=== PATIENT | female | born 1935 | race Caucasian/White ===

== ENCOUNTER → 2018-08-22 | Outpatient (CLI) | payer MEDICARE, OTHER ==
--- NOTE | 2018-08-22 11:23 | Diagnostic Imaging Report ---
INDICATION: Right hip pain Two views of the right hip show no fracture or dislocation. Joint spaces are well-maintained. Articular surface appears smooth. IMPRESSION: Negative right hip Dictated by: Dictated on workstation # [id number]
== END ==
LOC: RAD FS 11:07
PROVIDERS: ATTEND Emergency Medicine
DX: M16.11 Unilateral primary osteoarthritis, right hip (principal)
CPT/HCPCS: 73502

== ENCOUNTER → 2019-09-11 | Outpatient (CLI) | payer MEDICARE, OTHER ==
--- NOTE | 2019-09-11 16:59 | Diagnostic Imaging Report ---
PROCEDURE: CT right upper extremity without contrast. TECHNIQUE: Multiple contiguous axial images were obtained through the right upper extremity without the use of intravenous contrast. Sagittal and coronal reformations were then performed. Auto Exposure Controls were utilized during the CT exam to meet ALARA standards for radiation dose reduction. INDICATION: Focal lump and swelling in the right forearm. COMPARISON: None available. FINDINGS: At the site of palpable concern, there is an ovoid isodense mass located in the subcutaneous tissues measuring approximately 1.3 x 0.3 x 1.3 cm. There are some surrounding skin induration. There is no mass within the anterior or dorsal compartments of the arm by CT. No fracture or osseous erosions. Elbow and wrist are normal in appearance. IMPRESSION: 1. CT confirms the presence of a circumscribed ovoid mass/lesion contained to the subcutaneous tissue in the posterior aspect of proximal forearm. There is some surrounding skin induration. Given patient's history of fall, this most likely represents a hematoma. Therefore, continued follow-up with physical exam is suggested. If this does not resolve in the next 3-4 weeks after appropriate medical management, consider MRI of the forearm without and with IV contrast for further assessment of neoplastic potential. Dictated on workstation # [id number]
== END ==
LOC: RAD 15:55
PROVIDERS: ATTEND Emergency Medicine
DX: R22.31 Localized swelling, mass and lump, right upper limb (principal); M25.551 Pain in right hip; Z91.81 History of falling
CPT/HCPCS: 73200

== ENCOUNTER → 2019-11-03 | Outpatient (CLI) | payer MEDICARE, OTHER ==
--- NOTE | 2019-11-03 15:05 | Diagnostic Imaging Report ---
PROCEDURE: MRI lumbar spine. INDICATION: Low back pain from heavy lifting. TECHNIQUE: Multiplanar and multisequence noncontrast magnetic resonance imagine was performed of the lumbar spine. CORRELATION STUDY: None FINDINGS: 5 mm anterolisthesis of L4 on L5. Trace anterolisthesis of L5 on S1. Alignment otherwise anatomic. Lumbar vertebral body heights are maintained. Probable small hemangioma L2 level on the right. The conus appears unremarkable. L1-L2: Unremarkable. L2-L3: Unremarkable. L3-L4: Disc space height fairly well-maintained. Very minimal broad-based disc bulge slight effacement of the perineural fat. Mild ligamentum hypertrophy. However no significant high degree canal and/or foraminal narrowing. L4-L5: With the spondylolisthesis, does result in broad-based disc bulge. Ligament facet hypertrophy is present with moderate trefoil type spinal canal configuration. AP dimension of the canal is narrowed to approximately 5 mm. Prominent bilateral foraminal narrowing some flattening of the exiting nerve roots. L5-S1: Mild broad-based disc bulge. Slight asymmetric effacement left perineural fat with mild left foraminal narrowing. Right foramina is only mildly narrowed. Spinal canal is maintained. There does appear to be likely rather significant prominence of the bilateral renal pelves right significantly greater than left. Some thinning of the renal parenchyma on the right is suggested, only partially visualized. IMPRESSION: 1. At least moderate severity spinal canal and bilateral foraminal narrowing at the L4-L5 level appears to be owing to a combination of ligamentum facet hypertrophy along with degenerative disc disease broad-based disc bulge and mild spondylolisthesis of L4 on L5. 2. Bilateral foraminal narrowing left greater than right L5-S1 level. 3. There does appear to be prominent bilateral renal pelvis right significantly greater than left which may also contain some hydroureter. Correlation with this patient's renal function status is recommended. If further evaluation desired, ultrasound imaging would be initially recommended. Dictated by: Dictated on workstation # [id number]
== END ==
LOC: RAD 12:08
PROVIDERS: ATTEND Pain Medicine Interventional Pain Medicine
DX: M48.07 Spinal stenosis, lumbosacral region (principal); M51.16 Intervertebral disc disorders with radiculopathy, lumbar region; M43.16 Spondylolisthesis, lumbar region
CPT/HCPCS: 72148

== ENCOUNTER → 2020-04-14 | Outpatient (CLI) | payer MEDICARE, OTHER | LOC: LAB FS 09:56 | PROVIDERS: ATTEND Orthopaedic Surgery Orthopaedic Surgery of the Spine | DX: Z01.812 Encounter for preprocedural laboratory examination (principal); Z20.828 Contact with and (suspected) exposure to other viral communicable diseases | CPT/HCPCS: 87635 ==

== ENCOUNTER 2020-05-16 08:23 | Emergency (ER) | payer MEDICARE, OTHER ==
--- NOTE | 2020-05-16 08:44 | ED General ---
General Chief Complaint: General Problems/Pain Stated Complaint: BACK PAIN Source of Information: Patient, EMS Exam Limitations: No Limitations History of Present Illness Date Seen by Provider: May 16, 2020 Time Seen by Provider: 08:32 Initial Comments Patient is an 85-year-old female who presents to the emergency department today with a chief complaint of low back pain. Patient states that her pain started approximately 2 days ago. Patient states she had pain in the evening and when she woke up yesterday morning she could not hardly get out of bed to use the bathroom. Patient denies any falls or trauma. Patient is status post back surgery on April [address] Ac NUNEZ at [address] She is not had any complications since that time. Patient states that she has been ambulatory and moving around just fine until a couple of days ago. Patient states that she thought she might have been constipated but her last normal bowel movement was yesterday. She has been taking Dulcolax. Patient denies any urinary complaints other than the fact that she cannot get to the bathroom to urinate. No fevers, chills, cough, congestion, shortness of breath. No other complaints of illness or injury. Patient has been taking her hydrocodone 5/325 at home without any relief of symptoms. On further evaluation patient actually indicates her left hip is the source of her pain. All other review of systems reviewed and negative except as stated. Timing/Duration: 1-2 Days Severity: Severe Modifying Factors: worse with Movement Associated Systoms: Denies Symptoms Allergies and Home Medications Allergies Coded Allergies: No Known Drug Allergies (Unverified , 05/16/20) Home Medications Ondansetron 4 Mg Tab.rapdis, 4 MG PO Q8H Prescribed by: LOBO CARIAS on 05/16/20922 Oxycodone HCl/Acetaminophen 1 Each Tablet, 1 TAB PO Q6H PRN for PAIN-MODERATE Prescribed by: LOBO CARIAS on 05/16/20924 Prednisone 50 Mg Tab, 50 MG PO DAILY Prescribed by: LOBO CARIAS on 05/16/20922 Patient Home Medication List Home Medication List Reviewed: Yes Review of Systems Review of Systems Constitutional: see HPI EENTM: no symptoms reported Respiratory: no symptoms reported Cardiovascular: no symptoms reported Gastrointestinal: constipation Genitourinary: no symptoms reported Musculoskeletal: back pain, joint pain (lrft hip) Skin: no symptoms reported Psychiatric/Neurological: No Symptoms Reported All Other Systems Reviewed Negative Unless Noted: Yes Past Wxowtlj-Pvstxb-Yfvtcr Hx Patient Social History Alcohol Use: Denies Use Smoking Status: Never a Smoker 2nd Hand Smoke Exposure: No Recent Hopitalizations: No Seasonal Allergies Seasonal Allergies: No Past Medical History Surgeries: Yes (back ) Hysterectomy, Orthopedic Respiratory: No Cardiac: Yes High Cholesterol Neurological: No Genitourinary: No Gastrointestinal: Yes Gastroesophageal Reflux Musculoskeletal: Yes Osteoporosis, Arthritis Endocrine: Yes Diabetes, Non-Insulin dep HEENT: No Cancer: No Psychosocial: No Integumentary: No Blood Disorders: No Physical Exam Vital Signs Vital Signs - First Documented 05/16/20 08:36 Temp 36.9 Pulse 113 Resp 18 B/P (MAP) 188/79 (115) Pulse Ox 96 Capillary Refill : Height, Weight, BMI Height: '" Weight: lbs. oz. kg; BMI Method: General Appearance: No Apparent Distress, WD/WN Neck: Normal Inspection Respiratory: Lungs Clear, Normal Breath Sounds, No Accessory Muscle Use, No Respiratory Distress Cardiovascular: Regular Rate, Rhythm, Tachycardia Gastrointestinal: Non Tender, Soft Back: Normal Inspection, Other (Well-healed scar in the lower lumbar region. Without erythema without tenderness without swelling.; Good strength and sensation in the lower extremities however dorsiflexion is a little bit weaker 4+ out of 5 on the left foot secondary to pain. Straight leg raise is negative bilaterally -she does have pain in the left buttock with straight leg raise with both legs) Extremity: Normal Capillary Refill, Normal Inspection, No Calf Tenderness, Other (Patient has tenderness over the posterior left hip and buttock in the area of the sciatic nerve on the left, again no erythema, swelling or rashes; ) Neurologic/Psychiatric: Alert, Oriented x3, No Motor/Sensory Deficits, Normal Mood/Affect Progress/Results/Core Measures Suspected Sepsis SIRS Temperature: Pulse: Respiratory Rate: Blood Pressure / Mean: Results/Orders Lab Results Laboratory Tests Test 05/16/20 09:58 Range/Units Urine Color YELLOW Urine Clarity CLEAR Urine pH 7.0 5-9 Urine Specific [place] 1.020 1.016-1.022 Urine Protein 1+ H NEGATIVE Urine Glucose (UA) 1+ H NEGATIVE Urine Ketones 1+ H NEGATIVE Urine Nitrite NEGATIVE NEGATIVE Urine Bilirubin NEGATIVE NEGATIVE Urine Urobilinogen NORMAL < = 1.0 MG/DL Urine Leukocyte Esterase NEGATIVE NEGATIVE Urine RBC (Auto) TRACE-I NEGATIVE Urine RBC 0-2 /HPF Urine WBC NONE /HPF Urine Squamous Epithelial Cells 2-5 /HPF Urine Crystals NONE /LPF Urine Bacteria NEGATIVE /HPF Urine Casts NONE /LPF Urine Mucus NEGATIVE /LPF Urine Culture Indicated NO My Orders Orders - LOBO CARIAS MD Fentanyl Injection (Sublimaze Injection (05/16/20 08:45) Oxycodone/Apap 5/325mg Tablet (Percocet (05/16/20 08:45) Dexamethasone Injection (Decadron Injec (05/16/20 08:45) Ondansetron Oral Dissolve Tab (Zofran (05/16/20 09:16) Ua Culture If Indicated (05/16/20 09:49) Orphenadrine Inj (Ed Only) (Norflex Inje (05/16/20 10:00) Medications Given in ED Current Medications Medications Dose Ordered Sig/Nolan Route Start Time Stop Time Status Last Admin Dose Admin Dexamethasone Sodium Phosphate 4 mg ONCE ONCE IV 05/16/20 08:45 05/16/20 08:46 DC 05/16/20 08:58 4 MG Fentanyl Citrate 50 mcg ONCE ONCE IVP 05/16/20 08:45 05/16/20 08:46 DC 05/16/20 08:55 50 MCG Orphenadrine Citrate 30 mg ONCE ONCE IV 05/16/20 10:00 05/16/20 10:01 DC 05/16/20 10:12 30 MG Oxycodone/ Acetaminophen 1 tab ONCE ONCE PO 05/16/20 08:45 05/16/20 08:46 DC 05/16/20 08:56 1 TAB Vital Signs/I&O 05/16/20 08:36 Temp 36.9 Pulse 113 Resp 18 B/P (MAP) 188/79 (115) Pulse Ox 96 Capillary Refill : Progress Note : Time: 09:16 Progress Note Nurse spoke with the patient's son and he is concerned about the patient's lack of appetite postop. Patient reportedly has not been eating very much since her surgery. She also gets nauseated secondary to her pain medications which makes her not want to eat. It sounds like a vicious cycle and an adverse reaction to the hydrocodone that she has been taking at home. Since I am going to change her over to Percocet I will advised the patient to take stool softeners daily in addition to her Dulcolax. I am also going to give her a prescription for Zofran. I will have her follow-up with her primary care physician as well as Dr. NUNEZ. I am also going to put her on a short course of steroids for the sciatica in her left hip. Patient is comfortable with this plan of care. All questions are sought and answered. Patient is stable for discharge when she has achieved adequate pain relief. 1037 Reevaluated patient her heart rate is down to 97. Patient's blood pressure is 166/75. She is feeling better her tremors have resolved completely. She states she still has a little bit of discomfort in her left hip however the muscle relaxer has made her feel better. We will add this medication to her cocktail of prescriptions that I have sent to [facility] pharmacy. The patient is comfortable with the plan of discharge and ready to go home. Departure Impression Primary Impression: Sciatica of left side Disposition: 01 HOME, SELF-CARE Condition: Stable Departure-Patient Inst. Decision time for Depature: 09:18 Referrals: AC NUNEZ MD, RICKY D DO (PCP/Family) Primary Care Physician Patient Instructions: Sciatica (DC), Sciatica Exercises Add. Discharge Instructions: Take the pain medications I have prescribed you every 6-8 hours as needed for pain. This pain medication can make you sleepy as well as constipated. Please take a daily stool softener such as Colace. I have also given you a prescription for nausea medications. You can take this medication every 8 hours as needed for nausea. You will also be on steroids for the next 5 days. Take this medication once daily with food. I have also added Flexeril 5 mg tablets. You can take 1 every 8 hours as needed for muscle spasm. Please keep in mind that the combination of the pain medications and the muscle relaxer can make you sleepy. Use caution when taking these medications. Please try and keep up the good nutrition habits. Drink your "boost" daily. Please keep your follow-up appointment with Dr. NUNEZ and please call your primary care physician for further management of your hip pain. Scripts Cyclobenzaprine HCl (Cyclobenzaprine HCl) 5 Mg Tablet 5 MG PO Q8H PRN for muscle spasm, #15 TAB Prov: LOBO CARIAS MD 05/16/20 Oxycodone HCl/Acetaminophen (Percocet 5-325 mg Tablet) 1 Each Tablet 1 TAB PO Q6H PRN for PAIN-MODERATE MDD 6, #15 TAB Prov: LOBO CARIAS MD 05/16/20 Ondansetron (Ondansetron Odt) 4 Mg Tab.rapdis 4 MG PO Q8H for nausea, #20 TAB Prov: LOBO CARIAS MD 05/16/20 Prednisone (Prednisone) 50 Mg Tab 50 MG PO DAILY for 5 Days, #5 TAB Prov: LOBO CARIAS MD 05/16/20 LOBO CARIAS MD May 16, 2020 08:44
[2020-05-16] MEDS ORDERED: oxyCODONE/APAP 5/325MG (PERCOCET 5) TABLET PO ONE (08:45)
[2020-05-16] MEDS ORDERED: fentaNYL INJECTION 100 MCG/2 ML AMP IVP ONE (08:45)
[2020-05-16] MEDS ORDERED: ONDANSETRON 4 MG (ZOFRAN) ORAL DISSOLVE TAB PO STA (09:16)
[2020-05-16] MEDS ORDERED: ONDA4TAB11 PO (09:23)
[2020-05-16] MEDS ORDERED: PRD50T PO (09:23)
[2020-05-16] MEDS ORDERED: OXYC-199 PO (09:24)
[2020-05-16] MEDS ORDERED: ORPHENADRINE 60 MG/2 ML (NORFLEX) AMP (ED ONLY) IV ONE (10:00)
[2020-05-16 10:20] LABS: CLARITY,URINE CLEAR; COLOR,URINE YELLOW; GLUCOSE, URINE (UA) 1+ (NEGATIVE); PROTEIN,URINE 1+ (NEGATIVE)
[2020-05-16 10:21] LABS: BACTERIA,URINE NEGATIVE /HPF; BILIRUBIN,URINE NEGATIVE (NEGATIVE); KETONES,URINE 1+ (NEGATIVE); LEUKOCYTE ESTERASE ,URINE NEGATIVE (NEGATIVE); NITRITE,URINE NEGATIVE (NEGATIVE); RBC,URINE 0-2 /HPF
[2020-05-16] MEDS ORDERED: CYCL5TAB PO (10:39)
[2020-05-16 11:06] VITALS: BP 180/77
== END 2020-05-16 11:06 | disposition home or self-care (01) ==
LOC: EDUNIT# 08:23 → ER FS 08:24
DX: M54.42 Lumbago with sciatica, left side (principal); Z79.52 Long term (current) use of systemic steroids
CPT/HCPCS: 81000; 99283

== ENCOUNTER 2020-05-27 09:23 | Emergency (ER) | payer MEDICARE, OTHER ==
[~2020-05-27] VITALS: Ht 167.7 cm; Wt 56.2 kg
[~2020-05-27 09:23] MED LIST: CYCL5TAB PO; ONDA4TAB11 PO; OXYC-199 PO; PRD50T PO
--- NOTE | 2020-05-27 09:28 | ED Back Pain ---
General Chief Complaint: Back Problems Stated Complaint: BACK PAIN Source of Information: Patient History of Present Illness Date Seen by Provider: May 27, 2020 Time Seen by Provider: 09:28 Initial Comments 85-year-old female presents with left leg pain. Patient reports has been going on for about a week. However chart review shows that she was seen on 05/16/2020 and had been going on for a couple days at that time. Patient reports she had back surgery on 04/19/2020 and was doing well up until the pain that started on 05/14/2020 according to that note. Patient complains of some decreased appetite since the surgery along with some nausea. The nausea seems to be associated with her pain medication. She has no acute injury or changes since her previous visit. She presents today due to the pain. She denies any fevers, diarrhea, chills, cough, shortness of breath or other systemic complaints. Patient states she was seen by her primary care provider 2 days ago and given pain medication but "that it just does not help" Allergies and Home Medications Allergies Coded Allergies: No Known Drug Allergies (Unverified , 05/16/20) Home Medications Cyclobenzaprine HCl 5 Mg Tablet, 5 MG PO Q8H PRN for muscle spasm Prescribed by: LOBO CARIAS on 05/16/20 1039 Ondansetron 4 Mg Tab.rapdis, 4 MG PO Q8H Prescribed by: LOBO CARIAS on 05/16/20 09 Oxycodone HCl/Acetaminophen 1 Each Tablet, 1 TAB PO Q6H PRN for PAIN-MODERATE Prescribed by: LOBO CARIAS on 05/16/20 09 Prednisone 50 Mg Tab, 50 MG PO DAILY Prescribed by: LOBO CARIAS on 05/16/20 09 Patient Home Medication List Home Medication List Reviewed: Yes Review of Systems Constitutional: No chills, No fever Respiratory: No cough, No short of breath Cardiovascular: No chest pain, No palpitations Gastrointestinal: No abdominal pain, No diarrhea; nausea; No vomiting Musculoskeletal: see HPI Skin: no symptoms reported Psychiatric/Neurological: No Symptoms Reported Past Mclgykw-Wzgzlk-Kvmvve Hx Past Med/Social Hx: Reviewed Nursing Past Med/Soc Hx Patient Social History 2nd Hand Smoke Exposure: No Recent Hopitalizations: No Seasonal Allergies Seasonal Allergies: No Past Medical History Surgeries: Yes (back ) Hysterectomy, Orthopedic Respiratory: No Cardiac: Yes High Cholesterol Neurological: No Genitourinary: No Gastrointestinal: Yes Gastroesophageal Reflux Musculoskeletal: Yes Osteoporosis, Arthritis Endocrine: Yes Diabetes, Non-Insulin dep HEENT: No Cancer: No Psychosocial: No Integumentary: No Blood Disorders: No Physical Exam Vital Signs Vital Signs - First Documented 05/27/20 09:25 Temp 36.7 Pulse 100 Resp 18 B/P (MAP) 194/86 (122) Pulse Ox 97 O2 Delivery Room Air Capillary Refill : Height, Weight, BMI Height: '" Weight: lbs. oz. kg; BMI Method: General Appearance: No Apparent Distress Cardiovascular: Regular Rate, Rhythm, No Edema Respiratory: Lungs Clear, Normal Breath Sounds, No Accessory Muscle Use Gastrointestinal: Non Tender, Soft Back: No CVA Tenderness; No Decreased Range of Motion Extremity: Normal Capillary Refill, Other (Mild tenderness to left hip) Neurologic/Psychiatric: Alert, Oriented x3, Normal Mood/Affect, commercial artist lettering II-XII Norm as Tested Skin: Normal Color, Warm/Dry Progress/Results/Core Measures Results/Orders Lab Results Laboratory Tests Test 05/27/20 09:30 05/27/20 10:27 Range/Units White Blood Count 10.4 4.3-11.0 10^3/uL Red Blood Count 4.27 L 4.35-5.85 10^6/uL Hemoglobin 12.3 11.5-16.0 G/DL Hematocrit 38 35-52 % Mean Corpuscular Volume 89 80-99 FL Mean Corpuscular Hemoglobin 29 25-34 PG Mean Corpuscular Hemoglobin Concent 33 32-36 G/DL Red Cell Distribution Width 13.0 10.0-14.5 % Platelet Count 385 130-400 10^3/uL Mean Platelet Volume 9.2 7.4-10.4 FL Immature Granulocyte % (Auto) 1 % Neutrophils (%) (Auto) 77 H 42-75 % Lymphocytes (%) (Auto) 14 12-44 % Monocytes (%) (Auto) 8 0-12 % Eosinophils (%) (Auto) 1 0-10 % Basophils (%) (Auto) 0 0-10 % Neutrophils # (Auto) 8.0 H 1.8-7.8 X 10^3 Lymphocytes # (Auto) 1.4 1.0-4.0 X 10^3 Monocytes # (Auto) 0.8 0.0-1.0 X 10^3 Eosinophils # (Auto) 0.1 0.0-0.3 10^3/uL Basophils # (Auto) 0.0 0.0-0.1 10^3/uL Immature Granulocyte # (Auto) 0.1 0.0-0.1 10^3/uL Sodium Level 136 135-145 MMOL/L Potassium Level 4.4 3.6-5.0 MMOL/L Chloride Level 99 98-107 MMOL/L Carbon Dioxide Level 25 21-32 MMOL/L Anion Gap 12 5-14 MMOL/L Blood Urea Nitrogen 16 7-18 MG/DL Creatinine 0.74 0.60-1.30 MG/DL Estimat Glomerular Filtration Rate > 60 BUN/Creatinine Ratio 22 Glucose Level 140 H 70-105 MG/DL Calcium Level 9.2 8.5-10.1 MG/DL Corrected Calcium 9.3 8.5-10.1 MG/DL Total Bilirubin 0.4 0.1-1.0 MG/DL Aspartate Amino Transf (AST/SGOT) 16 5-34 U/L Alanine Aminotransferase (ALT/SGPT) 20 0-55 U/L Alkaline Phosphatase 92 40-136 U/L C-Reactive Protein 0.11 <0.50 MG/DL Total Protein 7.0 6.4-8.2 GM/DL Albumin 3.9 3.2-4.5 GM/DL Urine Color YELLOW Urine Clarity CLEAR Urine pH 6.5 5-9 Urine Specific [place] 1.020 1.016-1.022 Urine Protein NEGATIVE NEGATIVE Urine Glucose (UA) NEGATIVE NEGATIVE Urine Ketones NEGATIVE NEGATIVE Urine Nitrite NEGATIVE NEGATIVE Urine Bilirubin NEGATIVE NEGATIVE Urine Urobilinogen 0.2 < = 1.0 MG/DL Urine Leukocyte Esterase 1+ H NEGATIVE Urine RBC (Auto) NEGATIVE NEGATIVE Urine RBC 0-2 /HPF Urine WBC 10-25 H /HPF Urine Squamous Epithelial Cells 25-50 H /HPF Urine Crystals NONE /LPF Urine Bacteria TRACE /HPF Urine Casts NONE /LPF Urine Mucus NEGATIVE /LPF Urine Culture Indicated YES My Orders Orders - WINSTON,MANPREET L DO Cbc With Automated Diff (05/27/20 09:30) Comprehensive Metabolic Panel (05/27/20 09:30) Ua Culture If Indicated (05/27/20 09:30) Crp Fs (05/27/20 09:30) Hip 2-3 View Left (05/27/20 09:30) Ondansetron Injection (Zofran Injectio (05/27/20 09:30) Lactated Ringers (Lr 1000 Ml Iv Solution (05/27/20 09:30) Ketorolac Injection (Toradol Injection) (05/27/20 09:30) Orphenadrine Inj (Ed Only) (Norflex Inje (05/27/20 09:30) Orphenadrine Inj (Ed Only) (Norflex Inje (05/27/20 09:45) Urine Culture (05/27/20 10:27) Ketamine Syringe (Ed Only) (Ketamine Syr (05/27/20 11:00) Ns (Ivpb) (Sodium Chloride 0.9% Ivpb Bag (05/27/20 10:54) Medications Given in ED Current Medications Medications Dose Ordered Sig/Nolan Route Start Time Stop Time Status Last Admin Dose Admin Ondansetron HCl 4 mg ONCE ONCE IVP 05/27/20 09:30 05/27/20 09:33 DC 05/27/20 09:38 4 MG Orphenadrine Citrate 60 mg ONCE ONCE IV 05/27/20 09:45 05/27/20 09:46 DC 05/27/20 09:46 60 MG Vital Signs/I&O 05/27/20 09:25 Temp 36.7 Pulse 100 Resp 18 B/P (MAP) 194/86 (122) Pulse Ox 97 O2 Delivery Room Air Progress Progress Note : Time: 11:03 Progress Note Patient with no acute findings on CBC, CMP or x-ray. Patient's left hip pain has been going on for at least 2 to 3 weeks. Patient was seen by her primary care provider 2 days ago and given pain medication. Her and her son report that however it was only for 5 days. I discussed with him that the emergency room does not manage chronic pain or provide anything stronger than what was given to her by her primary care provider. She does have an appointment 3 days from now with orthopedic surgeons in [place]. I will give her ketamine infusion to help with the pain and she should continue her current pain medication as prescribed by her primary care provider. Patient stable and discharged home Diagnostic Imaging Diagonstic Imaging: Xray Plain Films/CT/US/NM/MRI: hip Comments [facility] [place], [place] NAME: SELVIN VILLAR [facility] REC#: [id number] PT STATUS: REG ER : 1935 PHYSICIAN: MANPREET WINSTON DO ADMIT DATE: 05/27/20/ER FS Draft Date of Exam:05/27/20 HIP 2-3 VIEW LEFT INDICATION: Left hip pain. History of recent back surgery. TECHNIQUE: 2 views of the left hip. CORRELATION STUDY: None FINDINGS: Mild joint space narrowing is present. The femoral head acetabular shape is otherwise maintained and unremarkable. Bony trabecular pattern is intact. IMPRESSION: 1. Negative for acute bony abnormality of the left hip. Mild degenerative change. Dictated on workstation # [id number] Dict: 05/27/20 1000 Trans: 05/27/20 1002 CV [id number] Interpreted by: DARNELL RIOS DO Electronically signed by: Reviewed: Reviewed by Me, Reviewed/Discussed Departure Impression Primary Impression: Left hip pain Disposition: 01 HOME, SELF-CARE Condition: Stable Departure-Patient Inst. Referrals: ELIU JUSTIN DO (PCP/Family) Primary Care Physician Patient Instructions: Hip Pain in Older People, MANAGING YOUR CHRONIC PAIN Add. Discharge Instructions: Keep your appointments with your primary care provider and orthopedic surgeon Emergency department focuses on treating and ruling out life-threatening diseases. Whenever possible, a diagnosis is given. However, most patients are given an impression based on their history, physical exam, and workup during your brief time in the ER. Information about probable diagnosis and other educational material has been provided. Please take the time to read and understand this information. It is very important that you follow up with a physician as discussed during the visit today. Failure to adhere to your follow-up instructions may lead to severe disability, injury, or so please make sure to keep your appointments or obtain one as requested. Please keep in mind the emergency department is not designed to your primary care or "family doctor" and nonurgent issues are best evaluated by an outpatient physician All discharge instructions reviewed with patient and/or family. Voiced understanding. MANPREET WINSTON DO May 27, 2020 09:28
[2020-05-27] MEDS ORDERED: LACTATED RINGERS 1,000 ML IV STA (09:30)
[2020-05-27] MEDS ORDERED: ONDANSETRON 4 MG/2 ML (SDV) Z0FRAN IVP ONE (09:30)
[2020-05-27] MEDS ORDERED: KETOROLAC 30 MG/ML VIAL IVP STA (09:30)
[2020-05-27] MEDS ORDERED: ORPHENADRINE 60 MG/2 ML (NORFLEX) AMP (ED ONLY) IM STA (09:30)
[2020-05-27] MEDS ORDERED: ORPHENADRINE 60 MG/2 ML (NORFLEX) AMP (ED ONLY) IV ONE (09:45)
--- NOTE | 2020-05-27 10:02 | Diagnostic Imaging Report ---
INDICATION: Left hip pain. History of recent back surgery. TECHNIQUE: 2 views of the left hip. CORRELATION STUDY: None FINDINGS: Mild joint space narrowing is present. The femoral head acetabular shape is otherwise maintained and unremarkable. Bony trabecular pattern is intact. IMPRESSION: 1. Negative for acute bony abnormality of the left hip. Mild degenerative change. Dictated by: Dictated on workstation # [id number]
[2020-05-27 10:23] LABS: WHITE BLOOD COUNT 10.4 10^3/uL (4.3-11.0)
[2020-05-27 10:24] LABS: BASOPHILS % (AUTO) 0 % (0-10); EOSINOPHILS # (AUTO) 0.1 10^3/uL (0.0-0.3); EOSINOPHILS % (AUTO) 1 % (0-10); HEMATOCRIT 38 % (35-52); HEMOGLOBIN 12.3 G/DL (11.5-16.0); LYMPHOCYTES # (AUTO) 1.4 X 10^3 (1.0-4.0); LYMPHOCYTES % (AUTO) 14 % (12-44); MEAN CORPUSCULAR HEMOGLOBIN 29 PG (25-34); MEAN CORPUSCULAR HGB CONC 33 G/DL (32-36); MEAN CORPUSCULAR VOLUME 89 FL (80-99); MEAN PLATELET VOLUME 9.2 FL (7.4-10.4); MONOCYTES # (AUTO) 0.8 X 10^3 (0.0-1.0); MONOCYTES % (AUTO) 8 % (0-12); NEUTROPHILS % (AUTO) 77 % (42-75); PLATELET COUNT 385 10^3/uL (130-400)
[2020-05-27 10:40] LABS: ALANINE AMINOTRANSFERASE 20 U/L (0-55); ALKALINE PHOSPHATASE 92 U/L (40-136); BILIRUBIN,TOTAL 0.4 MG/DL (0.1-1.0); BUN/CREATININE RATIO 22; CALCIUM 9.2 MG/DL (8.5-10.1); CARBON DIOXIDE 25 MMOL/L (21-32); CHLORIDE 99 MMOL/L (98-107); CREATININE SERUM 0.74 MG/DL (0.60-1.30); GFR ESTIMATED > 60; GLUCOSE 140 MG/DL (70-105); POTASSIUM 4.4 MMOL/L (3.6-5.0); SODIUM 136 MMOL/L (135-145)
[2020-05-27 10:41] LABS: BILIRUBIN,URINE NEGATIVE (NEGATIVE); CLARITY,URINE CLEAR; COLOR,URINE YELLOW; GLUCOSE, URINE (UA) NEGATIVE (NEGATIVE); KETONES,URINE NEGATIVE (NEGATIVE); LEUKOCYTE ESTERASE ,URINE 1+ (NEGATIVE); NITRITE,URINE NEGATIVE (NEGATIVE); PH,URINE 6.5 (5-9); PROTEIN,URINE NEGATIVE (NEGATIVE)
[2020-05-27 10:41] LABS: ALBUMIN 3.9 GM/DL (3.2-4.5)
[2020-05-27 10:42] LABS: BACTERIA,URINE TRACE /HPF; RBC,URINE 0-2 /HPF; SQUAMOUS EPITHELIAL CELL,UR 25-50 /HPF
[2020-05-27] MEDS ORDERED: NS (IVPB) 100 ML ONE (10:54)
[2020-05-27] MEDS ORDERED: KETAMINE/NaCl 50 MG/5 ML SYRINGE (ED ONLY) IV ONE (11:00)
[2020-05-27 12:00] VITALS: BP 203/83
== END 2020-05-27 12:00 | disposition home or self-care (01) ==
LOC: EDUNIT# 09:23 → ER FS 09:25
DX: M25.552 Pain in left hip (principal); Z79.52 Long term (current) use of systemic steroids
CPT/HCPCS: 36415; 73502; 80053; 81000; 85025; 86141; 87077; 87088

== ENCOUNTER → 2020-06-07 | Outpatient (CLI) | payer MEDICARE, OTHER ==
[~2020-06-07] MED LIST changes: +ACHD5005 PO; +APIX5TAB PO; +CALC1CAP20 PO; +CHOL200074 PO; +DULO30CA49 PO; +GABA-486 PO; +IBAN150T21 PO; +METF-397 PO; +NF-ESOM40C PO; +OXYC1TAB11 PO; +OXYC5TAB PO; +SIMV10TA26 PO
[2020-06-07 17:10] LABS: WHITE BLOOD COUNT 9.6 10^3/uL (4.3-11.0)
[2020-06-07 17:11] LABS: BASOPHILS % (AUTO) 0 % (0-10); EOSINOPHILS # (AUTO) 0.1 10^3/uL (0.0-0.3); EOSINOPHILS % (AUTO) 1 % (0-10); HEMATOCRIT 39 % (35-52); HEMOGLOBIN 12.3 G/DL (11.5-16.0); LYMPHOCYTES # (AUTO) 1.8 X 10^3 (1.0-4.0); LYMPHOCYTES % (AUTO) 19 % (12-44); MEAN CORPUSCULAR HEMOGLOBIN 29 PG (25-34); MEAN CORPUSCULAR HGB CONC 32 G/DL (32-36); MEAN CORPUSCULAR VOLUME 91 FL (80-99); MEAN PLATELET VOLUME 9.2 FL (7.4-10.4); MONOCYTES # (AUTO) 0.8 X 10^3 (0.0-1.0); MONOCYTES % (AUTO) 9 % (0-12); NEUTROPHILS # (AUTO) 6.7 X 10^3 (1.8-7.8); NEUTROPHILS % (AUTO) 71 % (42-75); PLATELET COUNT 295 10^3/uL (130-400)
[2020-06-07 17:28] LABS: ERYTHROCYTE SEDIMENTATION RATE 13 MM/HR (0-30)
[2020-06-07 17:29] LABS: ALANINE AMINOTRANSFERASE 28 U/L (0-55); ALBUMIN 4.2 GM/DL (3.2-4.5); ALKALINE PHOSPHATASE 80 U/L (40-136); BILIRUBIN,TOTAL 0.4 MG/DL (0.1-1.0); BUN/CREATININE RATIO 31; CALCIUM 9.6 MG/DL (8.5-10.1); CARBON DIOXIDE 26 MMOL/L (21-32); CHLORIDE 103 MMOL/L (98-107); GFR ESTIMATED > 60; GLUCOSE 138 MG/DL (70-105); POTASSIUM 4.6 MMOL/L (3.6-5.0); SODIUM 140 MMOL/L (135-145); TOTAL PROTEIN 7.3 GM/DL (6.4-8.2)
== END ==
LOC: LAB FS 16:30
PROVIDERS: ATTEND Orthopaedic Surgery Orthopaedic Surgery of the Spine
DX: Z01.812 Encounter for preprocedural laboratory examination (principal); Z20.822 Contact with and (suspected) exposure to COVID-19; Z86.718 Personal history of other venous thrombosis and embolism
CPT/HCPCS: 36415; 80053; 85025; 85610; 85652; 86141; U0002; 87635

== ENCOUNTER 2020-06-17 14:40 | Inpatient (IN) | payer MEDICARE, OTHER ==
[~2020-06-17] VITALS: Ht 165.1 cm; Wt 55.0 kg
[~2020-06-17 14:40] MED LIST changes: -OXYC1TAB11 PO
[2020-06-17] MEDS ORDERED: FLEET ENEMA ADULT 1 EA BTL PR PRN (15:15)
[2020-06-17] MEDS ORDERED: ENOXAPARIN 40 MG/0.4 ML (LOVENOX) SYR SC SCH (15:15)
[2020-06-17] MEDS ORDERED: DOCUSATE SODIUM 100 MG (COLACE) CAP PO PRN (15:15)
[2020-06-17] MEDS ORDERED: ACETAMINOPHEN 500 MG TAB (TYLENOL) PO PRN (15:15)
[2020-06-17] MEDS ORDERED: BISACODYL 10 MG SUPP (DULCOLAX) PR PRN (15:15)
[2020-06-17] MEDS ORDERED: guaiFENesin/CODEINE (ROBITUSSIN AC) 10ML UDC PO PRN (15:15)
[2020-06-17] MEDS ORDERED: IBANDRONATE SODIUM 150 MG PO SCH (15:15)
[2020-06-17] MEDS ORDERED: CALCIUM CARBONATE 500 MG (TUMS) TAB.CHEW PO PRN (15:15)
[2020-06-17] MEDS ORDERED: MELATONIN 3 MG TABLET PO PRN (15:15)
[2020-06-17] MEDS ORDERED: LACTULOSE SYRUP 10GM/15ML (ENULOSE) 30ML UDC PO PRN (15:15)
[2020-06-17] MEDS ORDERED: diphenhydrAMINE 25 MG TAB (BENADRYL) PO PRN (15:15)
[2020-06-17] MEDS ORDERED: ALPRAZolam 0.25 MG (XANAX) TAB PO PRN (15:15)
[2020-06-17] MEDS ORDERED: LOPERAMIDE 2 MG (IMODIUM) TABLET PO PRN (15:15)
[2020-06-17] MEDS ORDERED: ACETAMINOPHEN 325 MG TABLET PO PRN (15:45)
[2020-06-17] MEDS: ONDANSETRON 4 MG (ZOFRAN) ORAL DISSOLVE TAB PO PRN (15:48)
[2020-06-17] MEDS: HYDROcodone/APAP 5 MG/325 MG (LORTAB) TAB PO PRN (15:49)
--- NOTE | 2020-06-17 16:21 | Physical Therapy Evaluation ---
PT Evaluation-General Medical Diagnosis Admission Date Jun 17, 2020 at 14:40 Medical Diagnosis: L5-S1 TLIF Onset Date: Jun 13, 2020 Therapy Diagnosis Therapy Diagnosis: impaired mobility, strength, endurance Precautions Precautions/Isolations: Fall Prevention, Standard Precautions Referral Physician: Monique Lua DO Reason for Referral: Evaluation/Treatment Medical History Reviewed History: Yes Social History Home: Single Level Current Living Status: Entry Into Home: Stairs With Railing PT Steps Into Home: 5 Patient lives with her son. Prior Prior Level of Function SCALE: Activities may be completed with or without assistive devices. 4-Usqpppikkv-aqxfazz completes the activity by him/herself with no assistance from a helper. 5-Set-up or Clean-up Assistance-helper sets up or cleans up; patient completes activity. [place] assists only prior to or following the activity. 4-Supervision or Touching Assistance-helper provides verbal cues and/or touching/steadying and/or contact guard assistance as patient completes activ ity. Assistance may be provided throughout the activity or intermittently. 3-Partial/Moderate Assistance-helper does LESS THAN HALF the effort. [place] lifts, holds or supports trunk or limbs, but provides less than half the effort. 2-Substantial/Maximal Assistance-helper does MORE THAN HALF the effort. [place] lifts or holds trunk or limbs and provides more than half the effort. 2-Xjsbydana-esongi does ALL the effort. Patient does none of the effort to complete the activity. Or, the assistance of 2 or more helpers is required for the patient to complete the activity. If activity was not attempted, code reason: 7-Patient Refused. 9-Not Applicable-not attempted and the patient did not perform the activity before the current illness, exacerbation or injury. 10-Not Attempted due to Environmental Limitations-(lack of equipment, weather restraints, etc.). 88-Not Attempted due to Medical Conditions or Safety Concerns. Bed Mobility: 6 Transfers (B,C,W/C): 6 Gait: 6 Stairs: 6 Indoor Mobility (Ambulation): Independent Stairs: Independent PT Evaluation-Current Subjective Patient in family transport, agrees to PT, has 7/10 back pain. Will be co- treating with OT due to poor patient mobility, strength, endurance, severe pain with activity, coordinate UE and LE during activity, safety and reduce risk of falls Pt/Family Goals to be independent at home Objective Patient Orientation: Person, Place, Situation back brace ROM/Strength ROM Lower Extremities WNL Strength Lower Extremities LLE (hip flexion 3/5, knee flexion 4/5, knee extension 4/5, dorsiflexion 3/5), RLE (hip flexion 3/5, knee flexion 4+/5, knee extension 4+/5, dorsiflexion 4+/5) Sensory Hearing: Functional Sensation Right Lower Extremit: Intact Sensation Left Lower Extremity: Intact Transfers Roll Left & Right (QC): 4 Sit to Lying (QC): 3 Lying to Sitting/Side of Bed(Q: 3 Sit to Stand (QC): 4 Chair/Gid-rz-Gwhkx Xfer(QC): 4 Toilet Transfer (QC): 4 Car Transfer (QC): 4 Patient performs bed mobility with SBA, supine <-> sit min assist, sit <-> stand and transfers with CGA, car transfer CGA. Patient needs cues for hand placement and positioning and back precautions. Gait Mode of Locomotion: Walk Anticipated Mode of Locomotion: Walk Walk 10 feet (QC): 4 Walk 50 ft with 2 Turns(QC): 4 Walk 150 ft (QC): 4 Walking 10ft/uneven surface-QC: 4 Distance: 120'x2, 150'x2 Gait Assistive Device: FWW Comments/Gait Description Patient can ambulate 150' with a rolling walker with CGA (including 50' with at least 2 turns of 90 degrees and 10' over an uneven surface). Patient ambulates slow but steady, has a kyphotic posture. Patient has a trendelenburg gait and lacks full knee extension. Wheelchair Training Does the Pt Use a Wheelchair?: No Wheel 50 ft with 2 turns (QC): 9 Wheel 150 ft (QC): 9 Stairs #of Steps: 1 1 Step (curb) (QC): 4 4 Steps (QC): 88 12 Steps (QC): 88 Walking Assistive Device: Walker Patient can go up and down 1 step using a rolling walker with CGA, cues for foot placement Balance Sitting Static: Normal Sitting Dynamic: Normal Standing Static: Good Standing Dynamic: Good Picking up an Object (QC): 88 Treatment bathing and dressing. PT performed bed mobility and transfer training, gait training, stairs, assisted with balance and standing and transfers during bat reggie and dressing, OT performed bathing and dressing and UE positioning and safety during activity. Assessment/Needs Patient has impaired mobility, strength, endurance. She has to wear a back brace when out of bed. Patient ambulates with CGA. Patient in recliner post tx with nurse call, phone, tray, all needs met. Rehab Potential: Fair PT Short Term Goals Short Term Goals Time Frame: Jun 24, 2020 Roll Left & Right: 6 Sit to lyin Lying to sitting on side of be: 4 Sit to stand: 5 Chair/wlm-bs-efatg transfer: 5 Walk 10 feet: 5 Walk 50 feet with two turns: 5 Walk 150 feet: 5 PT Fdc Goals Fdc Goals PT Fdc Goals Time Frame: Jul 08, 2020 Roll Left & Right (QC): 6 Sit to Lying (QC): 6 Lying-Sitting on Side/Bed(QC): 6 Sit to Stand (QC): 6 Chair/Rkz-dc-Eniju Xfer(QC): 6 Toilet Transfer (QC): 6 Car Transfer (QC): 6 Does the Patient Walk: Yes Walk 10 feet (QC): 6 Walk 50ft with 2 Turns (QC): 6 Walk 150 ft (QC): 6 Walking 10ft on Uneven Surface: 6 1 Step (curb) (QC): 4 4 Steps (QC): 4 12 Steps (QC): 88 Picking up an Object (QC): 88 Wheel 50 feet with 2 turns (QC: 9 Wheel 150 feet: 9 PT Plan Problem List Problem List: Activity Tolerance, Functional Strength, Safety, Balance, Gait, Transfer, Bed Mobility, ROM Treatment/Plan Treatment Plan: Continue Plan of Care Treatment Plan: Bed Mobility, Education, Functional Activity [place], Functional Strength, Group Therapy, Gait, Safety, Therapeutic Exercise, Transfers Treatment Duration: Jul 08, 2020 Frequency: At least 5 of 7 days/Wk (IRF) Estimated Hrs Per Day: 1.5 hours per day Patient and/or Family Agrees t: Yes Safety Risks/Education Patient Education: Gait Training, Transfer Techniques, Steps, Correct Positioning, Safety Issues Teaching Recipient: Patient Teaching Methods: Demonstration, Discussion Response to Teaching: Reinforcement Needed Discharge Recommendations Plan Patient will perform bed mobility and transfer training, balance and endurance training, functional strengthening, stair training, gait training, and education, to improve functional mobility and independence at home. Therapy Discharge Recommendati: Scheduled Assistance, Home & Family Time/GCodes Time In: 1450 Time Out: 1620 Total Billed Treatment Time: 90 Total Billed Treatment 1 visit EVM 10' FA 80' PT eval from 0103-1812, co-treat from [id number]. STEVIE ESCOBAR PT Jun 17, 2020 16:21
--- NOTE | 2020-06-17 16:25 | Occupational Therapy Eval ---
OT Evaluation-General/PLF Medical Diagnosis Admission Date Jun 17, 2020 at 14:40 Medical Diagnosis: L5-S1 TLIF Onset Date: Jun 13, 2020 Therapy Diagnosis Therapy Diagnosis: Decreased ADL status; back precautions Precautions Precautions/Isolations: Fall Prevention, Standard Precautions Weight Bear Status Weight Bearing Restriction: Weight Bearing/Tolerated Referral Physician: Chanell Referral Reason: Activity Tolerance, Self Care, Evaluation/Treatment, Strengthening/ROM Medical History Pertinent Medical History: DM, OA Additional Medical History DM, DVT, HLD, osteoporosis Current History Pt underwent L4-5 lumbar fusion Apr 19, 06/13 completed L5-Si TLIF/ PSF with hardware revision to pelvis. Small acute PE both lobes with DVT in one leg. Reviewed History: Yes Social History Home: Single Level Current Living Status: Children (son, Adrien) Entry Into Home: Stairs With Railing Steps Into Home: 5 Steps Inside Home: 0 ADL-Prior Level of Function SCALE: Activities may be completed with or without assistive devices. 6-Jmbsyacpgc-kbkxfvv completes the activity by him/herself with no assistance from a helper. 5-Set-up or Clean-up Assistance-helper sets up or cleans up; patient completes activity. [place] assists only prior to or following the activity. 4-Supervision or Touching Assistance-helper provides verbal cues and/or touching/steadying and/or contact guard assistance as patient completes activity. Assistance may be provided throughout the activity or intermittently. 3-Partial/Moderate Assistance-helper does LESS THAN HALF the effort. [place] lifts, holds or supports trunk or limbs, but provides less than half the effort. 2-Substantial/Maximal Assistance-helper does MORE THAN HALF the effort. [place] lifts or holds trunk or limbs and provides more than half the effort. 6-Igpihsgdq-aioxgy does ALL the effort. Patient does none of the effort to complete the activity. Or, the assistance of 2 or more helpers is required for the patient to complete the activity. If activity was not attempted, code reason: 7-Patient Refused. 9-Not Applicable-not attempted and the patient did not perform the activity before the current illness, exacerbation or injury. 10-Not Attempted due to Environmental Limitations-(lack of equipment, weather restraints, etc.). 88-Not Attempted due to Medical Conditions or Safety Concerns. ADL PLOF Comments Pt states IND with ADLs PLOF without AD. Post L4-5 lumbar fusion, pt ambulated with rollator and continued IND with ADLs. Pt's son completes housework and cooking/ driving. Self Care: Independent Functional Cognition: Independent DME/Equipment: Bath Bench, Shower DME/Equipment Comments rollator, tub bench, walk in shower. Unfamiliar with hip kit, does not own at home. Occupation: retired. Drive Self: No OT Current Status Subjective Pt brought to [facility] by private vehicle. Pt completes car transfer with CGA. AxO, states 10/29 pain. Nursing notified of this. [id number] OT evaluation [id number] PT evaluation [id number] (80) OT/ PT co-treat with OT addressing UE strength, ADL status, back precautions, AE and PT addressing LE strength, ambulation, balance, fx transfers. Mental Status/Objective Patient Orientation: Person, Place, Situation, Normal For Age Current Glasses/Contacts: Yes Hearing Aids: No Dentures/Partials: Yes Hand Dominance: Right Upper Extremity ROM WLF BUE Upper Extremity Coordination WLF BUE Upper Extremity Sensation WLF BUE Upper Extremity Strength DNT per back precautions. No lift 5-15 lbs per pt (unsure of lifting restriction #) Edema: none noted. ADL-Treatment Eating (QC): 6 Oral Hygiene (QC): 6 Shower/Bathe Self (QC): 3 (SBA all UB tasks. CGA during bottom/ norma care. Pt requires assist with BLE due to precautions. ) Upper Body Dressing (QC): 5 (s/u gown and back brace donning.) Lower Body Dressing (QC): 2 (max A at this time due to precautions, requires maximal cues for back precautions during activity, desires to bend and is corrected. ) On/Off Footwear (QC): 2 (max A- educated on sock aide and dressing stick.) Toileting Hygiene (QC): 4 (CGA in stance during shower. ) Other Treatments Pt completes car transfer CGA to w/c. Educated pt and family on rehab process and visitor's policy. Pt completes OT/ PT eval in gym, educated on ARU and meal times/ menu. Pt completes ambulation task with PT with OT to follow. CGA transfers. Pt completes showering in room as outlined, requires increased cues for no bending during tasks. Educated on AE in/out of shower, requires increased practice time- min A for dressing stick, mod A drapery head former/ pant donning, and s/u and min cues for sock donning. Pt rests, nursing educated on pt's bandage needs and pain and nursing provides assist. Pt ambulates to/ from gym with one rest break. Pt in recliner end of session with all needs met, call light in reach, education operations lead light and need of call light for activity or bathroom ability. Pt understands. Education OT Patient Education: Correct positioning, Modified ADL techniques, Purpose of tx/functional activities, Reviewed precautions, Rehab process, Safety issues, Transfer techniques, Use of adapted equipment Teaching Recipient: Patient Teaching Methods: Demonstration, Discussion Response to Teaching: Verbalize Understanding, Return Demonstration, Reinforcement Needed OT Work Station Support Specialist Goals Work Station Support Specialist Goals Time Frame: Jul 01, 2020 Eating (QC): 6 Oral Hygiene (QC): 6 Toileting Hygiene (QC): 6 Shower/Bathe Self (QC): 6 Upper Body Dressing (QC): 6 Lower Body Dressing (QC): 6 On/Off Footwear (QC): 6 Additional Goals: 1-Demonstrate ADL Tasks, 2-Verbalize Understanding, 3- ImproveStrength/[place] 1=Demonstrate adherence to instructed precautions during ADL tasks. 2=Patient will verbalize/demonstrate understanding of assistive dev ices/modifications for ADL. 3=Patient will improve strength/tolerance for activity to enable patient to perform ADL's. OT Education/Plan Problem List/Assessment Assessment: Decreased Activ Tolerance, Decreased UE Strength, Dependent Transfers, Impaired Bed Mobility, Impaired Funct Balance, Impaired I ADL's, Impaired Self-Care Skills Discharge Recommendations Plan/Recommendations: Continue POC Therapy Discharge Recommendati: Home & Family Equpiment Recommendations-D/C: Rails on Tub/Shower Treatment Plan/Plan of Care Treatment,Training & Education: Yes Patient would benefit from OT for education, treatment and training to promote independence in ADL's, mobility, safety and/or upper extremity function for ADL's. Plan of Care: ADL Retraining, Caregiver Training, Concurrent Therapy, Functional Mobility, Group Exercise/Act as Ind, Orthotic Fitting/Training, UE Funct Exercise/Act Treatment Duration: Jul 01, 2020 Frequency: At least 5 of 7 days/Wk (IRF) Estimated Hrs Per Day: 1.5 hours per day Agreement: Yes Rehab Potential: Good Time/GCodes Start Time: 14:40 Stop Time: 16:20 Total Time Billed (hr/min): 90 Billed Treatment Time 5213-7353 OT evaluation [id number] PT evaluation [id number] (80) OT/ PT co-treat with OT addressing UE strength, ADL status, back precautions, AE and PT addressing LE strength, ambulation, balance, fx transfers. 1, EVM, EX, ADL 4= 90 RUPERTO MUSTAFA OTR Jun 17, 2020 16:25
[2020-06-17 17:07] VITALS: BP 141/64
[2020-06-17] MEDS: CALCIUM CARB + VIT D 600 MG (CALCARB + D) TAB PO SCH (17:40)
[2020-06-17] MEDS: VITAMIN D3 25 MCG (1,000 UNITS) TABLET PO SCH (20:55)
[2020-06-17] MEDS: SENNA W/DOCUSATE (SENOKOT S) TABLET PO SCH (20:55)
[2020-06-17] MEDS: APIXABAN 5 MG (ELIQUIS) TABLET PO SCH (20:55)
[2020-06-17] MEDS: GABAPENTIN 100 MG (NEURONTIN) CAP PO SCH (20:56)
[2020-06-17] MEDS: DOCUSATE SODIUM 100 MG (COLACE) CAP PO SCH (20:56)
[2020-06-17] MEDS: SIMvastatin 10 MG (ZOCOR) TAB PO SCH (20:56)
[2020-06-17] MEDS ORDERED: NON-FORMULARY MEDICATION 1 EA EA (Esomeprazole Magnesium (Nexium) 40 MG) PO SCH (21:00)
[2020-06-17] MEDS ORDERED: CALCIUM CARBONATE PO SCH (21:00)
[2020-06-17] MEDS: polyethylene glycoL POWDER 17 GM (MIRALAX) PACK PO SCH (21:00)
[2020-06-17] MEDS ORDERED: NON-FORMULARY MEDICATION 1 EA EA (Cholecalciferol (Vitamin D3) (Vitamin D3) 50 MCG) PO SCH (21:00)
[2020-06-17] MEDS ORDERED: PANTOPRAZOLE 40 MG (PROTONIX) TAB PO SCH (21:00)
[2020-06-17] MEDS ORDERED: [UNRECOGNIZED DRUG - OTHER] PO SCH (21:00)
[2020-06-17] MEDS ORDERED: VITAMIN D3 PO SCH (21:00)
--- NOTE | 2020-06-17 21:20 | PM&R Post Admission Assessment ---
PM&R HP Date of Visit: Jun 17, 2020 Time of Visit: 18:00 History of Present Illness CC: Spine surgery recovery HPI: This is an 85yoWF clinic patient of Dr Packer known to me from [facility] after I consulted for medical management following her first surgery by Dr Hunter of which she went home and did well until her spine suffered another setback with compression deformity above her previous repair prompting preparation for surgery again by Dr Hunter but delayed due to left leg edema of which I ordered an USG in pre-op and revealed an extensive clot of the left leg causing cancellation of the surgery, confirming bilateral PE on CT chest and moved to [facility] on 06/09/20. Filter was placed after patient was transferred to [facility] 06/10/20 and she underwent her planned surgery and now here for rehab. She appears to be more frail than last assessed and weight loss is noted. Nausea seems to be worse since last surgery but she has struggled for months with that. BM+ at [facility] prior to transfer. Son brought her to [facility]. Pain is controlled. OAC noted for DVT/PE treatment. [facility] notes copied and pasted: Fariha Davis [id number] CSN: [id number] Date of Admission:06/09/2020 Date of Discharge:06/17/2020 Discharging Physician: Tray Mccormick DO PCP:Prasanth Packer DO LOS: 8 days Code Status at Discharge:Full Code Dispo:Rehab Labs and studies from this hospitalization needing follow up: None Follow-up:You must follow up with Prasanth Packer DOwithin one week of discharge from the hospital Follow-up orthopedic surgery Active Hospital Problems Diagnosis S/P lumbar spinal fusion S/P lumbar laminectomy Protein-calorie malnutrition, moderate Compression fracture of L5 vertebra with routine healing Age-related osteoporosis with current pathological fracture of vertebra DVT of lower limb, acute Diabetes Hypercholesteremia Resolved Hospital Problems Diagnosis Date Resolved Spinal stenosis of lumbar region with radiculopathy 06/17/2020 Chief Complaint-leg pain HPI-Fariha Davis Jose Alfredo a 85 y.o.femalewho was sent from [facility] by Dr. Hunter. She was supposed to have surgery the day of admission but the LLE swelling was noted and she was sent for evaluation. Workup found both DVT and bilateral pulmonary emboli. 06/14 Pt seen at bedside this AM. She is doing well overall with no new concerns and no adverse events overnight. Her pain medication is keep the pain controlled relatively well controlled. Orthopedic saw patient this morning and recommended hold on anticoagulation for 48-72 hours postop due to increased risk of epidural hematoma. Per orthopedic note it also looks like patient may be able to go to inpatient rehab in [place]. No fever chills nausea vomiting, no chest pain, no shortness of breath, continued back pain, leg pain improving. Allergies reviewed 06/15 Pt states overall she is doing okay. She states she does still have some lumbar pain. No adverse events overnight. No new concerns at this time. Discussed with patient that we will likely restart her anticoagulation on 06/16. Patient is been accepted to [facility]. No fever chills nausea vomiting, no chest pain, no shortness of breath, leg pain improving. Allergies reviewed 06/16 patient states overall she is feeling better today. She is not having nearly as much discomfort in her legs today. Patient restarted on heparin today. Patient had no adverse events overnight. No new concerns at this time. Wethe treatment planpossible discharge tomorrow to [facility]. No shortness of breath,no abdominal pain,leg pain improving,no fever chills nausea vomiting. Allergies reviewed Pt had orthopedic procedure on 06/13/20: Procedure(s): LUMBAR INTERBODY FUSION 1 LEVEL POSTERIOR L5-S1 INTRAOPERATIVE NEUROPHYSIOLOGIC MONITORING LUMBAR TRANSFORMAINAL INTERBODY FUSION L5-S1 HARDWARE REMOVAL L4-PELVIS LUMBAR SPINAL FUSION REVISION L4-PELVIS LUMBAR LAMINECTOMY L5-S1 BLADDER CATHETER PLACEMENT Ultrasound venous Doppler legs on 06/09 showed acute appearing DVT in left popliteal vein extending into the proximal calf veins in the upper calf. CTA chest showed mild bilateral acute pulmonary emboli, moderate size hiatal hernia, 5.6 mm average diameter solitary pulmonary nodule within the right lobe. No additional follow-up with his pulmonary nodule is needed in this patient who is a non-smoker per Fleischner Society criteria. Patient discharging to [facility] rehab for further care. Patient's vital signs stable at the time of discharge. She is having less leg pain. Patient being discharged with prescription for 1 month supply of Eliquis. She will take 5 mg 2 times per day for 7 days and then start taking 2.5 mg 2 times a day. I gave her a 1 month supply. This is likely going to be a minimum of a 3-month treatment. She will need to follow-up with patient doctor for continued treatment. I discussed with patient the likely treatment plan for the DVTs. Stated she understood. She had no further questions at the time of discharge. Past Lclvjdw-Toalcp-Cmqtpx Hx Past Med/Social Hx: Reviewed Nursing Past Med/Soc Hx, Reviewed and Corrections made Patient Social History Marrital Status: single Employed/Student: retired Alcohol Use: Denies Use Smoking Status: Never a Smoker 2nd Hand Smoke Exposure: No Recent Hopitalizations: No Immunizations Up To Date Date of Influenza Vaccine: Feb 21, 2020 Seasonal Allergies Seasonal Allergies: No Past Medical History Surgeries: Hysterectomy, Orthopedic Respiratory: Pulmonary Embolism (06/09/20) Cardiac: Deep Vein Thrombosis (when she was on hormones then again dx 06/09/20), High Cholesterol Gastrointestinal: Gastroesophageal Reflux Musculoskeletal: Osteoporosis, Arthritis Endocrine: Diabetes, Non-Insulin dep History of Blood Disorders: No Prior Level of Function Bed Mobility: 6 Transfers: 6 Gait: 6 Stairs: 6 Indoor Mobility (Ambulation): Independent Stairs: Independent Self Care: Independent Functional Cognition: Independent Occupation: retired. Drive Self: No Current Level of Fuctioning Roll Left to Right: 4 Sit to Lyin Lying to Sitting/Side of Bed: 3 Sit to Stand: 4 Chair/Gkc-ss-Gptxo Xfer: 4 Car Transfer: 4 Mode of Locomotion: Walk Anticipated Mode of Locomotion: Walk Walk 10 feet: 4 Walk 50 ft with 2 Turns: 4 Walk 150 ft: 4 Walking 10ft on uneven surface: 4 Gait Assistive Device: FWW Does the Pt Use a Wheelchair: No Wheel 50 ft with 2 turns: 9 Wheel 150 ft: 9 #of Steps: 1 1 Step (curb): 4 4 Steps: 88 Walking Assistive Device: Walker 12 Steps: 88 Picking up an Object: 88 Eatin Oral Hygiene: 6 Shower/Bathe Self: 3 (SBA all UB tasks. CGA during bottom/ norma care. Pt requires assist with BLE due to precautions. ) Upper Body Dressin (s/u gown and back brace donning.) Lower Body Dressin (max A at this time due to precautions, requires maximal cues for back precautions during activity, desires to bend and is corrected. ) On/Off Footwear: 2 (max A- educated on sock aide and dressing stick.) Toileting Hygiene: 4 (CGA in stance during shower. ) PM&R Allergy/Meds/Data Review Allergies Coded Allergies: No Known Drug Allergies (Unverified , 05/16/20) Home Medications Scheduled Apixaban (Eliquis), 5 MG PO BID, (Reported) Apixaban (Eliquis), 2.5 MG PO BID, (Reported) Calcium Carbonate/Vitamin D3 (Calcium 600 + Vit D Softgel), 1 EACH PO BID, (Reported) Cholecalciferol (Vitamin D3) (Vitamin D3), 50 MCG PO BID, (Reported) Duloxetine HCl (Duloxetine HCl), 30 MG PO DAILY, (Reported) Esomeprazole Magnesium (Nexium), 40 MG PO HS, (Reported) Gabapentin (Gabapentin), 100 MG PO TID, (Reported) Ibandronate Sodium (Ibandronate Sodium), 150 MG PO MONTHLY, (Reported) Metformin HCl (Metformin HCl), 500 MG PO DAILY W/ BREAKFAST, (Reported) Simvastatin (Simvastatin), 10 MG PO HS, (Reported) Scheduled PRN Hydrocodone/Acetaminophen (Hydrocodone-Acetamin 5-325 mg), 1 EA PO Q4H PRN for PAIN-MODERATE (5-7), (Reported) Oxycodone HCl (Oxycodone HCl), 5 MG PO Q4H PRN for PAIN-SEVERE (8-10), (Reported) Discontinued Medications Cyclobenzaprine HCl (Cyclobenzaprine HCl), 5 MG PO Q8H PRN for muscle spasm Discontinued Reason: No Longer Taking Ondansetron (Ondansetron Odt), 4 MG PO Q8H Discontinued Reason: No Longer Taking Oxycodone HCl/Acetaminophen (Percocet 5-325 mg Tablet), 1 TAB PO Q6H PRN for PAIN-MODERATE Discontinued Reason: No Longer Taking Prednisone (Prednisone), 50 MG PO DAILY Discontinued Reason: No Longer Taking Current Medications Current Medications Reviewed Laboratory Data Laboratory Tests 06/17/20 16:20: Glucometer 121H 06/17/20 20:08: Glucometer 109 Review of Systems Constitutional: see HPI, malaise, weakness EENTM: no symptoms reported Respiratory: no symptoms reported Cardiovascular: no symptoms reported Gastrointestinal: loss of appetite, nausea Genitourinary: no symptoms reported Musculoskeletal: back pain, joint pain Skin: no symptoms reported Psychiatric/Neurological: Depressed All Other Systems Reviewed Negative Unless Noted: Yes Physical Exam Physical Exam Vital Signs Vital Signs - First Documented 06/17/20 06/17/20 16:57 17:07 Temp 35.8 Pulse 91 Resp 18 B/P (MAP) 141/64 (89) Pulse Ox 97 O2 Delivery Room Air Capillary Refill : Height, Weight, BMI Height: '" Weight: lbs. oz. kg; 20.61 BMI Method: General Appearance: No Apparent Distress, WD/WN, Chronically ill, Thin Eyes: Bilateral Eye Normal Inspection, Bilateral Eye PERRL HEENT: PERRL/EOMI, Normal ENT Inspection, Pharynx Normal Neck: Full Range of Motion, Normal Inspection, Non Tender, Supple, Carotid Bruit Respiratory: Chest Non Tender, Lungs Clear, Normal Breath Sounds, No Accessory Muscle Use, No Respiratory Distress Cardiovascular: Regular Rate, Rhythm, No Edema, No Gallop, No JVD, No Murmur, Normal Peripheral Pulses Gastrointestinal: Normal Bowel Sounds, No Organomegaly, No Pulsatile Mass, Non Tender, Soft Back: CVA Tenderness (L), CVA Tenderness (R), Decreased Range of Motion, Muscle Spasm, Vertebral Tenderness, Other (brace intact) Extremity: Normal Capillary Refill, Normal Inspection, Normal Range of Motion, Non Tender, No Calf Tenderness, No Pedal Edema Neurologic/Psychiatric: Alert, Oriented x3, No Motor/Sensory Deficits, Normal Mood/Affect Skin: Normal Color, Warm/Dry Lymphatic: No Adenopathy PM&R Medical Assessment & Plan REHAB/MEDICAL ASSESSMENT AND PLAN: REHAB IMPAIRMENT GROUP: Spine surgery ETIOLOGIC DIAGNOSIS: Spine surgery The comorbidities that impact the patients function and/or functional outcome by: frail status, advanced age, severe OP, continued nausea, DVT/PE 06/09/20 requiring filter to have surgery REHAB PLAN: The patient is being admitted to our comprehensive inpatient rehabilitation facility and can tolerate the intensity of service consisting of at least: 180 minutes of therapy a day, 5 out of 7 days a week Rehab treatment will consist of: PT OT will focus on regaining strength while preventing falls and building stamina and increase the use of AD The patient/family has a good understanding of our discharge process and will benefit from an interdisciplinary inpatient rehabilitation program. The patient has potential to make improvement and is in need of at least two of the following multidisciplinary therapies including but not limited to physical, oc cupational, speech, and prosthetics and orthotics. Additionally the patient will need services from respiratory, nutritional services, wound care, psychology, etc. (Customize this to each patient). Given the patients complex condition and risk of further medical complications, rehabilitation services cannot be safely or effectively provided at a lower level of care such as a [facility] nursing facility. BARRIERS TO DISCHARGE: Advance age and poor reserve with recent weight loss and continued nausea ESTIMATED LOS: 10 days DISPOSITION: Home RELEVANT CHANGES SINCE PREADMISSION SCREENING: I have compared the patients medical and functional status at the time of the preadmission screening and there are: no changes PROGNOSIS: Guarded REHABILITATION GOALS: 1. PT OT will focus on regaining strength while preventing falls and building stamina and increase the use of AD All the above goals were reviewed with the patient and he/she is in agreement. By signing this document, I acknowledge that I have personally performed a full physical examination on this patient within 24 hours of admission to this inpatient rehabilitation facility and have determined the patient to be able to tolerate the above course of treatment at an intensive level for a reasonable period of time. I will be completing a detailed individualized Plan of Care for this patient by day #4 of the patients stay based upon the Preadmission Screen, the Post-Admission Evaluation, and the therapy evaluations. Admission Dx/Comorbidities: (1) S/P spinal surgery ICD Codes: Z98.890 - Other specified postprocedural states (2) Osteoporosis ICD Codes: M81.0 - Age-related osteoporosis without current pathological fracture (3) Compression fracture of lumbar vertebra ICD Codes: S32.000A - Wedge compression fracture of unspecified lumbar vertebra, initial encounter for closed fracture (4) DVT (deep venous thrombosis) ICD Codes: I82.409 - Acute embolism and thrombosis of unspecified deep veins of unspecified lower extremity (5) Pulmonary embolism ICD Codes: I26.99 - Other pulmonary embolism without acute cor pulmonale (6) Anticoagulant long-term use ICD Codes: Z79.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 (7) Laura filter in place ICD Codes: Z95.828 - Presence of other vascular implants and grafts (8) Nausea ICD Codes: R11.0 - Nausea (9) Weight loss ICD Codes: R63.4 - Abnormal weight loss (10) GERD (gastroesophageal reflux disease) ICD Codes: K21.9 - Gastro-esophageal reflux disease without esophagitis (11) Diabetes ICD Codes: E11.9 - Type 2 diabetes mellitus without complications (12) Postoperative anemia ICD Codes: D64.9 - Anemia, unspecified (13) Protein-calorie malnutrition, moderate ICD Codes: E44.0 - Moderate protein-calorie malnutrition Assessment/Plan Assessment and Plan Assess & Plan/Chief Complaint Assessment: s/p extensive spine surgery POD#4 Dr Hunter Subacute DVT/PE dx 06/09 delaying surgery scheduled for 06/09/20 at [facility] dx in pre-op Osteoporosis GERD Weight loss Continued nausea DM Post op anemia Back pain Fall risk Plan: IRF protocol Pain meds Nausea meds PPI BID Scop patch CHARLOTTE CAMARGO DO Jun 17, 2020 21:20
[2020-06-18 05:29] VITALS: BP 128/59
[2020-06-18 05:40] LABS: BASOPHILS % (AUTO) 0 % (0-10); EOSINOPHILS # (AUTO) 0.1 10^3/uL (0.0-0.3); EOSINOPHILS % (AUTO) 1 % (0-10); HEMATOCRIT 27 % (35-52); HEMOGLOBIN 8.5 g/dL (11.5-16.0); LYMPHOCYTES # (AUTO) 1.7 10^3/uL (1.0-4.0); LYMPHOCYTES % (AUTO) 24 % (12-44); MEAN CORPUSCULAR HEMOGLOBIN 29 pg (25-34); MEAN CORPUSCULAR HGB CONC 32 g/dL (32-36); MEAN CORPUSCULAR VOLUME 91 fL (80-99); MEAN PLATELET VOLUME 9.3 fL (9.0-12.2); MONOCYTES # (AUTO) 0.9 10^3/uL (0.0-1.0); MONOCYTES % (AUTO) 12 % (0-12); NEUTROPHILS # (AUTO) 4.4 10^3/uL (1.8-7.8); NEUTROPHILS % (AUTO) 62 % (42-75); PLATELET COUNT 280 10^3/uL (130-400); WHITE BLOOD COUNT 7.2 10^3/uL (4.3-11.0)
[2020-06-18 05:50] LABS: ALBUMIN 2.9 GM/DL (3.2-4.5)
[2020-06-18 05:51] LABS: CHLORIDE 106 MMOL/L (98-107); POTASSIUM 4.1 MMOL/L (3.6-5.0); SODIUM 138 MMOL/L (135-145)
[2020-06-18 05:52] LABS: CALCIUM 8.3 MG/DL (8.5-10.1)
[2020-06-18 05:53] LABS: GLUCOSE 133 MG/DL (70-105); TOTAL PROTEIN 5.5 GM/DL (6.4-8.2)
[2020-06-18 05:54] LABS: CARBON DIOXIDE 23 MMOL/L (21-32)
[2020-06-18 05:55] LABS: BILIRUBIN,TOTAL 0.5 MG/DL (0.1-1.0)
[2020-06-18 05:56] LABS: ALKALINE PHOSPHATASE 50 U/L (40-136)
[2020-06-18 05:57] LABS: CREATININE SERUM 0.66 MG/DL (0.60-1.30); GFR ESTIMATED > 60
[2020-06-18 05:58] LABS: BUN/CREATININE RATIO 18
[2020-06-18 06:00] LABS: ALANINE AMINOTRANSFERASE 10 U/L (0-55)
[2020-06-18] MEDS ORDERED: SCOPOLAMINE 1.5 MG (TRANSDERM-SCOP) PATCH TD ONE (06:30)
[2020-06-18] MEDS: PANTOPRAZOLE 40 MG (PROTONIX) TAB PO SCH ×3 (06:43→20:29)
[2020-06-18] MEDS: metFORMIN 500 MG (GLUCOPHAGE) TAB PO SCH (06:44)
--- NOTE | 2020-06-18 07:27 | PM&R Progress Note ---
Subjective HPI/CC On Admission Date Seen by Provider: Jun 18, 2020 Time Seen by Provider: 12:30 Subjective/Events-last exam 06/18/20: Patient in a good mood Improved status Pain of back is improved Checked meds and labs MANJU hose on Lortab improved pain Iron pending DC accuchecks Scop patch is improving the nausea Review of Systems General: Fatigue, Malaise Musculoskeletal: back pain Objective Exam Vital Signs Vital Signs Date Time Temp Pulse Resp B/P (MAP) Pulse Ox O2 Delivery O2 Flow Rate FiO2 06/18/20 16:00 37.2 81 16 139/63 (88) 96 Room Air Capillary Refill : General Appearance: No Apparent Distress, WD/WN, Chronically ill, Thin HEENT: PERRL/EOMI, Normal ENT Inspection, Pharynx Normal Neck: Full Range of Motion, Normal Inspection, Non Tender, Supple, Carotid Bruit Respiratory: Chest Non Tender, Lungs Clear, Normal Breath Sounds, No Accessory Muscle Use, No Respiratory Distress Cardiovascular: Regular Rate, Rhythm, No Edema, No Gallop, No JVD, No Murmur, Normal Peripheral Pulses Gastrointestinal: Normal Bowel Sounds, No Organomegaly, No Pulsatile Mass, Non Tender, Soft Back: CVA Tenderness (L), CVA Tenderness (R), Decreased Range of Motion, Muscle Spasm, Vertebral Tenderness, Other (brace intact) Extremity: Normal Capillary Refill, Normal Inspection, Normal Range of Motion, Non Tender, No Calf Tenderness, No Pedal Edema Neurologic/Psychiatric: Alert, Oriented x3, No Motor/Sensory Deficits, Normal Mood/Affect Skin: Normal Color, Warm/Dry Lymphatic: No Adenopathy Results/Procedures Lab Laboratory Tests 06/18/20 05:23 Patient resulted labs reviewed. FIM Transfers Therapy Code Descriptions/Definitions Functional [place] Measure: 0=Not Assessed/NA 4=Minimal Assistance 1=Total Assistance 5=Supervision or Setup 2=Maximal Assistance 6=Modified [place] 3=Moderate Assistance 7=Complete IndependenceSCALE: Activities may be completed with or without assistive devices. 6-Ylamjriach-aohpfgx completes the activity by him/herself with no assistance from a helper. 5-Set-up or Clean-up Assistance-helper sets up or cleans up; patient completes activity. [place] assists only prior to or following the activity. 4-Supervision or Touching Assistance-helper provides verbal cues and/or touching/steadying and/or contact guard assistance as patient completes activity. Assistance may be provided throughout the activity or intermittently. 3-Partial/Moderate Assistance-helper does LESS THAN HALF the effort. [place] lifts, holds or supports trunk or limbs, but provides less than half the effort. 2-Substantial/Maximal Assistance-helper does MORE THAN HALF the effort. [place] lifts or holds trunk or limbs and provides more than half the effort. 9-Orukskjrw-kvforo does ALL the effort. Patient does none of the effort to complete the activity. Or, the assistance of 2 or more helpers is required for the patient to complete the activity. If activity was not attempted, code reason: 7-Patient Refused. 9-Not Applicable-not attempted and the patient did not perform the activity before the current illness, exacerbation or injury. 10-Not Attempted due to Environmental Limitations-(lack of equipment, weather restraints, etc.). 88-Not Attempted due to Medical Conditions or Safety Concerns. Roll Left to Right (QC): 4 Sit to Lying (QC): 3 Sit to Stand (QC): 4 Chair/Kdc-jz-Lwkle Xfer(QC): 4 Car Transfer (QC): 4 Gait Training Walk 10 feet (QC): 4 Walk 50 ft with 2 Turns(QC): 4 Walk 150 ft (QC): 4 Walking 10ft/uneven surface-QC: 4 Gait Assistive Device: FWW Wheelchair Training Does the Pt Use a Wheelchair?: No Wheel 50 ft with 2 turns (QC): 9 Wheel 150 ft (QC): 9 Stair Training #of Steps: 1 1 Step (curb) (QC): 4 4 Steps (QC): 88 12 Steps (QC): 88 Balance Picking up an Object (QC): 88 ADL-Treatment Eating (QC): 6 Oral Hygiene (QC): 6 Shower/Bathe Self (QC): 3 (SBA all UB tasks. CGA during bottom/ norma care. Pt requires assist with BLE due to precautions. ) Upper Body Dressing (QC): 5 (s/u gown and back brace donning.) Lower Body Dressing (QC): 2 (max A at this time due to precautions, requires maximal cues for back precautions during activity, desires to bend and is cor rected. ) On/Off Footwear (QC): 2 (max A- educated on sock aide and dressing stick.) Toileting Hygiene (QC): 4 (CGA in stance during shower. ) Assessment/Plan Assessment and Plan Assess & Plan/Chief Complaint Assessment: s/p extensive spine surgery POD#5 Dr Hunter Subacute DVT/PE dx 06/09 delaying surgery scheduled for 06/09/20 at [facility] dx in pre-op Osteoporosis GERD Weight loss Continued nausea DM Post op anemia Back pain Fall risk Plan: IRF protocol Pain meds Nausea meds PPI BID Scop patch 06/18/20: Iron infusions Pain control Scop patch Regular diet DC accuchecks (1) S/P spinal surgery (2) Osteoporosis (3) Compression fracture of lumbar vertebra (4) DVT (deep venous thrombosis) (5) Pulmonary embolism (6) Anticoagulant long-term use (7) [place] filter in place (8) Nausea (9) Weight loss (10) GERD (gastroesophageal reflux disease) (11) Diabetes (12) Postoperative anemia (13) Protein-calorie malnutrition, moderate CHARLOTTE CAMARGO DO Jun 18, 2020 07:27
--- NOTE | 2020-06-18 07:27 | Individualized Plan of Care ---
Individualized Plan of Care Rehab Nursing IPOC Order Admission Date Jun 17, 2020 at 14:40 Current Orders Orders Admission Arrival Bed Request (06/17/20 14:52) Admission Order(Inpt,Obs,Sdc) (06/17/20 15:13) Vital Signs: Per Unit Policy ( 08,16,00 (06/17/20 15:13) Micah Love (06/17/20 15:13) Sequential Compression Device .admit (06/17/20 15:13) Supervisor Shed Workers-Inpt Rehab Con (06/17/20 15:13) Rehab Nursing Orders-Ipoc (06/17/20 15:13) Physical Therapy Rehab Orders (06/17/20 15:13) Occupational Therapy Rehab Ord (06/17/20 15:13) Speech Therapy Rehab Orders (06/17/20 15:13) Cbc With Automated Diff (06/18/20 06:00) Comprehensive Metabolic Panel (06/18/20 06:00) Weekly Weight WEEK (06/17/20 15:13) Rehab-Intensity Of Therapy (06/17/20 15:13) Initiate Admission Nursing Pro .admission (06/17/20 15:13) Acetaminophen Tablet (Tylenol Tablet) (06/17/20 15:15) Alprazolam Tablet (Xanax Tablet) (06/17/20 15:15) Calcium Carbonate Chew Tablet (Antacid C (06/17/20 15:15) Diphenhydramine Tablet (Benadryl Tablet) (06/17/20 15:15) Docusate Sodium Capsule (Colace Capsule) (06/17/20 21:00) Docusate Sodium Capsule (Colace Capsule) (06/17/20 15:15) Bisacodyl Suppository (Dulcolax Supposit (06/17/20 15:15) Lactulose Oral Solution (Enulose Oral So (06/17/20 15:15) Na Phos/Na Biphos Enema (Fleet Enema Ion (06/17/20 15:15) Guaifenesin/Codeine Syrup (Robitussin Ac (06/17/20 15:15) Loperamide Tablet (Imodium Tablet) (06/17/20 15:15) Enoxaparin Injection (Lovenox Injection) (06/17/20 15:15) Melatonin Tablet (Melatonin Tablet) (06/17/20 15:15) Polyethylene Glycol Powder Pkt (Miralax (06/17/20 21:00) Ondansetron Oral Dissolve Tab (Zofran (06/17/20 15:15) Senna S Tablet (Senokot S Tablet) (06/17/20 21:00) Initiate Admission Nursing Pro .admission (06/17/20 15:13) Apixaban Tablet (Eliquis Tablet) (06/17/20 21:00) Duloxetine Capsule (Cymbalta Capsule) (06/18/20 09:00) Gabapentin Capsule/Tablet (Neurontin Cap (06/17/20 21:00) Hydrocodone/Apap 5/325 Tablet (Lortab 5 (06/17/20 15:15) Metformin Tablet (Glucophage Tablet) (06/18/20 07:00) Oxycodone Immediate Rel Tablet (Oxyir Ta (06/17/20 15:15) Simvastatin Tablet (Zocor Tablet) (06/17/20 21:00) (Nf) Calcium Carbonate/Vitamin D3 (Calci (06/17/20 21:00) (Nf) Cholecalciferol (Vitamin D3) (Vitam (06/17/20 21:00) (Nf) Esomeprazole Magnesium (Nexium) (06/17/20 21:00) (Nf) Ibandronate Sodium (06/17/20 15:15) Nursing Communication (Order) (06/17/20 15:17) Acetaminophen Tablet/Caplet (Tylenol T (06/17/20 15:45) Pantoprazole Tablet (Protonix Tablet) (06/17/20 21:00) Apixaban Tablet (Eliquis Tablet) (06/24/20 09:00) Calcium Carbonate W/Vitamin D3 (Calcarb (06/17/20 18:00) Cholecalciferol Capsule/Tablet (Vitamin (06/17/20 21:00) Patient Visit (06/17/20 ) Pt Eval Moderate Complexity (06/17/20 ) Functional Activities, Ea 15 (06/17/20 ) Prealbumin (06/18/20 06:00) Thyroid Stimulating Hormone (06/18/20 06:00) Iron Tibc %Sat & Ferritin (06/18/20 06:00) Scopolamine Patch (Transderm-Scop Patch) (06/18/20 06:30) Pantoprazole Tablet (Protonix Tablet) (06/18/20 06:30) Patch Removal (Patch Removal) (06/21/20 06:30) Patient Visit (06/18/20 ) Exercise Therap, Ea 15 Min (06/18/20 ) Gait Training, Ea 15 Min (06/18/20 ) Nursing Communication (Order) (06/18/20 12:14) General/Regular (06/18/20 Lunch) Iron Sucrose Injection (Venofer Injectio (06/19/20 09:00) Rehab Nursing Orders: Ongoing Assess. of Cognitive Status, Ongoing Assess. of Function Status, Bladder Management, Bladder Scan, Bladder Training, Bowel Management, Bowel Training, Disease Management & Educaiton, DVT Prophylaxis, Fall Prevention, Fluid/Electrolyte/Nutrition Mgmt, Infection Prevention, Medication Management & Education, Management of Risks & Complications, Management of Skin Intergrity, Nutrition Management, Pain Management, Patient/Family Support, Safety Management, Swallow Precautions, Wound Management Intensity of Therapy to be met Patient to be seen: Min.3h per day/5 of 7d PT IPOC Problem List: Activity Tolerance, Functional Strength, Safety, Balance, Gait, Transfer, Bed Mobility, ROM Treatment Plan: Continue Plan of Care Bed Mobility, Education, Functional Activity Libby, Functional Strength, Group Therapy, Gait, Safety, Therapeutic Exercise, Transfers Treatment Duration: Jul 08, 2020 Frequency: At least 5 of 7 days/Wk (IRF) Estimated Hrs Per Day: 1.5 hours per day OT IPOC Problems: Decreased Activ Tolerance, Decreased UE Strength, Dependent Transfers, Impaired Bed Mobility, Impaired Funct Balance, Impaired I ADL's, Impaired Self-Care Skills OT Treatment, Training and Edu: Yes Plan of Care: ADL Retraining, Caregiver Training, Concurrent Therapy, Functional Mobility, Group Exercise/Act as Ind, Orthotic Fitting/Training, UE Funct Exercise/Act Treatment Duration: Jul 01, 2020 Frequency: At least 5 of 7 days/Wk (IRF) Estimated Hrs Per Day: 1.[address] IPOC Speech Therapy Treatment Plan: Discontinue ST Treatment Duration: Jun 17, 2020 Frequency: Modified Program (IRF) Estimated Hrs Per Day: Other Supervisor Shed Workers/Case Mgmt Supervisor Shed Workers/Case Managemen: Discharge Planning Dietitian/Sap Solutions Architect Dietitian/Sap Solutions Architect to monitor nutritional status and make changes and/or recommendations as needed and work with speech pathology on dietary upgrades as the occur. Physician IPOC Medical Issues being managed closely and that require the 24 hour availability of a physician: Patient with extensive spine surgery and had poor reserve prior to surgery then with left leg DVT and PE s/p filter now on OAC and anemia will need close monitoring for decompensation Medical Issues: Bowel/Bladder Function, DVT Prophylaxis, Falls Precautions, Fluid/Electrolyte/Nutrition Balance, Infection Protection, Pain Management Brief Synthesis of Preadmission Screen, Post-Admission Evaluation, and Therapy Evaluations: PT OT will focus on regaining function and with use of ADL's will help ambulation and increase confidence and stamina Medical Prognosis: Good Anticipated Length of Stay: 10 days CHARLOTTE CAMARGO DO Jun 18, 2020 07:27
[2020-06-18] MEDS: VITAMIN D3 25 MCG (1,000 UNITS) TABLET PO SCH ×2 (08:48→20:28)
[2020-06-18] MEDS: CALCIUM CARB + VIT D 600 MG (CALCARB + D) TAB PO SCH ×2 (08:49→17:29)
[2020-06-18] MEDS: APIXABAN 5 MG (ELIQUIS) TABLET PO SCH ×2 (08:49→20:28)
[2020-06-18] MEDS: DULoxetine 30 MG (CYMBALTA) CAP PO SCH (08:49)
[2020-06-18] MEDS: GABAPENTIN 100 MG (NEURONTIN) CAP PO SCH ×3 (08:49→20:28)
[2020-06-18] MEDS: HYDROcodone/APAP 5 MG/325 MG (LORTAB) TAB PO PRN ×2 (08:50→17:29)
[2020-06-18] MEDS: polyethylene glycoL POWDER 17 GM (MIRALAX) PACK PO SCH ×2 (09:19→20:30)
[2020-06-18] MEDS: DOCUSATE SODIUM 100 MG (COLACE) CAP PO SCH ×2 (09:19→20:30)
[2020-06-18] MEDS: SENNA W/DOCUSATE (SENOKOT S) TABLET PO SCH ×2 (09:20→20:30)
--- NOTE | 2020-06-18 09:57 | Physical Therapy Daily Note ---
PT Daily Note-Current Subjective Patient has increase c/o left LE pain, however, improved with pain medication and exercise. Pain Numeric Pain Scale: 7 Location: Left Location Body Site: Thigh Pain Description: Ache Mental Status Patient Orientation: Normal For Age Transfers SCALE: Activities may be completed with or without assistive devices. 2-Ohtfkbsbin-idnbfee completes the activity by him/herself with no assistance from a helper. 5-Set-up or Clean-up Assistance-helper sets up or cleans up; patient completes activity. [place] assists only prior to or following the activity. 4-Supervision or Touching Assistance-helper provides verbal cues and/or touching/steadying and/or contact guard assistance as patient completes activity. Assistance may be provided throughout the activity or intermittently. 3-Partial/Moderate Assistance-helper does LESS THAN HALF the effort. [place] lifts, holds or supports trunk or limbs, but provides less than half the effort. 2-Substantial/Maximal Assistance-helper does MORE THAN HALF the effort. [place] lifts or holds trunk or limbs and provides more than half the effort. 7-Dxpuovivd-qusieb does ALL the effort. Patient does none of the effort to complete the activity. Or, the assistance of 2 or more helpers is required for the patient to complete the activity. If activity was not attempted, code reason: 7-Patient Refused. 9-Not Applicable-not attempted and the patient did not perform the activity before the current illness, exacerbation or injury. 10-Not Attempted due to Environmental Limitations-(lack of equipment, weather restraints, etc.). 88-Not Attempted due to Medical Conditions or Safety Concerns. Sit to Stand (QC): 3 (slight retropulsion with sit to stand) Gait Training Does the Patient Walk?: Yes Distance: 150' x 2 Walk 10 feet (QC): 4 Walk 50 ft with 2 Turns(QC): 4 Walk 150 ft (QC): 4 Gait Assistive Device: FWW VC's for body placement in FWW and posture/difficulty with clearing feet with gait sequence Exercises NuStep Minutes: 8 NuStep Workload: 3 Assessment Patient tolerated treatment well and remains up in recliner. PT to increase activity as tolerated by patient. PT Short Term Goals Short Term Goals Time Frame: Jun 24, 2020 Roll Left & Right: 6 Sit to lyin Lying to sitting on side of be: 4 Sit to stand: 5 Chair/qwt-kt-qohli transfer: 5 Walk 10 feet: 5 Walk 50 feet with two turns: 5 Walk 150 feet: 5 PT Store Stock Help Goals Skilled Nursing Goals PT Skilled Nursing Goals Time Frame: Jul 08, 2020 Roll Left & Right (QC): 6 Sit to Lying (QC): 6 Lying-Sitting on Side/Bed(QC): 6 Sit to Stand (QC): 6 Chair/Vyk-rp-Brxmf Xfer(QC): 6 Toilet Transfer (QC): 6 Car Transfer (QC): 6 Does the Patient Walk: Yes Walk 10 feet (QC): 6 Walk 50ft with 2 Turns (QC): 6 Walk 150 ft (QC): 6 Walking 10ft on Uneven Surface: 6 1 Step (curb) (QC): 4 4 Steps (QC): 4 12 Steps (QC): 88 Picking up an Object (QC): 88 Wheel 50 feet with 2 turns (QC: 9 Wheel 150 feet: 9 PT Plan Treatment/Plan Treatment Plan: Continue Plan of Care Treatment Plan: Bed Mobility, Education, Functional Activity Libby, Functional Strength, Group Therapy, Gait, Safety, Therapeutic Exercise, Transfers Treatment Duration: Jul 08, 2020 Frequency: At least 5 of 7 days/Wk (IRF) Estimated Hrs Per Day: 1.5 hours per day Patient and/or Family Agrees t: Yes Time/GCodes Time In: 900 Time Out: 923 Total Billed Treatment Time: 23 Total Billed Treatment 1 visit EX 8 min GT 15 min JAIME CASTRO PT Jun 18, 2020 09:57
[2020-06-18] MEDS: ONDANSETRON 4 MG (ZOFRAN) ORAL DISSOLVE TAB PO PRN (13:01)
[2020-06-18 16:00] VITALS: BP 139/63
[2020-06-18] MEDS: SIMvastatin 10 MG (ZOCOR) TAB PO SCH (20:28)
[2020-06-19] MEDS: HYDROcodone/APAP 5 MG/325 MG (LORTAB) TAB PO PRN ×4 (01:04→18:24)
[2020-06-19 06:15] VITALS: BP 149/68
[2020-06-19] MEDS: metFORMIN 500 MG (GLUCOPHAGE) TAB PO SCH (07:13)
[2020-06-19] MEDS: CALCIUM CARB + VIT D 600 MG (CALCARB + D) TAB PO SCH ×2 (08:34→17:25)
[2020-06-19] MEDS: GABAPENTIN 100 MG (NEURONTIN) CAP PO SCH ×3 (08:34→20:34)
[2020-06-19] MEDS: PANTOPRAZOLE 40 MG (PROTONIX) TAB PO SCH ×2 (08:34→20:35)
[2020-06-19] MEDS: VITAMIN D3 25 MCG (1,000 UNITS) TABLET PO SCH ×2 (08:34→20:35)
[2020-06-19] MEDS: APIXABAN 5 MG (ELIQUIS) TABLET PO SCH ×2 (08:34→20:35)
[2020-06-19] MEDS: DULoxetine 30 MG (CYMBALTA) CAP PO SCH (08:34)
[2020-06-19] MEDS: DOCUSATE SODIUM 100 MG (COLACE) CAP PO SCH ×2 (11:07→20:35)
[2020-06-19] MEDS: IRON SUCROSE 200 MG/10 ML (VENOFER) VIAL IV SCH (11:07)
[2020-06-19] MEDS: polyethylene glycoL POWDER 17 GM (MIRALAX) PACK PO SCH ×2 (11:07→20:35)
[2020-06-19] MEDS: SENNA W/DOCUSATE (SENOKOT S) TABLET PO SCH ×2 (11:08→20:35)
[2020-06-19] MEDS ORDERED: CYANOCOBALAMIN INJ 1000 MCG/ML IM ONE (12:30)
--- NOTE | 2020-06-19 12:46 | PM&R Progress Note ---
Subjective HPI/CC On Admission Date Seen by Provider: Jun 19, 2020 Time Seen by Provider: 12:45 Subjective/Events-last exam 06/19/20: Patient doing better Appetite improved Midline will be placed BM++ Walked to the gym and back to room Voltaren gel ordered Venofer ordered Scop patch will be continued Ensure BID Vit B12 injection 06/18/20: Patient in a good mood Improved status Pain of back is improved Checked meds and labs MANJU hose on Lortab improved pain Iron pending DC accuchecks Scop patch is improving the nausea Review of Systems General: Fatigue, Malaise Musculoskeletal: back pain Neurological: Weakness Objective Exam Vital Signs Vital Signs Date Time Temp Pulse Resp B/P (MAP) Pulse Ox O2 Delivery O2 Flow Rate FiO2 06/19/20 06:15 36.8 92 20 149/68 (95) 96 Room Air Capillary Refill : General Appearance: No Apparent Distress, WD/WN, Chronically ill, Thin HEENT: PERRL/EOMI, Normal ENT Inspection, Pharynx Normal Neck: Full Range of Motion, Normal Inspection, Non Tender, Supple, Carotid Bruit Respiratory: Chest Non Tender, Lungs Clear, Normal Breath Sounds, No Accessory Muscle Use, No Respiratory Distress Cardiovascular: Regular Rate, Rhythm, No Edema, No Gallop, No JVD, No Murmur, Normal Peripheral Pulses Gastrointestinal: Normal Bowel Sounds, No Organomegaly, No Pulsatile Mass, Non Tender, Soft Back: CVA Tenderness (L), CVA Tenderness (R), Decreased Range of Motion, Muscle Spasm, Vertebral Tenderness, Other Extremity: Normal Capillary Refill, Normal Inspection, Normal Range of Motion, Non Tender, No Calf Tenderness, No Pedal Edema Neurologic/Psychiatric: Alert, Oriented x3, No Motor/Sensory Deficits, Normal Mood/Affect Skin: Normal Color, Warm/Dry Lymphatic: No Adenopathy Results/Procedures Lab Patient resulted labs reviewed. FIM Transfers Therapy Code Descriptions/Definitions Functional [place] Measure: 0=Not Assessed/NA 4=Minimal Assistance 1=Total Assistance 5=Supervision or Setup 2=Maximal Assistance 6=Modified [place] 3=Moderate Assistance 7=Complete IndependenceSCALE: Activities may be completed with or without assistive devices. 6-Ppmmcdjtkw-oxgafum completes the activity by him/herself with no assistance from a helper. 5-Set-up or Clean-up Assistance-helper sets up or cleans up; patient completes activity. [place] assists only prior to or following the activity. 4-Supervision or Touching Assistance-helper provides verbal cues and/or touching/steadying and/or contact guard assistance as patient completes activity. Assistance may be provided throughout the activity or intermittently. 3-Partial/Moderate Assistance-helper does LESS THAN HALF the effort. [place] lifts, holds or supports trunk or limbs, but provides less than half the effort. 2-Substantial/Maximal Assistance-helper does MORE THAN HALF the effort. [place] lifts or holds trunk or limbs and provides more than half the effort. 0-[place]-yfsbfe does ALL the effort. Patient does none of the effort to complete the activity. Or, the assistance of 2 or more helpers is required for the patient to complete the activity. If activity was not attempted, code reason: 7-Patient Refused. 9-Not Applicable-not attempted and the patient did not perform the activity befo re the current illness, exacerbation or injury. 10-Not Attempted due to Environmental Limitations-(lack of equipment, weather re straints, etc.). 88-Not Attempted due to Medical Conditions or Safety Concerns. Roll Left to Right (QC): 4 Sit to Lying (QC): 3 Sit to Stand (QC): 3 (slight retropulsion with sit to stand) Chair/Dvg-tj-Ptfgy Xfer(QC): 4 Car Transfer (QC): 4 Gait Training Does the Patient Walk?: Yes Distance: 150' x 2 Walk 10 feet (QC): 4 Walk 50 ft with 2 Turns(QC): 4 Walk 150 ft (QC): 4 Walking 10ft/uneven surface-QC: 4 Gait Assistive Device: FWW Wheelchair Training Does the Pt Use a Wheelchair?: No Wheel 50 ft with 2 turns (QC): 9 Wheel 150 ft (QC): 9 Stair Training #of Steps: 1 1 Step (curb) (QC): 4 4 Steps (QC): 88 12 Steps (QC): 88 Balance Picking up an Object (QC): 88 ADL-Treatment Eating (QC): 6 Oral Hygiene (QC): 6 Shower/Bathe Self (QC): 3 (SBA all UB tasks. CGA during bottom/ norma care. Pt requires assist with BLE due to precautions. ) Upper Body Dressing (QC): 5 (s/u gown and back brace donning.) Lower Body Dressing (QC): 2 (max A at this time due to precautions, requires maximal cues for back precautions during activity, desires to bend and is corrected. ) On/Off Footwear (QC): 2 (max A- educated on sock aide and dressing stick.) Toileting Hygiene (QC): 4 (CGA in stance during shower. ) Assessment/Plan Assessment and Plan Assess & Plan/Chief Complaint Assessment: s/p extensive spine surgery POD#5 Dr Hunter Subacute DVT/PE dx 06/09 delaying surgery scheduled for 06/09/20 at [facility] dx in pre-op Osteoporosis GERD Weight loss Continued nausea DM Post op anemia Back pain Fall risk Plan: IRF protocol Pain meds Nausea meds PPI BID Scop patch 06/18/20: Iron infusions Pain control Scop patch Regular diet DC accuchecks 06/19/20: Iron infusion with midline Vit B12 injection Ensure BID Scop patch to continue (1) S/P spinal surgery (2) Osteoporosis (3) Compression fracture of lumbar vertebra (4) DVT (deep venous thrombosis) (5) Pulmonary embolism (6) Anticoagulant long-term use (7) [place] filter in place (8) Nausea (9) Weight loss (10) GERD (gastroesophageal reflux disease) (11) Diabetes (12) Postoperative anemia (13) Protein-calorie malnutrition, moderate CHARLOTTE CAMARGO DO Jun 19, 2020 12:46
[2020-06-19] MEDS: DICLOFENAC 1% GEL 100 GM (VOLTAREN) TUBE TOP SCH ×3 (15:45→20:39)
[2020-06-19 17:07] VITALS: BP 122/58
[2020-06-19] MEDS: SIMvastatin 10 MG (ZOCOR) TAB PO SCH (20:35)
[2020-06-20] MEDS: HYDROcodone/APAP 5 MG/325 MG (LORTAB) TAB PO PRN ×3 (01:02→14:26)
[2020-06-20 05:13] LABS: BASOPHILS % (AUTO) 0 % (0-10); EOSINOPHILS # (AUTO) 0.1 10^3/uL (0.0-0.3); EOSINOPHILS % (AUTO) 1 % (0-10); HEMATOCRIT 27 % (35-52); HEMOGLOBIN 8.5 g/dL (11.5-16.0); LYMPHOCYTES # (AUTO) 1.6 10^3/uL (1.0-4.0); LYMPHOCYTES % (AUTO) 24 % (12-44); MEAN CORPUSCULAR HEMOGLOBIN 29 pg (25-34); MEAN CORPUSCULAR HGB CONC 31 g/dL (32-36); MEAN CORPUSCULAR VOLUME 92 fL (80-99); MEAN PLATELET VOLUME 9.2 fL (9.0-12.2); MONOCYTES # (AUTO) 0.8 10^3/uL (0.0-1.0); MONOCYTES % (AUTO) 12 % (0-12); NEUTROPHILS % (AUTO) 60 % (42-75); PLATELET COUNT 313 10^3/uL (130-400); WHITE BLOOD COUNT 6.6 10^3/uL (4.3-11.0)
[2020-06-20 05:23] LABS: CHLORIDE 104 MMOL/L (98-107); POTASSIUM 4.3 MMOL/L (3.6-5.0); SODIUM 139 MMOL/L (135-145)
[2020-06-20 05:25] LABS: CALCIUM 8.6 MG/DL (8.5-10.1)
[2020-06-20 05:26] LABS: GLUCOSE 123 MG/DL (70-105); TOTAL PROTEIN 5.5 GM/DL (6.4-8.2)
[2020-06-20 05:27] LABS: CARBON DIOXIDE 28 MMOL/L (21-32)
[2020-06-20 05:28] LABS: BILIRUBIN,TOTAL 0.4 MG/DL (0.1-1.0)
[2020-06-20 05:29] LABS: ALKALINE PHOSPHATASE 52 U/L (40-136); CREATININE SERUM 0.67 MG/DL (0.60-1.30); GFR ESTIMATED > 60
[2020-06-20 05:30] LABS: BUN/CREATININE RATIO 22
[2020-06-20 05:32] LABS: ALANINE AMINOTRANSFERASE 11 U/L (0-55)
[2020-06-20 05:49] VITALS: BP 119/59
[2020-06-20] MEDS: metFORMIN 500 MG (GLUCOPHAGE) TAB PO SCH (07:22)
--- NOTE | 2020-06-20 08:23 | Occupational Ther Daily Note ---
OT Current Status-Daily Note Subjective Pt agreeable to OT tx, rates pain in back 01/29, nurse notified of pt's request for pain medicine. Mental Status/Objective Patient Orientation: Person, Place, Time, Situation ADL-Treatment Therapy Code Descriptions/Definitions Functional [place] Measure: 0=Not Assessed/NA 4=Minimal Assistance 1=Total Assistance 5=Supervision or Setup 2=Maximal Assistance 6=Modified [place] 3=Moderate Assistance 7=Complete IndependenceSCALE: Activities may be completed with or without assistive devices. 0-Xxdhlmiddr-vsnomlm completes the activity by him/herself with no assistance from a helper. 5-Set-up or Clean-up Assistance-helper sets up or cleans up; patient completes activity. [place] assists only prior to or following the activity. 4-Supervision or Touching Assistance-helper provides verbal cues and/or touching/steadying and/or contact guard assistance as patient completes activity. Assistance may be provided throughout the activity or intermittently. 3-Partial/Moderate Assistance-helper does LESS THAN HALF the effort. [place] lifts, holds or supports trunk or limbs, but provides less than half the effort. 2-Substantial/Maximal Assistance-helper does MORE THAN HALF the effort. [place] lifts or holds trunk or limbs and provides more than half the effort. 0-Xixeglxbp-bkdhhn does ALL the effort. Patient does none of the effort to complete the activity. Or, the assistance of 2 or more helpers is required for the patient to complete the activity. If activity was not attempted, code reason: 7-Patient Refused. 9-Not Applicable-not attempted and the patient did not perform the activity before the current illness, exacerbation or injury. 10-Not Attempted due to Environmental Limitations-(lack of equipment, weather restraints, etc.). 88-Not Attempted due to Medical Conditions or Safety Concerns. Eating (QC): 6 (Pt reports independent with eating breakfast.) Oral Hygiene (QC): 7 Shower/Bathe Self (QC): 7 Upper Body Dressing (QC): 7 Lower Body Dressing (QC): 7 On/Off Footwear: 7 Toileting Hygiene (QC): 7 Other Treatment Pt seated in recliner, agreeable to OT Tx. Pt declines showering and changing clothes, but agreeable to going to therapy gym. OT noted pt's back brace up too high, pt able to adjust back brace with SBA. Pt used FWW to ambulate to therapy gym, CGA. OT tx focused on increasing BUE strength, fine motor strength/coordination, and activity tolerance. Pt placed/removed 1" pegs from foam pegboard, alternating hands, with 1lb wrist weights BUEs. Pt required minimal cues to alternate hands as instructed. Pt able to place/remove x100 pegs. Pt then removed beads from light resistance theraputty. Pt took a rest break as needed with tasks. Pt used FWW to return to room, CGA. Post tx, pt seated in recliner, call light in reach and all needs met. Education OT Patient Education: Correct positioning, Modified ADL techniques, Progress toward Goal/Update tx plan, Purpose of tx/functional activities Teaching Recipient: Patient Teaching Methods: Discussion Response to Teaching: Verbalize Understanding OT Skilled Nursing Goals Marketing Developer Goals Time Frame: Jul 01, 2020 Eating (QC): 6 Oral Hygiene (QC): 6 Toileting Hygiene (QC): 6 Shower/Bathe Self (QC): 6 Upper Body Dressing (QC): 6 Lower Body Dressing (QC): 6 On/Off Footwear (QC): 6 Additional Goals: 1-Demonstrate ADL Tasks, 2-Verbalize Understanding, 3- ImproveStrength/Libby 1=Demonstrate adherence to instructed precautions during ADL tasks. 2=Patient will verbalize/demonstrate understanding of assistive devices/modifications for ADL. 3=Patient will improve strength/tolerance for activity to enable patient to perform ADL's. OT Education/Plan Problem List/Assessment Assessment: Decreased Activ Tolerance, Decreased UE Strength Discharge Recommendations Plan/Recommendations: Continue POC Treatment Plan/Plan of Care Patient would benefit from OT for education, treatment and training to promote independence in ADL's, mobility, safety and/or upper extremity function for ADL's. Plan of Care: ADL Retraining, Caregiver Training, Concurrent Therapy, Functional Mobility, Group Exercise/Act as Ind, Orthotic Fitting/Training, UE Funct Exercise/Act Treatment Duration: Jul 01, 2020 Frequency: At least 5 of 7 days/Wk (IRF) Estimated Hrs Per Day: 1.5 hours per day Agreement: Yes Rehab Potential: Good Time/GCodes Start Time: 08:00 Stop Time: 09:00 Total Time Billed (hr/min): 60 Billed Treatment Time 1, FA 4 BRENDON NIELSON OT Jun 20, 2020 08:23
[2020-06-20] MEDS: GABAPENTIN 100 MG (NEURONTIN) CAP PO SCH ×3 (08:44→20:30)
[2020-06-20] MEDS: VITAMIN D3 25 MCG (1,000 UNITS) TABLET PO SCH ×2 (08:44→20:35)
[2020-06-20] MEDS: APIXABAN 5 MG (ELIQUIS) TABLET PO SCH ×2 (08:48→20:30)
[2020-06-20] MEDS: CALCIUM CARB + VIT D 600 MG (CALCARB + D) TAB PO SCH ×2 (08:49→17:40)
[2020-06-20] MEDS: DULoxetine 30 MG (CYMBALTA) CAP PO SCH (08:50)
[2020-06-20] MEDS: DICLOFENAC 1% GEL 100 GM (VOLTAREN) TUBE TOP SCH ×4 (08:51→20:36)
[2020-06-20] MEDS: PANTOPRAZOLE 40 MG (PROTONIX) TAB PO SCH ×2 (08:51→20:31)
[2020-06-20] MEDS: SENNA W/DOCUSATE (SENOKOT S) TABLET PO SCH ×2 (08:52→20:31)
[2020-06-20] MEDS: polyethylene glycoL POWDER 17 GM (MIRALAX) PACK PO SCH ×2 (08:52→21:00)
[2020-06-20] MEDS: DOCUSATE SODIUM 100 MG (COLACE) CAP PO SCH ×2 (08:52→20:31)
--- NOTE | 2020-06-20 10:18 | Physical Therapy Daily Note ---
PT Daily Note-Current Subjective Pt. agrees to Rx, states her pain at beginning of Rx is 10/10 left ip and down leg. After Rx pt. states it is down to 7/10 Pain Numeric Pain Scale: 7 Location: Left Location Body Site: Hip Pain Description: Ache Mental Status Patient Orientation: Normal For Age Attachments: Other-See Comments (back brace) Transfers SCALE: Activities may be completed with or without assistive devices. 9-Zpavoexyml-scbazre completes the activity by him/herself with no assistance from a helper. 5-Set-up or Clean-up Assistance-helper sets up or cleans up; patient completes activity. [place] assists only prior to or following the activity. 4-Supervision or Touching Assistance-helper provides verbal cues and/or touching/steadying and/or contact guard assistance as patient completes activity. Assistance may be provided throughout the activity or intermittently. 3-Partial/Moderate Assistance-helper does LESS THAN HALF the effort. [place] lifts, holds or supports trunk or limbs, but provides less than half the effort. 2-Substantial/Maximal Assistance-helper does MORE THAN HALF the effort. [place] lifts or holds trunk or limbs and provides more than half the effort. 3-Cwpjvsfiz-ibxyqk does ALL the effort. Patient does none of the effort to complete the activity. Or, the assistance of 2 or more helpers is required for the patient to complete the activity. If activity was not attempted, code reason: 7-Patient Refused. 9-Not Applicable-not attempted and the patient did not perform the activity before the current illness, exacerbation or injury. 10-Not Attempted due to Environmental Limitations-(lack of equipment, weather restraints, etc.). 88-Not Attempted due to Medical Conditions or Safety Concerns. Sit to Stand (QC): 5 Gait Training Does the Patient Walk?: Yes Walk 10 feet (QC): 4 Walk 50 ft with 2 Turns(QC): 4 Walk 150 ft (QC): 4 Gait Persons Needed: 1 Gait Assistive Device: FWW decreased step length, pt. initially sliding with forefoot "toe stick" gait R>L but was able to correct this with some cuing but reverts back. Pt. with very kyphotic posture , frail leans heavily on FWW Exercises Seated Therapy Exercises: Ankle pumps, Sit to stand, Long arc quads, Hip flexion, Hip abd/add Seated Reps: 12 NuStep Minutes: 10 NuStep Workload: 3 Treatments pt. requests Nustep stating it loosens her up and helps with pain. opt. initially taking very shallow depth in pedaling then expanding a a little deeper successfully without increased pain Assessment Current Status: Good Progress PT Short Term Goals Short Term Goals Time Frame: Jun 24, 2020 Roll Left & Right: 6 Sit to lyin Lying to sitting on side of be: 4 Sit to stand: 5 Chair/sfx-oj-oeurv transfer: 5 Walk 10 feet: 5 Walk 50 feet with two turns: 5 Walk 150 feet: 5 PT Mold Hoister Goals Mold Hoister Goals PT Mold Hoister Goals Time Frame: Jul 08, 2020 Roll Left & Right (QC): 6 Sit to Lying (QC): 6 Lying-Sitting on Side/Bed(QC): 6 Sit to Stand (QC): 6 Chair/Vxl-cu-Wgebn Xfer(QC): 6 Toilet Transfer (QC): 6 Car Transfer (QC): 6 Does the Patient Walk: Yes Walk 10 feet (QC): 6 Walk 50ft with 2 Turns (QC): 6 Walk 150 ft (QC): 6 Walking 10ft on Uneven Surface: 6 1 Step (curb) (QC): 4 4 Steps (QC): 4 12 Steps (QC): 88 Picking up an Object (QC): 88 Wheel 50 feet with 2 turns (QC: 9 Wheel 150 feet: 9 PT Plan Treatment/Plan Treatment Plan: Continue Plan of Care Treatment Plan: Bed Mobility, Education, Functional Activity Libby, Functional Strength, Group Therapy, Gait, Safety, Therapeutic Exercise, Transfers Treatment Duration: Jul 08, 2020 Frequency: At least 5 of 7 days/Wk (IRF) Estimated Hrs Per Day: 1.5 hours per day Patient and/or Family Agrees t: Yes Safety Risks/Education Patient Education: Gait Training, Transfer Techniques, Correct Positioning, Disease Process, Safety Issues Teaching Recipient: Patient Teaching Methods: Demonstration, Discussion Response to Teaching: Verbalize Understanding, Return Demonstration, Reinforcement Needed Time/GCodes Time In: 930 Time Out: 1015 Total Billed Treatment Time: 45 Total Billed Treatment 1,EX25m,GT20m NIDIA FAITH PTA Jun 20, 2020 10:18
--- NOTE | 2020-06-20 10:38 | PM&R Progress Note ---
Subjective HPI/CC On Admission Date Seen by Provider: Jun 20, 2020 Time Seen by Provider: 10:30 Subjective/Events-last exam 06/20/20: Pt isnt sleeping well due to the pain Will give Lortab two at a time every four hours as needed that she takes at home Oxycodone doesnt seem to work as well Scopolamine patch is treating the nausea Midline will be placed to completed the Venofer 06/19/20: Patient doing better Appetite improved Midline will be placed BM++ Walked to the gym and back to room Voltaren gel ordered Venofer ordered Scop patch will be continued Ensure BID Vit B12 injection 06/18/20: Patient in a good mood Improved status Pain of back is improved Checked meds and labs MANJU hose on Lortab improved pain Iron pending DC accuchecks Scop patch is improving the nausea Review of Systems General: Fatigue Objective Exam Vital Signs Vital Signs Date Time Temp Pulse Resp B/P (MAP) Pulse Ox O2 Delivery O2 Flow Rate FiO2 06/21/20 05:14 37.2 85 18 139/63 (88) 95 Room Air Capillary Refill : General Appearance: No Apparent Distress, WD/WN, Chronically ill, Thin HEENT: PERRL/EOMI, Normal ENT Inspection, Pharynx Normal Neck: Full Range of Motion, Normal Inspection, Non Tender, Supple, Carotid Bruit Respiratory: Chest Non Tender, Lungs Clear, Normal Breath Sounds, No Accessory Muscle Use, No Respiratory Distress Cardiovascular: Regular Rate, Rhythm, No Edema, No Gallop, No JVD, No Murmur, Normal Peripheral Pulses Gastrointestinal: Normal Bowel Sounds, No Organomegaly, No Pulsatile Mass, Non Tender, Soft Back: CVA Tenderness (L), CVA Tenderness (R), Decreased Range of Motion, Muscle Spasm, Vertebral Tenderness, Other Extremity: Normal Capillary Refill, Normal Inspection, Normal Range of Motion, Non Tender, No Calf Tenderness, No Pedal Edema Neurologic/Psychiatric: Alert, Oriented x3, No Motor/Sensory Deficits, Normal Mood/Affect Skin: Normal Color, Warm/Dry Lymphatic: No Adenopathy Results/Procedures Lab Patient resulted labs reviewed. FIM Transfers Therapy Code Descriptions/Definitions Functional [place] Measure: 0=Not Assessed/NA 4=Minimal Assistance 1=Total Assistance 5=Supervision or Setup 2=Maximal Assistance 6=Modified [place] 3=Moderate Assistance 7=Complete IndependenceSCALE: Activities may be completed with or without assistive devices. 4-Bnlygktvmu-bbmtaep completes the activity by him/herself with no assistance from a helper. 5-Set-up or Clean-up Assistance-helper sets up or cleans up; patient completes activity. [place] assists only prior to or following the activity. 4-Supervision or Touching Assistance-helper provides verbal cues and/or touching/steadying and/or contact guard assistance as patient completes activity. Assistance may be provided throughout the activity or intermittently. 3-Partial/Moderate Assistance-helper does LESS THAN HALF the effort. [place] lifts, holds or supports trunk or limbs, but provides less than half the effort. 2-Substantial/Maximal Assistance-helper does MORE THAN HALF the effort. [place] lifts or holds trunk or limbs and provides more than half the effort. 0-Lfnrgekxy-idtign does ALL the effort. Patient does none of the effort to complete the activity. Or, the assistance of 2 or more helpers is required for the patient to complete the activity. If activity was not attempted, code reason: 7-Patient Refused. 9-Not Applicable-not attempted and the patient did not perform the activity before the current illness, exacerbation or injury. 10-Not Attempted due to Environmental Limitations-(lack of equipment, weather restraints, etc.). 88-Not Attempted due to Medical Conditions or Safety Concerns. Roll Left to Right (QC): 4 Sit to Lying (QC): 3 Sit to Stand (QC): 5 Chair/Kmy-ww-Wkooz Xfer(QC): 4 Car Transfer (QC): 4 Gait Training Does the Patient Walk?: Yes Distance: 150' x 2 Walk 10 feet (QC): 4 Walk 50 ft with 2 Turns(QC): 4 Walk 150 ft (QC): 4 Walking 10ft/uneven surface-QC: 4 Gait Persons Needed: 1 Gait Assistive Device: FWW Wheelchair Training Does the Pt Use a Wheelchair?: No Wheel 50 ft with 2 turns (QC): 9 Wheel 150 ft (QC): 9 Stair Training #of Steps: 1 1 Step (curb) (QC): 4 4 Steps (QC): 88 12 Steps (QC): 88 Balance Picking up an Object (QC): 88 ADL-Treatment Eating (QC): 6 (Pt reports independent with eating breakfast.) Oral Hygiene (QC): 7 Shower/Bathe Self (QC): 7 Upper Body Dressing (QC): 7 Lower Body Dressing (QC): 7 On/Off Footwear (QC): 7 Toileting Hygiene (QC): 7 Assessment/Plan Assessment and Plan Assess & Plan/Chief Complaint Assessment: s/p extensive spine surgery per Dr Hunter Subacute DVT/PE dx 06/09 delaying surgery scheduled for 06/09/20 at [facility] in pre-op Osteoporosis GERD Weight loss Continued nausea DM Post op anemia Back pain Fall risk Plan: IRF protocol Pain meds Nausea meds PPI BID Scop patch 06/18/20: Iron infusions Pain control Scop patch Regular diet DC accuchecks 06/19/20: Iron infusion with midline Vit B12 injection Ensure BID Scop patch to continue 06/20/20: Iron infusions via midline Scop patch PT OT (1) S/P spinal surgery (2) Osteoporosis (3) Compression fracture of lumbar vertebra (4) DVT (deep venous thrombosis) (5) Pulmonary embolism (6) Anticoagulant long-term use (7) [place] filter in place (8) Nausea (9) Weight loss (10) GERD (gastroesophageal reflux disease) (11) Diabetes (12) Postoperative anemia (13) Protein-calorie malnutrition, moderate CHARLOTTE CAMARGO DO Jun 20, 2020 10:38
--- NOTE | 2020-06-20 13:13 | ST Cognitive Linguistic Eval ---
Speech Evaluation-General Medical Diagnosis L5-S1 TLIF Onset Date: Jun 13, 2020 Therapy Diagnosis Therapy Diagnosis: Cognitive-communication Referral Referring Physician: Dr. Lua Medical History Pertinent Medical History: DM, OA Reviewed History: Yes Social History Current Living Status: Children (son, Adrien) Speech PLF-Current Status Prior Level of Function Patient was active, independent prior to back surgery. She currently lives with her son. Subjective Patient was pleasant and cooperative with the cognitive assessment. Language Eval: Auditory Comprehends Simple Yes/No Ques: Functional Indent/Objects Multiple [place]: Functional Ident/Pics in Multiple [place]: Functional Follows 1-Step Commands: Functional Follows Complex Directions: Functional Follows General Conversations: Functional Language Eval: Verbal Language Completes Spontaneous Greeting: Functional Produces Auto, Serial Info: Functional Imitates Simple Words/Phrases: Functional Word Finding: Functional Requests Basic Needs: Functional States Basic Personal Info: Functional Expresses Complex Ideas: Functional Objective Cognitive Domain Attention: WNL Memory: WNL Problem Solving: Functional Executive Functions: WNL Visuospatial Skills: WNL Composite Severity Rating: WNL Clock Drawing Severity Rating: WNL Objective Formal/Standardized Tests [facility] Mental Status ([facility]) Results 28/30, within normal range of function Oral Motor/Speech Production Within Normal Limits Impression Patient is a pleasant 85 y/o who was admitted to the ARU s/p spinal surgery. The patient was given the SLUMS at bedside with a score of 28/30 obtained. This score is within normal range of function and does not indicate further need for ST services. Speech Patient Assess Expression of Ideas/Wants: Expression (4) Understanding Verbal Content: Understands (4) Brief Interview-Mental Status: Yes Repetition of Three Words: Three (3) Temporal Orientation: Year: Correct (3) Temporal Orientation: Month: Accurate within 5 days(2) Temporal Orientation: Day: Correct (1) Recall : Wear to say "Sock": Yes, no cue required (2) Recall : Color: Yes, after cueing (1) Recall : Bed: Yes, no cue required (2) Memory/Recall Ability: Current season, Location of own room, That he or she is in a hsp/hsp unit Speech-Plan Patient/Family Goals Patient/Family Goals: Patient plans on returning to her home where she lives with her son. Treatment Plan Speech Therapy Treatment Plan: Discontinue ST Treatment Duration: Jun 20, 2020 Frequency: 1 time per week Estimated Hrs Per Day: .5 hour per day Rehab Potential: Good Barriers to Learning: None identified Pt/Family Agrees to Plan: Yes Safety Risks/Education Teaching Recipient: Patient Teaching Methods: Discussion Response to Teaching: Verbalize Understanding Education Topics Provided: Safety within her room and communication of wants/needs Time Speech Therapy Time In: 11:00 Speech Therapy Time Out: 11:30 Total Billed Time: 30 Billed Treatment Time 1, SPSNDCOMP KRISHNA Driscoll Jun 20, 2020 13:13
--- NOTE | 2020-06-20 14:11 | Occupational Ther Daily Note ---
OT Current Status-Daily Note Subjective Pt seated in recliner, agreeable to OT tx. ADL-Treatment Therapy Code Descriptions/Definitions Functional [place] Measure: 0=Not Assessed/NA 4=Minimal Assistance 1=Total Assistance 5=Supervision or Setup 2=Maximal Assistance 6=Modified [place] 3=Moderate Assistance 7=Complete IndependenceSCALE: Activities may be completed with or without assistive devices. 8-Rbsheasror-vdjuudy completes the activity by him/herself with no assistance from a helper. 5-Set-up or Clean-up Assistance-helper sets up or cleans up; patient completes activity. [place] assists only prior to or following the activity. 4-Supervision or Touching Assistance-helper provides verbal cues and/or touching/steadying and/or contact guard assistance as patient completes activity. Assistance may be provided throughout the activity or intermittently. 3-Partial/Moderate Assistance-helper does LESS THAN HALF the effort. [place] lifts, holds or supports trunk or limbs, but provides less than half the effort. 2-Substantial/Maximal Assistance-helper does MORE THAN HALF the effort. [place] lifts or holds trunk or limbs and provides more than half the effort. 5-Mubeiucvh-pmeqjz does ALL the effort. Patient does none of the effort to complete the activity. Or, the assistance of 2 or more helpers is required for the patient to complete the activity. If activity was not attempted, code reason: 7-Patient Refused. 9-Not Applicable-not attempted and the patient did not perform the activity before the current illness, exacerbation or injury. 10-Not Attempted due to Environmental Limitations-(lack of equipment, weather restraints, etc.). 88-Not Attempted due to Medical Conditions or Safety Concerns. Oral Hygiene (QC): 4 (CGA standing at sink) Toileting Hygiene (QC): 4 (CGA, pt able to manage clothing and perform hygiene) Toilet Transfer (QC): 4 (CGA on/of BS over toilet.) Other Treatment Pt seated in recliner, used FWW to ambulate to bathroom to stand at sink for oral care. Pt then transferred onto [facility] over toilet to complete toileting, then stood at sink to wash hands, CGA. Pt returned to recliner. In order to increase BUE strength and activity tolerance, pt completed 2x10 reps AROM of the following: shoulder flexion, elbow flexion/extension, wrist flexion/extension and finger flexion/extension. Post tx, pt seated in recliner, call light in reach and all needs met. Education OT Patient Education: Correct positioning, Exercise program, Modified ADL techniques, Progress toward Goal/Update tx plan, Purpose of tx/functional activities Teaching Recipient: Patient Teaching Methods: Discussion Response to Teaching: Verbalize Understanding OT Residential Goals [employer] Goals Time Frame: Jul 01, 2020 Eating (QC): 6 Oral Hygiene (QC): 6 Toileting Hygiene (QC): 6 Shower/Bathe Self (QC): 6 Upper Body Dressing (QC): 6 Lower Body Dressing (QC): 6 On/Off Footwear (QC): 6 Additional Goals: 1-Demonstrate ADL Tasks, 2-Verbalize Understanding, 3- ImproveStrength/Libby 1=Demonstrate adherence to instructed precautions during ADL tasks. 2=Patient will verbalize/demonstrate understanding of assistive devices/mod ifications for ADL. 3=Patient will improve strength/tolerance for activity to enable patient to perform ADL's. OT Education/Plan Problem List/Assessment Assessment: Decreased Activ Tolerance, Decreased UE Strength, Impaired I ADL's, Impaired Self-Care Skills Discharge Recommendations Plan/Recommendations: Continue POC Treatment Plan/Plan of Care Patient would benefit from OT for education, treatment and training to promote independence in ADL's, mobility, safety and/or upper extremity function for ADL's. Plan of Care: ADL Retraining, Caregiver Training, Concurrent Therapy, Functional Mobility, Group Exercise/Act as Ind, Orthotic Fitting/Training, UE Funct Exercise/Act Treatment Duration: Jul 01, 2020 Frequency: At least 5 of 7 days/Wk (IRF) Estimated Hrs Per Day: 1.5 hours per day Agreement: Yes Rehab Potential: Good Time/GCodes Start Time: 13:30 Stop Time: 14:00 Total Time Billed (hr/min): 30 Billed Treatment Time 1, ADL (15'), EX (15') BRENDON NIELSON OT Jun 20, 2020 14:11
--- NOTE | 2020-06-20 14:33 | Physical Therapy Daily Note ---
PT Daily Note-Current Subjective Patient agrees to PT. She report fatigue and nausea. RN notified. Pain Numeric Pain Scale: 5-Moderate Pain Location: Lower Location Body Site: Back Pain Description: Acute Mental Status Patient Orientation: Normal For Age Transfers SCALE: Activities may be completed with or without assistive devices. 2-Aunmomkufb-ikqolbi completes the activity by him/herself with no assistance fr om a helper. 5-Set-up or Clean-up Assistance-helper sets up or cleans up; patient completes activity. [place] assists only prior to or following the activity. 4-Supervision or Touching Assistance-helper provides verbal cues and/or touching/steadying and/or contact guard assistance as patient completes activity. Assistance may be provided throughout the activity or intermittently. 3-Partial/Moderate Assistance-helper does LESS THAN HALF the effort. [place] lifts, holds or supports trunk or limbs, but provides less than half the effort. 2-Substantial/Maximal Assistance-helper does MORE THAN HALF the effort. [place] lifts or holds trunk or limbs and provides more than half the effort. 0-Ezsaprctv-rsuhzy does ALL the effort. Patient does none of the effort to complete the activity. Or, the assistance of 2 or more helpers is required for the patient to complete the activity. If activity was not attempted, code reason: 7-Patient Refused. 9-Not Applicable-not attempted and the patient did not perform the activity before the current illness, exacerbation or injury. 10-Not Attempted due to Environmental Limitations-(lack of equipment, weather restraints, etc.). 88-Not Attempted due to Medical Conditions or Safety Concerns. Sit to Stand (QC): 4 Gait Training Does the Patient Walk?: Yes Distance: 200' x 2 Walk 10 feet (QC): 4 Walk 50 ft with 2 Turns(QC): 4 Walk 150 ft (QC): 4 Gait Assistive Device: FWW VC's for body placement in FWW and to clear feet due to shuffle gait sequence with flexed knee posture Exercises Seated Therapy Exercises: Ankle pumps, Long arc quads, Hip flexion Seated Reps: 15 (2 sets) Assessment Patient fatigues with activity and requires seated recovery periods. Patient remains up in recliner. RN present to issue pain medication. PT Short Term Goals Short Term Goals Time Frame: Jun 24, 2020 Roll Left & Right: 6 Sit to lyin Lying to sitting on side of be: 4 Sit to stand: 5 Chair/qqh-eh-rjadu transfer: 5 Walk 10 feet: 5 Walk 50 feet with two turns: 5 Walk 150 feet: 5 PT Prison Goals Urgent Care Technician Goals PT Urgent Care Technician Goals Time Frame: Jul 08, 2020 Roll Left & Right (QC): 6 Sit to Lying (QC): 6 Lying-Sitting on Side/Bed(QC): 6 Sit to Stand (QC): 6 Chair/Xoq-fu-Eixvh Xfer(QC): 6 Toilet Transfer (QC): 6 Car Transfer (QC): 6 Does the Patient Walk: Yes Walk 10 feet (QC): 6 Walk 50ft with 2 Turns (QC): 6 Walk 150 ft (QC): 6 Walking 10ft on Uneven Surface: 6 1 Step (curb) (QC): 4 4 Steps (QC): 4 12 Steps (QC): 88 Picking up an Object (QC): 88 Wheel 50 feet with 2 turns (QC: 9 Wheel 150 feet: 9 PT Plan Treatment/Plan Treatment Plan: Continue Plan of Care Treatment Plan: Bed Mobility, Education, Functional Activity [place], Functional Strength, Group Therapy, Gait, Safety, Therapeutic Exercise, Transfers Treatment Duration: Jul 08, 2020 Frequency: At least 5 of 7 days/Wk (IRF) Estimated Hrs Per Day: 1.5 hours per day Patient and/or Family Agrees t: Yes Time/GCodes Time In: 1401 Time Out: 1431 Total Billed Treatment Time: 30 Total Billed Treatment 1 visit EX 10 min GT 20 min JAIME CASTRO PT Jun 20, 2020 14:33
[2020-06-20 17:45] VITALS: BP 112/67
[2020-06-20] MEDS: SIMvastatin 10 MG (ZOCOR) TAB PO SCH (20:30)
[2020-06-21 05:14] VITALS: BP 139/63
[2020-06-21] MEDS: metFORMIN 500 MG (GLUCOPHAGE) TAB PO SCH (06:00)
[2020-06-21] MEDS ORDERED: SCOPOLAMINE PATCH REMOVAL TP SCH (06:30)
[2020-06-21] MEDS: IRON SUCROSE 200 MG/10 ML (VENOFER) VIAL IV SCH (07:50)
[2020-06-21] MEDS: APIXABAN 5 MG (ELIQUIS) TABLET PO SCH ×2 (07:53→20:08)
[2020-06-21] MEDS: VITAMIN D3 25 MCG (1,000 UNITS) TABLET PO SCH ×2 (07:53→20:24)
[2020-06-21] MEDS: polyethylene glycoL POWDER 17 GM (MIRALAX) PACK PO SCH ×2 (07:53→20:16)
[2020-06-21] MEDS: DOCUSATE SODIUM 100 MG (COLACE) CAP PO SCH ×2 (07:53→20:16)
[2020-06-21] MEDS: DULoxetine 30 MG (CYMBALTA) CAP PO SCH (07:53)
[2020-06-21] MEDS: GABAPENTIN 100 MG (NEURONTIN) CAP PO SCH ×3 (07:53→20:08)
[2020-06-21] MEDS: SENNA W/DOCUSATE (SENOKOT S) TABLET PO SCH ×2 (07:53→20:16)
[2020-06-21] MEDS: PANTOPRAZOLE 40 MG (PROTONIX) TAB PO SCH ×2 (07:53→20:08)
[2020-06-21] MEDS: CALCIUM CARB + VIT D 600 MG (CALCARB + D) TAB PO SCH ×2 (07:53→17:18)
[2020-06-21] MEDS: DICLOFENAC 1% GEL 100 GM (VOLTAREN) TUBE TOP SCH ×4 (07:54→20:14)
--- NOTE | 2020-06-21 09:02 | Occupational Ther Daily Note ---
OT Current Status-Daily Note Subjective [id number]: Pt AxO, agreeable to OT tx. States 2/3 back precautions. Pt states 8/10 pain in L hip that is sharp/ shooting, states has had this on/ off and that she never knows where pain will occur in L leg. States none in back. Medications passed prior to OT entry. [id number] (30): Pt asleep in chair upon OT entry. Pt states pain has gotten better, agrees to tx, states need for bathroom. Mental Status/Objective Patient Orientation: Person, Place, Situation, Normal For Age ADL-Treatment Therapy Code Descriptions/Definitions Functional [place] Measure: 0=Not Assessed/NA 4=Minimal Assistance 1=Total Assistance 5=Supervision or Setup 2=Maximal Assistance 6=Modified [place] 3=Moderate Assistance 7=Complete IndependenceSCALE: Activities may be completed with or without assistive devices. 1-Yhpzevdlvy-ydvflvi completes the activity by him/herself with no assistance from a helper. 5-Set-up or Clean-up Assistance-helper sets up or cleans up; patient completes activity. [place] assists only prior to or following the activity. 4-Supervision or Touching Assistance-helper provides verbal cues and/or touching/steadying and/or contact guard assistance as patient completes activity. Assistance may be provided throughout the activity or intermittently. 3-Partial/Moderate Assistance-helper does LESS THAN HALF the effort. [place] lifts, holds or supports trunk or limbs, but provides less than half the effort. 2-Substantial/Maximal Assistance-helper does MORE THAN HALF the effort. [place] lifts or holds trunk or limbs and provides more than half the effort. 2-Rmhqctiap-xlbeqc does ALL the effort. Patient does none of the effort to complete the activity. Or, the assistance of 2 or more helpers is required for the patient to complete the activity. If activity was not attempted, code reason: 7-Patient Refused. 9-Not Applicable-not attempted and the patient did not perform the activity before the current illness, exacerbation or injury. 10-Not Attempted due to Environmental Limitations-(lack of equipment, weather restraints, etc.). 88-Not Attempted due to Medical Conditions or Safety Concerns. Eating (QC): 6 Oral Hygiene (QC): 4 (CGA at sink. ) Shower/Bathe Self (QC): 4 (s/u, CGA during shower transfer, and education on use of LHS, SBA for compliance with back precautions.) Upper Body Dressing (QC): 5 (s/u shirt and back brace) Lower Body Dressing (QC): 3 (mod A for use of AD, threading of one LE and min A in stance during pant hike (LOB in shower, requires CGA and min A throughout)) On/Off Footwear: 6 (IND sock (use of sock aide). Max A MANJU hose (will not complete at hoem)) Toileting Hygiene (QC): 4 (SUP) Toilet Transfer (QC): 4 (SBA, use of walker and gbs.) Other Treatment [id number] Pt completes all sit to stands SBA, ambulation CGA. Shower transfer CGA. Completes shower/ dressing in shower as outlined. SBA-CGA at sink during oral care, kyphotic posture throughout. Pt in recliner end of session with all needs met, call light in reach. [id number] (30): Pt completes sit to stands with SBA, ambulates with CGA to toilet. Pt completes urination with SUP/ hygiene SUP. Pt requires increased time with doffing/ donning LB dressing. Pt ambulates through commons area, requiring one rest break. Pt states slight nausea, requiring nursing assist for medication management. Pt returns to room, sits in recliner to complete UE theraband ex with red theraband. Completes 10 reps of the following bilaterally: shoulder flexion, shoulder scaption, shoulder ext rotation. Denies needs, call light in reach, pt in recliner with nursing present. Education OT Patient Education: Correct positioning, Exercise program, Home exercise program, Modified ADL techniques, Progress toward Goal/Update tx plan, Purpose of tx/functional activities, Reviewed precautions, Safety issues, Transfer techniques Teaching Recipient: Patient Teaching Methods: Demonstration, Discussion Response to Teaching: Verbalize Understanding, Return Demonstration, Reinforcement Needed OT Assisted Goals Assisted Goals Time Frame: Jul 01, 2020 Eating (QC): 6 Oral Hygiene (QC): 6 Toileting Hygiene (QC): 6 Shower/Bathe Self (QC): 6 Upper Body Dressing (QC): 6 Lower Body Dressing (QC): 6 On/Off Footwear (QC): 6 Additional Goals: 1-Demonstrate ADL Tasks, 2-Verbalize Understanding, 3- ImproveStrength/Libby 1=Demonstrate adherence to instructed precautions during ADL tasks. 2=Patient will verbalize/demonstrate understanding of assistive devices/modifications for ADL. 3=Patient will improve strength/tolerance for activity to enable patient to perform ADL's. OT Education/Plan Problem List/Assessment Assessment: Decreased Activ Tolerance, Decreased UE Strength, Dependent Transfers, Edema (L dorsal foot), Impaired Funct Balance, Impaired I ADL's, Impaired Self-Care Skills Discharge Recommendations Plan/Recommendations: Continue POC Therapy Discharge Recommendati: Home & Family, Post Acute OT Equpiment Recommendations-D/C: Hip Kit (plus hard sock aide (pre-formed)) Treatment Plan/Plan of Care Treatment,Training & Education: Yes Patient would benefit from OT for education, treatment and training to promote independence in ADL's, mobility, safety and/or upper extremity function for ADL's. Plan of Care: ADL Retraining, Caregiver Training, Concurrent Therapy, Functional Mobility, Group Exercise/Act as Ind, Orthotic Fitting/Training, UE Funct Exercise/Act Treatment Duration: Jul 01, 2020 Frequency: At least 5 of 7 days/Wk (IRF) Estimated Hrs Per Day: 1.5 hours per day Agreement: Yes Rehab Potential: Good Time/GCodes Start Time: 08:00 (1125) Stop Time: 09:00 (1155) Total Time Billed (hr/min): 90 Billed Treatment Time [id number]: 1, ADL 4 (60) [id number]: 1, ADL, EX (30) RUPERTO MUSTAFA OTR Jun 21, 2020 09:02
--- NOTE | 2020-06-21 10:46 | PM&R Progress Note ---
Subjective HPI/CC On Admission Date Seen by Provider: Jun 21, 2020 Time Seen by Provider: 10:45 Subjective/Events-last exam 06/21/20: Midline was placed, will receive Venofer iron infusions Last bowels moved a couple of days ago so will initiate laxatives Scopolamine Patch working pretty well for her Eating and drinking better 06/20/20: Pt isnt sleeping well due to the pain Will give Lortab two at a time every four hours as needed that she takes at home Oxycodone doesnt seem to work as well Scopolamine patch is treating the nausea Midline will be placed to completed the Venofer 06/19/20: Patient doing better Appetite improved Midline will be placed BM++ Walked to the gym and back to room Voltaren gel ordered Venofer ordered Scop patch will be continued Ensure BID Vit B12 injection 06/18/20: Patient in a good mood Improved status Pain of back is improved Checked meds and labs MANJU hose on Lortab improved pain Iron pending DC accuchecks Scop patch is improving the nausea Review of Systems General: Fatigue Musculoskeletal: back pain Objective Exam Vital Signs Vital Signs Date Time Temp Pulse Resp B/P (MAP) Pulse Ox O2 Delivery O2 Flow Rate FiO2 06/21/20 20:15 Room Air 06/21/20 16:00 36.8 84 16 147/65 (92) 95 Capillary Refill : General Appearance: No Apparent Distress, WD/WN, Chronically ill, Thin HEENT: PERRL/EOMI, Normal ENT Inspection, Pharynx Normal Neck: Full Range of Motion, Normal Inspection, Non Tender, Supple, Carotid Bruit Respiratory: Chest Non Tender, Lungs Clear, Normal Breath Sounds, No Accessory Muscle Use, No Respiratory Distress Cardiovascular: Regular Rate, Rhythm, No Edema, No Gallop, No JVD, No Murmur, Normal Peripheral Pulses Gastrointestinal: Normal Bowel Sounds, No Organomegaly, No Pulsatile Mass, Non Tender, Soft Back: CVA Tenderness (L), CVA Tenderness (R), Decreased Range of Motion, Muscle Spasm, Vertebral Tenderness, Other Extremity: Normal Capillary Refill, Normal Inspection, Normal Range of Motion, Non Tender, No Calf Tenderness, No Pedal Edema Neurologic/Psychiatric: Alert, Oriented x3, No Motor/Sensory Deficits, Normal Mood/Affect Skin: Normal Color, Warm/Dry Lymphatic: No Adenopathy Results/Procedures Lab Patient resulted labs reviewed. FIM Transfers Therapy Code Descriptions/Definitions Functional [place] Measure: 0=Not Assessed/NA 4=Minimal Assistance 1=Total Assistance 5=Supervision or Setup 2=Maximal Assistance 6=Modified [place] 3=Moderate Assistance 7=Complete IndependenceSCALE: Activities may be completed with or without assistive devices. 4-Rgsmdnrkru-byicjoz completes the activity by him/herself with no assistance from a helper. 5-Set-up or Clean-up Assistance-helper sets up or cleans up; patient completes activity. [place] assists only prior to or following the activity. 4-Supervision or Touching Assistance-helper provides verbal cues and/or touching/steadying and/or contact guard assistance as patient completes activity. Assistance may be provided throughout the activity or intermittently. 3-Partial/Moderate Assistance-helper does LESS THAN HALF the effort. [place] lifts, holds or supports trunk or limbs, but provides less than half the effort. 2-Substantial/Maximal Assistance-helper does MORE THAN HALF the effort. [place] lifts or holds trunk or limbs and provides more than half the effort. 9-Rksuyumpi-qxorrz does ALL the effort. Patient does none of the effort to complete the activity. Or, the assistance of 2 or more helpers is required for the patient to complete the activity. If activity was not attempted, code reason: 7-Patient Refused. 9-Not Applicable-not attempted and the patient did not perform the activity before the current illness, exacerbation or injury. 10-Not Attempted due to Environmental Limitations-(lack of equipment, weather restraints, etc.). 88-Not Attempted due to Medical Conditions or Safety Concerns. Roll Left to Right (QC): 4 Sit to Lying (QC): 3 Sit to Stand (QC): 4 Chair/Zhh-ir-Bcykm Xfer(QC): 4 Car Transfer (QC): 4 Gait Training Does the Patient Walk?: Yes Distance: 200' x 2 Walk 10 feet (QC): 4 Walk 50 ft with 2 Turns(QC): 4 Walk 150 ft (QC): 4 Walking 10ft/uneven surface-QC: 4 Gait Persons Needed: 1 Gait Assistive Device: FWW Wheelchair Training Does the Pt Use a Wheelchair?: No Wheel 50 ft with 2 turns (QC): 9 Wheel 150 ft (QC): 9 Stair Training #of Steps: 1 1 Step (curb) (QC): 4 4 Steps (QC): 88 12 Steps (QC): 88 Balance Picking up an Object (QC): 88 ADL-Treatment Eating (QC): 6 Oral Hygiene (QC): 4 (CGA at sink. ) Shower/Bathe Self (QC): 4 (s/u, CGA during shower transfer, and education on use of LHS, SBA for compliance with back precautions.) Upper Body Dressing (QC): 5 (s/u shirt and back brace) Lower Body Dressing (QC): 3 (mod A for use of AD, threading of one LE and min A in stance during pant hike (LOB in shower, requires CGA and min A throughout)) On/Off Footwear (QC): 6 (IND sock (use of sock aide). Max A MANJU hose (will not complete at [facility])) Toileting Hygiene (QC): 4 (CGA, pt able to manage clothing and perform hygiene) Toilet Transfer (QC): 4 (CGA on/of BSC over toilet.) Assessment/Plan Assessment and Plan Assess & Plan/Chief Complaint Assessment: s/p extensive spine surgery per Dr Hunter Subacute DVT/PE dx 06/09 delaying surgery scheduled for 06/09/20 at [facility] in pre-op Osteoporosis GERD Weight loss Continued nausea DM Post op anemia Back pain Fall risk Plan: IRF protocol Pain meds Nausea meds PPI BID Scop patch 06/18/20: Iron infusions Pain control Scop patch Regular diet DC accuchecks 06/19/20: Iron infusion with midline Vit B12 injection Ensure BID Scop patch to continue 06/20/20: Iron infusions via midline Scop patch PT OT 06/21/20: Improve dietary consumption Monitor nausea Midline for iron infusions (1) S/P spinal surgery (2) Osteoporosis (3) Compression fracture of lumbar vertebra (4) DVT (deep venous thrombosis) (5) Pulmonary embolism (6) Anticoagulant long-term use (7) [place] filter in place (8) Nausea (9) Weight loss (10) GERD (gastroesophageal reflux disease) (11) Diabetes (12) Postoperative anemia (13) Protein-calorie malnutrition, moderate CHARLOTTE CAMARGO DO Jun 21, 2020 10:46
[2020-06-21] MEDS: ONDANSETRON 4 MG (ZOFRAN) ORAL DISSOLVE TAB PO PRN (11:52)
--- NOTE | 2020-06-21 14:38 | Physical Therapy Daily Note ---
PT Daily Note-Current Subjective Pt rated pain 10/10 (L) hip upon arrival. Pt up in recliner with back brace in place and agreeable to PT. Pt says her leg had radiating pain down to the foot prior to her surgery so this pain is a little better than before. Pain rated 8/10 (L) hip post therapy session. Mental Status Patient Orientation: Person, Place, Situation Transfers SCALE: Activities may be completed with or without assistive devices. 6-Ysoqkpsnul-ovushrb completes the activity by him/herself with no assistance from a helper. 5-Set-up or Clean-up Assistance-helper sets up or cleans up; patient completes activity. [place] assists only prior to or following the activity. 4-Supervision or Touching Assistance-helper provides verbal cues and/or touching/steadying and/or contact guard assistance as patient completes activity. Assistance may be provided throughout the activity or intermittently. 3-Partial/Moderate Assistance-helper does LESS THAN HALF the effort. [place] lifts, holds or supports trunk or limbs, but provides less than half the effort. 2-Substantial/Maximal Assistance-helper does MORE THAN HALF the effort. [place] lifts or holds trunk or limbs and provides more than half the effort. 1-Adtcmevnc-ujqxyi does ALL the effort. Patient does none of the effort to compl ete the activity. Or, the assistance of 2 or more helpers is required for the patient to complete the activity. If activity was not attempted, code reason: 7-Patient Refused. 9-Not Applicable-not attempted and the patient did not perform the activity before the current illness, exacerbation or injury. 10-Not Attempted due to Environmental Limitations-(lack of equipment, weather restraints, etc.). 88-Not Attempted due to Medical Conditions or Safety Concerns. Gait Training Gait Assistive Device: FWW Pt amb with FWW and CGA 2 x 150ft. Pt fatigues at approximately 100ft requiring standing rest breaks. Pt requires vc's to maintain close proximity to walker. Pt tends to rely heavily on UE's and slide (R) foot to advance. Exercises NuStep Minutes: 10 NuStep Workload: 3 Treatments Seated neural glides, hip abd with RTB, hip add pillow squeeze, AP, Scapular retractions, lat press down on walker all 3 x 10 reps. Standing hip abd and hip flexion 2 x 10 with manual blocking (L) knee. Heel raise 2 x 10 in standing. Assessment Current Status: Good Progress, Fair Progress Pt fatigues easily. Pt maintains safe awareness but knees tend to soften as pt fatigues requiring CGA at all times for safe mobility. Pt is deconditioned and struggles to clear feet to advance. Pt would benefit from continued strengthening, endurance training and gait training. PT Short Term Goals Short Term Goals Time Frame: Jun 24, 2020 Roll Left & Right: 6 Sit to lyin Lying to sitting on side of be: 4 Sit to stand: 5 Chair/wxu-kv-ivprx transfer: 5 Walk 10 feet: 5 Walk 50 feet with two turns: 5 Walk 150 feet: 5 PT Usp Goals Leather Cutter Goals PT Usp Goals Time Frame: Jul 08, 2020 Roll Left & Right (QC): 6 Sit to Lying (QC): 6 Lying-Sitting on Side/Bed(QC): 6 Sit to Stand (QC): 6 Chair/Trw-zl-Jrgcx Xfer(QC): 6 Toilet Transfer (QC): 6 Car Transfer (QC): 6 Does the Patient Walk: Yes Walk 10 feet (QC): 6 Walk 50ft with 2 Turns (QC): 6 Walk 150 ft (QC): 6 Walking 10ft on Uneven Surface: 6 1 Step (curb) (QC): 4 4 Steps (QC): 4 12 Steps (QC): 88 Picking up an Object (QC): 88 Wheel 50 feet with 2 turns (QC: 9 Wheel 150 feet: 9 PT Plan Treatment/Plan Treatment Plan: Continue Plan of Care Treatment Plan: Bed Mobility, Education, Functional Activity [place], Functional Strength, Group Therapy, Gait, Safety, Therapeutic Exercise, Transfers Treatment Duration: Jul 08, 2020 Frequency: At least 5 of 7 days/Wk (IRF) Estimated Hrs Per Day: 1.5 hours per day Patient and/or Family Agrees t: Yes Time/GCodes Time In: 1000 Time Out: 1100 Total Billed Treatment Time: 60 Total Billed Treatment 1, ther ex 30', Gait 30' NIDIA MAE CPTA Jun 21, 2020 14:38
--- NOTE | 2020-06-21 15:15 | Physical Therapy Daily Note ---
PT Daily Note-Current Subjective Pt sitting in recliner upon arrival. Pt agrees to PT. Pain Location: No Pain Reported Mental Status Patient Orientation: Person, Place, Time, Situation Attachments: Other-See Comments (Lumbar Brace) Pt is very Soft Spoken. Transfers SCALE: Activities may be completed with or without assistive devices. 9-Urqotkatgd-scrfekm completes the activity by him/herself with no assistance from a helper. 5-Set-up or Clean-up Assistance-helper sets up or cleans up; patient completes activity. [place] assists only prior to or following the activity. 4-Supervision or Touching Assistance-helper provides verbal cues and/or touching/steadying and/or contact guard assistance as patient completes a ctivity. Assistance may be provided throughout the activity or intermittently. 3-Partial/Moderate Assistance-helper does LESS THAN HALF the effort. [place] lifts, holds or supports trunk or limbs, but provides less than half the effort. 2-Substantial/Maximal Assistance-helper does MORE THAN HALF the effort. [place] lifts or holds trunk or limbs and provides more than half the effort. 3-Zdqksigyc-zpyooa does ALL the effort. Patient does none of the effort to complete the activity. Or, the assistance of 2 or more helpers is required for the patient to complete the activity. If activity was not attempted, code reason: 7-Patient Refused. 9-Not Applicable-not attempted and the patient did not perform the activity before the current illness, exacerbation or injury. 10-Not Attempted due to Environmental Limitations-(lack of equipment, weather restraints, etc.). 88-Not Attempted due to Medical Conditions or Safety Concerns. Sit to Stand (QC): 4 Toilet Transfer (QC): 4 Weight Bearing Full Weight Bearing Full Weight Bearing Gait Training Does the Patient Walk?: Yes Distance: 150' x2 Walk 10 feet (QC): 4 Walk 50 ft with 2 Turns(QC): 4 Walk 150 ft (QC): 4 Gait Persons Needed: 1 Gait Assistive Device: FWW Pt walks with kyphotic posture with toe sticking on R foot. Pt is encouraged to pick B LE up when amb. Wheelchair Training Does the Pt Use a Wheelchair?: No Treatments Pt transfers to standing and amb. in hallway with RB as needed. Pt returns to room to use BR then returns to recliner to rest. All needs met, call light in hand. Assessment Current Status: Fair Progress Pt fatigues easily and needs vC for improved ambulation. PT Short Term Goals Short Term Goals Time Frame: Jun 24, 2020 Roll Left & Right: 6 Sit to lyin Lying to sitting on side of be: 4 Sit to stand: 5 Chair/blx-xd-kxfwf transfer: 5 Walk 10 feet: 5 Walk 50 feet with two turns: 5 Walk 150 feet: 5 PT Longterm Goals Dog Control Officer Goals PT Dog Control Officer Goals Time Frame: Jul 08, 2020 Roll Left & Right (QC): 6 Sit to Lying (QC): 6 Lying-Sitting on Side/Bed(QC): 6 Sit to Stand (QC): 6 Chair/Glm-se-Bphqr Xfer(QC): 6 Toilet Transfer (QC): 6 Car Transfer (QC): 6 Does the Patient Walk: Yes Walk 10 feet (QC): 6 Walk 50ft with 2 Turns (QC): 6 Walk 150 ft (QC): 6 Walking 10ft on Uneven Surface: 6 1 Step (curb) (QC): 4 4 Steps (QC): 4 12 Steps (QC): 88 Picking up an Object (QC): 88 Wheel 50 feet with 2 turns (QC: 9 Wheel 150 feet: 9 PT Plan Problem List Problem List: Activity Tolerance, Functional Strength, Gait Treatment/Plan Treatment Plan: Continue Plan of Care Treatment Plan: Bed Mobility, Education, Functional Activity [place], Functional Strength, Group Therapy, Gait, Safety, Therapeutic Exercise, Transfers Treatment Duration: Jul 08, 2020 Frequency: At least 5 of 7 days/Wk (IRF) Estimated Hrs Per Day: 1.5 hours per day Patient and/or Family Agrees t: Yes Safety Risks/Education Patient Education: Gait Training, Correct Positioning, Safety Issues Teaching Recipient: Patient Teaching Methods: Discussion Response to Teaching: Verbalize Understanding Time/GCodes Time In: 1430 Time Out: 1500 Total Billed Treatment Time: 30 Total Billed Treatment 1, GT (15m) & FA (15m) MENDOZA MAR PTA Jun 21, 2020 15:15
[2020-06-21 16:00] VITALS: BP 147/65
[2020-06-21] MEDS: SIMvastatin 10 MG (ZOCOR) TAB PO SCH (20:08)
[2020-06-21] MEDS: HYDROcodone/APAP 5 MG/325 MG (LORTAB) TAB PO PRN (23:58)
[2020-06-22 05:55] VITALS: BP 142/65
[2020-06-22] MEDS: metFORMIN 500 MG (GLUCOPHAGE) TAB PO SCH (06:48)
[2020-06-22] MEDS: DULoxetine 30 MG (CYMBALTA) CAP PO SCH (08:40)
[2020-06-22] MEDS: CALCIUM CARB + VIT D 600 MG (CALCARB + D) TAB PO SCH ×2 (08:40→17:43)
[2020-06-22] MEDS: APIXABAN 5 MG (ELIQUIS) TABLET PO SCH ×2 (08:40→19:57)
[2020-06-22] MEDS: GABAPENTIN 100 MG (NEURONTIN) CAP PO SCH ×3 (08:40→19:55)
[2020-06-22] MEDS: DOCUSATE SODIUM 100 MG (COLACE) CAP PO SCH ×2 (08:40→19:55)
[2020-06-22] MEDS: PANTOPRAZOLE 40 MG (PROTONIX) TAB PO SCH ×2 (08:40→19:55)
[2020-06-22] MEDS: polyethylene glycoL POWDER 17 GM (MIRALAX) PACK PO SCH ×2 (08:41→20:00)
[2020-06-22] MEDS: HYDROcodone/APAP 5 MG/325 MG (LORTAB) TAB PO PRN (08:41)
[2020-06-22] MEDS: SENNA W/DOCUSATE (SENOKOT S) TABLET PO SCH ×2 (08:41→19:55)
[2020-06-22] MEDS: VITAMIN D3 25 MCG (1,000 UNITS) TABLET PO SCH ×2 (08:42→19:56)
[2020-06-22] MEDS: DICLOFENAC 1% GEL 100 GM (VOLTAREN) TUBE TOP SCH ×4 (08:42→20:00)
[2020-06-22] MEDS: SCOPOLAMINE 1.5 MG (TRANSDERM-SCOP) PATCH TD SCH (08:43)
--- NOTE | 2020-06-22 09:15 | PM&R Progress Note ---
Subjective HPI/CC On Admission Date Seen by Provider: Jun 22, 2020 Time Seen by Provider: 09:15 Subjective/Events-last exam 06/22/20: Pt doing pretty well Nausea is controlled with Scopolamine patch Eliquis BID is tolerated Bowels are moving Oxycodone at 10 Mg at night will help her sleep tonight We will keep Lortab two every four hours as needed 06/21/20: Midline was placed, will receive Venofer iron infusions Last bowels moved a couple of days ago so will initiate laxatives Scopolamine Patch working pretty well for her Eating and drinking better 06/20/20: Pt isnt sleeping well due to the pain Will give Lortab two at a time every four hours as needed that she takes at home Oxycodone doesnt seem to work as well Scopolamine patch is treating the nausea Midline will be placed to completed the Venofer 06/19/20: Patient doing better Appetite improved Midline will be placed BM++ Walked to the gym and back to room Voltaren gel ordered Venofer ordered Scop patch will be continued Ensure BID Vit B12 injection 06/18/20: Patient in a good mood Improved status Pain of back is improved Checked meds and labs MANJU hose on Lortab improved pain Iron pending DC accuchecks Scop patch is improving the nausea Review of Systems General: Fatigue, Malaise Musculoskeletal: back pain Neurological: Weakness, Incoordination Objective Exam Vital Signs Vital Signs Date Time Temp Pulse Resp B/P (MAP) Pulse Ox O2 Delivery O2 Flow Rate FiO2 06/22/20 20:05 Room Air 06/22/20 18:00 36.8 74 18 117/57 (77) 96 Capillary Refill : General Appearance: No Apparent Distress, WD/WN, Chronically ill, Thin HEENT: PERRL/EOMI, Normal ENT Inspection, Pharynx Normal Neck: Full Range of Motion, Normal Inspection, Non Tender, Supple, Carotid Bruit Respiratory: Chest Non Tender, Lungs Clear, Normal Breath Sounds, No Accessory Muscle Use, No Respiratory Distress Cardiovascular: Regular Rate, Rhythm, No Edema, No Gallop, No JVD, No Murmur, Normal Peripheral Pulses Gastrointestinal: Normal Bowel Sounds, No Organomegaly, No Pulsatile Mass, Non Tender, Soft Back: CVA Tenderness (L), CVA Tenderness (R), Decreased Range of Motion, Muscle Spasm, Vertebral Tenderness, Other Extremity: Normal Capillary Refill, Normal Inspection, Normal Range of Motion, Non Tender, No Calf Tenderness, No Pedal Edema Neurologic/Psychiatric: Alert, Oriented x3, No Motor/Sensory Deficits, Normal Mood/Affect Skin: Normal Color, Warm/Dry Lymphatic: No Adenopathy Results/Procedures Lab Patient resulted labs reviewed. FIM Transfers Therapy Code Descriptions/Definitions Functional [place] Measure: 0=Not Assessed/NA 4=Minimal Assistance 1=Total Assistance 5=Supervision or Setup 2=Maximal Assistance 6=Modified [place] 3=Moderate Assistance 7=Complete IndependenceSCALE: Activities may be completed with or without assistive devices. 9-Lcsnzigwtv-hbqdyky completes the activity by him/herself with no assistance from a helper. 5-Set-up or Clean-up Assistance-helper sets up or cleans up; patient completes activity. [place] assists only prior to or following the activity. 4-Supervision or Touching Assistance-helper provides verbal cues and/or touching/steadying and/or contact guard assistance as patient completes acti vity. Assistance may be provided throughout the activity or intermittently. 3-Partial/Moderate Assistance-helper does LESS THAN HALF the effort. [place] lifts, holds or supports trunk or limbs, but provides less than half the effort. 2-Substantial/Maximal Assistance-helper does MORE THAN HALF the effort. [place] lifts or holds trunk or limbs and provides more than half the effort. 6-Vjofqcgzh-xoaeyq does ALL the effort. Patient does none of the effort to complete the activity. Or, the assistance of 2 or more helpers is required for the patient to complete the activity. If activity was not attempted, code reason: 7-Patient Refused. 9-Not Applicable-not attempted and the patient did not perform the activity before the current illness, exacerbation or injury. 10-Not Attempted due to Environmental Limitations-(lack of equipment, weather restraints, etc.). 88-Not Attempted due to Medical Conditions or Safety Concerns. Roll Left to Right (QC): 4 Sit to Lying (QC): 3 Sit to Stand (QC): 4 Chair/Kmn-fq-Slutg Xfer(QC): 4 Car Transfer (QC): 4 Gait Training Does the Patient Walk?: Yes Distance: 150' x2 Walk 10 feet (QC): 4 Walk 50 ft with 2 Turns(QC): 4 Walk 150 ft (QC): 4 Walking 10ft/uneven surface-QC: 4 Gait Persons Needed: 1 Gait Assistive Device: FWW Wheelchair Training Does the Pt Use a Wheelchair?: No Wheel 50 ft with 2 turns (QC): 9 Wheel 150 ft (QC): 9 Stair Training #of Steps: 1 1 Step (curb) (QC): 4 4 Steps (QC): 88 12 Steps (QC): 88 Balance Picking up an Object (QC): 88 ADL-Treatment Eating (QC): 6 Oral Hygiene (QC): 4 (CGA at sink. ) Shower/Bathe Self (QC): 4 (s/u, CGA during shower transfer, and education on use of LHS, SBA for compliance with back precautions.) Upper Body Dressing (QC): 5 (s/u shirt and back brace) Lower Body Dressing (QC): 3 (mod A for use of AD, threading of one LE and min A in stance during pant hike (LOB in shower, requires CGA and min A throughout)) On/Off Footwear (QC): 6 (IND sock (use of sock aide). Max A MANJU hose (will not complete at [facility])) Toileting Hygiene (QC): 4 (SUP) Toilet Transfer (QC): 4 (SBA, use of walker and gbs.) Assessment/Plan Assessment and Plan Assess & Plan/Chief Complaint Assessment: s/p extensive spine surgery per Dr Hunter Subacute DVT/PE dx 06/09 delaying surgery scheduled for 06/09/20 at [facility] dx in pre-op Osteoporosis GERD Weight loss Continued nausea DM Post op anemia Back pain Fall risk Plan: IRF protocol Pain meds Nausea meds PPI BID Scop patch 06/18/20: Iron infusions Pain control Scop patch Regular diet DC accuchecks 06/19/20: Iron infusion with midline Vit B12 injection Ensure BID Scop patch to continue 06/20/20: Iron infusions via midline Scop patch PT OT 06/21/20: Improve dietary consumption Monitor nausea Midline for iron infusions 06/22/20: Oxycodone 10 mg HS Lortab 2 every 4hours Severe pain and is acute on chronic (1) S/P spinal surgery (2) Osteoporosis (3) Compression fracture of lumbar vertebra (4) DVT (deep venous thrombosis) (5) Pulmonary embolism (6) Anticoagulant long-term use (7) [place] filter in place (8) Nausea (9) Weight loss (10) GERD (gastroesophageal reflux disease) (11) Diabetes (12) Postoperative anemia (13) Protein-calorie malnutrition, moderate CHARLOTTE CAMARGO 3, 2021 09:15
--- NOTE | 2020-06-22 10:21 | Occupational Ther Daily Note ---
OT Current Status-Daily Note Subjective Pt AxO. Upright in chair. States had bad night, waking up with sharp/ shooting pain in L leg (random, sharp, not consistent with positioning). Expresses 8/10 pain currently in L arch of foot. Mental Status/Objective Patient Orientation: Normal For Age ADL-Treatment Therapy Code Descriptions/Definitions Functional [place] Measure: 0=Not Assessed/NA 4=Minimal Assistance 1=Total Assistance 5=Supervision or Setup 2=Maximal Assistance 6=Modified [place] 3=Moderate Assistance 7=Complete IndependenceSCALE: Activities may be completed with or without assistive devices. 4-Hbsxcxlese-grgnpxf completes the activity by him/herself with no assistance from a helper. 5-Set-up or Clean-up Assistance-helper sets up or cleans up; patient completes activity. [place] assists only prior to or following the activity. 4-Supervision or Touching Assistance-helper provides verbal cues and/or touching/steadying and/or contact guard assistance as patient completes activity. Assistance may be provided throughout the activity or intermittently. 3-Partial/Moderate Assistance-helper does LESS THAN HALF the effort. [place] lifts, holds or supports trunk or limbs, but provides less than half the effort. 2-Substantial/Maximal Assistance-helper does MORE THAN HALF the effort. [place] lifts or holds trunk or limbs and provides more than half the effort. 3-Mhymmunbw-aptxlq does ALL the effort. Patient does none of the effort to complete the activity. Or, the assistance of 2 or more helpers is required for the patient to complete the activity. If activity was not attempted, code reason: 7-Patient Refused. 9-Not Applicable-not attempted and the patient did not perform the activity before the current illness, exacerbation or injury. 10-Not Attempted due to Environmental Limitations-(lack of equipment, weather restraints, etc.). 88-Not Attempted due to Medical Conditions or Safety Concerns. Eating (QC): 6 Upper Body Dressing (QC): 6 Lower Body Dressing (QC): 4 (SBA, use of pool manager and cues for compliance with precautions during fx activity) Toileting Hygiene (QC): 7 Toilet Transfer (QC): 7 Other Treatment Denies need for toileting. Agrees to complete laundry. Dresses EOB as outlined. Pt is educated on pain pathways in brain and "randomness" of pain that does not correlate with positioning. Educated on mirror therapy for rerouting pain pathways and decreasing chronic pain through simulated pain-free movement. Pt expresses 8/10 pain prior to mirror therapy, completes 16 minutes of activity with R in mirror to represent L and completes heel/ toe/ knee raises and knee flexion (2 minutes of each) in mirror 2x. Pt states no pain post activity in hip, does not c/o pain throughout treatment. Pt ambulates to laundry room with SBA, completes IADL with SBA, ambulates to therapy gym without break in between. Pt expresses she "feels good" today. Pt completes UE endurance training with 2# weights bilaterally, completing the following for 2-3 minutes to increase fx endurance of mm: bicep curls, pro/ supination, shoulder flexion, ext/ int shoulder rotation. Pt stands to complete dynamic standing balance task with reaching (maintaining spinal precautions), and throwing. Picks items from floor up with CGA and use of pool manager (education throughout). Pt ambulates back to room, completes 10 min mirror therapy to end session. Denies need for bathroom. Expresses 0/10 pain, left in recliner with all needs met, call light in reach. Education OT Patient Education: Correct positioning, Exercise program, Home exercise program, Progress toward Goal/Update tx plan, Purpose of tx/functional activities, Reviewed precautions, Safety issues, Transfer techniques, Use of adapted equipment Teaching Recipient: Patient Teaching Methods: Demonstration, Discussion Response to Teaching: Verbalize Understanding, Return Demonstration OT Sales Support Specialist Goals Sales Support Specialist Goals Time Frame: Jul 01, 2020 Eating (QC): 6 Oral Hygiene (QC): 6 Toileting Hygiene (QC): 6 Shower/Bathe Self (QC): 6 Upper Body Dressing (QC): 6 Lower Body Dressing (QC): 6 On/Off Footwear (QC): 6 Additional Goals: 1-Demonstrate ADL Tasks, 2-Verbalize Understanding, 3- ImproveStrength/Libby 1=Demonstrate adherence to instructed precautions during ADL tasks. 2=Patient will verbalize/demonstrate understanding of assistive devices/modifications for ADL. 3=Patient will improve strength/tolerance for activity to enable patient to perform ADL's. OT Education/Plan Problem List/Assessment Assessment: Decreased Activ Tolerance, Decreased UE Strength, Impaired Funct Balance, Impaired I ADL's, Impaired Self-Care Skills Discharge Recommendations Plan/Recommendations: Continue POC Therapy Discharge Recommendati: Home & Family, Post Acute OT Equpiment Recommendations-D/C: Hip Kit Treatment Plan/Plan of Care Treatment,Training & Education: Yes Patient would benefit from OT for education, treatment and training to promote independence in ADL's, mobility, safety and/or upper extremity function for ADL's. Plan of Care: ADL Retraining, Caregiver Training, Concurrent Therapy, Functional Mobility, Group Exercise/Act as Ind, Orthotic Fitting/Training, UE Funct Exercise/Act Treatment Duration: Jul 01, 2020 Frequency: At least 5 of 7 days/Wk (IRF) Estimated Hrs Per Day: 1.5 hours per day Agreement: Yes Rehab Potential: Good Time/GCodes Start Time: 08:45 Stop Time: 10:15 Total Time Billed (hr/min): 90 Billed Treatment Time 1, ADL, NM 2, EX 3 = 90 RUPERTO MUSTAFA OTR Jun 22, 2020 10:21
--- NOTE | 2020-06-22 11:58 | Physical Therapy Daily Note ---
PT Daily Note-Current Subjective Pt. agrees to Rx and is happy to report that she has made great progress with regards to less pain and improved functional mobility. Pt. states she still has night pain and has discussed this with and will likely get pain meds gladis Pain Location: No Pain Reported Mental Status Patient Orientation: Normal For Age Attachments: Other-See Comments ([place] brace) Transfers SCALE: Activities may be completed with or without assistive devices. 7-Akijcykwas-ykkjcse completes the activity by him/herself with no assistance from a helper. 5-Set-up or Clean-up Assistance-helper sets up or cleans up; patient completes activity. [place] assists only prior to or following the activity. 4-Supervision or Touching Assistance-helper provides verbal cues and/or touching/steadying and/or contact guard assistance as patient completes activity. Assistance may be provided throughout the activity or intermittently. 3-Partial/Moderate Assistance-helper does LESS THAN HALF the effort. [place] lifts, holds or supports trunk or limbs, but provides less than half the effort. 2-Substantial/Maximal Assistance-helper does MORE THAN HALF the effort. [place] lifts or holds trunk or limbs and provides more than half the effort. 8-Iibkrbrrl-nvawks does ALL the effort. Patient does none of the effort to complete the activity. Or, the assistance of 2 or more helpers is required for the patient to complete the activity. If activity was not attempted, code reason: 7-Patient Refused. 9-Not Applicable-not attempted and the patient did not perform the activity before the current illness, exacerbation or injury. 10-Not Attempted due to Environmental Limitations-(lack of equipment, weather restraints, etc.). 88-Not Attempted due to Medical Conditions or Safety Concerns. Roll Left & Right (QC): 5 Sit to Lying (QC): 6 Lying to Sitting/Side of Bed(Q: 6 Sit to Stand (QC): 6 Chair/Cxn-pj-Qvkjd Xfer(QC): 6 Weight Bearing Full Weight Bearing Full Weight Bearing Gait Training Does the Patient Walk?: Yes Walk 10 feet (QC): 5 Walk 50 ft with 2 Turns(QC): 5 Walk 150 ft (QC): 5 Gait Persons Needed: 1 Gait Assistive Device: FWW pt. is slow, some trendelenburg with right foot sliding with poor heel strike b ut does improve with cuing . no tiki LOB Stair Training Stair Training: Handrails/: 2 handrails #of Steps: 4 4 Steps (QC): 4 Stairs: Pattern: Reciprocal has 5 steps at home with rail Exercises Seated Therapy Exercises: Ankle pumps, Sit to stand, Long arc quads, Hip flexion, Hip abd/add Seated Reps: 12 NuStep Minutes: 10 NuStep Workload: 3 Assessment Current Status: Good Progress PT Short Term Goals Short Term Goals Time Frame: Jun 24, 2020 Roll Left & Right: 6 Sit to lyin Lying to sitting on side of be: 4 Sit to stand: 5 Chair/cma-rf-puebe transfer: 5 Walk 10 feet: 5 Walk 50 feet with two turns: 5 Walk 150 feet: 5 PT Long-Term Goals Long-Term Goals PT Long-Term Goals Time Frame: Jul 08, 2020 Roll Left & Right (QC): 6 Sit to Lying (QC): 6 Lying-Sitting on Side/Bed(QC): 6 Sit to Stand (QC): 6 Chair/Aql-ec-Sdubp Xfer(QC): 6 Toilet Transfer (QC): 6 Car Transfer (QC): 6 Does the Patient Walk: Yes Walk 10 feet (QC): 6 Walk 50ft with 2 Turns (QC): 6 Walk 150 ft (QC): 6 Walking 10ft on Uneven Surface: 6 1 Step (curb) (QC): 4 4 Steps (QC): 4 12 Steps (QC): 88 Picking up an Object (QC): 88 Wheel 50 feet with 2 turns (QC: 9 Wheel 150 feet: 9 PT Plan Treatment/Plan Treatment Plan: Continue Plan of Care Treatment Plan: Bed Mobility, Education, Functional Activity [place], Functional Strength, Group Therapy, Gait, Safety, Therapeutic Exercise, Transfers Treatment Duration: Jul 08, 2020 Frequency: At least 5 of 7 days/Wk (IRF) Estimated Hrs Per Day: 1.5 hours per day Patient and/or Family Agrees t: Yes Safety Risks/Education Patient Education: Gait Training, Transfer Techniques, Steps, Correct Positioning, Disease Process, Safety Issues Teaching Recipient: Patient Teaching Methods: Demonstration, Discussion Response to Teaching: Verbalize Understanding, Return Demonstration, Reinforcement Needed Time/GCodes Time In: 1100 Time Out: 1200 Total Billed Treatment Time: 60 Total Billed Treatment 1,EX30m,GT15m,FA15m NIDIA FAITH PTA Jun 22, 2020 11:58
--- NOTE | 2020-06-22 13:30 | Physical Therapy Daily Note ---
PT Daily Note-Current Subjective Pt. agrees to Rx. Wants to attempt car TRF , has a SUV size car. No c/o pain Pain Location: No Pain Reported Mental Status Patient Orientation: Normal For Age Attachments: Other-See Comments (aspen brace, mask) Transfers SCALE: Activities may be completed with or without assistive devices. 8-Zgipmkrcpn-nssyplw completes the activity by him/herself with no assistance from a helper. 5-Set-up or Clean-up Assistance-helper sets up or cleans up; patient completes activity. [place] assists only prior to or following the activity. 4-Supervision or Touching Assistance-helper provides verbal cues and/or touching/steadying and/or contact guard assistance as patient completes activity. Assistance may be provided throughout the activity or intermittently. 3-Partial/Moderate Assistance-helper does LESS THAN HALF the effort. [place] lifts, holds or supports trunk or limbs, but provides less than half the effort. 2-Substantial/Maximal Assistance-helper does MORE THAN HALF the effort. [place] lifts or holds trunk or limbs and provides more than half the effort. 5-Fudtyuyxr-hualwz does ALL the effort. Patient does none of the effort to complete the activity. Or, the assistance of 2 or more helpers is required for the patient to complete the activity. If activity was not attempted, code reason: 7-Patient Refused. 9-Not Applicable-not attempted and the patient did not perform the activity before the current illness, exacerbation or injury. 10-Not Attempted due to Environmental Limitations-(lack of equipment, weather restraints, etc.). 88-Not Attempted due to Medical Conditions or Safety Concerns. Car Transfer (QC): 5 sit to stand all SBA Weight Bearing Full Weight Bearing Full Weight Bearing Gait Training Does the Patient Walk?: Yes Gait Assistive Device: FWW [id number], 150, improved heel strike and DF right, slow, but safe habits, walked on carpet in small space Exercises Seated Therapy Exercises: Ankle pumps, Sit to stand, Long arc quads, Hip flexion, Hip abd/add Seated Reps: 20 Assessment Current Status: Good Progress PT Short Term Goals Short Term Goals Time Frame: Jun 24, 2020 Roll Left & Right: 6 Sit to lyin Lying to sitting on side of be: 4 Sit to stand: 5 Chair/kkj-ho-pmbkc transfer: 5 Walk 10 feet: 5 Walk 50 feet with two turns: 5 Walk 150 feet: 5 PT Assisted Goals Electronic Instrument Trades Worker Goals PT Assisted Goals Time Frame: Jul 08, 2020 Roll Left & Right (QC): 6 Sit to Lying (QC): 6 Lying-Sitting on Side/Bed(QC): 6 Sit to Stand (QC): 6 Chair/Gfc-gc-Vclpv Xfer(QC): 6 Toilet Transfer (QC): 6 Car Transfer (QC): 6 Does the Patient Walk: Yes Walk 10 feet (QC): 6 Walk 50ft with 2 Turns (QC): 6 Walk 150 ft (QC): 6 Walking 10ft on Uneven Surface: 6 1 Step (curb) (QC): 4 4 Steps (QC): 4 12 Steps (QC): 88 Picking up an Object (QC): 88 Wheel 50 feet with 2 turns (QC: 9 Wheel 150 feet: 9 PT Plan Treatment/Plan Treatment Plan: Continue Plan of Care Treatment Plan: Bed Mobility, Education, Functional Activity [place], Functional Strength, Group Therapy, Gait, Safety, Therapeutic Exercise, Transfers Treatment Duration: Jul 08, 2020 Frequency: At least 5 of 7 days/Wk (IRF) Estimated Hrs Per Day: 1.5 hours per day Patient and/or Family Agrees t: Yes Safety Risks/Education Patient Education: Gait Training, Transfer Techniques, Correct Positioning, Safety Issues Teaching Methods: Discussion Response to Teaching: Return Demonstration Time/GCodes Time In: 1300 Time Out: 1330 Total Billed Treatment Time: 30 Total Billed Treatment 1,GT20m,EX10m NIDIA FAITH PTA Jun 22, 2020 13:30
[2020-06-22 18:00] VITALS: BP 117/57
[2020-06-22] MEDS: SIMvastatin 10 MG (ZOCOR) TAB PO SCH (19:58)
[2020-06-23] MEDS: HYDROcodone/APAP 5 MG/325 MG (LORTAB) TAB PO PRN (03:09)
[2020-06-23 05:35] VITALS: BP 121/56
[2020-06-23] MEDS: metFORMIN 500 MG (GLUCOPHAGE) TAB PO SCH (06:29)
[2020-06-23] MEDS: CALCIUM CARB + VIT D 600 MG (CALCARB + D) TAB PO SCH ×2 (08:44→17:00)
[2020-06-23] MEDS: GABAPENTIN 100 MG (NEURONTIN) CAP PO SCH ×3 (08:45→20:32)
[2020-06-23] MEDS: IRON SUCROSE 200 MG/10 ML (VENOFER) VIAL IV SCH (08:45)
[2020-06-23] MEDS: APIXABAN 5 MG (ELIQUIS) TABLET PO SCH ×2 (08:45→20:32)
[2020-06-23] MEDS: PANTOPRAZOLE 40 MG (PROTONIX) TAB PO SCH ×2 (08:45→20:32)
[2020-06-23] MEDS: polyethylene glycoL POWDER 17 GM (MIRALAX) PACK PO SCH ×2 (08:46→19:30)
[2020-06-23] MEDS: DOCUSATE SODIUM 100 MG (COLACE) CAP PO SCH ×2 (08:46→20:32)
[2020-06-23] MEDS: DICLOFENAC 1% GEL 100 GM (VOLTAREN) TUBE TOP SCH ×4 (08:46→20:33)
[2020-06-23] MEDS: SENNA W/DOCUSATE (SENOKOT S) TABLET PO SCH ×2 (08:46→20:32)
[2020-06-23] MEDS: VITAMIN D3 25 MCG (1,000 UNITS) TABLET PO SCH ×2 (08:58→20:33)
[2020-06-23] MEDS: DULoxetine 30 MG (CYMBALTA) CAP PO SCH (08:58)
--- NOTE | 2020-06-23 09:02 | Occupational Ther Daily Note ---
OT Current Status-Daily Note Subjective Pt AxO, agrees to tx. States 7/10 pain in hip. Pt desires shower. Pt expresses she continued to have minimal pain yesterday, however during the night required pain medication but slept well thereafter. Pt AxO upright in chair, agrees to tx. States 6/10 pain in L hip (achy). Denies RR needs. Mental Status/Objective Patient Orientation: Person, Place, Situation, Normal For Age ADL-Treatment Therapy Code Descriptions/Definitions Functional [place] Measure: 0=Not Assessed/NA 4=Minimal Assistance 1=Total Assistance 5=Supervision or Setup 2=Maximal Assistance 6=Modified [place] 3=Moderate Assistance 7=Complete IndependenceSCALE: Activities may be completed with or without assistive devices. 4-Nqefxlyikh-zfwnwfk completes the activity by him/herself with no assistance from a helper. 5-Set-up or Clean-up Assistance-helper sets up or cleans up; patient completes activity. [place] assists only prior to or following the activity. 4-Supervision or Touching Assistance-helper provides verbal cues and/or touching/steadying and/or contact guard assistance as patient completes activity. Assistance may be provided throughout the activity or intermittently. 3-Partial/Moderate Assistance-helper does LESS THAN HALF the effort. [place] lifts, holds or supports trunk or limbs, but provides less than half the effort. 2-Substantial/Maximal Assistance-helper does MORE THAN HALF the effort. [place] lifts or holds trunk or limbs and provides more than half the effort. 6-Zetvbrtzx-wjxtap does ALL the effort. Patient does none of the effort to complete the activity. Or, the assistance of 2 or more helpers is required for the patient to complete the activity. If activity was not attempted, code reason: 7-Patient Refused. 9-Not Applicable-not attempted and the patient did not perform the activity before the current illness, exacerbation or injury. 10-Not Attempted due to Environmental Limitations-(lack of equipment, weather restraints, etc.). 88-Not Attempted due to Medical Conditions or Safety Concerns. Eating (QC): 6 Oral Hygiene (QC): 6 Bathing Location: L Arm, R Arm, L Upper Leg, R Upper Leg, L Lower Leg (incl uding foot), R Lower Leg (including foot), Chest, Abdomen, Buttocks, Perineal Area Shower/Bathe Self (QC): 4 (SBA during stance.Completes most showering in stance, sits to complete LB / feet with LHS) Upper Body Dressing (QC): 5 (s/u shirt and back brace.) Lower Body Dressing (QC): 3 (min A situating breifs/ pants during threading. Pt completes with wellness program manager, requires min cues for complying with precautions.) On/Off Footwear: 6 (IND socks (use of ds and sock aide)) Toileting Hygiene (QC): 6 (IND) Toilet Transfer (QC): 4 (SBA) Other Treatment Pt on phone upon entry, desires shower. Completes all sit to stands with SBA. Ambulates with SBA. Toilet/ shower transfer SBA, use of walker. Pt desires gbs in shower, however, does not know if possible due to tile. Pt completes shower in stance other than sit for LB washing. Returns to room post shower and MANJU hose donned max A/ socks donned by pt with sock aide. Pt's L foot pitting ~15 sec rebound. Pt completes 1 rep of ~15-20 theraband ex in the following: shoulder ext rotation, back flies. Pt educated on triceps and shoulder flexion to complete later when less fatigued. All needs met, call lihgt in reach, pt in chair end of session. Pt completes 15 minutes neuromuscular reeducation with use of mirror therapy and skilled instruction for application/ brain plasticity. Post tx, pt states 4/10 pain in L hip rather than 6/10. Pt ambulates through [place] with CGA to gym, 2 min rest, returns to gym. Cues for upright posture. Returns to chair, all needs met, call light in reach Education OT Patient Education: Correct positioning, Exercise program, Home exercise program, Modified ADL techniques, Progress toward Goal/Update tx plan, Purpose of tx/functional activities, Safety issues, Transfer techniques, Use of adapted equipment Teaching Recipient: Patient Teaching Methods: Demonstration, Discussion Response to Teaching: Verbalize Understanding, Return Demonstration OT Skilled Nursing Goals Supervisor [employer] Goals Time Frame: Jul 01, 2020 Eating (QC): 6 Oral Hygiene (QC): 6 Toileting Hygiene (QC): 6 Shower/Bathe Self (QC): 6 Upper Body Dressing (QC): 6 Lower Body Dressing (QC): 6 On/Off Footwear (QC): 6 Additional Goals: 1-Demonstrate ADL Tasks, 2-Verbalize Understanding, 3- ImproveStrength/Libby 1=Demonstrate adherence to instructed precautions during ADL tasks. 2=Patient will verbalize/demonstrate understanding of assistive devices/modifications for ADL. 3=Patient will improve strength/tolerance for activity to enable patient to perform ADL's. OT Education/Plan Problem List/Assessment Assessment: Decreased Activ Tolerance, Decreased UE Strength, Dependent Transfers, Edema, Impaired Funct Balance, Impaired I ADL's, Impaired Self-Care Skills Discharge Recommendations Plan/Recommendations: Continue POC Therapy Discharge Recommendati: Home & Family, Post Acute OT Equpiment Recommendations-D/C: Hip Kit Treatment Plan/Plan of Care Treatment,Training & Education: Yes Patient would benefit from OT for education, treatment and training to promote independence in ADL's, mobility, safety and/or upper extremity function for ADL's. Plan of Care: ADL Retraining, Caregiver Training, Concurrent Therapy, Functional Mobility, Group Exercise/Act as Ind, Orthotic Fitting/Training, UE Funct Exercise/Act Treatment Duration: Jul 01, 2020 Frequency: At least 5 of 7 days/Wk (IRF) Estimated Hrs Per Day: 1.5 hours per day Agreement: Yes Rehab Potential: Good Time/GCodes Start Time: 08:00 (1300) Stop Time: 09:00 (1330) Total Time Billed (hr/min): 90 Billed Treatment Time 1, ADL 3, EX (60) 1, EX, NM (30) RUPERTO MUSTAFA OTR Jun 23, 2020 09:02
--- NOTE | 2020-06-23 12:04 | Physical Therapy Daily Note ---
PT Daily Note-Current Subjective Pt sitting in recliner upon arrival. Pt agrees to PT. Pain Location: No Pain Reported Mental Status Patient Orientation: Person, Place, Time, Situation Attachments: Other-See Comments ([place] Brace) Transfers SCALE: Activities may be completed with or without assistive devices. 8-Ukhwbmewgh-usztcfu completes the activity by him/herself with no assistance from a helper. 5-Set-up or Clean-up Assistance-helper sets up or cleans up; patient completes activity. [place] assists only prior to or following the activity. 4-Supervision or Touching Assistance-helper provides verbal cues and/or touching/steadying and/or contact guard assistance as patient completes activity. Assistance may be provided throughout the activity or intermittently. 3-Partial/Moderate Assistance-helper does LESS THAN HALF the effort. [place] lifts, holds or supports trunk or limbs, but provides less than half the effort. 2-Substantial/Maximal Assistance-helper does MORE THAN HALF the effort. [place] lifts or holds trunk or limbs and provides more than half the effort. 4-Dktjlgaot-xadhxo does ALL the effort. Patient does none of the effort to complete the activity. Or, the assistance of 2 or more helpers is required for the patient to complete the activity. If activity was not attempted, code reason: 7-Patient Refused. 9-Not Applicable-not attempted and the patient did not perform the activity before the current illness, exacerbation or injury. 10-Not Attempted due to Environmental Limitations-(lack of equipment, weather restraints, etc.). 88-Not Attempted due to Medical Conditions or Safety Concerns. Sit to Stand (QC): 5 Toilet Transfer (QC): 5 Weight Bearing Full Weight Bearing Full Weight Bearing Gait Training Does the Patient Walk?: Yes Distance: 150', 175' Walk 10 feet (QC): 5 Walk 50 ft with 2 Turns(QC): 5 Walk 150 ft (QC): 5 Gait Persons Needed: 1 Gait Assistive Device: FWW Pt encouraged to pick foot and shown proper heel strike & toe off position. Pt needs VC especially as she fatigues. Wheelchair Training Does the Pt Use a Wheelchair?: No Exercises Standing: Heel/toe raises, 3 way Ex=Flex, Abd, Ext, Marching, Mini squats Standing Reps: 15 Treatments Pt transfers to standing and uses BR. Pt amb. in hallway before using NuStep. Pt completes Standing EX at //bars with one RB as needed. Pt amb. in hallway before returning to room to rest in recliner. All needs met, call light in hand. Assessment Current Status: Good Progress Pt has gained strength and activity tolerance but still needs occasional RB due to fatigue. PT Short Term Goals Short Term Goals Time Frame: Jun 24, 2020 Roll Left & Right: 6 Sit to lyin Lying to sitting on side of be: 4 Sit to stand: 5 Chair/squ-dv-anueg transfer: 5 Walk 10 feet: 5 Walk 50 feet with two turns: 5 Walk 150 feet: 5 PT Geothermal Powerplant Mechanic Goals Geothermal Powerplant Mechanic Goals PT Geothermal Powerplant Mechanic Goals Time Frame: Jul 08, 2020 Roll Left & Right (QC): 6 Sit to Lying (QC): 6 Lying-Sitting on Side/Bed(QC): 6 Sit to Stand (QC): 6 Chair/Brj-mw-Uqenm Xfer(QC): 6 Toilet Transfer (QC): 6 Car Transfer (QC): 6 Does the Patient Walk: Yes Walk 10 feet (QC): 6 Walk 50ft with 2 Turns (QC): 6 Walk 150 ft (QC): 6 Walking 10ft on Uneven Surface: 6 1 Step (curb) (QC): 4 4 Steps (QC): 4 12 Steps (QC): 88 Picking up an Object (QC): 88 Wheel 50 feet with 2 turns (QC: 9 Wheel 150 feet: 9 PT Plan Treatment/Plan Treatment Plan: Continue Plan of Care Treatment Plan: Bed Mobility, Education, Functional Activity [place], Functional Strength, Group Therapy, Gait, Safety, Therapeutic Exercise, Transfers Treatment Duration: Jul 08, 2020 Frequency: At least 5 of 7 days/Wk (IRF) Estimated Hrs Per Day: 1.5 hours per day Patient and/or Family Agrees t: Yes Safety Risks/Education Patient Education: Gait Training, Correct Positioning, Safety Issues Teaching Recipient: Patient Teaching Methods: Discussion Response to Teaching: Verbalize Understanding Time/GCodes Time In: 1100 Time Out: 1200 Total Billed Treatment Time: 60 Total Billed Treatment 1, GT (20m), FA (10m) & EX x2 (30m) MENDOZA MAR PAIN COORDINATOR Jun 23, 2020 12:04
--- NOTE | 2020-06-23 12:07 | PM&R Progress Note ---
Subjective HPI/CC On Admission Date Seen by Provider: Jun 23, 2020 Time Seen by Provider: 11:45 Subjective/Events-last exam 06/23/20: Pt having some urinary issues so will check UA and a straight in and out cath Bowels are moving well Pain is controlled Oxycodone of 10 at night really helped her UTI dx so placed on abx empirically 06/22/20: Pt doing pretty well Nausea is controlled with Scopolamine patch Eliquis BID is tolerated Bowels are moving Oxycodone at 10 Mg at night will help her sleep tonight We will keep Lortab two every four hours as needed 06/21/20: Midline was placed, will receive Venofer iron infusions Last bowels moved a couple of days ago so will initiate laxatives Scopolamine Patch working pretty well for her Eating and drinking better 06/20/20: Pt isnt sleeping well due to the pain Will give Lortab two at a time every four hours as needed that she takes at home Oxycodone doesnt seem to work as well Scopolamine patch is treating the nausea Midline will be placed to completed the Venofer 06/19/20: Patient doing better Appetite improved Midline will be placed BM++ Walked to the gym and back to room Voltaren gel ordered Venofer ordered Scop patch will be continued Ensure BID Vit B12 injection 06/18/20: Patient in a good mood Improved status Pain of back is improved Checked meds and labs MANJU hose on Lortab improved pain Iron pending DC accuchecks Scop patch is improving the nausea Review of Systems General: Fatigue Genitourinary: Dysuria, Frequency Musculoskeletal: back pain Objective Exam Vital Signs Vital Signs Date Time Temp Pulse Resp B/P (MAP) Pulse Ox O2 Delivery O2 Flow Rate FiO2 06/23/20 20:38 Room Air 06/23/20 16:00 37.0 81 16 116/56 (76) 96 Capillary Refill : General Appearance: No Apparent Distress, WD/WN, Chronically ill, Thin HEENT: PERRL/EOMI, Normal ENT Inspection, Pharynx Normal Neck: Full Range of Motion, Normal Inspection, Non Tender, Supple, Carotid Bruit Respiratory: Chest Non Tender, Lungs Clear, Normal Breath Sounds, No Accessory Muscle Use, No Respiratory Distress Cardiovascular: Regular Rate, Rhythm, No Edema, No Gallop, No JVD, No Murmur, Normal Peripheral Pulses Gastrointestinal: Normal Bowel Sounds, No Organomegaly, No Pulsatile Mass, Non Tender, Soft Back: CVA Tenderness (L), CVA Tenderness (R), Decreased Range of Motion, Muscle Spasm, Vertebral Tenderness, Other Extremity: Normal Capillary Refill, Normal Inspection, Normal Range of Motion, Non Tender, No Calf Tenderness, No Pedal Edema Neurologic/Psychiatric: Alert, Oriented x3, No Motor/Sensory Deficits, Normal Mood/Affect Skin: Normal Color, Warm/Dry Lymphatic: No Adenopathy Results/Procedures Lab Patient resulted labs reviewed. FIM Transfers Therapy Code Descriptions/Definitions Functional [place] Measure: 0=Not Assessed/NA 4=Minimal Assistance 1=Total Assistance 5=Supervision or Setup 2=Maximal Assistance 6=Modified [place] 3=Moderate Assistance 7=Complete IndependenceSCALE: Activities may be completed with or without assistive devices. 8-Unxplbmokp-ozjkvyp completes the activity by him/herself with no assistance from a helper. 5-Set-up or Clean-up Assistance-helper sets up or cleans up; patient completes activity. [place] assists only prior to or following the activity. 4-Supervision or Touching Assistance-helper provides verbal cues and/or touching/steadying and/or contact guard assistance as patient completes activity. Assistance may be provided throughout the activity or intermittently. 3-Partial/Moderate Assistance-helper does LESS THAN HALF the effort. [place] lifts, holds or supports trunk or limbs, but provides less than half the effort. 2-Substantial/Maximal Assistance-helper does MORE THAN HALF the effort. [place] lifts or holds trunk or limbs and provides more than half the effort. 0-Kubcmqggd-xpaflb does ALL the effort. Patient does none of the effort to complete the activity. Or, the assistance of 2 or more helpers is required for the patient to complete the activity. If activity was not attempted, code reason: 7-Patient Refused. 9-Not Applicable-not attempted and the patient did not perform the activity before the current illness, exacerbation or injury. 10-Not Attempted due to Environmental Limitations-(lack of equipment, weather restraints, etc.). 88-Not Attempted due to Medical Conditions or Safety Concerns. Roll Left to Right (QC): 5 Sit to Lying (QC): 6 Sit to Stand (QC): 6 Chair/Zgv-aj-Ceead Xfer(QC): 6 Car Transfer (QC): 5 Gait Training Does the Patient Walk?: Yes Distance: 150' x2 Walk 10 feet (QC): 5 Walk 50 ft with 2 Turns(QC): 5 Walk 150 ft (QC): 5 Walking 10ft/uneven surface-QC: 4 Gait Persons Needed: 1 Gait Assistive Device: FWW Wheelchair Training Does the Pt Use a Wheelchair?: No Wheel 50 ft with 2 turns (QC): 9 Wheel 150 ft (QC): 9 Stair Training Stair Training: Handrails/: 2 handrails #of Steps: 4 1 Step (curb) (QC): 4 4 Steps (QC): 4 12 Steps (QC): 88 Stairs: Pattern: Reciprocal Balance Picking up an Object (QC): 88 ADL-Treatment Eating (QC): 6 Oral Hygiene (QC): 6 Bathing Location: L Arm, R Arm, L Upper Leg, R Upper Leg, L Lower Leg (including foot), R Lower Leg (including foot), Chest, Abdomen, Buttocks, Perineal Area Shower/Bathe Self (QC): 4 (SBA during stance.Completes most showering in stance, sits to complete LB / feet with LHS) Upper Body Dressing (QC): 5 (s/u shirt and back brace.) Lower Body Dressing (QC): 3 (min A situating breifs/ pants during threading. Pt completes with doughmaker, requires min cues for complying with precautions.) On/Off Footwear (QC): 6 (IND socks (use of ds and sock aide)) Toileting Hygiene (QC): 6 (IND) Toilet Transfer (QC): 4 (SBA) Assessment/Plan Assessment and Plan Assess & Plan/Chief Complaint Assessment: s/p extensive spine surgery per Dr Hunter Subacute DVT/PE dx 06/09 delaying surgery scheduled for 06/09/20 at [facility] dx in pre-op Osteoporosis GERD Weight loss Continued nausea DM Post op anemia Back pain Fall risk UTI dx 06/23/20 Plan: IRF protocol Pain meds Nausea meds PPI BID Scop patch 06/18/20: Iron infusions Pain control Scop patch Regular diet DC accuchecks 06/19/20: Iron infusion with midline Vit B12 injection Ensure BID Scop patch to continue 06/20/20: Iron infusions via midline Scop patch PT OT 06/21/20: Improve dietary consumption Monitor nausea Midline for iron infusions 06/22/20: Oxycodone 10 mg HS Lortab 2 every 4hours Severe pain and is acute on chronic 06/23/20: Abx for UTI started Pain control (1) S/P spinal surgery (2) Osteoporosis (3) Compression fracture of lumbar vertebra (4) DVT (deep venous thrombosis) (5) Pulmonary embolism (6) Anticoagulant long-term use (7) Laura filter in place (8) Nausea (9) Weight loss (10) GERD (gastroesophageal reflux disease) (11) Diabetes (12) Postoperative anemia (13) Protein-calorie malnutrition, moderate CHARLOTTE CAMARGO DO Jun 23, 2020 12:07
--- NOTE | 2020-06-23 14:03 | Physical Therapy Daily Note ---
PT Daily Note-Current Subjective Pt sitting in recliner upon arrival. Pt agrees to PT. Pain Location: No Pain Reported Mental Status Patient Orientation: Person, Place, Time, Situation Attachments: Other-See Comments (Lumbar Brace) Transfers SCALE: Activities may be completed with or without assistive devices. 0-Msiqscjcdk-cyzrlcm completes the activity by him/herself with no assistance from a helper. 5-Set-up or Clean-up Assistance-helper sets up or cleans up; patient completes activity. [place] assists only prior to or following the activity. 4-Supervision or Touching Assistance-helper provides verbal cues and/or touching/steadying and/or contact guard assistance as patient completes activity. Assistance may be provided throughout the activity or intermittently. 3-Partial/Moderate Assistance-helper does LESS THAN HALF the effort. [place] lifts, holds or supports trunk or limbs, but provides less than half the effort. 2-Substantial/Maximal Assistance-helper does MORE THAN HALF the effort. [place] lifts or holds trunk or limbs and provides more than half the effort. 4-Mtcqugiwm-jvfylo does ALL the effort. Patient does none of the effort to complete the activity. Or, the assistance of 2 or more helpers is required for the patient to complete the activity. If activity was not attempted, code reason: 7-Patient Refused. 9-Not Applicable-not attempted and the patient did not perform the activity before the current illness, exacerbation or injury. 10-Not Attempted due to Environmental Limitations-(lack of equipment, weather restraints, etc.). 88-Not Attempted due to Medical Conditions or Safety Concerns. Sit to Stand (QC): 5 Weight Bearing Full Weight Bearing Full Weight Bearing Gait Training Does the Patient Walk?: Yes Distance: 150', 250' Walk 10 feet (QC): 5 Walk 50 ft with 2 Turns(QC): 5 Walk 150 ft (QC): 5 Gait Persons Needed: 1 Gait Assistive Device: FWW Wheelchair Training Does the Pt Use a Wheelchair?: No Stair Training Stair Training: Handrails/: 2 handrails #of Steps: 4 1 Step (curb) (QC): 5 4 Steps (QC): 5 Stairs: Pattern: Reciprocal Treatments Transfers to standing and amb. in hallway. Pt completes 1 set of 4 steps then amb. in hallway before returning to room. Pt lays in bed per Nursing. All needs met, call light in hand. Assessment Current Status: Good Progress Pt fatigues, needing quick RB to recover. PT Short Term Goals Short Term Goals Time Frame: Jun 24, 2020 Roll Left & Right: 6 Sit to lyin Lying to sitting on side of be: 4 Sit to stand: 5 Chair/lxt-bq-vznao transfer: 5 Walk 10 feet: 5 Walk 50 feet with two turns: 5 Walk 150 feet: 5 PT Retirement Goals Senior Visual Designer Goals PT Senior Visual Designer Goals Time Frame: Jul 08, 2020 Roll Left & Right (QC): 6 Sit to Lying (QC): 6 Lying-Sitting on Side/Bed(QC): 6 Sit to Stand (QC): 6 Chair/Wvd-km-Ylgny Xfer(QC): 6 Toilet Transfer (QC): 6 Car Transfer (QC): 6 Does the Patient Walk: Yes Walk 10 feet (QC): 6 Walk 50ft with 2 Turns (QC): 6 Walk 150 ft (QC): 6 Walking 10ft on Uneven Surface: 6 1 Step (curb) (QC): 4 4 Steps (QC): 4 12 Steps (QC): 88 Picking up an Object (QC): 88 Wheel 50 feet with 2 turns (QC: 9 Wheel 150 feet: 9 PT Plan Problem List Problem List: Activity Tolerance Treatment/Plan Treatment Plan: Continue Plan of Care Treatment Plan: Bed Mobility, Education, Functional Activity [place], Functional Strength, Group Therapy, Gait, Safety, Therapeutic Exercise, Transfers Treatment Duration: Jul 08, 2020 Frequency: At least 5 of 7 days/Wk (IRF) Estimated Hrs Per Day: 1.5 hours per day Patient and/or Family Agrees t: Yes Safety Risks/Education Patient Education: Gait Training, Correct Positioning, Safety Issues Teaching Recipient: Patient Teaching Methods: Discussion Response to Teaching: Verbalize Understanding Time/GCodes Time In: 1330 Time Out: 1400 Total Billed Treatment Time: 30 Total Billed Treatment 1, GT (15m) & FA (15m) MENDOZA MAR PTA Jun 23, 2020 14:03
[2020-06-23 14:23] LABS: BILIRUBIN,URINE NEGATIVE (NEGATIVE); CLARITY,URINE CLOUDY; COLOR,URINE AMBER; GLUCOSE, URINE (UA) NEGATIVE (NEGATIVE); KETONES,URINE TRACE (NEGATIVE); LEUKOCYTE ESTERASE ,URINE 2+ (NEGATIVE); NITRITE,URINE NEGATIVE (NEGATIVE); PROTEIN,URINE TRACE (NEGATIVE)
[2020-06-23 14:43] LABS: BACTERIA,URINE LARGE /HPF; RBC,URINE 0-2 /HPF; SQUAMOUS EPITHELIAL CELL,UR 0-2 /HPF; WBC,URINE TNTC /HPF
[2020-06-23] MEDS ORDERED: OXYC1TAB11 PO (15:41)
[2020-06-23 16:00] VITALS: BP 116/56
[2020-06-23] MEDS: CEFDINIR 300 MG (OMNICEF) CAP PO SCH (18:50)
[2020-06-23] MEDS: SIMvastatin 10 MG (ZOCOR) TAB PO SCH (20:32)
[2020-06-24] MEDS: HYDROcodone/APAP 5 MG/325 MG (LORTAB) TAB PO PRN ×2 (00:55→05:33)
[2020-06-24] MEDS: CEFDINIR 300 MG (OMNICEF) CAP PO SCH ×2 (05:34→18:50)
[2020-06-24 05:50] VITALS: BP 149/67
[2020-06-24] MEDS: metFORMIN 500 MG (GLUCOPHAGE) TAB PO SCH (06:38)
--- NOTE | 2020-06-24 08:32 | Occupational Ther Daily Note ---
OT Current Status-Daily Note Subjective [id number] Pt AxO, states minimal (4/10) pain in L leg. pt agrees to tx. 4170-7694: Pt upright in chair, agrees to tx, states min pain. 5101-0523: Pt upright in chair, post eating. Min pain L leg, agrees to tx. Mental Status/Objective Patient Orientation: Normal For Age ADL-Treatment Therapy Code Descriptions/Definitions Functional [place] Measure: 0=Not Assessed/NA 4=Minimal Assistance 1=Total Assistance 5=Supervision or Setup 2=Maximal Assistance 6=Modified [place] 3=Moderate Assistance 7=Complete IndependenceSCALE: Activities may be completed with or without assistive devices. 2-Oylajcxjkw-bxxhmuo completes the activity by him/herself with no assistance f rom a helper. 5-Set-up or Clean-up Assistance-helper sets up or cleans up; patient completes activity. [place] assists only prior to or following the activity. 4-Supervision or Touching Assistance-helper provides verbal cues and/or touching/steadying and/or contact guard assistance as patient completes activity. Assistance may be provided throughout the activity or intermittently. 3-Partial/Moderate Assistance-helper does LESS THAN HALF the effort. [place] lifts, holds or supports trunk or limbs, but provides less than half the effort. 2-Substantial/Maximal Assistance-helper does MORE THAN HALF the effort. [place] lifts or holds trunk or limbs and provides more than half the effort. 1-Ozxricopa-ztagsa does ALL the effort. Patient does none of the effort to complete the activity. Or, the assistance of 2 or more helpers is required for the patient to complete the activity. If activity was not attempted, code reason: 7-Patient Refused. 9-Not Applicable-not attempted and the patient did not perform the activity before the current illness, exacerbation or injury. 10-Not Attempted due to Environmental Limitations-(lack of equipment, weather restraints, etc.). 88-Not Attempted due to Medical Conditions or Safety Concerns. Eating (QC): 6 Upper Body Dressing (QC): 6 Lower Body Dressing (QC): 4 (SBA and min cues for back precautions) On/Off Footwear: 6 (IND with use of sock aide.) Toileting Hygiene (QC): 6 (IND with urination/ norma care.) Toilet Transfer (QC): 4 (SUP (use of gbs to standard toilet)) Other Treatment [id number]: Pt dresses in chair, cues for maintenance of back precautions. Pt educated on d/c and recheck, pt and OT discuss benefits and continuation of POC here at [facility]. Pt completes ambulation with SBA and toileting on standard toilet this date rather than BSC. Pt states "easy" getting up with use of gbs. Will require gbs near toilet and in shower upon d/c home. Pt returns to chair, all needs met, call light in reach. 3527-5578: Pt ambulates to laundry room, completes with SBA and cues for hand placement. Pt states has front loading washer at home. Simulation of reaching while maintaining precautions/ cues for hand placement completed in gym with weighted de [place] paz bags. Pt completes with min cues, good balance/ SBA. Pt completes this task 2x with rest break between. Ambulates to room while cues/ game initiated for scanning environment to encourage upright posture. Education to complete at home as well to encourage upright positioning. Pt and OT go through each precaution with OT simulating good/ bad tasks. Pt able to state 4/6 with correct answer with whether precautions were maintained or not. Pt educated on reasoning behind each movement/ posture. Pt left in recliner with all needs met, call light in reach. 5629-0562: Pt sit to stands with SBA, ambulate to laundry room with SBA. Transitions washer to dryer and reaches in dryer for dry items/ folds with SBA and cues for placement. Pt educated to utilize tank truck operator during this task when unable to reach back. Pt agrees, ambulates to room, changes UB dressing as she c/o cold. Completes 10-15 reps bilaterally of the following ex: shoulder flexion, shoulder ext rotation, triceps, and abduction. Pt completes oral care with SUP at sink, returns to chair with all needs met, call light in reach. Education OT Patient Education: Correct positioning, Exercise program, Home exercise program, Progress toward Goal/Update tx plan, Purpose of tx/functional activities, Reviewed precautions, Safety issues, Transfer techniques, Use of adapted equipment Teaching Recipient: Patient Teaching Methods: Demonstration, Discussion Response to Teaching: Verbalize Understanding, Return Demonstration OT Long-Term Goals Household Manager Goals Time Frame: Jul 01, 2020 Eating (QC): 6 Oral Hygiene (QC): 6 Toileting Hygiene (QC): 6 Shower/Bathe Self (QC): 6 Upper Body Dressing (QC): 6 Lower Body Dressing (QC): 6 On/Off Footwear (QC): 6 Additional Goals: 1-Demonstrate ADL Tasks, 2-Verbalize Understanding, 3-Im proveStrength/[place] 1=Demonstrate adherence to instructed precautions during ADL tasks. 2=Patient will verbalize/demonstrate understanding of assistive devices/modifications for ADL. 3=Patient will improve strength/tolerance for activity to enable patient to perform ADL's. OT Education/Plan Problem List/Assessment Assessment: Decreased Activ Tolerance, Decreased UE Strength, Dependent Transfers, Edema (5 sec pitting), Impaired Funct Balance, Impaired I ADL's, Im paired Self-Care Skills Discharge Recommendations Plan/Recommendations: Continue POC Therapy Discharge Recommendati: Home & Family, Post Acute OT Equpiment Recommendations-D/C: Rails on Tub/Shower, Hip Kit, Other, See Comments Comment gbs near toilet. Treatment Plan/Plan of Care Treatment,Training & Education: Yes Patient would benefit from OT for education, treatment and training to promote independence in ADL's, mobility, safety and/or upper extremity function for ADL's. Plan of Care: ADL Retraining, Caregiver Training, Concurrent Therapy, Functional Mobility, Group Exercise/Act as Ind, Orthotic Fitting/Training, UE Funct Exercise/Act Treatment Duration: Jul 01, 2020 Frequency: At least 5 of 7 days/Wk (IRF) Estimated Hrs Per Day: 1.5 hours per day Agreement: Yes Rehab Potential: Good Time/GCodes Start Time: 08:00 Stop Time: 08:30 Total Time Billed (hr/min): 90 Billed Treatment Time [id number]: 1, ADL 2 (30) 2336-0539: 1, ADL, EX (30) 5423-2796: 1, ADL, FA (30) Total: 90 RUPERTO MUSTAFA OTR Jun 24, 2020 08:32
[2020-06-24] MEDS: CALCIUM CARB + VIT D 600 MG (CALCARB + D) TAB PO SCH ×2 (08:49→18:50)
[2020-06-24] MEDS: DOCUSATE SODIUM 100 MG (COLACE) CAP PO SCH ×2 (08:50→20:56)
[2020-06-24] MEDS: PANTOPRAZOLE 40 MG (PROTONIX) TAB PO SCH ×2 (08:50→20:59)
[2020-06-24] MEDS: VITAMIN D3 25 MCG (1,000 UNITS) TABLET PO SCH ×2 (08:50→21:19)
[2020-06-24] MEDS: polyethylene glycoL POWDER 17 GM (MIRALAX) PACK PO SCH ×2 (08:50→20:56)
[2020-06-24] MEDS: SENNA W/DOCUSATE (SENOKOT S) TABLET PO SCH ×2 (08:50→20:56)
[2020-06-24] MEDS: GABAPENTIN 100 MG (NEURONTIN) CAP PO SCH ×3 (08:50→20:59)
[2020-06-24] MEDS: APIXABAN 5 MG (ELIQUIS) TABLET PO SCH (08:50)
[2020-06-24] MEDS: DULoxetine 30 MG (CYMBALTA) CAP PO SCH (08:50)
[2020-06-24] MEDS: DICLOFENAC 1% GEL 100 GM (VOLTAREN) TUBE TOP SCH ×4 (08:51→20:57)
--- NOTE | 2020-06-24 11:36 | PM&R Progress Note ---
Subjective HPI/CC On Admission Date Seen by Provider: Jun 24, 2020 Time Seen by Provider: 11:45 Subjective/Events-last exam 06/24/20: Doing well Scop patch q 72 hours BM++ Amazing recovery 06/23/20: Pt having some urinary issues so will check UA and a straight in and out cath Bowels are moving well Pain is controlled Oxycodone of 10 at night really helped her UTI dx so placed on abx empirically 06/22/20: Pt doing pretty well Nausea is controlled with Scopolamine patch Eliquis BID is tolerated Bowels are moving Oxycodone at 10 Mg at night will help her sleep tonight We will keep Lortab two every four hours as needed 06/21/20: Midline was placed, will receive Venofer iron infusions Last bowels moved a couple of days ago so will initiate laxatives Scopolamine Patch working pretty well for her Eating and drinking better 06/20/20: Pt isnt sleeping well due to the pain Will give Lortab two at a time every four hours as needed that she takes at home Oxycodone doesnt seem to work as well Scopolamine patch is treating the nausea Midline will be placed to completed the Venofer 06/19/20: Patient doing better Appetite improved Midline will be placed BM++ Walked to the gym and back to room Voltaren gel ordered Venofer ordered Scop patch will be continued Ensure BID Vit B12 injection 06/18/20: Patient in a good mood Improved status Pain of back is improved Checked meds and labs MANJU hose on Lortab improved pain Iron pending DC accuchecks Scop patch is improving the nausea Review of Systems General: Fatigue, Malaise Neurological: Weakness, Incoordination Objective Exam Vital Signs Vital Signs Date Time Temp Pulse Resp B/P (MAP) Pulse Ox O2 Delivery O2 Flow Rate FiO2 06/25/20 05:56 37.0 87 16 125/60 (81) 94 Room Air Capillary Refill : General Appearance: No Apparent Distress, WD/WN, Chronically ill, Thin HEENT: PERRL/EOMI, Normal ENT Inspection, Pharynx Normal Neck: Full Range of Motion, Normal Inspection, Non Tender, Supple, Carotid Bruit Respiratory: Chest Non Tender, Lungs Clear, Normal Breath Sounds, No Accessory Muscle Use, No Respiratory Distress Cardiovascular: Regular Rate, Rhythm, No Edema, No Gallop, No JVD, No Murmur, Normal Peripheral Pulses Gastrointestinal: Normal Bowel Sounds, No Organomegaly, No Pulsatile Mass, Non Tender, Soft Back: CVA Tenderness (L), CVA Tenderness (R), Decreased Range of Motion, Muscle Spasm, Vertebral Tenderness, Other Extremity: Normal Capillary Refill, Normal Inspection, Normal Range of Motion, Non Tender, No Calf Tenderness, No Pedal Edema Neurologic/Psychiatric: Alert, Oriented x3, No Motor/Sensory Deficits, Normal Mood/Affect Skin: Normal Color, Warm/Dry Lymphatic: No Adenopathy Results/Procedures Lab Patient resulted labs reviewed. FIM Transfers Therapy Code Descriptions/Definitions Functional [place] Measure: 0=Not Assessed/NA 4=Minimal Assistance 1=Total Assistance 5=Supervision or Setup 2=Maximal Assistance 6=Modified [place] 3=Moderate Assistance 7=Complete IndependenceSCALE: Activities may be completed with or without assistive devices. 5-Majkaemvxr-qgracna completes the activity by him/herself with no assistance from a helper. 5-Set-up or Clean-up Assistance-helper sets up or cleans up; patient completes activity. [place] assists only prior to or following the activity. 4-Supervision or Touching Assistance-helper provides verbal cues and/or t ouching/steadying and/or contact guard assistance as patient completes activity. Assistance may be provided throughout the activity or intermittently. 3-Partial/Moderate Assistance-helper does LESS THAN HALF the effort. [place] lifts, holds or supports trunk or limbs, but provides less than half the effort. 2-Substantial/Maximal Assistance-helper does MORE THAN HALF the effort. [place] lifts or holds trunk or limbs and provides more than half the effort. 1-Szplyvpmt-lvsvko does ALL the effort. Patient does none of the effort to complete the activity. Or, the assistance of 2 or more helpers is required for the patient to complete the activity. If activity was not attempted, code reason: 7-Patient Refused. 9-Not Applicable-not attempted and the patient did not perform the activity before the current illness, exacerbation or injury. 10-Not Attempted due to Environmental Limitations-(lack of equipment, weather restraints, etc.). 88-Not Attempted due to Medical Conditions or Safety Concerns. Roll Left to Right (QC): 5 Sit to Lying (QC): 6 Sit to Stand (QC): 5 Chair/Xef-zk-Wogxh Xfer(QC): 6 Car Transfer (QC): 5 Gait Training Does the Patient Walk?: Yes Distance: 150', 250' Walk 10 feet (QC): 5 Walk 50 ft with 2 Turns(QC): 5 Walk 150 ft (QC): 5 Walking 10ft/uneven surface-QC: 4 Gait Persons Needed: 1 Gait Assistive Device: FWW Wheelchair Training Does the Pt Use a Wheelchair?: No Wheel 50 ft with 2 turns (QC): 9 Wheel 150 ft (QC): 9 Stair Training Stair Training: Handrails/: 2 handrails #of Steps: 4 1 Step (curb) (QC): 5 4 Steps (QC): 5 12 Steps (QC): 88 Stairs: Pattern: Reciprocal Balance Picking up an Object (QC): 88 ADL-Treatment Eating (QC): 6 Oral Hygiene (QC): 6 Bathing Location: L Arm, R Arm, L Upper Leg, R Upper Leg, L Lower Leg (including foot), R Lower Leg (including foot), Chest, Abdomen, Buttocks, Perineal Area Shower/Bathe Self (QC): 4 (SBA during stance.Completes most showering in stance, sits to complete LB / feet with LHS) Upper Body Dressing (QC): 6 Lower Body Dressing (QC): 4 (SBA and min cues for back precautions) On/Off Footwear (QC): 6 (IND with use of sock aide.) Toileting Hygiene (QC): 6 (IND with urination/ norma care.) Toilet Transfer (QC): 4 (SUP (use of gbs to standard toilet)) Assessment/Plan Assessment and Plan Assess & Plan/Chief Complaint Assessment: s/p extensive spine surgery per Dr Hunter Subacute DVT/PE dx 06/09 [facility] [facility] Osteoporosis GERD Weight loss Continued nausea DM Post op anemia Back pain Fall risk UTI dx 06/23/20 Plan: IRF protocol Pain meds Nausea meds PPI BID Scop patch 06/18/20: Iron infusions Pain control Scop patch Regular diet DC accuchecks 06/19/20: Iron infusion with midline Vit B12 injection Ensure BID Scop patch to continue 06/20/20: Iron infusions via midline Scop patch PT OT 06/21/20: Improve dietary consumption Monitor nausea Midline for iron infusions 06/22/20: Oxycodone 10 mg HS Lortab 2 every 4hours Severe pain and is acute on chronic 06/23/20: Abx for UTI started Pain control 06/24/20: UTI treatment Scop patch (1) S/P spinal surgery (2) Osteoporosis (3) Compression fracture of lumbar vertebra (4) DVT (deep venous thrombosis) (5) Pulmonary embolism (6) Anticoagulant long-term use (7) Laura filter in place (8) Nausea (9) Weight loss (10) GERD (gastroesophageal reflux disease) (11) Diabetes (12) Postoperative anemia (13) Protein-calorie malnutrition, moderate CHARLOTTE CAMARGO DO Jun 24, 2020 11:36
--- NOTE | 2020-06-24 12:05 | Physical Therapy Daily Note ---
PT Daily Note-Current Subjective Pt. agrees to Rx and states she feels she has made significant progress Pain Location: No Pain Reported Mental Status Patient Orientation: Normal For Age Attachments: Other-See Comments (aspen brace) Transfers SCALE: Activities may be completed with or without assistive devices. 8-Blhyfqycju-qesdktw completes the activity by him/herself with no assistance from a helper. 5-Set-up or Clean-up Assistance-helper sets up or cleans up; patient completes activity. [place] assists only prior to or following the activity. 4-Supervision or Touching Assistance-helper provides verbal cues and/or touching/steadying and/or contact guard assistance as patient completes activity. Assistance may be provided throughout the activity or intermittently. 3-Partial/Moderate Assistance-helper does LESS THAN HALF the effort. [place] lifts, holds or supports trunk or limbs, but provides less than half the effort. 2-Substantial/Maximal Assistance-helper does MORE THAN HALF the effort. [place] lifts or holds trunk or limbs and provides more than half the effort. 0-Rhcxsliyd-ittfyu does ALL the effort. Patient does none of the effort to complete the activity. Or, the assistance of 2 or more helpers is required for the patient to complete the activity. If activity was not attempted, code reason: 7-Patient Refused. 9-Not Applicable-not attempted and the patient did not perform the activity before the current illness, exacerbation or injury. 10-Not Attempted due to Environmental Limitations-(lack of equipment, weather restraints, etc.). 88-Not Attempted due to Medical Conditions or Safety Concerns. Roll Left & Right (QC): 6 Sit to Lying (QC): 6 Lying to Sitting/Side of Bed(Q: 6 Sit to Stand (QC): 6 Chair/Klc-tx-Uyhbv Xfer(QC): 6 pt. able to lay supine today for therex, rolling left and right and TRFing Weight Bearing Full Weight Bearing Full Weight Bearing Gait Training Does the Patient Walk?: Yes Walk 10 feet (QC): 5 Walk 50 ft with 2 Turns(QC): 5 Walk 150 ft (QC): 5 Gait Persons Needed: 1 Gait Assistive Device: FWW 360 degree turns left and right, side stepping left and right [address] as well as retro gait 15 ft all safely with instruction Exercises Supine Ex: Ankle pumps, Quad Set, Rolling, Glut sets, Heel Slides, Short Arc Quads, Hip abd/add Supine Reps: 15 Seated Therapy Exercises: Ankle pumps, Sit to stand, Long arc quads, Hip flexion, Hip abd/add Seated Reps: 15 NuStep Minutes: 10 NuStep Workload: 3 Assessment Current Status: Good Progress PT Short Term Goals Short Term Goals Time Frame: Jun 24, 2020 Roll Left & Right: 6 Sit to lyin Lying to sitting on side of be: 4 Sit to stand: 5 Chair/hoy-wc-emqac transfer: 5 Walk 10 feet: 5 Walk 50 feet with two turns: 5 Walk 150 feet: 5 PT [facility] Goals Lien Searcher Goals PT Lien Searcher Goals Time Frame: Jul 08, 2020 Roll Left & Right (QC): 6 Sit to Lying (QC): 6 Lying-Sitting on Side/Bed(QC): 6 Sit to Stand (QC): 6 Chair/Fre-ei-Yymht Xfer(QC): 6 Toilet Transfer (QC): 6 Car Transfer (QC): 6 Does the Patient Walk: Yes Walk 10 feet (QC): 6 Walk 50ft with 2 Turns (QC): 6 Walk 150 ft (QC): 6 Walking 10ft on Uneven Surface: 6 1 Step (curb) (QC): 4 4 Steps (QC): 4 12 Steps (QC): 88 Picking up an Object (QC): 88 Wheel 50 feet with 2 turns (QC: 9 Wheel 150 feet: 9 PT Plan Treatment/Plan Treatment Plan: Continue Plan of Care Treatment Plan: Bed Mobility, Education, Functional Activity [place], Functional Strength, Group Therapy, Gait, Safety, Therapeutic Exercise, Transfers Treatment Duration: Jul 08, 2020 Frequency: At least 5 of 7 days/Wk (IRF) Estimated Hrs Per Day: 1.5 hours per day Patient and/or Family Agrees t: Yes Safety Risks/Education Patient Education: Gait Training, Transfer Techniques, Correct Positioning, Disease Process, Safety Issues Teaching Recipient: Patient Teaching Methods: Demonstration, Discussion Response to Teaching: Verbalize Understanding, Return Demonstration, Reinforcement Needed Time/GCodes Time In: 1100 Time Out: 1200 Total Billed Treatment Time: 60 Total Billed Treatment 1,GT25m,[id number] NIDIA FAITH PTA Jun 24, 2020 12:05
--- NOTE | 2020-06-24 14:59 | Physical Therapy Daily Note ---
PT Daily Note-Current Subjective Pt. agrees to Rx. Pain Location: No Pain Reported Mental Status Patient Orientation: Normal For Age Attachments: Other-See Comments (brace) Transfers SCALE: Activities may be completed with or without assistive devices. 3-Gpsqgdhljd-hcniaxa completes the activity by him/herself with no assistance from a helper. 5-Set-up or Clean-up Assistance-helper sets up or cleans up; patient completes activity. [place] assists only prior to or following the activity. 4-Supervision or Touching Assistance-helper provides verbal cues and/or touching/steadying and/or contact guard assistance as patient completes activity. Assistance may be provided throughout the activity or intermittently. 3-Partial/Moderate Assistance-helper does LESS THAN HALF the effort. [place] lifts, holds or supports trunk or limbs, but provides less than half the effort. 2-Substantial/Maximal Assistance-helper does MORE THAN HALF the effort. [place] lifts or holds trunk or limbs and provides more than half the effort. 4-Fuqhmwuab-jxfvkn does ALL the effort. Patient does none of the effort to complete the activity. Or, the assistance of 2 or more helpers is required for the patient to complete the activity. If activity was not attempted, code reason: 7-Patient Refused. 9-Not Applicable-not attempted and the patient did not perform the activity before the current illness, exacerbation or injury. 10-Not Attempted due to Environmental Limitations-(lack of equipment, weather restraints, etc.). 88-Not Attempted due to Medical Conditions or Safety Concerns. Car Transfer (QC): 5 all TRFs sit to stand SBA Weight Bearing Full Weight Bearing Full Weight Bearing Gait Training Does the Patient Walk?: Yes Gait Assistive Device: FWW 165ft x 2 FWW SBA to CGA Exercises Seated Therapy Exercises: Ankle pumps, Long arc quads, Hip flexion, Hip abd/add Seated Reps: 15 Treatments heel taps in sitting for and back x12, toileted SBA Assessment Current Status: Good Progress PT Short Term Goals Short Term Goals Time Frame: Jun 24, 2020 Roll Left & Right: 6 Sit to lyin Lying to sitting on side of be: 4 Sit to stand: 5 Chair/hub-bd-nujvm transfer: 5 Walk 10 feet: 5 Walk 50 feet with two turns: 5 Walk 150 feet: 5 PT Jail Goals Jail Goals PT Project Systems Engineer Goals Time Frame: Jul 08, 2020 Roll Left & Right (QC): 6 Sit to Lying (QC): 6 Lying-Sitting on Side/Bed(QC): 6 Sit to Stand (QC): 6 Chair/Srd-wm-Jjvrj Xfer(QC): 6 Toilet Transfer (QC): 6 Car Transfer (QC): 6 Does the Patient Walk: Yes Walk 10 feet (QC): 6 Walk 50ft with 2 Turns (QC): 6 Walk 150 ft (QC): 6 Walking 10ft on Uneven Surface: 6 1 Step (curb) (QC): 4 4 Steps (QC): 4 12 Steps (QC): 88 Picking up an Object (QC): 88 Wheel 50 feet with 2 turns (QC: 9 Wheel 150 feet: 9 PT Plan Treatment/Plan Treatment Plan: Continue Plan of Care Treatment Plan: Bed Mobility, Education, Functional Activity [place], Functional Strength, Group Therapy, Gait, Safety, Therapeutic Exercise, Transfers Treatment Duration: Jul 08, 2020 Frequency: At least 5 of 7 days/Wk (IRF) Estimated Hrs Per Day: 1.5 hours per day Patient and/or Family Agrees t: Yes Safety Risks/Education Patient Education: Gait Training, Transfer Techniques, Correct Positioning, Disease Process, Safety Issues Teaching Recipient: Patient Teaching Methods: Demonstration, Discussion Response to Teaching: Verbalize Understanding, Return Demonstration, Reinforcement Needed Time/GCodes Time In: 1430 Time Out: 1500 Total Billed Treatment Time: 30 Total Billed Treatment 1,GT20m,FA10m NIDIA FAITH PTA Jun 24, 2020 14:59
[2020-06-24 16:13] VITALS: BP 138/60
[2020-06-24] MEDS: SIMvastatin 10 MG (ZOCOR) TAB PO SCH (20:57)
[2020-06-24] MEDS: APIXABAN 2.5 MG (ELIQUIS) TABLET PO SCH (20:58)
[2020-06-24] MEDS: CATHETER FLUSH 10 ML SYR IV SCH (21:02)
[2020-06-25] MEDS: HYDROcodone/APAP 5 MG/325 MG (LORTAB) TAB PO PRN (03:02)
[2020-06-25 05:56] VITALS: BP 125/60
[2020-06-25] MEDS: CEFDINIR 300 MG (OMNICEF) CAP PO SCH ×2 (06:48→17:38)
[2020-06-25] MEDS: CATHETER FLUSH 10 ML SYR IV SCH ×3 (06:48→20:12)
[2020-06-25] MEDS: metFORMIN 500 MG (GLUCOPHAGE) TAB PO SCH (06:48)
--- NOTE | 2020-06-25 07:34 | PM&R Progress Note ---
Subjective HPI/CC On Admission Date Seen by Provider: Jun 25, 2020 Time Seen by Provider: 09:40 Subjective/Events-last exam 06/25/20: Patient doing well Tired today Incision looks good IV iron tolerated via midline No nausea Scop patch 06/24/20: Doing well Scop patch q 72 hours BM++ Amazing recovery 06/23/20: Pt having some urinary issues so will check UA and a straight in and out cath Bowels are moving well Pain is controlled Oxycodone of 10 at night really helped her UTI dx so placed on abx empirically 06/22/20: Pt doing pretty well Nausea is controlled with Scopolamine patch Eliquis BID is tolerated Bowels are moving Oxycodone at 10 Mg at night will help her sleep tonight We will keep Lortab two every four hours as needed 06/21/20: Midline was placed, will receive Venofer iron infusions Last bowels moved a couple of days ago so will initiate laxatives Scopolamine Patch working pretty well for her Eating and drinking better 06/20/20: Pt isnt sleeping well due to the pain Will give Lortab two at a time every four hours as needed that she takes at home Oxycodone doesnt seem to work as well Scopolamine patch is treating the nausea Midline will be placed to completed the Venofer 06/19/20: Patient doing better Appetite improved Midline will be placed BM++ Walked to the gym and back to room Voltaren gel ordered Venofer ordered Scop patch will be continued Ensure BID Vit B12 injection 06/18/20: Patient in a good mood Improved status Pain of back is improved Checked meds and labs MANJU cancino on Lortab improved pain Iron pending DC accuchecks Scop patch is improving the nausea Review of Systems General: Fatigue, Malaise Musculoskeletal: back pain Neurological: Weakness Objective Exam Vital Signs Vital Signs Date Time Temp Pulse Resp B/P (MAP) Pulse Ox O2 Delivery O2 Flow Rate FiO2 06/25/20 17:08 36.8 71 18 125/61 (82) 95 Room Air Capillary Refill : General Appearance: No Apparent Distress, WD/WN, Chronically ill, Thin HEENT: PERRL/EOMI, Normal ENT Inspection, Pharynx Normal Neck: Full Range of Motion, Normal Inspection, Non Tender, Supple, Carotid Bruit Respiratory: Chest Non Tender, Lungs Clear, Normal Breath Sounds, No Accessory Muscle Use, No Respiratory Distress Cardiovascular: Regular Rate, Rhythm, No Edema, No Gallop, No JVD, No Murmur, Normal Peripheral Pulses Gastrointestinal: Normal Bowel Sounds, No Organomegaly, No Pulsatile Mass, Non Tender, Soft Back: CVA Tenderness (L), CVA Tenderness (R), Decreased Range of Motion, Muscle Spasm, Vertebral Tenderness, Other Extremity: Normal Capillary Refill, Normal Inspection, Normal Range of Motion, Non Tender, No Calf Tenderness, No Pedal Edema Neurologic/Psychiatric: Alert, Oriented x3, No Motor/Sensory Deficits, Normal Mood/Affect Skin: Normal Color, Warm/Dry Lymphatic: No Adenopathy Results/Procedures Lab Patient resulted labs reviewed. FIM Transfers Therapy Code Descriptions/Definitions Functional [place] Measure: 0=Not Assessed/NA 4=Minimal Assistance 1=Total Assistance 5=Supervision or Setup 2=Maximal Assistance 6=Modified [place] 3=Moderate Assistance 7=Complete IndependenceSCALE: Activities may be completed with or without assistive devices. 7-Mqcokrbxah-tzvumgc completes the activity by him/herself with no assistance from a helper. 5-Set-up or Clean-up Assistance-helper sets up or cleans up; patient completes activity. [place] assists only prior to or following the activity. 4-Supervision or Touching Assistance-helper provides verbal cues and/or touching/steadying and/or contact guard assistance as patient completes activity. Assistance may be provided throughout the activity or intermittently. 3-Partial/Moderate Assistance-helper does LESS THAN HALF the effort. [place] lifts, holds or supports trunk or limbs, but provides less than half the effort. 2-Substantial/Maximal Assistance-helper does MORE THAN HALF the effort. [place] lifts or holds trunk or limbs and provides more than half the effort. 5-Egbnxdhun-dwzskp does ALL the effort. Patient does none of the effort to complete the activity. Or, the assistance of 2 or more helpers is required for the patient to complete the activity. If activity was not attempted, code reason: 7-Patient Refused. 9-Not Applicable-not attempted and the patient did not perform the activity before the current illness, exacerbation or injury. 10-Not Attempted due to Environmental Limitations-(lack of equipment, weather restraints, etc.). 88-Not Attempted due to Medical Conditions or Safety Concerns. Roll Left to Right (QC): 6 Sit to Lying (QC): 6 Sit to Stand (QC): 6 Chair/Jja-jw-Ixjfv Xfer(QC): 6 Car Transfer (QC): 5 Gait Training Does the Patient Walk?: Yes Distance: 150', 250' Walk 10 feet (QC): 5 Walk 50 ft with 2 Turns(QC): 5 Walk 150 ft (QC): 5 Walking 10ft/uneven surface-QC: 4 Gait Persons Needed: 1 Gait Assistive Device: FWW Wheelchair Training Does the Pt Use a Wheelchair?: No Wheel 50 ft with 2 turns (QC): 9 Wheel 150 ft (QC): 9 Stair Training Stair Training: Handrails/: 2 handrails #of Steps: 4 1 Step (curb) (QC): 5 4 Steps (QC): 5 12 Steps (QC): 88 Stairs: Pattern: Reciprocal Balance Picking up an Object (QC): 88 ADL-Treatment Eating (QC): 6 Oral Hygiene (QC): 6 Bathing Location: L Arm, R Arm, L Upper Leg, R Upper Leg, L Lower Leg (including foot), R Lower Leg (including foot), Chest, Abdomen, Buttocks, Perineal Area Shower/Bathe Self (QC): 4 (SBA during stance.Completes most showering in stance, sits to complete LB / feet with LHS) Upper Body Dressing (QC): 6 Lower Body Dressing (QC): 4 (SBA and min cues for back precautions) On/Off Footwear (QC): 6 (IND with use of sock aide.) Toileting Hygiene (QC): 6 (IND with urination/ norma care.) Toilet Transfer (QC): 4 (SUP (use of gbs to standard toilet)) Assessment/Plan Assessment and Plan Assess & Plan/Chief Complaint Assessment: s/p extensive spine surgery per Dr Hunter Subacute DVT/PE dx 06/09 delaying surgery scheduled for 06/09/20 at [facility] dx in pre-op Osteoporosis GERD Weight loss Continued nausea DM Post op anemia Back pain Fall risk UTI dx 06/23/20 Plan: IRF protocol Pain meds Nausea meds PPI BID Scop patch 06/18/20: Iron infusions Pain control Scop patch Regular diet DC accuchecks 06/19/20: Iron infusion with midline Vit B12 injection Ensure BID Scop patch to continue 3/1/21: Iron infusions via midline Scop patch PT OT 06/21/20: Improve dietary consumption Monitor nausea Midline for iron infusions 06/22/20: Oxycodone 10 mg HS Lortab 2 every 4hours Severe pain and is acute on chronic 06/23/20: Abx for UTI started Pain control 06/24/20: UTI treatment Scop patch 06/25/20: Pain controlled BM regimen Therapy Iron infusions (1) S/P spinal surgery (2) Osteoporosis (3) Compression fracture of lumbar vertebra (4) DVT (deep venous thrombosis) (5) Pulmonary embolism (6) Anticoagulant long-term use (7) [place] filter in place (8) Nausea (9) Weight loss (10) GERD (gastroesophageal reflux disease) (11) Diabetes (12) Postoperative anemia (13) Protein-calorie malnutrition, moderate CHARLOTTE CAMARGO DO Jun 25, 2020 07:34
[2020-06-25] MEDS: DULoxetine 30 MG (CYMBALTA) CAP PO SCH (08:09)
[2020-06-25] MEDS: CALCIUM CARB + VIT D 600 MG (CALCARB + D) TAB PO SCH ×2 (08:09→17:38)
[2020-06-25] MEDS: PANTOPRAZOLE 40 MG (PROTONIX) TAB PO SCH ×2 (08:09→20:10)
[2020-06-25] MEDS: DOCUSATE SODIUM 100 MG (COLACE) CAP PO SCH ×2 (08:09→20:09)
[2020-06-25] MEDS: GABAPENTIN 100 MG (NEURONTIN) CAP PO SCH ×3 (08:09→20:10)
[2020-06-25] MEDS: APIXABAN 2.5 MG (ELIQUIS) TABLET PO SCH ×2 (08:09→20:10)
[2020-06-25] MEDS: SENNA W/DOCUSATE (SENOKOT S) TABLET PO SCH ×2 (08:10→20:09)
[2020-06-25] MEDS: IRON SUCROSE 200 MG/10 ML (VENOFER) VIAL IV SCH (08:10)
[2020-06-25] MEDS: VITAMIN D3 25 MCG (1,000 UNITS) TABLET PO SCH ×2 (08:12→20:10)
[2020-06-25] MEDS: DICLOFENAC 1% GEL 100 GM (VOLTAREN) TUBE TOP SCH ×4 (08:13→20:11)
[2020-06-25] MEDS: polyethylene glycoL POWDER 17 GM (MIRALAX) PACK PO SCH ×2 (08:15→20:09)
--- NOTE | 2020-06-25 11:36 | Physical Therapy Daily Note ---
PT Daily Note-Current Subjective Pt waiting for pain medication. Pain rated 10/10 in (L) LB and leg to the knee per pt. Pt agreeable to ambulation. Nurse present for pain medication. Mental Status Patient Orientation: Person, Place, Situation Transfers SCALE: Activities may be completed with or without assistive devices. 1-Ruavwqxktu-slzkfik completes the activity by him/herself with no assistance from a helper. 5-Set-up or Clean-up Assistance-helper sets up or cleans up; patient completes activity. [place] assists only prior to or following the activity. 4-Supervision or Touching Assistance-helper provides verbal cues and/or touching/steadying and/or contact guard assistance as patient completes activity. Assistance may be provided throughout the activity or intermittently. 3-Partial/Moderate Assistance-helper does LESS THAN HALF the effort. [place] lifts, holds or supports trunk or limbs, but provides less than half the effort. 2-Substantial/Maximal Assistance-helper does MORE THAN HALF the effort. [place] lifts or holds trunk or limbs and provides more than half the effort. 4-Jkyvpgmfj-gsvhwe does ALL the effort. Patient does none of the effort to complete the activity. Or, the assistance of 2 or more helpers is required for the patient to complete the activity. If activity was not attempted, code reason: 7-Patient Refused. 9-Not Applicable-not attempted and the patient did not perform the activity before the current illness, exacerbation or injury. 10-Not Attempted due to Environmental Limitations-(lack of equipment, weather restraints, etc.). 88-Not Attempted due to Medical Conditions or Safety Concerns. Weight Bearing Full Weight Bearing Full Weight Bearing Treatments Pt performed seated nerve glides x 20 (B) LE, heel raise x 20 prior to ambulation. Pt amb with FWW and CGA x 300ft at slow steady speed. Pt clearing (R) LE nicely first half of the treatment but sliding to advance as she fatigued. Assessment Current Status: Good Progress Pt back to chair with call light and all needs met. Pt denied fatigue with ambulation, overall endurance and functional mobility improving nicely. PT Short Term Goals Short Term Goals Time Frame: Jun 24, 2020 Roll Left & Right: 6 Sit to lyin Lying to sitting on side of be: 4 Sit to stand: 5 Chair/rlk-ux-mnumn transfer: 5 Walk 10 feet: 5 Walk 50 feet with two turns: 5 Walk 150 feet: 5 PT Custodial Goals Custodial Goals PT Custodial Goals Time Frame: Jul 08, 2020 Roll Left & Right (QC): 6 Sit to Lying (QC): 6 Lying-Sitting on Side/Bed(QC): 6 Sit to Stand (QC): 6 Chair/Wxo-qj-Odlzf Xfer(QC): 6 Toilet Transfer (QC): 6 Car Transfer (QC): 6 Does the Patient Walk: Yes Walk 10 feet (QC): 6 Walk 50ft with 2 Turns (QC): 6 Walk 150 ft (QC): 6 Walking 10ft on Uneven Surface: 6 1 Step (curb) (QC): 4 4 Steps (QC): 4 12 Steps (QC): 88 Picking up an Object (QC): 88 Wheel 50 feet with 2 turns (QC: 9 Wheel 150 feet: 9 PT Plan Treatment/Plan Treatment Plan: Continue Plan of Care Treatment Plan: Bed Mobility, Education, Functional Activity [place], Functional Strength, Group Therapy, Gait, Safety, Therapeutic Exercise, Transfers Treatment Duration: Jul 08, 2020 Frequency: At least 5 of 7 days/Wk (IRF) Estimated Hrs Per Day: 1.5 hours per day Patient and/or Family Agrees t: Yes Time/GCodes Time In: 805 Time Out: 820 Total Billed Treatment Time: 15 Total Billed Treatment 1, 15' NIDIA Quezada CPTSusan Jun 25, 2020 11:36
[2020-06-25 17:08] VITALS: BP 125/61
[2020-06-25] MEDS: SCOPOLAMINE 1.5 MG (TRANSDERM-SCOP) PATCH TD SCH (17:39)
[2020-06-25] MEDS: SIMvastatin 10 MG (ZOCOR) TAB PO SCH (20:09)
[2020-06-26] MEDS: HYDROcodone/APAP 5 MG/325 MG (LORTAB) TAB PO PRN (02:12)
[2020-06-26 06:05] VITALS: BP 136/61
[2020-06-26] MEDS: CEFDINIR 300 MG (OMNICEF) CAP PO SCH (06:12)
[2020-06-26] MEDS: CATHETER FLUSH 10 ML SYR IV SCH ×3 (06:12→20:54)
[2020-06-26] MEDS: metFORMIN 500 MG (GLUCOPHAGE) TAB PO SCH (06:12)
[2020-06-26] MEDS: CALCIUM CARB + VIT D 600 MG (CALCARB + D) TAB PO SCH ×2 (07:58→17:43)
[2020-06-26] MEDS: APIXABAN 2.5 MG (ELIQUIS) TABLET PO SCH ×2 (07:58→20:48)
[2020-06-26] MEDS: GABAPENTIN 100 MG (NEURONTIN) CAP PO SCH ×3 (07:58→20:48)
[2020-06-26] MEDS: DULoxetine 30 MG (CYMBALTA) CAP PO SCH (07:58)
[2020-06-26] MEDS: DOCUSATE SODIUM 100 MG (COLACE) CAP PO SCH ×2 (07:59→20:47)
[2020-06-26] MEDS: VITAMIN D3 25 MCG (1,000 UNITS) TABLET PO SCH ×2 (07:59→20:48)
[2020-06-26] MEDS: polyethylene glycoL POWDER 17 GM (MIRALAX) PACK PO SCH ×2 (07:59→20:47)
[2020-06-26] MEDS: PANTOPRAZOLE 40 MG (PROTONIX) TAB PO SCH ×2 (07:59→20:48)
[2020-06-26] MEDS: SENNA W/DOCUSATE (SENOKOT S) TABLET PO SCH ×2 (07:59→20:47)
[2020-06-26] MEDS: DICLOFENAC 1% GEL 100 GM (VOLTAREN) TUBE TOP SCH ×4 (08:00→20:49)
--- NOTE | 2020-06-26 09:34 | PM&R Progress Note ---
Subjective HPI/CC On Admission Date Seen by Provider: Jun 26, 2020 Time Seen by Provider: 11:00 Subjective/Events-last exam 06/26/20: Patient improved Son at bedside today No pain reported Oxycodone 10mg PO HS working well BM+ 06/25/20: Patient doing well Tired today Incision looks good IV iron tolerated via midline No nausea Scop patch 06/24/20: Doing well Scop patch q 72 hours BM++ Amazing recovery 06/23/20: Pt having some urinary issues so will check UA and a straight in and out cath Bowels are moving well Pain is controlled Oxycodone of 10 at night really helped her UTI dx so placed on abx empirically 06/22/20: Pt doing pretty well Nausea is controlled with Scopolamine patch Eliquis BID is tolerated Bowels are moving Oxycodone at 10 Mg at night will help her sleep tonight We will keep Lortab two every four hours as needed 06/21/20: Midline was placed, will receive Venofer iron infusions Last bowels moved a couple of days ago so will initiate laxatives Scopolamine Patch working pretty well for her Eating and drinking better 06/20/20: Pt isnt sleeping well due to the pain Will give Lortab two at a time every four hours as needed that she takes at home Oxycodone doesnt seem to work as well Scopolamine patch is treating the nausea Midline will be placed to completed the Venofer 06/19/20: Patient doing better Appetite improved Midline will be placed BM++ Walked to the gym and back to room Voltaren gel ordered Venofer ordered Scop patch will be continued Ensure BID Vit B12 injection 06/18/20: Patient in a good mood Improved status Pain of back is improved Checked meds and labs MANJU hose on Lortab improved pain Iron pending DC accuchecks Scop patch is improving the nausea Review of Systems General: Fatigue Musculoskeletal: back pain Objective Exam Vital Signs Vital Signs Date Time Temp Pulse Resp B/P (MAP) Pulse Ox O2 Delivery O2 Flow Rate FiO2 06/26/20 18:04 36.6 72 20 126/74 (91) 96 Room Air Capillary Refill : General Appearance: No Apparent Distress, WD/WN, Chronically ill, Thin HEENT: PERRL/EOMI, Normal ENT Inspection, Pharynx Normal Neck: Full Range of Motion, Normal Inspection, Non Tender, Supple, Carotid Brui t Respiratory: Chest Non Tender, Lungs Clear, Normal Breath Sounds, No Accessory Muscle Use, No Respiratory Distress Cardiovascular: Regular Rate, Rhythm, No Edema, No Gallop, No JVD, No Murmur, Normal Peripheral Pulses Gastrointestinal: Normal Bowel Sounds, No Organomegaly, No Pulsatile Mass, Non Tender, Soft Back: CVA Tenderness (L), CVA Tenderness (R), Decreased Range of Motion, Muscle Spasm, Vertebral Tenderness, Other Extremity: Normal Capillary Refill, Normal Inspection, Normal Range of Motion, Non Tender, No Calf Tenderness, No Pedal Edema Neurologic/Psychiatric: Alert, Oriented x3, No Motor/Sensory Deficits, Normal Mood/Affect Skin: Normal Color, Warm/Dry Lymphatic: No Adenopathy Results/Procedures Lab Patient resulted labs reviewed. FIM Transfers Therapy Code Descriptions/Definitions Functional [place] Measure: 0=Not Assessed/NA 4=Minimal Assistance 1=Total Assistance 5=Supervision or Setup 2=Maximal Assistance 6=Modified [place] 3=Moderate Assistance 7=Complete IndependenceSCALE: Activities may be completed with or without assistive devices. 7-Bwnoswdvpq-abkcasp completes the activity by him/herself with no assistance from a helper. 5-Set-up or Clean-up Assistance-helper sets up or cleans up; patient completes activity. [place] assists only prior to or following the activity. 4-Supervision or Touching Assistance-helper provides verbal cues and/or touching/steadying and/or contact guard assistance as patient completes activity. Assistance may be provided throughout the activity or intermittently. 3-Partial/Moderate Assistance-helper does LESS THAN HALF the effort. [place] lifts, holds or supports trunk or limbs, but provides less than half the effort. 2-Substantial/Maximal Assistance-helper does MORE THAN HALF the effort. [place] lifts or holds trunk or limbs and provides more than half the effort. 3-Spoydtqmn-xgioby does ALL the effort. Patient does none of the effort to complete the activity. Or, the assistance of 2 or more helpers is required for the patient to complete the activity. If activity was not attempted, code reason: 7-Patient Refused. 9-Not Applicable-not attempted and the patient did not perform the activity before the current illness, exacerbation or injury. 10-Not Attempted due to Environmental Limitations-(lack of equipment, weather restraints, etc.). 88-Not Attempted due to Medical Conditions or Safety Concerns. Roll Left to Right (QC): 6 Sit to Lying (QC): 6 Sit to Stand (QC): 6 Chair/Eiz-nc-Vhbuo Xfer(QC): 6 Car Transfer (QC): 5 Gait Training Does the Patient Walk?: Yes Distance: 150', 250' Walk 10 feet (QC): 5 Walk 50 ft with 2 Turns(QC): 5 Walk 150 ft (QC): 5 Walking 10ft/uneven surface-QC: 4 Gait Persons Needed: 1 Gait Assistive Device: FWW Wheelchair Training Does the Pt Use a Wheelchair?: No Wheel 50 ft with 2 turns (QC): 9 Wheel 150 ft (QC): 9 Stair Training Stair Training: Handrails/: 2 handrails #of Steps: 4 1 Step (curb) (QC): 5 4 Steps (QC): 5 12 Steps (QC): 88 Stairs: Pattern: Reciprocal Balance Picking up an Object (QC): 88 ADL-Treatment Eating (QC): 6 Oral Hygiene (QC): 6 Bathing Location: L Arm, R Arm, L Upper Leg, R Upper Leg, L Lower Leg (including foot), R Lower Leg (including foot), Chest, Abdomen, Buttocks, Perineal Area Shower/Bathe Self (QC): 4 (SBA during stance.Completes most showering in stance, sits to complete LB / feet with LHS) Upper Body Dressing (QC): 6 Lower Body Dressing (QC): 4 (SBA and min cues for back precautions) On/Off Footwear (QC): 6 (IND with use of sock aide.) Toileting Hygiene (QC): 6 (IND with urination/ norma care.) Toilet Transfer (QC): 4 (SUP (use of gbs to standard toilet)) Assessment/Plan Assessment and Plan Assess & Plan/Chief Complaint Assessment: s/p extensive spine surgery per Dr Hunter Subacute DVT/PE dx 06/09 delaying surgery scheduled for 06/09/20 at [facility] in pre-op Osteoporosis GERD Weight loss Continued nausea DM Post op anemia Back pain Fall risk UTI dx 06/23/20 Plan: IRF protocol Pain meds Nausea meds PPI BID Scop patch 06/18/20: Iron infusions Pain control Scop patch Regular diet DC accuchecks 06/19/20: Iron infusion with midline Vit B12 injection Ensure BID Scop patch to continue 06/20/20: Iron infusions via midline Scop patch PT OT 06/21/20: Improve dietary consumption Monitor nausea Midline for iron infusions 06/22/20: Oxycodone 10 mg HS Lortab 2 every 4hours Severe pain and is acute on chronic 06/23/20: Abx for UTI started Pain control 06/24/20: UTI treatment Scop patch 06/25/20: Pain controlled BM regimen Therapy Iron infusions 06/26/20: Pain management Scop patch (1) S/P spinal surgery (2) Osteoporosis (3) Compression fracture of lumbar vertebra (4) DVT (deep venous thrombosis) (5) Pulmonary embolism (6) Anticoagulant long-term use (7) Laura filter in place (8) Nausea (9) Weight loss (10) GERD (gastroesophageal reflux disease) (11) Diabetes (12) Postoperative anemia (13) Protein-calorie malnutrition, moderate CHARLOTTE CAMARGO DO Jun 26, 2020 09:33
[2020-06-26] MEDS ORDERED: NITROFURANTOIN 100 MG (MACROBID) CAPSULE PO ONE (11:45)
[2020-06-26 18:04] VITALS: BP 126/74
[2020-06-26] MEDS: NITROFURANTOIN 100 MG (MACROBID) CAPSULE PO SCH (20:48)
[2020-06-26] MEDS: SIMvastatin 10 MG (ZOCOR) TAB PO SCH (20:48)
[2020-06-27] MEDS: HYDROcodone/APAP 5 MG/325 MG (LORTAB) TAB PO PRN (03:42)
[2020-06-27 05:46] VITALS: BP 164/68
--- NOTE | 2020-06-27 05:49 | PM&R Progress Note ---
Subjective HPI/CC On Admission Date Seen by Provider: Jun 27, 2020 Time Seen by Provider: 08:30 Subjective/Events-last exam 06/27/20: Will Dc Venofer at her request due to loose stools from iron infusion Pt doing pretty well with pain Overall feels pretty good 06/26/20: Patient improved Son at bedside today No pain reported Oxycodone 10mg PO HS working well BM+ 06/25/20: Patient doing well Tired today Incision looks good IV iron tolerated via midline No nausea Scop patch 06/24/20: Doing well Scop patch q 72 hours BM++ Amazing recovery 06/23/20: Pt having some urinary issues so will check UA and a straight in and out cath Bowels are moving well Pain is controlled Oxycodone of 10 at night really helped her UTI dx so placed on abx empirically 06/22/20: Pt doing pretty well Nausea is controlled with Scopolamine patch Eliquis BID is tolerated Bowels are moving Oxycodone at 10 Mg at night will help her sleep tonight We will keep Lortab two every four hours as needed 06/21/20: Midline was placed, will receive Venofer iron infusions Last bowels moved a couple of days ago so will initiate laxatives Scopolamine Patch working pretty well for her Eating and drinking better 06/20/20: Pt isnt sleeping well due to the pain Will give Lortab two at a time every four hours as needed that she takes at home Oxycodone doesnt seem to work as well Scopolamine patch is treating the nausea Midline will be placed to completed the Venofer 06/19/20: Patient doing better Appetite improved Midline will be placed BM++ Walked to the gym and back to room Voltaren gel ordered Venofer ordered Scop patch will be continued Ensure BID Vit B12 injection 06/18/20: Patient in a good mood Improved status Pain of back is improved Checked meds and labs MANJU cancino on Lortab improved pain Iron pending DC accuchecks Scop patch is improving the nausea Review of Systems General: Fatigue Musculoskeletal: back pain Objective Exam Vital Signs Vital Signs Date Time Temp Pulse Resp B/P (MAP) Pulse Ox O2 Delivery O2 Flow Rate FiO2 06/27/20 21:10 Room Air 06/27/20 17:07 36.0 88 18 123/59 (80) 95 Capillary Refill : General Appearance: No Apparent Distress, WD/WN, Chronically ill, Thin HEENT: PERRL/EOMI, Normal ENT Inspection, Pharynx Normal Neck: Full Range of Motion, Normal Inspection, Non Tender, Supple, Carotid Bruit Respiratory: Chest Non Tender, Lungs Clear, Normal Breath Sounds, No Accessory Muscle Use, No Respiratory Distress Cardiovascular: Regular Rate, Rhythm, No Edema, No Gallop, No JVD, No Murmur, Normal Peripheral Pulses Gastrointestinal: Normal Bowel Sounds, No Organomegaly, No Pulsatile Mass, Non Tender, Soft Back: CVA Tenderness (L), CVA Tenderness (R), Decreased Range of Motion, Muscle Spasm, Vertebral Tenderness, Other Extremity: Normal Capillary Refill, Normal Inspection, Normal Range of Motion, Non Tender, No Calf Tenderness, No Pedal Edema Neurologic/Psychiatric: Alert, Oriented x3, No Motor/Sensory Deficits, Normal Mood/Affect Skin: Normal Color, Warm/Dry Lymphatic: No Adenopathy Results/Procedures Lab Laboratory Tests 06/27/20 05:09 Patient resulted labs reviewed. FIM Transfers Therapy Code Descriptions/Definitions Functional [place] Measure: 0=Not Assessed/NA 4=Minimal Assistance 1=Total Assistance 5=Supervision or Setup 2=Maximal Assistance 6=Modified [place] 3=Moderate Assistance 7=Complete IndependenceSCALE: Activities may be completed with or without assistive devices. 1-Vezsrhlkxq-elxhgkg completes the activity by him/herself with no assistance from a helper. 5-Set-up or Clean-up Assistance-helper sets up or cleans up; patient completes activity. [place] assists only prior to or following the activity. 4-Supervision or Touching Assistance-helper provides verbal cues and/or touching/steadying and/or contact guard assistance as patient completes activity. Assistance may be provided throughout the activity or intermittently. 3-Partial/Moderate Assistance-helper does LESS THAN HALF the effort. [place] lifts, holds or supports trunk or limbs, but provides less than half the effort. 2-Substantial/Maximal Assistance-helper does MORE THAN HALF the effort. [place] lifts or holds trunk or limbs and provides more than half the effort. 5-Msaqzwpsg-hboajf does ALL the effort. Patient does none of the effort to complete the activity. Or, the assistance of 2 or more helpers is required for the patient to complete the activity. If activity was not attempted, code reason: 7-Patient Refused. 9-Not Applicable-not attempted and the patient did not perform the activity before the current illness, exacerbation or injury. 10-Not Attempted due to Environmental Limitations-(lack of equipment, weather restraints, etc.). 88-Not Attempted due to Medical Conditions or Safety Concerns. Roll Left to Right (QC): 6 Sit to Lying (QC): 6 Sit to Stand (QC): 6 Chair/Xmw-qq-Umewn Xfer(QC): 6 Car Transfer (QC): 5 Gait Training Does the Patient Walk?: Yes Distance: 150', 250' Walk 10 feet (QC): 5 Walk 50 ft with 2 Turns(QC): 5 Walk 150 ft (QC): 5 Walking 10ft/uneven surface-QC: 4 Gait Persons Needed: 1 Gait Assistive Device: FWW Wheelchair Training Does the Pt Use a Wheelchair?: No Wheel 50 ft with 2 turns (QC): 9 Wheel 150 ft (QC): 9 Stair Training Stair Training: Handrails/: 2 handrails #of Steps: 4 1 Step (curb) (QC): 5 4 Steps (QC): 5 12 Steps (QC): 88 Stairs: Pattern: Reciprocal Balance Picking up an Object (QC): 88 ADL-Treatment Eating (QC): 6 Oral Hygiene (QC): 6 Bathing Location: L Arm, R Arm, L Upper Leg, R Upper Leg, L Lower Leg (including foot), R Lower Leg (including foot), Chest, Abdomen, Buttocks, Perineal Area Shower/Bathe Self (QC): 4 (SBA during stance.Completes most showering in stance, sits to complete LB / feet with LHS) Upper Body Dressing (QC): 6 Lower Body Dressing (QC): 4 (SBA and min cues for back precautions) On/Off Footwear (QC): 6 (IND with use of sock aide.) Toileting Hygiene (QC): 6 (IND with urination/ norma care.) Toilet Transfer (QC): 4 (SUP (use of gbs to standard toilet)) Assessment/Plan Assessment and Plan Assess & Plan/Chief Complaint Assessment: s/p extensive spine surgery per Dr Hunter Subacute DVT/PE dx 06/09 delaying surgery scheduled for 06/09/20 at [facility] dx in pre-op Osteoporosis GERD Weight loss Continued nausea DM Post op anemia Back pain Fall risk UTI dx 06/23/20 Plan: IRF protocol Pain meds Nausea meds PPI BID Scop patch 06/18/20: Iron infusions Pain control Scop patch Regular diet DC accuchecks 06/19/20: Iron infusion with midline Vit B12 injection Ensure BID Scop patch to continue 06/20/20: Iron infusions via midline Scop patch PT OT 06/21/20: Improve dietary consumption Monitor nausea Midline for iron infusions 06/22/20: Oxycodone 10 mg HS Lortab 2 every 4hours Severe pain and is acute on chronic 06/23/20: Abx for UTI started Pain control 06/24/20: UTI treatment Scop patch 06/25/20: Pain controlled BM regimen Therapy Iron infusions 06/26/20: Pain management Scop patch 06/27/20: Much improved Pain control DC Saturday (1) S/P spinal surgery (2) Osteoporosis (3) Compression fracture of lumbar vertebra (4) DVT (deep venous thrombosis) (5) Pulmonary embolism (6) Anticoagulant long-term use (7) [place] filter in place (8) Nausea (9) Weight loss (10) GERD (gastroesophageal reflux disease) (11) Diabetes (12) Postoperative anemia (13) Protein-calorie malnutrition, moderate CHARLOTTE CAMARGO DO Jun 27, 2020 05:49
[2020-06-27 05:51] LABS: BASOPHILS % (AUTO) 0 % (0-10); EOSINOPHILS # (AUTO) 0.1 10^3/uL (0.0-0.3); EOSINOPHILS % (AUTO) 1 % (0-10); HEMATOCRIT 31 % (35-52); HEMOGLOBIN 9.6 g/dL (11.5-16.0); LYMPHOCYTES # (AUTO) 2.6 10^3/uL (1.0-4.0); LYMPHOCYTES % (AUTO) 31 % (12-44); MEAN CORPUSCULAR HEMOGLOBIN 29 pg (25-34); MEAN CORPUSCULAR HGB CONC 32 g/dL (32-36); MEAN CORPUSCULAR VOLUME 92 fL (80-99); MEAN PLATELET VOLUME 9.2 fL (9.0-12.2); MONOCYTES # (AUTO) 0.9 10^3/uL (0.0-1.0); MONOCYTES % (AUTO) 10 % (0-12); NEUTROPHILS # (AUTO) 4.6 10^3/uL (1.8-7.8); NEUTROPHILS % (AUTO) 55 % (42-75); PLATELET COUNT 417 10^3/uL (130-400); WHITE BLOOD COUNT 8.3 10^3/uL (4.3-11.0)
[2020-06-27] MEDS: metFORMIN 500 MG (GLUCOPHAGE) TAB PO SCH (06:03)
[2020-06-27] MEDS: CATHETER FLUSH 10 ML SYR IV SCH ×3 (06:03→21:13)
[2020-06-27 06:04] LABS: ALBUMIN 3.3 GM/DL (3.2-4.5)
[2020-06-27 06:05] LABS: CHLORIDE 106 MMOL/L (98-107); POTASSIUM 4.1 MMOL/L (3.6-5.0); SODIUM 139 MMOL/L (135-145)
[2020-06-27 06:06] LABS: CALCIUM 9.2 MG/DL (8.5-10.1)
[2020-06-27 06:07] LABS: GLUCOSE 123 MG/DL (70-105); TOTAL PROTEIN 6.1 GM/DL (6.4-8.2)
[2020-06-27 06:08] LABS: CARBON DIOXIDE 25 MMOL/L (21-32)
[2020-06-27 06:09] LABS: BILIRUBIN,TOTAL 0.3 MG/DL (0.1-1.0)
[2020-06-27 06:11] LABS: ALKALINE PHOSPHATASE 88 U/L (40-136); CREATININE SERUM 0.67 MG/DL (0.60-1.30); GFR ESTIMATED > 60
[2020-06-27 06:12] LABS: BUN/CREATININE RATIO 13
[2020-06-27 06:14] LABS: ALANINE AMINOTRANSFERASE 12 U/L (0-55)
[2020-06-27] MEDS: APIXABAN 2.5 MG (ELIQUIS) TABLET PO SCH ×2 (08:11→21:06)
[2020-06-27] MEDS: PANTOPRAZOLE 40 MG (PROTONIX) TAB PO SCH ×2 (08:11→21:05)
[2020-06-27] MEDS: DULoxetine 30 MG (CYMBALTA) CAP PO SCH (08:11)
[2020-06-27] MEDS: CALCIUM CARB + VIT D 600 MG (CALCARB + D) TAB PO SCH ×2 (08:11→17:03)
[2020-06-27] MEDS: GABAPENTIN 100 MG (NEURONTIN) CAP PO SCH ×3 (08:11→21:06)
[2020-06-27] MEDS: NITROFURANTOIN 100 MG (MACROBID) CAPSULE PO SCH ×2 (08:12→21:05)
[2020-06-27] MEDS: DOCUSATE SODIUM 100 MG (COLACE) CAP PO SCH ×2 (09:44→21:15)
[2020-06-27] MEDS: DICLOFENAC 1% GEL 100 GM (VOLTAREN) TUBE TOP SCH ×4 (09:44→21:12)
[2020-06-27] MEDS: polyethylene glycoL POWDER 17 GM (MIRALAX) PACK PO SCH ×2 (09:44→21:10)
[2020-06-27] MEDS: SENNA W/DOCUSATE (SENOKOT S) TABLET PO SCH ×2 (09:54→21:09)
--- NOTE | 2020-06-27 11:58 | Physical Therapy Daily Note ---
PT Daily Note-Current Subjective Pt. agrees to Rx and proudly states she is feeling better and getting around better every day. Pain Location: No Pain Reported Mental Status Patient Orientation: Normal For Age Attachments: Other-See Comments (back brace) Transfers SCALE: Activities may be completed with or without assistive devices. 1-Sddgjlzsgr-cglruis completes the activity by him/herself with no assistance from a helper. 5-Set-up or Clean-up Assistance-helper sets up or cleans up; patient completes activity. [place] assists only prior to or following the activity. 4-Supervision or Touching Assistance-helper provides verbal cues and/or touching/steadying and/or contact guard assistance as patient completes ac tivity. Assistance may be provided throughout the activity or intermittently. 3-Partial/Moderate Assistance-helper does LESS THAN HALF the effort. [place] lifts, holds or supports trunk or limbs, but provides less than half the effort. 2-Substantial/Maximal Assistance-helper does MORE THAN HALF the effort. [place] lifts or holds trunk or limbs and provides more than half the effort. 3-Frexgkzgz-hkgsqo does ALL the effort. Patient does none of the effort to complete the activity. Or, the assistance of 2 or more helpers is required for the patient to complete the activity. If activity was not attempted, code reason: 7-Patient Refused. 9-Not Applicable-not attempted and the patient did not perform the activity before the current illness, exacerbation or injury. 10-Not Attempted due to Environmental Limitations-(lack of equipment, weather restraints, etc.). 88-Not Attempted due to Medical Conditions or Safety Concerns. Sit to Stand (QC): 6 Chair/Nms-sa-Nhvgb Xfer(QC): 6 Toilet Transfer (QC): 6 Weight Bearing Full Weight Bearing Full Weight Bearing Gait Training Does the Patient Walk?: Yes Walk 10 feet (QC): 5 Walk 50 ft with 2 Turns(QC): 5 Walk 150 ft (QC): 5 Gait Persons Needed: 1 Gait Assistive Device: FWW 300ft, 200ft, 100ft SBA with instruction for right foot clearance and right foot DF. side stepping left and right 10ft , 360 degree turns and retro gait 6-8 ft all with good safe technique, no LOB, pt. flexed at trunk over walker Stair Training Stair Training: Handrails/: 2 handrails #of Steps: 4 4 Steps (QC): 4 Stairs: Pattern: Step to Exercises Seated Therapy Exercises: Ankle pumps, Sit to stand, Long arc quads, Hip flexion, Hip abd/add Seated Reps: 15 Standing: Heel/toe raises, 3 way Ex=Flex, Abd, Ext Standing Reps: 15 NuStep Minutes: 10 NuStep Workload: 3 Treatments nustep requested by pt. and seems to help her feel her hips are more flexible Assessment Current Status: Good Progress PT Short Term Goals Short Term Goals Time Frame: Jun 24, 2020 Roll Left & Right: 6 Sit to lyin Lying to sitting on side of be: 4 Sit to stand: 5 Chair/hbd-cm-xvtxp transfer: 5 Walk 10 feet: 5 Walk 50 feet with two turns: 5 Walk 150 feet: 5 PT [place] Goals [place] Goals PT [place] Goals Time Frame: Jul 08, 2020 Roll Left & Right (QC): 6 Sit to Lying (QC): 6 Lying-Sitting on Side/Bed(QC): 6 Sit to Stand (QC): 6 Chair/Iar-ci-Nowru Xfer(QC): 6 Toilet Transfer (QC): 6 Car Transfer (QC): 6 Does the Patient Walk: Yes Walk 10 feet (QC): 6 Walk 50ft with 2 Turns (QC): 6 Walk 150 ft (QC): 6 Walking 10ft on Uneven Surface: 6 1 Step (curb) (QC): 4 4 Steps (QC): 4 12 Steps (QC): 88 Picking up an Object (QC): 88 Wheel 50 feet with 2 turns (QC: 9 Wheel 150 feet: 9 PT Plan Treatment/Plan Treatment Plan: Continue Plan of Care Treatment Plan: Bed Mobility, Education, Functional Activity [place], Functional Strength, Group Therapy, Gait, Safety, Therapeutic Exercise, Transfers Treatment Duration: Jul 08, 2020 Frequency: At least 5 of 7 days/Wk (IRF) Estimated Hrs Per Day: 1.5 hours per day Patient and/or Family Agrees t: Yes Safety Risks/Education Patient Education: Gait Training, Transfer Techniques, Steps, Correct Positioning, Disease Process, Safety Issues Teaching Recipient: Patient Teaching Methods: Demonstration, Discussion Response to Teaching: Verbalize Understanding, Return Demonstration, Reinforcement Needed Time/GCodes Time In: 1100 Time Out: 1200 Total Billed Treatment Time: 60 Total Billed Treatment 1,FA15m,GT25m,EX20m NIDIA FAITH CHECK OUT CASHIER Jun 27, 2020 11:58
[2020-06-27] MEDS: VITAMIN D3 25 MCG (1,000 UNITS) TABLET PO SCH ×2 (12:03→21:05)
--- NOTE | 2020-06-27 15:11 | Occupational Ther Daily Note ---
OT Current Status-Daily Note Subjective No pain reported. Appearance Pt. up in chair. Agrees to work with OT. Mental Status/Objective Patient Orientation: Person, Place, Time, Situation ADL-Treatment Therapy Code Descriptions/Definitions Functional [place] Measure: 0=Not Assessed/NA 4=Minimal Assistance 1=Total Assistance 5=Supervision or Setup 2=Maximal Assistance 6=Modified [place] 3=Moderate Assistance 7=Complete IndependenceSCALE: Activities may be completed with or without assistive devices. 6-Pcdwuohriy-lyuvqxe completes the activity by him/herself with no assistance from a helper. 5-Set-up or Clean-up Assistance-helper sets up or cleans up; patient completes activity. [place] assists only prior to or following the activity. 4-Supervision or Touching Assistance-helper provides verbal cues and/or touching/steadying and/or contact guard assistance as patient completes activity. Assistance may be provided throughout the activity or intermittently. 3-Partial/Moderate Assistance-helper does LESS THAN HALF the effort. [place] lifts, holds or supports trunk or limbs, but provides less than half the effort. 2-Substantial/Maximal Assistance-helper does MORE THAN HALF the effort. [place] lifts or holds trunk or limbs and provides more than half the effort. 7-Fpdaqxjzh-jtzxrs does ALL the effort. Patient does none of the effort to complete the activity. Or, the assistance of 2 or more helpers is required for the patient to complete the activity. If activity was not attempted, code reason: 7-Patient Refused. 9-Not Applicable-not attempted and the patient did not perform the activity before the current illness, exacerbation or injury. 10-Not Attempted due to Environmental Limitations-(lack of equipment, weather restraints, etc.). 88-Not Attempted due to Medical Conditions or Safety Concerns. Eating (QC): 5 Oral Hygiene (QC): 4 (SBA standing at sink.) Shower/Bathe Self (QC): 4 (CGA in stance in shower. Pt. utilized LH sponge for LE.) Upper Body Dressing (QC): 5 Lower Body Dressing (QC): 4 On/Off Footwear: 3 (Min assist to don slipper socks with use of AE.) Other Treatment After ADLs, pt. ambulated with walker and CGA to therapy gym. Pt. tolerated arm deborah activity, with reciprocal movements back and forth for overall endurance and mobility. Tolerated well. Pt. ambulated with CGA and walker back to room. All needs met up in chair. Education OT Patient Education: Correct positioning, Modified ADL techniques, Progress toward Goal/Update tx plan, Purpose of tx/functional activities, Reviewed precautions, Rehab process, Transfer techniques Teaching Recipient: Patient Teaching Methods: Demonstration, Discussion Response to Teaching: Verbalize Understanding, Return Demonstration OT Half-Way Goals Half-Way Goals Time Frame: Jul 01, 2020 Eating (QC): 6 Oral Hygiene (QC): 6 Toileting Hygiene (QC): 6 Shower/Bathe Self (QC): 6 Upper Body Dressing (QC): 6 Lower Body Dressing (QC): 6 On/Off Footwear (QC): 6 Additional Goals: 1-Demonstrate ADL Tasks, 2-Verbalize Understanding, 3- ImproveStrength/Libby 1=Demonstrate adherence to instructed precautions during ADL tasks. 2=Patient will verbalize/demonstrate understanding of assistive devices/modifications for ADL. 3=Patient will improve strength/tolerance for activity to enable patient to perform ADL's. OT Education/Plan Problem List/Assessment Assessment: Decreased Activ Tolerance, Impaired I ADL's Discharge Recommendations Plan/Recommendations: Continue POC Therapy Discharge Recommendati: Home & Family, Post Acute OT Treatment Plan/Plan of Care Treatment,Training & Education: Yes Patient would benefit from OT for education, treatment and training to promote independence in ADL's, mobility, safety and/or upper extremity function for ADL's. Plan of Care: ADL Retraining, Caregiver Training, Concurrent Therapy, Functional Mobility, Group Exercise/Act as Ind, Orthotic Fitting/Training, UE Funct Exercise/Act Treatment Duration: Jul 01, 2020 Frequency: At least 5 of 7 days/Wk (IRF) Estimated Hrs Per Day: 1.5 hours per day Agreement: Yes Rehab Potential: Good Time/GCodes Start Time: 09:15 Stop Time: 10:15 Total Time Billed (hr/min): 60 Billed Treatment Time 1, ADL x 45minutes, Ex x 15minutes LIU OKEEFE OT Jun 27, 2020 15:11
--- NOTE | 2020-06-27 15:15 | Occupational Ther Daily Note ---
OT Current Status-Daily Note Subjective No pain reported. Appearance Pt. up in chair and is asleep. She awakes easily and agrees to work with OT. Mental Status/Objective Patient Orientation: Person, Place, Time, Situation ADL-Treatment Therapy Code Descriptions/Definitions Functional [place] Measure: 0=Not Assessed/NA 4=Minimal Assistance 1=Total Assistance 5=Supervision or Setup 2=Maximal Assistance 6=Modified [place] 3=Moderate Assistance 7=Complete IndependenceSCALE: Activities may be completed with or without assistive devices. 6-Rswxhyvleq-gohxpxb completes the activity by him/herself with no assistance from a helper. 5-Set-up or Clean-up Assistance-helper sets up or cleans up; patient completes activity. [place] assists only prior to or following the activity. 4-Supervision or Touching Assistance-helper provides verbal cues and/or touching/steadying and/or contact guard assistance as patient completes activity. Assistance may be provided throughout the activity or intermittently. 3-Partial/Moderate Assistance-helper does LESS THAN HALF the effort. [place] lifts, holds or supports trunk or limbs, but provides less than half the effort. 2-Substantial/Maximal Assistance-helper does MORE THAN HALF the effort. [place] lifts or holds trunk or limbs and provides more than half the effort. 7-Yrrtfkzsp-vqnvzg does ALL the effort. Patient does none of the effort to complete the activity. Or, the assistance of 2 or more helpers is required for the patient to complete the activity. If activity was not attempted, code reason: 7-Patient Refused. 9-Not Applicable-not attempted and the patient did not perform the activity before the current illness, exacerbation or injury. 10-Not Attempted due to Environmental Limitations-(lack of equipment, weather restraints, etc.). 88-Not Attempted due to Medical Conditions or Safety Concerns. Pt. is able to stand from chair with walker and ambulate to therapy gym. Noted that pt. tired and had increased difficulty with smooth gait. Pt. participated in UE activity with balloon bat and overhead reach. Tolerated with for approximately 15 minutes with several brief rest breaks. Pt. ambulated back to room with walker. All needs met. Education OT Patient Education: Correct positioning, Exercise program, Progress toward Goal/Update tx plan, Purpose of tx/functional activities, Reviewed precautions, Rehab process, Transfer techniques Teaching Recipient: Patient Teaching Methods: Demonstration, Discussion Response to Teaching: Verbalize Understanding, Return Demonstration OT Acquisition Advisor Goals Usp Goals Time Frame: Jul 01, 2020 Eating (QC): 6 Oral Hygiene (QC): 6 Toileting Hygiene (QC): 6 Shower/Bathe Self (QC): 6 Upper Body Dressing (QC): 6 Lower Body Dressing (QC): 6 On/Off Footwear (QC): 6 Additional Goals: 1-Demonstrate ADL Tasks, 2-Verbalize Understanding, 3- ImproveStrength/Libby 1=Demonstrate adherence to instructed precautions during ADL tasks. 2=Patient will verbalize/demonstrate understanding of assistive devices/modifications for ADL. 3=Patient will improve strength/tolerance for activity to enable patient to perform ADL's. OT Education/Plan Problem List/Assessment Assessment: Decreased Activ Tolerance, Impaired I ADL's, Impaired Self-Care Skills Discharge Recommendations Plan/Recommendations: Continue POC Treatment Plan/Plan of Care Treatment,Training & Education: Yes Patient would benefit from OT for education, treatment and training to promote independence in ADL's, mobility, safety and/or upper extremity function for ADL's. Plan of Care: ADL Retraining, Caregiver Training, Concurrent Therapy, Functional Mobility, Group Exercise/Act as Ind, Orthotic Fitting/Training, UE Funct Exercise/Act Treatment Duration: Jul 01, 2020 Frequency: At least 5 of 7 days/Wk (IRF) Estimated Hrs Per Day: 1.5 hours per day Agreement: Yes Rehab Potential: Good Time/GCodes Start Time: 13:50 Stop Time: 14:20 Total Time Billed (hr/min): 30 Billed Treatment Time 1, FA x 2 LIU OKEEFE OT Jun 27, 2020 15:15
--- NOTE | 2020-06-27 15:25 | Physical Therapy Daily Note ---
PT Daily Note-Current Subjective Pt. announces that she is a little concerned as she has just spoken with her son. He has broken up with his girlfriend who was suppose to care for her after DC. This HEALTH CARE SOCIAL WORKER comforted pt. that she is doing well and perhaps in home payed care is possible. Pt. does feel that she is making good progress and closer to indep every day Pain Location: No Pain Reported Mental Status Attachments: Other-See Comments (mask, back brace) Transfers SCALE: Activities may be completed with or without assistive devices. 2-Sdwazduuoz-owrhenb completes the activity by him/herself with no assistance fr om a helper. 5-Set-up or Clean-up Assistance-helper sets up or cleans up; patient completes activity. [place] assists only prior to or following the activity. 4-Supervision or Touching Assistance-helper provides verbal cues and/or touching/steadying and/or contact guard assistance as patient completes activity. Assistance may be provided throughout the activity or intermittently. 3-Partial/Moderate Assistance-helper does LESS THAN HALF the effort. [place] lifts, holds or supports trunk or limbs, but provides less than half the effort. 2-Substantial/Maximal Assistance-helper does MORE THAN HALF the effort. [place] lifts or holds trunk or limbs and provides more than half the effort. 7-Usmvdcmvz-knjkgo does ALL the effort. Patient does none of the effort to complete the activity. Or, the assistance of 2 or more helpers is required for the patient to complete the activity. If activity was not attempted, code reason: 7-Patient Refused. 9-Not Applicable-not attempted and the patient did not perform the activity before the current illness, exacerbation or injury. 10-Not Attempted due to Environmental Limitations-(lack of equipment, weather restraints, etc.). 88-Not Attempted due to Medical Conditions or Safety Concerns. all TRFs Mod I Weight Bearing Full Weight Bearing Full Weight Bearing Gait Training Does the Patient Walk?: Yes Gait Assistive Device: FWW 165 ft x 2, 50 ft all SBA and some cuing for right foot clearance Stair Training Stair Training: Handrails/: 2 handrails Exercises Standing: Hip Abduction, Heel/toe raises, Marching, Mini squats, Side steps Standing Reps: 15 Treatments will share with SW that pt is feeling vulnerable about DC and help at home Assessment Current Status: Good Progress PT Short Term Goals Short Term Goals Time Frame: Jun 24, 2020 Roll Left & Right: 6 Sit to lyin Lying to sitting on side of be: 4 Sit to stand: 5 Chair/zuh-ab-tkkck transfer: 5 Walk 10 feet: 5 Walk 50 feet with two turns: 5 Walk 150 feet: 5 PT Prison Goals Psychotherapist Goals PT Psychotherapist Goals Time Frame: Jul 08, 2020 Roll Left & Right (QC): 6 Sit to Lying (QC): 6 Lying-Sitting on Side/Bed(QC): 6 Sit to Stand (QC): 6 Chair/Hsv-jw-Kllby Xfer(QC): 6 Toilet Transfer (QC): 6 Car Transfer (QC): 6 Does the Patient Walk: Yes Walk 10 feet (QC): 6 Walk 50ft with 2 Turns (QC): 6 Walk 150 ft (QC): 6 Walking 10ft on Uneven Surface: 6 1 Step (curb) (QC): 4 4 Steps (QC): 4 12 Steps (QC): 88 Picking up an Object (QC): 88 Wheel 50 feet with 2 turns (QC: 9 Wheel 150 feet: 9 PT Plan Treatment/Plan Treatment Plan: Continue Plan of Care Treatment Plan: Bed Mobility, Education, Functional Activity [place], Functional Strength, Group Therapy, Gait, Safety, Therapeutic Exercise, Transfers Treatment Duration: Jul 08, 2020 Frequency: At least 5 of 7 days/Wk (IRF) Estimated Hrs Per Day: 1.5 hours per day Patient and/or Family Agrees t: Yes Safety Risks/Education Patient Education: Gait Training, Transfer Techniques, Correct Positioning, Disease Process, Safety Issues Teaching Recipient: Patient Teaching Methods: Demonstration, Discussion Response to Teaching: Verbalize Understanding, Return Demonstration, Reinforcement Needed Time/GCodes Time In: 1435 Time Out: 1505 Total Billed Treatment Time: 30 Total Billed Treatment 1,GT15m,EX15m NIDIA FAITH PTA Jun 27, 2020 15:25
[2020-06-27 17:07] VITALS: BP 123/59
[2020-06-27] MEDS: SIMvastatin 10 MG (ZOCOR) TAB PO SCH (21:05)
[2020-06-28] MEDS: HYDROcodone/APAP 5 MG/325 MG (LORTAB) TAB PO PRN ×2 (01:03→08:36)
[2020-06-28 05:19] VITALS: BP 140/64
--- NOTE | 2020-06-28 05:22 | PM&R Progress Note ---
Subjective HPI/CC On Admission Date Seen by Provider: Jun 28, 2020 Time Seen by Provider: 08:00 Subjective/Events-last exam 06/28/20: Pt doing pretty well No issues Discharge is planned for Saturday Pain is well controlled A little bit nauseated today, will change Scopolamine patch early 06/27/20: Will Dc Venofer at her request due to loose stools from iron infusion Pt doing pretty well with pain Overall feels pretty good 06/26/20: Patient improved Son at bedside today No pain reported Oxycodone 10mg PO HS working well BM+ 06/25/20: Patient doing well Tired today Incision looks good IV iron tolerated via midline No nausea Scop patch 06/24/20: Doing well Scop patch q 72 hours BM++ Amazing recovery 06/23/20: Pt having some urinary issues so will check UA and a straight in and out cath Bowels are moving well Pain is controlled Oxycodone of 10 at night really helped her UTI dx so placed on abx empirically 06/22/20: Pt doing pretty well Nausea is controlled with Scopolamine patch Eliquis BID is tolerated Bowels are moving Oxycodone at 10 Mg at night will help her sleep tonight We will keep Lortab two every four hours as needed 06/21/20: Midline was placed, will receive Venofer iron infusions Last bowels moved a couple of days ago so will initiate laxatives Scopolamine Patch working pretty well for her Eating and drinking better 06/20/20: Pt isnt sleeping well due to the pain Will give Lortab two at a time every four hours as needed that she takes at home Oxycodone doesnt seem to work as well Scopolamine patch is treating the nausea Midline will be placed to completed the Venofer 06/19/20: Patient doing better Appetite improved Midline will be placed BM++ Walked to the gym and back to room Voltaren gel ordered Venofer ordered Scop patch will be continued Ensure BID Vit B12 injection 06/18/20: Patient in a good mood Improved status Pain of back is improved Checked meds and labs MANJU cancino on Lortab improved pain Iron pending DC accuchecks Scop patch is improving the nausea Review of Systems Gastrointestinal: Nausea Musculoskeletal: back pain Objective Exam Vital Signs Vital Signs Date Time Temp Pulse Resp B/P (MAP) Pulse Ox O2 Delivery O2 Flow Rate FiO2 3/9/21 21:00 Room Air 06/28/20 18:21 37.2 80 18 119/56 (77) 96 Capillary Refill : General Appearance: No Apparent Distress, WD/WN, Chronically ill, Thin HEENT: PERRL/EOMI, Normal ENT Inspection, Pharynx Normal Neck: Full Range of Motion, Normal Inspection, Non Tender, Supple, Carotid Bruit Respiratory: Chest Non Tender, Lungs Clear, Normal Breath Sounds, No Accessory Muscle Use, No Respiratory Distress Cardiovascular: Regular Rate, Rhythm, No Edema, No Gallop, No JVD, No Murmur, Normal Peripheral Pulses Gastrointestinal: Normal Bowel Sounds, No Organomegaly, No Pulsatile Mass, Non Tender, Soft Back: CVA Tenderness (L), CVA Tenderness (R), Decreased Range of Motion, Muscle Spasm, Vertebral Tenderness, Other Extremity: Normal Capillary Refill, Normal Inspection, Normal Range of Motion, Non Tender, No Calf Tenderness, No Pedal Edema Neurologic/Psychiatric: Alert, Oriented x3, No Motor/Sensory Deficits, Normal Mood/Affect Skin: Normal Color, Warm/Dry Lymphatic: No Adenopathy Results/Procedures Lab Patient resulted labs reviewed. FIM Transfers Therapy Code Descriptions/Definitions Functional [place] Measure: 0=Not Assessed/NA 4=Minimal Assistance 1=Total Assistance 5=Supervision or Setup 2=Maximal Assistance 6=Modified [place] 3=Moderate Assistance 7=Complete IndependenceSCALE: Activities may be completed with or without assistive devices. 9-Odfwjqaxhs-pfwxgqo completes the activity by him/herself with no assistance from a helper. 5-Set-up or Clean-up Assistance-helper sets up or cleans up; patient completes activity. [place] assists only prior to or following the activity. 4-Supervision or Touching Assistance-helper provides verbal cues and/or touching/steadying and/or contact guard assistance as patient completes activity. Assistance may be provided throughout the activity or intermittently. 3-Partial/Moderate Assistance-helper does LESS THAN HALF the effort. [place] lifts, holds or supports trunk or limbs, but provides less than half the effort. 2-Substantial/Maximal Assistance-helper does MORE THAN HALF the effort. [place] lifts or holds trunk or limbs and provides more than half the effort. 1-Yrhsbnnjg-ccyhoi does ALL the effort. Patient does none of the effort to complete the activity. Or, the assistance of 2 or more helpers is required for the patient to complete the activity. If activity was not attempted, code reason: 7-Patient Refused. 9-Not Applicable-not attempted and the patient did not perform the activity before the current illness, exacerbation or injury. 10-Not Attempted due to Environmental Limitations-(lack of equipment, weather restraints, etc.). 88-Not Attempted due to Medical Conditions or Safety Concerns. Roll Left to Right (QC): 6 Sit to Lying (QC): 6 Sit to Stand (QC): 6 Chair/Bit-va-Qvbgz Xfer(QC): 6 Car Transfer (QC): 5 Gait Training Does the Patient Walk?: Yes Distance: 150', 250' Walk 10 feet (QC): 5 Walk 50 ft with 2 Turns(QC): 5 Walk 150 ft (QC): 5 Walking 10ft/uneven surface-QC: 4 Gait Persons Needed: 1 Gait Assistive Device: FWW Wheelchair Training Does the Pt Use a Wheelchair?: No Wheel 50 ft with 2 turns (QC): 9 Wheel 150 ft (QC): 9 Stair Training Stair Training: Handrails/: 2 handrails #of Steps: 4 1 Step (curb) (QC): 5 4 Steps (QC): 4 12 Steps (QC): 88 Stairs: Pattern: Step to Balance Picking up an Object (QC): 88 ADL-Treatment Eating (QC): 5 Oral Hygiene (QC): 4 (SBA standing at sink.) Bathing Location: L Arm, R Arm, L Upper Leg, R Upper Leg, L Lower Leg (including foot), R Lower Leg (including foot), Chest, Abdomen, Buttocks, Perineal Area Shower/Bathe Self (QC): 4 (CGA in stance in shower. Pt. utilized LH sponge for LE.) Upper Body Dressing (QC): 5 Lower Body Dressing (QC): 4 On/Off Footwear (QC): 3 (Min assist to don slipper socks with use of AE.) Toileting Hygiene (QC): 6 (IND with urination/ norma care.) Toilet Transfer (QC): 4 (SUP (use of gbs to standard toilet)) Assessment/Plan Assessment and Plan Assess & Plan/Chief Complaint Assessment: s/p extensive spine surgery per Dr Hunter Subacute DVT/PE dx 2/18 delaying surgery scheduled for 06/09/20 at [facility] [place] dx in pre-op Osteoporosis GERD Weight loss Continued nausea DM Post op anemia Back pain Fall risk UTI dx 06/23/20 Plan: IRF protocol Pain meds Nausea meds PPI BID Scop patch 06/18/20: Iron infusions Pain control Scop patch Regular diet DC accuchecks 06/19/20: Iron infusion with midline Vit B12 injection Ensure BID Scop patch to continue 06/20/20: Iron infusions via midline Scop patch PT OT 06/21/20: Improve dietary consumption Monitor nausea Midline for iron infusions 06/22/20: Oxycodone 10 mg HS Lortab 2 every 4hours Severe pain and is acute on chronic 06/23/20: Abx for UTI started Pain control 06/24/20: UTI treatment Scop patch 06/25/20: Pain controlled BM regimen Therapy Iron infusions 06/26/20: Pain management Scop patch 06/27/20: Much improved Pain control DC Saturday06/28/20: Improved status Scop patch (1) S/P spinal surgery (2) Osteoporosis (3) Compression fracture of lumbar vertebra (4) DVT (deep venous thrombosis) (5) Pulmonary embolism (6) Anticoagulant long-term use (7) [place] filter in place (8) Nausea (9) Weight loss (10) GERD (gastroesophageal reflux disease) (11) Diabetes (12) Postoperative anemia (13) Protein-calorie malnutrition, moderate CHARLOTTE CAMARGO DO Jun 28, 2020 05:22
[2020-06-28] MEDS: metFORMIN 500 MG (GLUCOPHAGE) TAB PO SCH (06:45)
[2020-06-28] MEDS: CATHETER FLUSH 10 ML SYR IV SCH ×3 (06:45→23:33)
[2020-06-28] MEDS: ONDANSETRON 4 MG (ZOFRAN) ORAL DISSOLVE TAB PO PRN (07:57)
[2020-06-28] MEDS: APIXABAN 2.5 MG (ELIQUIS) TABLET PO SCH ×2 (08:35→20:13)
[2020-06-28] MEDS: NITROFURANTOIN 100 MG (MACROBID) CAPSULE PO SCH ×2 (08:35→20:13)
[2020-06-28] MEDS: PANTOPRAZOLE 40 MG (PROTONIX) TAB PO SCH ×2 (08:35→20:12)
[2020-06-28] MEDS: GABAPENTIN 100 MG (NEURONTIN) CAP PO SCH ×3 (08:35→20:12)
[2020-06-28] MEDS: DULoxetine 30 MG (CYMBALTA) CAP PO SCH (08:35)
[2020-06-28] MEDS: VITAMIN D3 25 MCG (1,000 UNITS) TABLET PO SCH ×2 (08:35→20:13)
[2020-06-28] MEDS: CALCIUM CARB + VIT D 600 MG (CALCARB + D) TAB PO SCH ×2 (08:35→18:34)
[2020-06-28] MEDS: DICLOFENAC 1% GEL 100 GM (VOLTAREN) TUBE TOP SCH ×4 (08:41→23:33)
[2020-06-28] MEDS: SENNA W/DOCUSATE (SENOKOT S) TABLET PO SCH ×2 (08:41→23:32)
[2020-06-28] MEDS: DOCUSATE SODIUM 100 MG (COLACE) CAP PO SCH ×2 (08:41→23:30)
[2020-06-28] MEDS: SCOPOLAMINE 1.5 MG (TRANSDERM-SCOP) PATCH TD SCH (08:41)
[2020-06-28] MEDS: polyethylene glycoL POWDER 17 GM (MIRALAX) PACK PO SCH ×2 (08:41→23:31)
[2020-06-28] MEDS: SCOPOLAMINE PATCH REMOVAL TP SCH (08:42)
--- NOTE | 2020-06-28 11:54 | Physical Therapy Daily Note ---
PT Daily Note-Current Subjective Pt. agrees to Rx. States she is having a bad day, had nausea earlier and left hip/back pain as well, but it is a little better now. Pain Numeric Pain Scale: 4 Location: Left Location Body Site: Hip Pain Description: Ache Mental Status Patient Orientation: Normal For Age Attachments: Other-See Comments (aspen back brace, mask) Transfers SCALE: Activities may be completed with or without assistive devices. 4-Oyrhvpaxum-easrjhn completes the activity by him/herself with no assistance from a helper. 5-Set-up or Clean-up Assistance-helper sets up or cleans up; patient completes activity. [place] assists only prior to or following the activity. 4-Supervision or Touching Assistance-helper provides verbal cues and/or touching/steadying and/or contact guard assistance as patient completes activity. Assistance may be provided throughout the activity or intermittently. 3-Partial/Moderate Assistance-helper does LESS THAN HALF the effort. [place] lifts, holds or supports trunk or limbs, but provides less than half the effort. 2-Substantial/Maximal Assistance-helper does MORE THAN HALF the effort. [place] lifts or holds trunk or limbs and provides more than half the effort. 3-Lntbvetac-halowx does ALL the effort. Patient does none of the effort to complete the activity. Or, the assistance of 2 or more helpers is required for the patient to complete the activity. If activity was not attempted, code reason: 7-Patient Refused. 9-Not Applicable-not attempted and the patient did not perform the activity before the current illness, exacerbation or injury. 10-Not Attempted due to Environmental Limitations-(lack of equipment, weather restraints, etc.). 88-Not Attempted due to Medical Conditions or Safety Concerns. Roll Left & Right (QC): 6 Sit to Lying (QC): 6 Lying to Sitting/Side of Bed(Q: 6 Sit to Stand (QC): 6 Chair/Aus-sg-Bpjtc Xfer(QC): 6 Toilet Transfer (QC): 6 Weight Bearing Full Weight Bearing Full Weight Bearing Gait Training Does the Patient Walk?: Yes Walk 10 feet (QC): 5 Walk 50 ft with 2 Turns(QC): 5 Walk 150 ft (QC): 5 Gait Persons Needed: 1 Gait Assistive Device: FWW emphasis again in right foot clearance during swing phase, pt.c/o pain left with this effort Exercises Supine Ex: Ankle pumps, Rolling, Hip abd/add (sidelying) Supine Reps: 15 Seated Therapy Exercises: Ankle pumps, Sit to stand, Long arc quads, Hip flexion, Hip abd/add Seated Reps: 15 Treatments sidelying clam shell and hip abd with assist bilat x 12 Assessment Current Status: Good Progress PT Short Term Goals Short Term Goals Time Frame: Jun 24, 2020 Roll Left & Right: 6 Sit to lyin Lying to sitting on side of be: 4 Sit to stand: 5 Chair/uxl-vp-vsqay transfer: 5 Walk 10 feet: 5 Walk 50 feet with two turns: 5 Walk 150 feet: 5 PT Photography Teacher Goals Photography Teacher Goals PT Photography Teacher Goals Time Frame: Jul 08, 2020 Roll Left & Right (QC): 6 Sit to Lying (QC): 6 Lying-Sitting on Side/Bed(QC): 6 Sit to Stand (QC): 6 Chair/Cvp-wm-Vcxhf Xfer(QC): 6 Toilet Transfer (QC): 6 Car Transfer (QC): 6 Does the Patient Walk: Yes Walk 10 feet (QC): 6 Walk 50ft with 2 Turns (QC): 6 Walk 150 ft (QC): 6 Walking 10ft on Uneven Surface: 6 1 Step (curb) (QC): 4 4 Steps (QC): 4 12 Steps (QC): 88 Picking up an Object (QC): 88 Wheel 50 feet with 2 turns (QC: 9 Wheel 150 feet: 9 PT Plan Treatment/Plan Treatment Plan: Continue Plan of Care Treatment Plan: Bed Mobility, Education, Functional Activity [place], Functional Strength, Group Therapy, Gait, Safety, Therapeutic Exercise, Transfers Treatment Duration: Jul 08, 2020 Frequency: At least 5 of 7 days/Wk (IRF) Estimated Hrs Per Day: 1.5 hours per day Patient and/or Family Agrees t: Yes Safety Risks/Education Patient Education: Gait Training, Transfer Techniques, Correct Positioning, Disease Process, Safety Issues Teaching Recipient: Patient Teaching Methods: Demonstration, Discussion Response to Teaching: Verbalize Understanding, Return Demonstration, Reinforcement Needed Time/GCodes Time In: 1100 Time Out: 1200 Total Billed Treatment Time: 60 Total Billed Treatment 1,GT20m,FA15m,EX25m NIDIA FAITH PTA Jun 28, 2020 11:54
--- NOTE | 2020-06-28 14:17 | Physical Therapy Daily Note ---
PT Daily Note-Current Subjective No c/o. Mental Status Patient Orientation: Normal For Age Transfers SCALE: Activities may be completed with or without assistive devices. 5-Coulzciyjm-lamnbqh completes the activity by him/herself with no assistance from a helper. 5-Set-up or Clean-up Assistance-helper sets up or cleans up; patient completes activity. [place] assists only prior to or following the activity. 4-Supervision or Touching Assistance-helper provides verbal cues and/or touching/steadying and/or contact guard assistance as patient completes activity. Assistance may be provided throughout the activity or intermittently. 3-Partial/Moderate Assistance-helper does LESS THAN HALF the effort. [place] lifts, holds or supports trunk or limbs, but provides less than half the effort. 2-Substantial/Maximal Assistance-helper does MORE THAN HALF the effort. [place] lifts or holds trunk or limbs and provides more than half the effort. 4-Xykdjzgpz-ttlyfr does ALL the effort. Patient does none of the effort to complete the activity. Or, the assistance of 2 or more helpers is required for the patient to complete the activity. If activity was not attempted, code reason: 7-Patient Refused. 9-Not Applicable-not attempted and the patient did not perform the activity before the current illness, exacerbation or injury. 10-Not Attempted due to Environmental Limitations-(lack of equipment, weather restraints, etc.). 88-Not Attempted due to Medical Conditions or Safety Concerns. Sit to Stand (QC): 6 Toilet Transfer (QC): 6 Car Transfer (QC): 6 patient independently toileted self Weight Bearing Full Weight Bearing Full Weight Bearing Gait Training Does the Patient Walk?: Yes Distance: 150' x 2 Walk 10 feet (QC): 5 Walk 50 ft with 2 Turns(QC): 5 Walk 150 ft (QC): 5 Gait Assistive Device: FWW Exercises NuStep Minutes: 15 NuStep Workload: 3 (to increase strength and mobility) Assessment Current Status: Excellent Progress Patient is very motivated with progress. Plan dismissal this week to home with family per report. PT Short Term Goals Short Term Goals Time Frame: Jun 24, 2020 Roll Left & Right: 6 Sit to lyin Lying to sitting on side of be: 4 Sit to stand: 5 Chair/ufe-gn-qbdcd transfer: 5 Walk 10 feet: 5 Walk 50 feet with two turns: 5 Walk 150 feet: 5 PT Telesales Professional Goals Chcf Goals PT Chcf Goals Time Frame: Jul 08, 2020 Roll Left & Right (QC): 6 Sit to Lying (QC): 6 Lying-Sitting on Side/Bed(QC): 6 Sit to Stand (QC): 6 Chair/Wgt-je-Stqao Xfer(QC): 6 Toilet Transfer (QC): 6 Car Transfer (QC): 6 Does the Patient Walk: Yes Walk 10 feet (QC): 6 Walk 50ft with 2 Turns (QC): 6 Walk 150 ft (QC): 6 Walking 10ft on Uneven Surface: 6 1 Step (curb) (QC): 4 4 Steps (QC): 4 12 Steps (QC): 88 Picking up an Object (QC): 88 Wheel 50 feet with 2 turns (QC: 9 Wheel 150 feet: 9 PT Plan Treatment/Plan Treatment Plan: Continue Plan of Care Treatment Plan: Bed Mobility, Education, Functional Activity Libby, Functional Strength, Group Therapy, Gait, Safety, Therapeutic Exercise, Transfers Treatment Duration: Jul 08, 2020 Frequency: At least 5 of 7 days/Wk (IRF) Estimated Hrs Per Day: 1.5 hours per day Patient and/or Family Agrees t: Yes Time/GCodes Time In: 1345 Time Out: 1415 Total Billed Treatment Time: 30 Total Billed Treatment 1 visit EX 15 min FA 15 min JAMIE CASTRO PT Jun 28, 2020 14:17
--- NOTE | 2020-06-28 14:42 | Occupational Ther Daily Note ---
OT Current Status-Daily Note Subjective Pt. verbalizes that she has been nauseated. She just had a nausea patch put on the back of her ear. Appearance Pt. up in chair. Agrees to work with OT. Mental Status/Objective Patient Orientation: Person, Place, Time, Situation ADL-Treatment Therapy Code Descriptions/Definitions Functional [place] Measure: 0=Not Assessed/NA 4=Minimal Assistance 1=Total Assistance 5=Supervision or Setup 2=Maximal Assistance 6=Modified [place] 3=Moderate Assistance 7=Complete IndependenceSCALE: Activities may be completed with or without assistive devices. 4-Jendhjzmia-upzrlms completes the activity by him/herself with no assistance from a helper. 5-Set-up or Clean-up Assistance-helper sets up or cleans up; patient completes activity. [place] assists only prior to or following the activity. 4-Supervision or Touching Assistance-helper provides verbal cues and/or touching/steadying and/or contact guard assistance as patient completes activity. Assistance may be provided throughout the activity or intermittently. 3-Partial/Moderate Assistance-helper does LESS THAN HALF the effort. [place] lifts, holds or supports trunk or limbs, but provides less than half the effort. 2-Substantial/Maximal Assistance-helper does MORE THAN HALF the effort. [place] lifts or holds trunk or limbs and provides more than half the effort. 6-Mctzpowxt-npqrip does ALL the effort. Patient does none of the effort to complete the activity. Or, the assistance of 2 or more helpers is required for the patient to complete the activity. If activity was not attempted, code reason: 7-Patient Refused. 9-Not Applicable-not attempted and the patient did not perform the activity before the current illness, exacerbation or injury. 10-Not Attempted due to Environmental Limitations-(lack of equipment, weather restraints, etc.). 88-Not Attempted due to Medical Conditions or Safety Concerns. Toileting Hygiene (QC): 4 (CGA in stance) Toilet Transfer (QC): 4 Other Treatment Pt. up in chair. She is dressed. Agrees to work with OT. Pt. stands with walker and CGA. Ambulates to therapy gym with CGA. Pt. worked on standing activity at bar with SBA. Pt. stood 3 times and worked on weight shifts back and forth. Tolerated this well. Completed bilateral UE exercises with 2 lb. dumbbell x 15 reps, x 7 exercises in all planes. Tolerated this well for increased overall strength with daily tasks. Pt. ambulated back to room with CGA and walker. All needs met up in chair. Education OT Patient Education: Correct positioning, Exercise program, Modified ADL techniques, Progress toward Goal/Update tx plan, Purpose of tx/functional activities, Reviewed precautions, Rehab process, Transfer techniques Teaching Recipient: Patient Teaching Methods: Demonstration, Discussion Response to Teaching: Verbalize Understanding, Return Demonstration OT Group Home Goals Group Home Goals Time Frame: Jul 01, 2020 Eating (QC): 6 Oral Hygiene (QC): 6 Toileting Hygiene (QC): 6 Shower/Bathe Self (QC): 6 Upper Body Dressing (QC): 6 Lower Body Dressing (QC): 6 On/Off Footwear (QC): 6 Additional Goals: 1-Demonstrate ADL Tasks, 2-Verbalize Understanding, 3- ImproveStrength/[place] 1=Demonstrate adherence to instructed precautions during ADL tasks. 2=Patient will verbalize/demonstrate understanding of assistive devices/modifications for ADL. 3=Patient will improve strength/tolerance for activity to enable patient to perform ADL's. OT Education/Plan Problem List/Assessment Assessment: Decreased Activ Tolerance, Decreased UE Strength, Impaired I ADL's, Impaired Self-Care Skills Discharge Recommendations Plan/Recommendations: Continue POC Treatment Plan/Plan of Care Treatment,Training & Education: Yes Patient would benefit from OT for education, treatment and training to promote independence in ADL's, mobility, safety and/or upper extremity function for ADL's. Plan of Care: ADL Retraining, Caregiver Training, Concurrent Therapy, Functional Mobility, Group Exercise/Act as Ind, Orthotic Fitting/Training, UE Funct Exercise/Act Treatment Duration: Jul 01, 2020 Frequency: At least 5 of 7 days/Wk (IRF) Estimated Hrs Per Day: 1.5 hours per day Agreement: Yes Rehab Potential: Good Time/GCodes Start Time: 09:30 Stop Time: 10:30 Total Time Billed (hr/min): 60 Billed Treatment Time 1, ADL x 15minutes, FA x 15minutes, Ex x 30minutes LIU OKEEFE OT Jun 28, 2020 14:42
--- NOTE | 2020-06-28 14:55 | Occupational Ther Daily Note ---
OT Current Status-Daily Note Subjective No pain reported. Mental Status/Objective Patient Orientation: Person, Place, Time, Situation ADL-Treatment Therapy Code Descriptions/Definitions Functional [place] Measure: 0=Not Assessed/NA 4=Minimal Assistance 1=Total Assistance 5=Supervision or Setup 2=Maximal Assistance 6=Modified [place] 3=Moderate Assistance 7=Complete IndependenceSCALE: Activities may be completed with or without assistive devices. 6-Ykypcsjrvy-yfrklhx completes the activity by him/herself with no assistance from a helper. 5-Set-up or Clean-up Assistance-helper sets up or cleans up; patient completes activity. [place] assists only prior to or following the activity. 4-Supervision or Touching Assistance-helper provides verbal cues and/or touching/steadying and/or contact guard assistance as patient completes activity. Assistance may be provided throughout the activity or intermittently. 3-Partial/Moderate Assistance-helper does LESS THAN HALF the effort. [place] lifts, holds or supports trunk or limbs, but provides less than half the effort. 2-Substantial/Maximal Assistance-helper does MORE THAN HALF the effort. [place] lifts or holds trunk or limbs and provides more than half the effort. 8-Cahtdlqzt-ckxglq does ALL the effort. Patient does none of the effort to complete the activity. Or, the assistance of 2 or more helpers is required for the patient to complete the activity. If activity was not attempted, code reason: 7-Patient Refused. 9-Not Applicable-not attempted and the patient did not perform the activity before the current illness, exacerbation or injury. 10-Not Attempted due to Environmental Limitations-(lack of equipment, weather restraints, etc.). 88-Not Attempted due to Medical Conditions or Safety Concerns. Other Treatment Pt. stood and ambulated with walker with CGA, to therapy kitchen. Pt. educated on kitchen safety with using walker and back brace. She is educated about good body mechanics, back safety, and proper techniques when retrieving items from cabinets. Pt. practiced retrieving cones with correct technique and able to do so appropriately. Pt. and OT also talked about other ways to make tasks easier at home such as having her son make her lunch and leave in the refridgerator. Pt. and OT also talked about using a walker basket and recyclable materials distributor in the kitchen. After this, pt. ambulated to therapy gym. Completed ball kick and toss activity to increase overall endurance. Participated for approximately 10 minutes. Pt. ambulated back to room with CGA and walker. All needs met. Education OT Patient Education: Correct positioning, Exercise program, Modified ADL techniques, Progress toward Goal/Update tx plan, Purpose of tx/functional activities, Reviewed precautions, Rehab process, Transfer techniques Teaching Recipient: Patient Teaching Methods: Demonstration, Discussion Response to Teaching: Verbalize Understanding, Return Demonstration OT Applications Programmer Analyst Goals Intermediate Goals Time Frame: Jul 01, 2020 Eating (QC): 6 Oral Hygiene (QC): 6 Toileting Hygiene (QC): 6 Shower/Bathe Self (QC): 6 Upper Body Dressing (QC): 6 Lower Body Dressing (QC): 6 On/Off Footwear (QC): 6 Additional Goals: 1-Demonstrate ADL Tasks, 2-Verbalize Understanding, 3- ImproveStrength/[place] 1=Demonstrate adherence to instructed precautions during ADL tasks. 2=Patient will verbalize/demonstrate understanding of assistive devices/modifications for ADL. 3=Patient will improve strength/tolerance for activity to enable patient to perform ADL's. OT Education/Plan Problem List/Assessment Assessment: Decreased Activ Tolerance, Impaired I ADL's, Impaired Self-Care Skills Discharge Recommendations Plan/Recommendations: Continue POC Therapy Discharge Recommendati: Post Acute OT Treatment Plan/Plan of Care Treatment,Training & Education: Yes Patient would benefit from OT for education, treatment and training to promote independence in ADL's, mobility, safety and/or upper extremity function for ADL's. Plan of Care: ADL Retraining, Caregiver Training, Concurrent Therapy, Functional Mobility, Group Exercise/Act as Ind, Orthotic Fitting/Training, UE Funct Exercise/Act Treatment Duration: Jul 01, 2020 Frequency: At least 5 of 7 days/Wk (IRF) Estimated Hrs Per Day: 1.5 hours per day Agreement: Yes Rehab Potential: Good Time/GCodes Start Time: 13:00 Stop Time: 13:30 Total Time Billed (hr/min): 30 Billed Treatment Time 1, ADL x 15minutes, FA x 15minutes LIU OKEEFE OT Jun 28, 2020 14:55
[2020-06-28 18:21] VITALS: BP 119/56
[2020-06-28] MEDS: SIMvastatin 10 MG (ZOCOR) TAB PO SCH (20:12)
[2020-06-29] MEDS: HYDROcodone/APAP 5 MG/325 MG (LORTAB) TAB PO PRN ×2 (02:57→23:18)
[2020-06-29 06:14] VITALS: BP 182/77
[2020-06-29] MEDS: metFORMIN 500 MG (GLUCOPHAGE) TAB PO SCH (06:24)
[2020-06-29] MEDS: CATHETER FLUSH 10 ML SYR IV SCH ×3 (06:24→20:49)
--- NOTE | 2020-06-29 08:37 | PM&R Progress Note ---
Subjective HPI/CC On Admission Date Seen by Provider: Jun 29, 2020 Time Seen by Provider: 08:30 Subjective/Events-last exam 06/29/20: Pt doing pretty well 4-wheel walker is maintained Nausea at times Home health will be required with RN, PT and OT DC on Saturday Overall doing very well Will need close follow up with Dr. Packer for the nausea 06/28/20: Pt doing pretty well No issues Discharge is planned for Saturday Pain is well controlled A little bit nauseated today, will change Scopolamine patch early 06/27/20: Will Dc Venofer at her request due to loose stools from iron infusion Pt doing pretty well with pain Overall feels pretty good 06/26/20: Patient improved Son at bedside today No pain reported Oxycodone 10mg PO HS working well BM+ 06/25/20: Patient doing well Tired today Incision looks good IV iron tolerated via midline No nausea Scop patch 06/24/20: Doing well Scop patch q 72 hours BM++ Amazing recovery 06/23/20: Pt having some urinary issues so will check UA and a straight in and out cath Bowels are moving well Pain is controlled Oxycodone of 10 at night really helped her UTI dx so placed on abx empirically 06/22/20: Pt doing pretty well Nausea is controlled with Scopolamine patch Eliquis BID is tolerated Bowels are moving Oxycodone at 10 Mg at night will help her sleep tonight We will keep Lortab two every four hours as needed 06/21/20: Midline was placed, will receive Venofer iron infusions Last bowels moved a couple of days ago so will initiate laxatives Scopolamine Patch working pretty well for her Eating and drinking better 06/20/20: Pt isnt sleeping well due to the pain Will give Lortab two at a time every four hours as needed that she takes at home Oxycodone doesnt seem to work as well Scopolamine patch is treating the nausea Midline will be placed to completed the Venofer 06/19/20: Patient doing better Appetite improved Midline will be placed BM++ Walked to the gym and back to room Voltaren gel ordered Venofer ordered Scop patch will be continued Ensure BID Vit B12 injection 06/18/20: Patient in a good mood Improved status Pain of back is improved Checked meds and labs MANJU hose on Lortab improved pain Iron pending DC accuchecks Scop patch is improving the nausea Review of Systems General: Fatigue Musculoskeletal: back pain Objective Exam Vital Signs Vital Signs Date Time Temp Pulse Resp B/P (MAP) Pulse Ox O2 Delivery O2 Flow Rate FiO2 06/29/20 21:26 Room Air 06/29/20 17:44 37.2 74 18 120/58 (78) 96 Capillary Refill : General Appearance: No Apparent Distress, WD/WN, Chronically ill, Thin HEENT: PERRL/EOMI, Normal ENT Inspection, Pharynx Normal Neck: Full Range of Motion, Normal Inspection, Non Tender, Supple, Carotid Bruit Respiratory: Chest Non Tender, Lungs Clear, Normal Breath Sounds, No Accessory Muscle Use, No Respiratory Distress Cardiovascular: Regular Rate, Rhythm, No Edema, No Gallop, No JVD, No Murmur, Normal Peripheral Pulses Gastrointestinal: Normal Bowel Sounds, No Organomegaly, No Pulsatile Mass, Non Tender, Soft Back: CVA Tenderness (L), CVA Tenderness (R), Decreased Range of Motion, Muscle Spasm, Vertebral Tenderness, Other Extremity: Normal Capillary Refill, Normal Inspection, Normal Range of Motion, Non Tender, No Calf Tenderness, No Pedal Edema Neurologic/Psychiatric: Alert, Oriented x3, No Motor/Sensory Deficits, Normal Mood/Affect Skin: Normal Color, Warm/Dry Lymphatic: No Adenopathy Results/Procedures Lab Patient resulted labs reviewed. FIM Transfers Therapy Code Descriptions/Definitions Functional [place] Measure: 0=Not Assessed/NA 4=Minimal Assistance 1=Total Assistance 5=Supervision or Setup 2=Maximal Assistance 6=Modified [place] 3=Moderate Assistance 7=Complete IndependenceSCALE: Activities may be completed with or without assistive devices. 0-Ebjzlmfjtd-ixyvyym completes the activity by him/herself with no assistance fr om a helper. 5-Set-up or Clean-up Assistance-helper sets up or cleans up; patient completes activity. [place] assists only prior to or following the activity. 4-Supervision or Touching Assistance-helper provides verbal cues and/or touching/steadying and/or contact guard assistance as patient completes activity. Assistance may be provided throughout the activity or intermittently. 3-Partial/Moderate Assistance-helper does LESS THAN HALF the effort. [place] lifts, holds or supports trunk or limbs, but provides less than half the effort. 2-Substantial/Maximal Assistance-helper does MORE THAN HALF the effort. [place] lifts or holds trunk or limbs and provides more than half the effort. 2-Civbaxmth-bqzrbw does ALL the effort. Patient does none of the effort to complete the activity. Or, the assistance of 2 or more helpers is required for the patient to complete the activity. If activity was not attempted, code reason: 7-Patient Refused. 9-Not Applicable-not attempted and the patient did not perform the activity before the current illness, exacerbation or injury. 10-Not Attempted due to Environmental Limitations-(lack of equipment, weather restraints, etc.). 88-Not Attempted due to Medical Conditions or Safety Concerns. Roll Left to Right (QC): 6 Sit to Lying (QC): 6 Sit to Stand (QC): 6 Chair/Nus-yv-Ssprc Xfer(QC): 6 Car Transfer (QC): 6 Gait Training Does the Patient Walk?: Yes Distance: 150' x 2 Walk 10 feet (QC): 5 Walk 50 ft with 2 Turns(QC): 5 Walk 150 ft (QC): 5 Walking 10ft/uneven surface-QC: 4 Gait Persons Needed: 1 Gait Assistive Device: FWW Wheelchair Training Does the Pt Use a Wheelchair?: No Wheel 50 ft with 2 turns (QC): 9 Wheel 150 ft (QC): 9 Stair Training Stair Training: Handrails/: 2 handrails #of Steps: 4 1 Step (curb) (QC): 5 4 Steps (QC): 4 12 Steps (QC): 88 Stairs: Pattern: Step to Balance Picking up an Object (QC): 88 ADL-Treatment Eating (QC): 5 Oral Hygiene (QC): 4 (SBA standing at sink.) Bathing Location: L Arm, R Arm, L Upper Leg, R Upper Leg, L Lower Leg (including foot), R Lower Leg (including foot), Chest, Abdomen, Buttocks, Perineal Area Shower/Bathe Self (QC): 4 (CGA in stance in shower. Pt. utilized LH sponge for LE.) Upper Body Dressing (QC): 5 Lower Body Dressing (QC): 4 On/Off Footwear (QC): 3 (Min assist to don slipper socks with use of AE.) Toileting Hygiene (QC): 4 (CGA in stance) Toilet Transfer (QC): 4 Assessment/Plan Assessment and Plan Assess & Plan/Chief Complaint Assessment: s/p extensive spine surgery per Dr Hunter Subacute DVT/PE dx 06/09 delaying surgery scheduled for 06/09/20 at [facility] dx in pre-op Osteoporosis GERD Weight loss Continued nausea DM Post op anemia Back pain Fall risk UTI dx 06/23/20 Plan: IRF protocol Pain meds Nausea meds PPI BID Scop patch 06/18/20: Iron infusions Pain control Scop patch Regular diet DC accuchecks 06/19/20: Iron infusion with midline Vit B12 injection Ensure BID Scop patch to continue 06/20/20: Iron infusions via midline Scop patch PT OT 06/21/20: Improve dietary consumption Monitor nausea Midline for iron infusions 06/22/20: Oxycodone 10 mg HS Lortab 2 every 4hours Severe pain and is acute on chronic 06/23/20: Abx for UTI started Pain control 06/24/20: UTI treatment Scop patch 06/25/20: Pain controlled BM regimen Therapy Iron infusions 06/26/20: Pain management Scop patch 06/27/20: Much improved Pain control DC Saturday06/28/20: Improved status Scop patch 06/29/20: Scop patch Nausea will be monitored and PCP will see her in f/u at DC DC Saturday (1) S/P spinal surgery (2) Osteoporosis (3) Compression fracture of lumbar vertebra (4) DVT (deep venous thrombosis) (5) Pulmonary embolism (6) Anticoagulant long-term use (7) Laura filter in place (8) Nausea (9) Weight loss (10) GERD (gastroesophageal reflux disease) (11) Diabetes (12) Postoperative anemia (13) Protein-calorie malnutrition, moderate CHARLOTTE CAMARGO DO Jun 29, 2020 08:37
[2020-06-29] MEDS: SENNA W/DOCUSATE (SENOKOT S) TABLET PO SCH ×2 (08:44→20:41)
[2020-06-29] MEDS: DULoxetine 30 MG (CYMBALTA) CAP PO SCH (08:44)
[2020-06-29] MEDS: CALCIUM CARB + VIT D 600 MG (CALCARB + D) TAB PO SCH ×2 (08:44→17:38)
[2020-06-29] MEDS: PANTOPRAZOLE 40 MG (PROTONIX) TAB PO SCH ×2 (08:44→20:42)
[2020-06-29] MEDS: GABAPENTIN 100 MG (NEURONTIN) CAP PO SCH ×3 (08:45→20:42)
[2020-06-29] MEDS: DOCUSATE SODIUM 100 MG (COLACE) CAP PO SCH ×2 (08:45→20:42)
[2020-06-29] MEDS: VITAMIN D3 25 MCG (1,000 UNITS) TABLET PO SCH ×2 (08:45→20:42)
[2020-06-29] MEDS: polyethylene glycoL POWDER 17 GM (MIRALAX) PACK PO SCH ×2 (08:45→20:41)
[2020-06-29] MEDS: APIXABAN 2.5 MG (ELIQUIS) TABLET PO SCH ×2 (08:45→20:42)
[2020-06-29] MEDS: NITROFURANTOIN 100 MG (MACROBID) CAPSULE PO SCH ×2 (08:45→20:42)
[2020-06-29] MEDS: DICLOFENAC 1% GEL 100 GM (VOLTAREN) TUBE TOP SCH ×4 (08:46→20:43)
[2020-06-29] MEDS: ONDANSETRON 4 MG (ZOFRAN) ORAL DISSOLVE TAB PO PRN (11:04)
--- NOTE | 2020-06-29 11:52 | Physical Therapy Daily Note ---
PT Daily Note-Current Subjective Pt. c/o nausea that has her requesting slower Rx with rest breaks. Consult with nursing suggests it is likely her pain meds. Pt. agrees to sitting exercises, some TRF work and home safety education. Pain Location: No Pain Reported Comment: nausea c/o Mental Status Patient Orientation: Normal For Age Transfers SCALE: Activities may be completed with or without assistive devices. 0-Ttwxidtcar-zkiyrqj completes the activity by him/herself with no assistance from a helper. 5-Set-up or Clean-up Assistance-helper sets up or cleans up; patient completes activity. [place] assists only prior to or following the activity. 4-Supervision or Touching Assistance-helper provides verbal cues and/or touching/steadying and/or contact guard assistance as patient completes activity. Assistance may be provided throughout the activity or intermittently. 3-Partial/Moderate Assistance-helper does LESS THAN HALF the effort. [place] lifts, holds or supports trunk or limbs, but provides less than half the effort. 2-Substantial/Maximal Assistance-helper does MORE THAN HALF the effort. [place] lifts or holds trunk or limbs and provides more than half the effort. 3-Xomsutemd-rttoae does ALL the effort. Patient does none of the effort to complete the activity. Or, the assistance of 2 or more helpers is required for the patient to complete the activity. If activity was not attempted, code reason: 7-Patient Refused. 9-Not Applicable-not attempted and the patient did not perform the activity before the current illness, exacerbation or injury. 10-Not Attempted due to Environmental Limitations-(lack of equipment, weather restraints, etc.). 88-Not Attempted due to Medical Conditions or Safety Concerns. Sit to Stand (QC): 6 Weight Bearing Full Weight Bearing Full Weight Bearing Gait Training Does the Patient Walk?: Yes Gait Assistive Device: FWW 50ft SBA slow Exercises Seated Therapy Exercises: Ankle pumps, Sit to stand, Long arc quads, Hip flexion, Hip abd/add, Glut set Seated Reps: 20 Assessment Current Status: Good Progress nausea c/o, nurse gave Zofran, cold cloth to throat was given. PT Short Term Goals Short Term Goals Time Frame: Jun 24, 2020 Roll Left & Right: 6 Sit to lyin Lying to sitting on side of be: 4 Sit to stand: 5 Chair/wuh-hg-varea transfer: 5 Walk 10 feet: 5 Walk 50 feet with two turns: 5 Walk 150 feet: 5 PT Prison Goals Stock Order Lister Goals PT Stock Order Lister Goals Time Frame: Jul 08, 2020 Roll Left & Right (QC): 6 Sit to Lying (QC): 6 Lying-Sitting on Side/Bed(QC): 6 Sit to Stand (QC): 6 Chair/Qrk-nz-Rehxp Xfer(QC): 6 Toilet Transfer (QC): 6 Car Transfer (QC): 6 Does the Patient Walk: Yes Walk 10 feet (QC): 6 Walk 50ft with 2 Turns (QC): 6 Walk 150 ft (QC): 6 Walking 10ft on Uneven Surface: 6 1 Step (curb) (QC): 4 4 Steps (QC): 4 12 Steps (QC): 88 Picking up an Object (QC): 88 Wheel 50 feet with 2 turns (QC: 9 Wheel 150 feet: 9 PT Plan Treatment/Plan Treatment Plan: Continue Plan of Care Treatment Plan: Bed Mobility, Education, Functional Activity [place], Functional Strength, Group Therapy, Gait, Safety, Therapeutic Exercise, Transfers Treatment Duration: Jul 08, 2020 Frequency: At least 5 of 7 days/Wk (IRF) Estimated Hrs Per Day: 1.5 hours per day Patient and/or Family Agrees t: Yes Safety Risks/Education Patient Education: Gait Training, Transfer Techniques, Safety Issues (home) Teaching Recipient: Patient Time/GCodes Time In: 1100 Time Out: 1200 Total Billed Treatment Time: 60 Total Billed Treatment 1,FA40m,EX20m NIDIA FAITH PTA Jun 29, 2020 11:52
--- NOTE | 2020-06-29 13:42 | Occupational Ther Daily Note ---
OT Current Status-Daily Note Subjective No pain reported. Appearance Pt. up in chair. Agrees to work with OT. Mental Status/Objective Patient Orientation: Person, Place, Time, Situation ADL-Treatment Therapy Code Descriptions/Definitions Functional [place] Measure: 0=Not Assessed/NA 4=Minimal Assistance 1=Total Assistance 5=Supervision or Setup 2=Maximal Assistance 6=Modified [place] 3=Moderate Assistance 7=Complete IndependenceSCALE: Activities may be completed with or without assistive devices. 5-Fjeodgdsyq-vdemagb completes the activity by him/herself with no assistance from a helper. 5-Set-up or Clean-up Assistance-helper sets up or cleans up; patient completes activity. [place] assists only prior to or following the activity. 4-Supervision or Touching Assistance-helper provides verbal cues and/or touching/steadying and/or contact guard assistance as patient completes activity. Assistance may be provided throughout the activity or intermittently. 3-Partial/Moderate Assistance-helper does LESS THAN HALF the effort. [place] lifts, holds or supports trunk or limbs, but provides less than half the effort. 2-Substantial/Maximal Assistance-helper does MORE THAN HALF the effort. [place] lifts or holds trunk or limbs and provides more than half the effort. 1-Ntgvtbevr-efcrrf does ALL the effort. Patient does none of the effort to complete the activity. Or, the assistance of 2 or more helpers is required for the patient to complete the activity. If activity was not attempted, code reason: 7-Patient Refused. 9-Not Applicable-not attempted and the patient did not perform the activity before the current illness, exacerbation or injury. 10-Not Attempted due to Environmental Limitations-(lack of equipment, weather restraints, etc.). 88-Not Attempted due to Medical Conditions or Safety Concerns. Eating (QC): 6 Oral Hygiene (QC): 4 (SBA in stance to brush teeth.) Shower/Bathe Self (QC): 7 (Pt. declines bathing.) Upper Body Dressing (QC): 4 (SBA to doff/don shirt, and don back brace.) Lower Body Dressing (QC): 7 On/Off Footwear: 3 (SBA to doff slipper socks. Mod assist to don slipper socks. Pt. able to don right sock but unable to don left. Pt. is educated on AE, but she declines this, and states that her son can assist.) Toileting Hygiene (QC): 4 Toilet Transfer (QC): 4 Other Treatment Pt. seen twice this a.m. 5540-5080- Pt. up in chair. Declines bathing and changing pants, but agrees to put on fresh shirt. Pt. practices this and then stands with walker with CGA. Ambulates with CGA to therapy gym. Pt. participates in bilateral UE fine motor strengthening task with nut/bolt activity, utilizing supination/pronation motion. After this, pt. completed 5 minutes on arm bike x minimal resistance for overall increased endurance. Pt. slower with pace, but consistent and steady. No pain or strain in back reported. Ambulated back to room. All needs met up in chair. 4250-6782- Pt. up in chair. Agrees to work with OT. Pt. completed 3 bilateral UE exercises x 15 reps each, with red theraband, x 2 sets in all planes. Tolerated for increased endurance/strength. Multiple cues given for correct hand placement and motions completed. After exercises, pt. ambulates to bathroom with walker with SBA. Pt. completed toileting task with SBA. Pt. then stood at sink and brushed teeth and washed hands. Pt. ambulated back to chair in room. All needs met. Education OT Patient Education: Correct positioning, Exercise program, Modified ADL techniques, Progress toward Goal/Update tx plan, Purpose of tx/functional activities, Reviewed precautions, Rehab process, Transfer techniques Teaching Recipient: Patient Teaching Methods: Demonstration, Discussion Response to Teaching: Verbalize Understanding, Return Demonstration OT Websphere Portal Developer Goals Websphere Portal Developer Goals Time Frame: Jul 01, 2020 Eating (QC): 6 Oral Hygiene (QC): 6 Toileting Hygiene (QC): 6 Shower/Bathe Self (QC): 6 Upper Body Dressing (QC): 6 Lower Body Dressing (QC): 6 On/Off Footwear (QC): 6 Additional Goals: 1-Demonstrate ADL Tasks, 2-Verbalize Understanding, 3- ImproveStrength/[place] 1=Demonstrate adherence to instructed precautions during ADL tasks. 2=Patient will verbalize/demonstrate understanding of assistive devices/modifications for ADL. 3=Patient will improve strength/tolerance for activity to enable patient to perform ADL's. OT Education/Plan Problem List/Assessment Assessment: Decreased Activ Tolerance, Impaired I ADL's, Impaired Self-Care Skills Discharge Recommendations Plan/Recommendations: Continue POC Therapy Discharge Recommendati: Post Acute OT Equpiment Recommendations-D/C: Walker Bag or Basket Treatment Plan/Plan of Care Treatment,Training & Education: Yes Patient would benefit from OT for education, treatment and training to promote independence in ADL's, mobility, safety and/or upper extremity function for ADL's. Plan of Care: ADL Retraining, Caregiver Training, Concurrent Therapy, Functional Mobility, Group Exercise/Act as Ind, Orthotic Fitting/Training, UE Funct Exercise/Act Treatment Duration: Jul 01, 2020 Frequency: At least 5 of 7 days/Wk (IRF) Estimated Hrs Per Day: 1.5 hours per day Agreement: Yes Rehab Potential: Good Time/GCodes Start Time: 07:50 Stop Time: 10:45 Total Time Billed (hr/min): 90 Billed Treatment Time 0284-9043 1, ADL x 15minutes, Ex x 15minutes, FA x 25minutes 1018-1347 1, Ex x 15minutes, ADL x 20minutes LIU OKEEFE OT Jun 29, 2020 13:42
--- NOTE | 2020-06-29 15:30 | Physical Therapy Daily Note ---
PT Daily Note-Current Subjective Pt. feeling much better this afternoon, no pain , no nausea Pain Location: No Pain Reported Mental Status Patient Orientation: Normal For Age Attachments: Other-See Comments (aspen brace) Transfers SCALE: Activities may be completed with or without assistive devices. 4-Sfeigbgjrj-riryxls completes the activity by him/herself with no assistance from a helper. 5-Set-up or Clean-up Assistance-helper sets up or cleans up; patient completes activity. [place] assists only prior to or following the activity. 4-Supervision or Touching Assistance-helper provides verbal cues and/or touching/steadying and/or contact guard assistance as patient completes activity. Assistance may be provided throughout the activity or intermittently. 3-Partial/Moderate Assistance-helper does LESS THAN HALF the effort. [place] l ifts, holds or supports trunk or limbs, but provides less than half the effort. 2-Substantial/Maximal Assistance-helper does MORE THAN HALF the effort. [place] lifts or holds trunk or limbs and provides more than half the effort. 7-Vpovkayiu-jnstmu does ALL the effort. Patient does none of the effort to complete the activity. Or, the assistance of 2 or more helpers is required for t he patient to complete the activity. If activity was not attempted, code reason: 7-Patient Refused. 9-Not Applicable-not attempted and the patient did not perform the activity before the current illness, exacerbation or injury. 10-Not Attempted due to Environmental Limitations-(lack of equipment, weather restraints, etc.). 88-Not Attempted due to Medical Conditions or Safety Concerns. Sit to Stand (QC): 6 Chair/Fid-ie-Nhrbl Xfer(QC): 6 Toilet Transfer (QC): 6 Car Transfer (QC): 6 Weight Bearing Full Weight Bearing Full Weight Bearing Gait Training Does the Patient Walk?: Yes Walk 10 feet (QC): 5 Walk 50 ft with 2 Turns(QC): 5 Walk 150 ft (QC): 5 Walking 10ft/uneven surface-QC: 5 Gait Persons Needed: 1 Gait Assistive Device: FWW cues for foot clearance right Exercises Seated Therapy Exercises: Ankle pumps, Sit to stand, Long arc quads, Hip flexion, Hip abd/add Seated Reps: 15 NuStep Minutes: 10 NuStep Workload: 3 Assessment Current Status: Good Progress PT Short Term Goals Short Term Goals Time Frame: Jun 24, 2020 Roll Left & Right: 6 Sit to lyin Lying to sitting on side of be: 4 Sit to stand: 5 Chair/xdf-sf-voxbv transfer: 5 Walk 10 feet: 5 Walk 50 feet with two turns: 5 Walk 150 feet: 5 PT Group Home Goals Group Home Goals PT [place] Goals Time Frame: Jul 08, 2020 Roll Left & Right (QC): 6 Sit to Lying (QC): 6 Lying-Sitting on Side/Bed(QC): 6 Sit to Stand (QC): 6 Chair/Ahp-uj-Bqpin Xfer(QC): 6 Toilet Transfer (QC): 6 Car Transfer (QC): 6 Does the Patient Walk: Yes Walk 10 feet (QC): 6 Walk 50ft with 2 Turns (QC): 6 Walk 150 ft (QC): 6 Walking 10ft on Uneven Surface: 6 1 Step (curb) (QC): 4 4 Steps (QC): 4 12 Steps (QC): 88 Picking up an Object (QC): 88 Wheel 50 feet with 2 turns (QC: 9 Wheel 150 feet: 9 PT Plan Treatment/Plan Treatment Plan: Continue Plan of Care Treatment Plan: Bed Mobility, Education, Functional Activity [place], Functional Strength, Group Therapy, Gait, Safety, Therapeutic Exercise, Transfers Treatment Duration: Jul 08, 2020 Frequency: At least 5 of 7 days/Wk (IRF) Estimated Hrs Per Day: 1.5 hours per day Patient and/or Family Agrees t: Yes Safety Risks/Education Patient Education: Gait Training, Transfer Techniques, Correct Positioning, Disease Process, Safety Issues Teaching Recipient: Patient Teaching Methods: Demonstration, Discussion Response to Teaching: Verbalize Understanding, Return Demonstration, Reinf orcement Needed Time/GCodes Time In: 1445 Time Out: 1515 Total Billed Treatment Time: 30 Total Billed Treatment 1,EX15m,GT15m NIDIA FAITH PTA Jun 29, 2020 15:30
[2020-06-29 17:44] VITALS: BP 120/58
[2020-06-29] MEDS: SIMvastatin 10 MG (ZOCOR) TAB PO SCH (20:42)
[2020-06-30] MEDS: HYDROcodone/APAP 5 MG/325 MG (LORTAB) TAB PO PRN (03:03)
[2020-06-30 05:26] VITALS: BP 159/67
[2020-06-30] MEDS ORDERED: SCOP1PAT11 TD (05:56)
--- NOTE | 2020-06-30 05:56 | PM&R Progress Note ---
Subjective HPI/CC On Admission Date Seen by Provider: Jun 30, 2020 Time Seen by Provider: 10:15 Subjective/Events-last exam 06/30/20: Patient feels good Scop patch maintained No nausea DC Saturday06/29/20: Pt doing pretty well 4-wheel walker is maintained Nausea at times Home health will be required with RN, PT and OT DC on Saturday Overall doing very well Will need close follow up with Dr. Packer for the nausea 06/28/20: Pt doing pretty well No issues Discharge is planned for Saturday Pain is well controlled A little bit nauseated today, will change Scopolamine patch early 06/27/20: Will Dc Venofer at her request due to loose stools from iron infusion Pt doing pretty well with pain Overall feels pretty good 06/26/20: Patient improved Son at bedside today No pain reported Oxycodone 10mg PO HS working well BM+ 06/25/20: Patient doing well Tired today Incision looks good IV iron tolerated via midline No nausea Scop patch 06/24/20: Doing well Scop patch q 72 hours BM++ Amazing recovery 06/23/20: Pt having some urinary issues so will check UA and a straight in and out cath Bowels are moving well Pain is controlled Oxycodone of 10 at night really helped her UTI dx so placed on abx empirically 06/22/20: Pt doing pretty well Nausea is controlled with Scopolamine patch Eliquis BID is tolerated Bowels are moving Oxycodone at 10 Mg at night will help her sleep tonight We will keep Lortab two every four hours as needed 06/21/20: Midline was placed, will receive Venofer iron infusions Last bowels moved a couple of days ago so will initiate laxatives Scopolamine Patch working pretty well for her Eating and drinking better 06/20/20: Pt isnt sleeping well due to the pain Will give Lortab two at a time every four hours as needed that she takes at home Oxycodone doesnt seem to work as well Scopolamine patch is treating the nausea Midline will be placed to completed the Venofer 06/19/20: Patient doing better Appetite improved Midline will be placed BM++ Walked to the gym and back to room Voltaren gel ordered Venofer ordered Scop patch will be continued Ensure BID Vit B12 injection 06/18/20: Patient in a good mood Improved status Pain of back is improved Checked meds and labs MANJU hose on Lortab improved pain Iron pending DC accuchecks Scop patch is improving the nausea Review of Systems Musculoskeletal: back pain Objective Exam Vital Signs Vital Signs Date Time Temp Pulse Resp B/P (MAP) Pulse Ox O2 Delivery O2 Flow Rate FiO2 06/30/20 21:00 Room Air 06/30/20 16:00 37.5 70 16 128/60 (82) 95 Capillary Refill : General Appearance: No Apparent Distress, WD/WN, Chronically ill, Thin HEENT: PERRL/EOMI, Normal ENT Inspection, Pharynx Normal Neck: Full Range of Motion, Normal Inspection, Non Tender, Supple, Carotid Bruit Respiratory: Chest Non Tender, Lungs Clear, Normal Breath Sounds, No Accessory Muscle Use, No Respiratory Distress Cardiovascular: Regular Rate, Rhythm, No Edema, No Gallop, No JVD, No Murmur, Normal Peripheral Pulses Gastrointestinal: Normal Bowel Sounds, No Organomegaly, No Pulsatile Mass, Non Tender, Soft Back: CVA Tenderness (L), CVA Tenderness (R), Decreased Range of Motion, Muscle Spasm, Vertebral Tenderness, Other Extremity: Normal Capillary Refill, Normal Inspection, Normal Range of Motion, Non Tender, No Calf Tenderness, No Pedal Edema Neurologic/Psychiatric: Alert, Oriented x3, No Motor/Sensory Deficits, Normal Mood/Affect Skin: Normal Color, Warm/Dry Lymphatic: No Adenopathy Results/Procedures Lab Patient resulted labs reviewed. FIM Transfers Therapy Code Descriptions/Definitions Functional [place] Measure: 0=Not Assessed/NA 4=Minimal Assistance 1=Total Assistance 5=Supervision or Setup 2=Maximal Assistance 6=Modified [place] 3=Moderate Assistance 7=Complete IndependenceSCALE: Activities may be completed with or without assistive devices. 6-Xpyvtcwjog-onfdadh completes the activity by him/herself with no assistance from a helper. 5-Set-up or Clean-up Assistance-helper sets up or cleans up; patient completes activity. [place] assists only prior to or following the activity. 4-Supervision or Touching Assistance-helper provides verbal cues and/or touching/steadying and/or contact guard assistance as patient completes activity. Assistance may be provided throughout the activity or intermittently. 3-Partial/Moderate Assistance-helper does LESS THAN HALF the effort. [place] lifts, holds or supports trunk or limbs, but provides less than half the effort. 2-Substantial/Maximal Assistance-helper does MORE THAN HALF the effort. [place] lifts or holds trunk or limbs and provides more than half the effort. 9-Eqwpyknci-zlnqmk does ALL the effort. Patient does none of the effort to complete the activity. Or, the assistance of 2 or more helpers is required for the patient to complete the activity. If activity was not attempted, code reason: 7-Patient Refused. 9-Not Applicable-not attempted and the patient did not perform the activity before the current illness, exacerbation or injury. 10-Not Attempted due to Environmental Limitations-(lack of equipment, weather restraints, etc.). 88-Not Attempted due to Medical Conditions or Safety Concerns. Roll Left to Right (QC): 6 Sit to Lying (QC): 6 Sit to Stand (QC): 6 Chair/Npp-pz-Ypfnb Xfer(QC): 6 Car Transfer (QC): 6 Gait Training Does the Patient Walk?: Yes Distance: 150' x 2 Walk 10 feet (QC): 5 Walk 50 ft with 2 Turns(QC): 5 Walk 150 ft (QC): 5 Walking 10ft/uneven surface-QC: 5 Gait Persons Needed: 1 Gait Assistive Device: FWW Wheelchair Training Does the Pt Use a Wheelchair?: No Wheel 50 ft with 2 turns (QC): 9 Wheel 150 ft (QC): 9 Stair Training Stair Training: Handrails/: 2 handrails #of Steps: 4 1 Step (curb) (QC): 5 4 Steps (QC): 4 12 Steps (QC): 88 Stairs: Pattern: Step to Balance Picking up an Object (QC): 88 ADL-Treatment Eating (QC): 6 Oral Hygiene (QC): 4 (SBA in stance to brush teeth.) Bathing Location: L Arm, R Arm, L Upper Leg, R Upper Leg, L Lower Leg (including foot), R Lower Leg (including foot), Chest, Abdomen, Buttocks, Perineal Area Shower/Bathe Self (QC): 7 (Pt. declines bathing.) Upper Body Dressing (QC): 4 (SBA to doff/don shirt, and don back brace.) Lower Body Dressing (QC): 7 On/Off Footwear (QC): 3 (SBA to doff slipper socks. Mod assist to don slipper socks. Pt. able to don right sock but unable to don left. Pt. is educated on AE, but she declines this, and states that her son can assist.) Toileting Hygiene (QC): 4 Toilet Transfer (QC): 4 Assessment/Plan Assessment and Plan Assess & Plan/Chief Complaint Assessment: s/p extensive spine surgery per Dr Hunter Subacute DVT/PE dx 06/09 delaying surgery [facility] Osteoporosis GERD Weight loss Continued nausea DM Post op anemia Back pain Fall risk UTI dx 06/23/20 Plan: IRF protocol Pain meds Nausea meds PPI BID Scop patch 06/18/20: Iron infusions Pain control Scop patch Regular diet DC accuchecks 06/19/20: Iron infusion with midline Vit B12 injection Ensure BID Scop patch to continue 06/20/20: Iron infusions via midline Scop patch PT OT 06/21/20: Improve dietary consumption Monitor nausea Midline for iron infusions 06/22/20: Oxycodone 10 mg HS Lortab 2 every 4hours Severe pain and is acute on chronic 06/23/20: Abx for UTI started Pain control 06/24/20: UTI treatment Scop patch 06/25/20: Pain controlled BM regimen Therapy Iron infusions 06/26/20: Pain management Scop patch 06/27/20: Much improved Pain control DC Saturday06/28/20: Improved status Scop patch 06/29/20: Scop patch Nausea will be monitored and PCP will see her in f/u at DC DC Saturday06/30/20: Eliquis at DC tomorrow Scop patch Improved status Updated Dr Hunter (1) S/P spinal surgery (2) Osteoporosis (3) Compression fracture of lumbar vertebra (4) DVT (deep venous thrombosis) (5) Pulmonary embolism (6) Anticoagulant long-term use (7) [place] filter in place (8) Nausea (9) Weight loss (10) GERD (gastroesophageal reflux disease) (11) Diabetes (12) Postoperative anemia (13) Protein-calorie malnutrition, moderate CHARLOTTE CAMARGO DO Jun 30, 2020 05:56
[2020-06-30] MEDS: metFORMIN 500 MG (GLUCOPHAGE) TAB PO SCH (06:40)
[2020-06-30] MEDS: CATHETER FLUSH 10 ML SYR IV SCH ×3 (06:40→22:00)
[2020-06-30] MEDS: DULoxetine 30 MG (CYMBALTA) CAP PO SCH (08:00)
[2020-06-30] MEDS: VITAMIN D3 25 MCG (1,000 UNITS) TABLET PO SCH ×2 (08:00→20:55)
[2020-06-30] MEDS: APIXABAN 2.5 MG (ELIQUIS) TABLET PO SCH ×2 (08:01→20:54)
[2020-06-30] MEDS: NITROFURANTOIN 100 MG (MACROBID) CAPSULE PO SCH ×2 (08:01→20:54)
[2020-06-30] MEDS: PANTOPRAZOLE 40 MG (PROTONIX) TAB PO SCH ×2 (08:01→20:55)
[2020-06-30] MEDS: SENNA W/DOCUSATE (SENOKOT S) TABLET PO SCH ×2 (08:01→20:57)
[2020-06-30] MEDS: GABAPENTIN 100 MG (NEURONTIN) CAP PO SCH ×3 (08:01→20:55)
[2020-06-30] MEDS: DOCUSATE SODIUM 100 MG (COLACE) CAP PO SCH ×2 (08:01→20:55)
[2020-06-30] MEDS: CALCIUM CARB + VIT D 600 MG (CALCARB + D) TAB PO SCH ×2 (08:01→17:33)
[2020-06-30] MEDS: DICLOFENAC 1% GEL 100 GM (VOLTAREN) TUBE TOP SCH ×4 (08:01→20:58)
[2020-06-30] MEDS: polyethylene glycoL POWDER 17 GM (MIRALAX) PACK PO SCH ×2 (08:02→20:57)
--- NOTE | 2020-06-30 09:24 | Physical Therapy Daily Note ---
PT Daily Note-Current Subjective Patient in recliner pre tx, agrees to PT, has no pain at rest. Will be co- treating with OT due to poor patient mobility, strength, endurance, to work on higher level balance activity, coordinate UE and LE during activity, safety and reduce risk of falls. Appearance Patient in recliner post tx, will continue with OT for bathing and ADL's Mental Status Patient Orientation: Normal For Age back brace Transfers SCALE: Activities may be completed with or without assistive devices. 6-Krzzoyqxsx-ybpesqt completes the activity by him/herself with no assistance from a helper. 5-Set-up or Clean-up Assistance-helper sets up or cleans up; patient completes activity. [place] assists only prior to or following the activity. 4-Supervision or Touching Assistance-helper provides verbal cues and/or touching/steadying and/or contact guard assistance as patient completes activity. Assistance may be provided throughout the activity or intermittently. 3-Partial/Moderate Assistance-helper does LESS THAN HALF the effort. [place] lifts, holds or supports trunk or limbs, but provides less than half the effort. 2-Substantial/Maximal Assistance-helper does MORE THAN HALF the effort. [place] lifts or holds trunk or limbs and provides more than half the effort. 2-Ewjxwfisx-jqvyqe does ALL the effort. Patient does none of the effort to complete the activity. Or, the assistance of 2 or more helpers is required for the patient to complete the activity. If activity was not attempted, code reason: 7-Patient Refused. 9-Not Applicable-not attempted and the patient did not perform the activity before the current illness, exacerbation or injury. 10-Not Attempted due to Environmental Limitations-(lack of equipment, weather restraints, etc.). 88-Not Attempted due to Medical Conditions or Safety Concerns. Roll Left & Right (QC): 6 Sit to Lying (QC): 6 Lying to Sitting/Side of Bed(Q: 6 Sit to Stand (QC): 6 Chair/Sbu-jz-Vehbf Xfer(QC): 5 Toilet Transfer (QC): 5 Car Transfer (QC): 5 Weight Bearing Full Weight Bearing Full Weight Bearing Gait Training Distance: 300'x2 Walk 10 feet (QC): 4 Walk 50 ft with 2 Turns(QC): 4 Walk 150 ft (QC): 4 Walking 10ft/uneven surface-QC: 4 Gait Persons Needed: 1 Gait Assistive Device: FWW Patient has slow ambulation, has weakness in her left hip and has a trendelenburg gait, has occasional unsteadiness with gait due to her weakness in her left hip, with fatigue her right leg had difficulty advancing during stepping. Wheelchair Training Does the Pt Use a Wheelchair?: No Stair Training Stair Training: Handrails/: 2 handrails #of Steps: 12 1 Step (curb) (QC): 4 4 Steps (QC): 4 12 Steps (QC): 4 Stairs: Pattern: Step to CGA, cues for step placement Balance Picking up an Object (QC): 88 Exercises Patient performed LE strengthening exercises while also performing UE strengthening exercises, worked on coordination and endurance. Patient also performed standing activities to work on endurance and strength, reaching for cones, throwing back back and forth, kicking ball (with left leg only due to left hip weakness). Treatments PT worked on bed mobility and transfers, ambulation, stairs, LE strengthening and endurance training, OT worked on UE strengthening and endurance, UE positioning and safety during activity. Assessment Current Status: Fair Progress Patient is not independent with ambulation due to her left hip weakness, she could potentially have a fall due to her hip instability. Her hip weakness and instability is probably a long standing issue, has been present at least since her evaluation. She has not had a tiki LOB with this therapist but the potential is there. Patient lives with her son who should be able to assist with with mobility so this may be less of an issue. Patient needs to use a rolling walker at all times when up and needs to take extra precautions when ambulating and should only ambulate short distances at this time. Continued physical therapy could help strengthen her hip and decrease her risk of falls. PT Short Term Goals Short Term Goals Time Frame: Jun 24, 2020 Roll Left & Right: 6 Sit to lyin Lying to sitting on side of be: 4 Sit to stand: 5 Chair/aed-qg-ljell transfer: 5 Walk 10 feet: 5 Walk 50 feet with two turns: 5 Walk 150 feet: 5 PT Group Home Goals Group Home Goals PT [place] Goals Time Frame: Jul 08, 2020 Roll Left & Right (QC): 6 Sit to Lying (QC): 6 Lying-Sitting on Side/Bed(QC): 6 Sit to Stand (QC): 6 Chair/Mwe-vg-Neqwp Xfer(QC): 6 Toilet Transfer (QC): 6 Car Transfer (QC): 6 Does the Patient Walk: Yes Walk 10 feet (QC): 6 Walk 50ft with 2 Turns (QC): 6 Walk 150 ft (QC): 6 Walking 10ft on Uneven Surface: 6 1 Step (curb) (QC): 4 4 Steps (QC): 4 12 Steps (QC): 88 Picking up an Object (QC): 88 Wheel 50 feet with 2 turns (QC: 9 Wheel 150 feet: 9 PT Plan Problem List Problem List: Activity Tolerance, Functional Strength, Safety, Balance, Gait, Transfer, Bed Mobility, ROM Treatment/Plan Treatment Plan: Continue Plan of Care Treatment Plan: Bed Mobility, Education, Functional Activity [place], Functional Strength, Group Therapy, Gait, Safety, Therapeutic Exercise, Transfers Treatment Duration: Jul 08, 2020 Frequency: At least 5 of 7 days/Wk (IRF) Estimated Hrs Per Day: 1.5 hours per day Patient and/or Family Agrees t: Yes Safety Risks/Education Patient Education: Gait Training, Transfer Techniques, Steps, Correct Positioning, Safety Issues Teaching Recipient: Patient Teaching Methods: Demonstration, Discussion Response to Teaching: Reinforcement Needed Time/GCodes Time In: 0800 Time Out: 929 Total Billed Treatment Time: 90 Total Billed Treatment 1 visit GT 30' EX 30' FA 30' co-treat with OT from 9790-0584 70' STEVIE ESCOBAR PT Jun 30, 2020 09:24
--- NOTE | 2020-06-30 11:12 | Occupational Ther Daily Note ---
OT Current Status-Daily Note Subjective No pain reported. Appearance Pt. up in chair with PT. Agrees to work with OT as well. Mental Status/Objective Patient Orientation: Person, Place, Time, Situation ADL-Treatment Therapy Code Descriptions/Definitions Functional [place] Measure: 0=Not Assessed/NA 4=Minimal Assistance 1=Total Assistance 5=Supervision or Setup 2=Maximal Assistance 6=Modified [place] 3=Moderate Assistance 7=Complete IndependenceSCALE: Activities may be completed with or without assistive devices. 0-Rojujdodju-jfzameh completes the activity by him/herself with no assistance from a helper. 5-Set-up or Clean-up Assistance-helper sets up or cleans up; patient completes activity. [place] assists only prior to or following the activity. 4-Supervision or Touching Assistance-helper provides verbal cues and/or touching/steadying and/or contact guard assistance as patient completes activity. Assistance may be provided throughout the activity or intermittently. 3-Partial/Moderate Assistance-helper does LESS THAN HALF the effort. [place] lifts, holds or supports trunk or limbs, but provides less than half the effort. 2-Substantial/Maximal Assistance-helper does MORE THAN HALF the effort. [place] lifts or holds trunk or limbs and provides more than half the effort. 5-Nlctoyomd-uxngex does ALL the effort. Patient does none of the effort to complete the activity. Or, the assistance of 2 or more helpers is required for the patient to complete the activity. If activity was not attempted, code reason: 7-Patient Refused. 9-Not Applicable-not attempted and the patient did not perform the activity before the current illness, exacerbation or injury. 10-Not Attempted due to Environmental Limitations-(lack of equipment, weather restraints, etc.). 88-Not Attempted due to Medical Conditions or Safety Concerns. Eating (QC): 6 Oral Hygiene (QC): 4 (SBA standing at sink.) Shower/Bathe Self (QC): 4 (SBA to shower.) Upper Body Dressing (QC): 5 Lower Body Dressing (QC): 4 On/Off Footwear: 3 (Pt unable to bring one foot up to her. States that she will wear slip on shoes at home.) Toileting Hygiene (QC): 4 Toilet Transfer (QC): 6 Other Treatment Pt. participates in partial co-treatment with PT/OT due to skilled need of assistance x 2 for low endurance and strength. PT focused on balance and mobility while OT addressed ADL skills and UE strength. Both PT/OT addressed dynamic standing balance. Pt. completed series of UE ROM activities to participate in endurance overall, while alternating with LE exercises as well. Pt. completed shower and dressing task, with SBA for standing activities. Practiced balancing without holding onto walker, and completing ball toss back and forth. Required CGA for weight shifts/min assist at times. Simulated shifting hands on walker one at a time to reach to her side, as though she was pulling up her pants, as she would during toileting task. Pt. did well with this. Pt. does require cues at times to complete full donning of her back brace. She is able to put it on, and fasten in the front, but often forgets to pull the side straps to fasten it efficiently. Pt. up in chair, with all needs met when therapy session over. Education OT Patient Education: Correct positioning, Exercise program, Modified ADL techniques, Progress toward Goal/Update tx plan, Purpose of tx/functional activities, Reviewed precautions, Rehab process, Transfer techniques Teaching Recipient: Patient Teaching Methods: Demonstration, Discussion Response to Teaching: Verbalize Understanding, Return Demonstration OT Penitentiary Goals Penitentiary Goals Time Frame: Jul 01, 2020 Eating (QC): 6 Oral Hygiene (QC): 6 Toileting Hygiene (QC): 6 Shower/Bathe Self (QC): 6 Upper Body Dressing (QC): 6 Lower Body Dressing (QC): 6 On/Off Footwear (QC): 6 Additional Goals: 1-Demonstrate ADL Tasks, 2-Verbalize Understanding, 3- ImproveStrength/[place] 1=Demonstrate adherence to instructed precautions during ADL tasks. 2=Patient will verbalize/demonstrate understanding of assistive devices/modifications for ADL. 3=Patient will improve strength/tolerance for activity to enable patient to perform ADL's. OT Education/Plan Problem List/Assessment Assessment: Decreased Activ Tolerance, Impaired I ADL's, Impaired Self-Care Skills Discharge Recommendations Plan/Recommendations: Continue POC Equpiment Recommendations-D/C: Walker Bag or Basket Treatment Plan/Plan of Care Treatment,Training & Education: Yes Patient would benefit from OT for education, treatment and training to promote independence in ADL's, mobility, safety and/or upper extremity function for ADL's. Plan of Care: ADL Retraining, Caregiver Training, Concurrent Therapy, Functional Mobility, Group Exercise/Act as Ind, Orthotic Fitting/Training, UE Funct Exercise/Act Treatment Duration: Jul 01, 2020 Frequency: At least 5 of 7 days/Wk (IRF) Estimated Hrs Per Day: 1.5 hours per day Agreement: Yes Rehab Potential: Good Time/GCodes Start Time: 08:20 Stop Time: 09:50 Total Time Billed (hr/min): 90 Billed Treatment Time 2586-4446 1, FA x 55minutes, ADL x 20sawhjfc-cd-gijelaslr with PT. Please see above note for designated roles. [id number] ADL x 20 minutes. OT only. LIU OKEEFE OT Jun 30, 2020 11:12
[2020-06-30 16:00] VITALS: BP 128/60
[2020-06-30] MEDS: SIMvastatin 10 MG (ZOCOR) TAB PO SCH (20:54)
[2020-06-30] MEDS ORDERED: OXC5T PO (20:55)
[2020-06-30] MEDS ORDERED: PANT40TA52 PO (20:55)
[2020-06-30] MEDS ORDERED: ONDA4TAB11 PO (20:55)
[2020-06-30] MEDS ORDERED: SENN1TAB76 PO (20:55)
[2020-06-30] MEDS ORDERED: APIX2.5T PO (20:55)
[2020-06-30] MEDS ORDERED: ACHD5005 PO (20:55)
--- NOTE | 2020-06-30 20:57 | D/C HH Face to Face Order ---
D/C Face to Face Orders Reconcile Patient Problems Problems Reviewed?: Yes Instructions for Patient Integrity Home Health Patient Instructions/FollowUp: Dr Packer [address] Hunter as scheduled Physician to follow Patient: Birdie Discharge Diet for Home: No Restrictions Patient Problems: spine surgery Patient Data-Allergies,Ht & Wt Patient Allergies: Coded Allergies: No Known Drug Allergies (Unverified , 05/16/20) Home Health Need/Face to Face Date of Face to Face: Jun 30, 2020 Clinical Findings: Generalized weakness and fatigue, Instability, Muscle weakness, Pain with ambulation, Unsteady gait I have seen Pt ljtr-eh-gbnj: Yes Discharged To: Home Diagnosis/Conditions: s/p spine surgery Patient is Homebound due to: Stefanie fall risk due to instabilty, Pain w/ambulation Homebound Status Due to the above stated illness, injury or surgical procedure (medical condition or diagnosis) and associated clinical findings, the patient is homebound because of his/her inability to leave home except with aid of a supportive device and/or person AND leaving the home requires a considerable and taxing effort or is medically contraindicated. Pt req the following assistanc: Walker Home Health Nursing Orders Home Health Services Order: Nursing Services, Spanish Interpreter/Translator-Evaluate & Treat, Physical Therapy-Evaluate & Treat Home Health Infusion Therapy Line Start Date: Jun 20, 2020 Certify Stmt I certify that this patient is under my care and that I, a nurse practitioner or a physician; a retail assistant working with me, had a face to face encounter that - meets the physician face to face encounter requirements with this patient as dated. CHARLOTTE CAMARGO DO Jun 30, 2020 20:57
[2020-07-01] MEDS: HYDROcodone/APAP 5 MG/325 MG (LORTAB) TAB PO PRN (03:59)
[2020-07-01] MEDS: CATHETER FLUSH 10 ML SYR IV SCH (05:38)
[2020-07-01 06:01] VITALS: BP 156/74
[2020-07-01] MEDS: metFORMIN 500 MG (GLUCOPHAGE) TAB PO SCH (06:04)
--- NOTE | 2020-07-01 06:15 | Discharge Summary ---
Diagnosis/Chief Complaint Date of Admission Jun 17, 2020 at 14:40 Date of Discharge Discharge Date: Jul 01, 2020 Discharge Diagnosis Assessment: s/p extensive spine surgery per Dr Hunter Subacute DVT/PE dx 06/09 delaying surgery [facility] Osteoporosis GERD Weight loss Continued nausea DM Post op anemia Back pain Fall risk UTI dx 06/23/20 Plan: IRF protocol Pain meds Nausea meds PPI BID Scop patch 06/18/20: Iron infusions Pain control Scop patch Regular diet DC accuchecks 06/19/20: Iron infusion with midline Vit B12 injection Ensure BID Scop patch to continue 06/20/20: Iron infusions via midline Scop patch PT OT 06/21/20: Improve dietary consumption Monitor nausea Midline for iron infusions 06/22/20: Oxycodone 10 mg HS Lortab 2 every 4hours Severe pain and is acute on chronic 06/23/20: Abx for UTI started Pain control 06/24/20: UTI treatment Scop patch 06/25/20: Pain controlled BM regimen Therapy Iron infusions 06/26/20: Pain management Scop patch 06/27/20: Much improved Pain control DC Saturday06/28/20: Improved status Scop patch 06/29/20: Scop patch Nausea will be monitored and PCP will see her in f/u at DC DC Saturday06/30/20: Eliquis at DC tomorrow Scop patch Improved status Updated Dr Hunter (1) S/P spinal surgery (2) Osteoporosis (3) Compression fracture of lumbar vertebra (4) DVT (deep venous thrombosis) (5) Pulmonary embolism (6) Anticoagulant long-term use (7) [place] filter in place (8) Nausea (9) Weight loss (10) GERD (gastroesophageal reflux disease) (11) Diabetes (12) Postoperative anemia (13) Protein-calorie malnutrition, moderate Discharge Summary Discharge Physical Examination Allergies: Coded Allergies: No Known Drug Allergies (Unverified , 05/16/20) Vitals & I&Os Vital Signs Date Time Temp Pulse Resp B/P (MAP) Pulse Ox O2 Delivery O2 Flow Rate FiO2 07/01/20 12:17 35.4 98 18 156/74 95 Room Air General Appearance: Alert, Oriented X3, Cooperative Respiratory: Clear to Auscultation Psych/Mental Status: Mental Status NL Hospital Course Was the Problem List Reviewed?: Yes Patient had a lengthy 14 days course in IRF after transferred from [facility] after extensive spine surgery following filter placement due to acute DVT left leg. Patient had no issues during stay and improved immensely with PT OT and received iron infusions and scop patch to control the nausea from the pain meds. Bowel function returned to normal. UTI dx and treated. Overall she made a dramatic recovery and returned home. Labs (last 24 hrs) Laboratory Tests 06/17/20 14:40: Lab Scanned Report Referred Lab Report 06/17/20 16:20: Glucometer 121H 06/17/20 20:08: Glucometer 109 06/18/20 05:23: White Blood Count 7.2, Red Blood Count 2.95L, Hemoglobin 8.5L, Hematocrit 27L, Mean Corpuscular Volume 91, Mean Corpuscular Hemoglobin 29, Mean Corpuscular Hemoglobin Concent 32, Red Cell Distribution Width 14.3, Platelet Count 280, Mean Platelet Volume 9.3, Immature Granulocyte % (Auto) 1, Neutrophils (%) (Auto) 62, Lymphocytes (%) (Auto) 24, Monocytes (%) (Auto) 12, Eosinophils (%) (Auto) 1, Basophils (%) (Auto) 0, Neutrophils # (Auto) 4.4, Lymphocytes # (Auto) 1.7, Monocytes # (Auto) 0.9, Eosinophils # (Auto) 0.1, Basophils # (Auto) 0.0, Immature Granulocyte # (Auto) 0.1, Sodium Level 138, Potassium Level 4.1, Chloride Level 106, Carbon Dioxide Level 23, Anion Gap 9, Blood Urea Nitrogen 12, Creatinine 0.66, Estimat Glomerular Filtration Rate > 60, BUN/Creatinine Ratio 18, Glucose Level 133H, Calcium Level 8.3L, Corrected Calcium 9.2, Iron Level 28L, Total Iron Binding Capacity 195L, Unsaturated Iron Binding Capacity 167, Transferrin % Saturation 14L, Ferritin 576.8H, Total Bilirubin 0.5, Aspartate Amino Transf (AST/SGOT) 15, Alanine Aminotransferase (ALT/SGPT) 10, Alkaline Phosphatase 50, Total Protein 5.5L, Albumin 2.9L, Prealbumin 11.8L, Thyroid Stimulating Hormone (TSH) 1.49 06/18/20 05:25: Glucometer 134H 06/18/20 10:32: Glucometer 116H 3/1/21 05:05: White Blood Count 6.6, Red Blood Count 2.96L, Hemoglobin 8.5L, Hematocrit 27L, Mean Corpuscular Volume 92, Mean Corpuscular Hemoglobin 29, Mean Corpuscular Hemoglobin Concent 31L, Red Cell Distribution Width 14.3, Platelet Count 313, Mean Platelet Volume 9.2, Immature Granulocyte % (Auto) 2, Neutrophils (%) (Auto) 60, Lymphocytes (%) (Auto) 24, Monocytes (%) (Auto) 12, Eosinophils (%) (Auto) 1, Basophils (%) (Auto) 0, Neutrophils # (Auto) 4.0, Lymphocytes # (Auto) 1.6, Monocytes # (Auto) 0.8, Eosinophils # (Auto) 0.1, Basophils # (Auto) 0.0, Immature Granulocyte # (Auto) 0.2H, Sodium Level 139, Potassium Level 4.3, Chloride Level 104, Carbon Dioxide Level 28, Anion Gap 7, Blood Urea Nitrogen 15, Creatinine 0.67, Estimat Glomerular Filtration Rate > 60, BUN/Creatinine Ratio 22, Glucose Level 123H, Calcium Level 8.6, Corrected Calcium 9.4, Total Bilirubin 0.4, Aspartate Amino Transf (AST/SGOT) 15, Alanine Aminotransferase ( ALT/SGPT) 11, Alkaline Phosphatase 52, Total Protein 5.5L, Albumin 3.0L 06/23/20 14:00: Urine Color AMBERH, Urine Clarity CLOUDY, Urine pH 6.0, Urine Specific Zeph[place] 1.020, Urine Protein TRACEH, Urine Glucose (UA) NEGATIVE, Urine Ketones TRACEH, Urine Nitrite NEGATIVE, Urine Bilirubin NEGATIVE, Urine Urobilinogen 1.0, Urine Leukocyte Esterase 2+H, Urine RBC (Auto) 2+H, Urine RBC 0-2, Urine WBC TNTCH, Urine Squamous Epithelial Cells 0-2, Urine Crystals NONE, Urine Bacteria LARGEH, Urine Casts NONE, Urine Mucus NEGATIVE, Urine Culture Indicated YES 06/27/20 05:09: White Blood Count 8.3, Red Blood Count 3.32L, Hemoglobin 9.6L, Hematocrit 31L, Mean Corpuscular Volume 92, Mean Corpuscular Hemoglobin 29, Mean Corpuscular Hemoglobin Concent 32, Red Cell Distribution Width 15.0H, Platelet Count 417H, Mean Platelet Volume 9.2, Immature Granulocyte % (Auto) 2, Neutrophils (%) (Auto) 55, Lymphocytes (%) (Auto) 31, Monocytes (%) (Auto) 10, Eosinophils (%) (Auto) 1, Basophils (%) (Auto) 0, Neutrophils # (Auto) 4.6, Lymphocytes # (Auto) 2.6, Monocytes # (Auto) 0.9, Eosinophils # (Auto) 0.1, Basophils # (Auto) 0.0, Immature Granulocyte # (Auto) 0.2H, Sodium Level 139, Potassium Level 4.1, Chloride Level 106, Carbon Dioxide Level 25, Anion Gap 8, Blood Urea Nitrogen 9, Creatinine 0.67, Estimat Glomerular Filtration Rate > 60, BUN/Creatinine Ratio 13, Glucose Level 123H, Calcium Level 9.2, Corrected Calcium 9.8, Total Bilirubin 0.3, Aspartate Amino Transf (AST/SGOT) 17, Alanine Aminotransferase (ALT/SGPT) 12, Alkaline Phosphatase 88, Total Protein 6.1L, Albumin 3.3 Microbiology 06/23/20 Urine Culture - Final, Complete Escherichia coli Enterobacter cloacae complex Pending Labs Microbiology Date/Time Source Procedure Growth Status 06/23/20 14:00 Urine Straight Cath, In/Out Urine Culture - Final Escherichia coli Enterobacter cloacae complex Complete Laboratory Tests 06/17/20 14:40: Lab Scanned Report Referred Lab Report 06/17/20 16:20: Glucometer 121 06/17/20 20:08: Glucometer 109 06/18/20 05:23: White Blood Count 7.2, Red Blood Count 2.95, Hemoglobin 8.5, Hematocrit 27, Mean Corpuscular Volume 91, Mean Corpuscular Hemoglobin 29, Mean Corpuscular Hemoglobin Concent 32, Red Cell Distribution Width 14.3, Platelet Count 280, Mean Platelet Volume 9.3, Immature Granulocyte % (Auto) 1, Neutrophils (%) (Auto) 62, Lymphocytes (%) (Auto) 24, Monocytes (%) (Auto) 12, Eosinophils (%) (Auto) 1, Basophils (%) (Auto) 0, Neutrophils # (Auto) 4.4, Lymphocytes # (Auto) 1.7, Monocytes # (Auto) 0.9, Eosinophils # (Auto) 0.1, Basophils # (Auto) 0.0, Immature Granulocyte # (Auto) 0.1, Sodium Level 138, Potassium Level 4.1, Chloride Level 106, Carbon Dioxide Level 23, Anion Gap 9, Blood Urea Nitrogen 12, Creatinine 0.66, Estimat Glomerular Filtration Rate > 60, BUN/Creatinine Ratio 18, Glucose Level 133, Calcium Level 8.3, Corrected Calcium 9.2, Iron Level 28, Total Iron Binding Capacity 195, Unsaturated Iron Binding Capacity 167, Transferrin % Saturation 14, Ferritin 576.8, Total Bilirubin 0.5, Aspartate Amino Transf (AST/SGOT) 15, Alanine Aminotransferase (ALT/SGPT) 10, Alkaline Phosphatase 50, Total Protein 5.5, Albumin 2.9, Prealbumin 11.8, Thyroid Stimulating Hormone (TSH) 1.49 06/18/20 05:25: Glucometer 134 06/18/20 10:32: Glucometer 116 06/20/20 05:05: White Blood Count 6.6, Red Blood Count 2.96, Hemoglobin 8.5, Hematocrit 27, Mean Corpuscular Volume 92, Mean Corpuscular Hemoglobin 29, Mean Corpuscular Hemoglobin Concent 31, Red Cell Distribution Width 14.3, Platelet Count 313, Muriel n Platelet Volume 9.2, Immature Granulocyte % (Auto) 2, Neutrophils (%) (Auto) 60, Lymphocytes (%) (Auto) 24, Monocytes (%) (Auto) 12, Eosinophils (%) (Auto) 1, Basophils (%) (Auto) 0, Neutrophils # (Auto) 4.0, Lymphocytes # (Auto) 1.6, Monocytes # (Auto) 0.8, Eosinophils # (Auto) 0.1, Basophils # (Auto) 0.0, Immature Granulocyte # (Auto) 0.2, Sodium Level 139, Potassium Level 4.3, Chloride Level 104, Carbon Dioxide Level 28, Anion Gap 7, Blood Urea Nitrogen 15, Creatinine 0.67, Estimat Glomerular Filtration Rate > 60, BUN/Creatinine Ratio 22, Glucose Level 123, Calcium Level 8.6, Corrected Calcium 9.4, Total Bilirubin 0.4, Aspartate Amino Transf (AST/SGOT) 15, Alanine Aminotransferase (ALT/SGPT) 11, Alkaline Phosphatase 52, Total Protein 5.5, Albumin 3.0 06/23/20 14:00: Urine Color TAWNYA, Urine Clarity CLOUDY, Urine pH 6.0, Urine Specific Zephyr 1.020, Urine Protein TRACE, Urine Glucose (UA) NEGATIVE, Urine Ketones TRACE, Urine Nitrite NEGATIVE, Urine Bilirubin NEGATIVE, Urine Urobilinogen 1.0, Urine Leukocyte Esterase 2+, Urine RBC (Auto) 2+, Urine RBC 0-2, Urine WBC TNTC, Urine Squamous Epithelial Cells 0-2, Urine Crystals NONE, Urine Bacteria LARGE, Urine Casts NONE, Urine Mucus NEGATIVE, Urine Culture Indicated YES 06/27/20 05:09: White Blood Count 8.3, Red Blood Count 3.32, Hemoglobin 9.6, Hematocrit 31, Mean Corpuscular Volume 92, Mean Corpuscular Hemoglobin 29, Mean Corpuscular Hemoglobin Concent 32, Red Cell Distribution Width 15.0, Platelet Count 417, Mean Platelet Volume 9.2, Immature Granulocyte % (Auto) 2, Neutrophils (%) (Auto) 55, Lymphocytes (%) (Auto) 31, Monocytes (%) (Auto) 10, Eosinophils (%) (Auto) 1, Basophils (%) (Auto) 0, Neutrophils # (Auto) 4.6, Lymphocytes # (Auto) 2.6, Monocytes # (Auto) 0.9, Eosinophils # (Auto) 0.1, Basophils # (Auto) 0.0, Immature Granulocyte # (Auto) 0.2, Sodium Level 139, Potassium Level 4.1, Chlor camilo Level 106, Carbon Dioxide Level 25, Anion Gap 8, Blood Urea Nitrogen 9, Creatinine 0.67, Estimat Glomerular Filtration Rate > 60, BUN/Creatinine Ratio 13, Glucose Level 123, Calcium Level 9.2, Corrected Calcium 9.8, Total Bilirubin 0.3, Aspartate Amino Transf (AST/SGOT) 17, Alanine Aminotransferase (ALT/SGPT) 12, Alkaline Phosphatase 88, Total Protein 6.1, Albumin 3.3 Discharge Home Medications: Active Scripts Active Pantoprazole Sodium 40 Mg Tablet.dr 40 Mg PO BID Ondansetron Odt (Ondansetron) 4 Mg Tab.rapdis 4 Mg PO Q6H PRN Stool Softener-Laxative Tablet (Sennosides/Docusate Sodium) 1 Each Tablet 1 Ea PO BID Oxyir Tablet (Oxycodone HCl) 5 Mg Tab 10 Mg PO HS HYDROcodone/APAP 5 MG/325 MG TAB (Acetaminophen/Hydrocodone Bitart) 1 Tab Tab 2 Ea PO Q4H PRN Eliquis (Apixaban) 2.5 Mg Tablet 2.5 Mg PO BID Transderm-Scop (Scopolamine) 1 Each Patch.td72 1 Each TD Q72H Reported Simvastatin 10 Mg Tablet 10 Mg PO HS Metformin HCl 500 Mg Tablet 500 Mg PO DAILY W/ BREAKFAST Gabapentin 100 Mg Capsule 100 Mg PO TID Duloxetine HCl 30 Mg Capsule.dr 30 Mg PO DAILY Vitamin D3 (Cholecalciferol (Vitamin D3)) 50 Mcg Capsule 50 Mcg PO BID Calcium 600 + Vit D Softgel (Calcium Carbonate/Vitamin D3) 1 Each Capsule 1 Each PO BID Ibandronate Sodium 150 Mg Tablet 150 Mg PO MONTHLY Instructions to patient/family Please see electronic discharge instructions given to patient. Diagnosis/Problems Diagnosis/Problems (1) S/P spinal surgery (2) Osteoporosis (3) Compression fracture of lumbar vertebra (4) DVT (deep venous thrombosis) (5) Pulmonary embolism (6) Anticoagulant long-term use (7) [place] filter in place (8) Nausea (9) Weight loss (10) GERD (gastroesophageal reflux disease) (11) Diabetes (12) Postoperative anemia (13) Protein-calorie malnutrition, moderate Clinical Quality Measures DVT/VTE Risk/Contraindication: Contraindications-Pharm: Other *list below* Other: spine surgery CHARLOTTE CAMARGO DO Jul 01, 2020 06:15
[2020-07-01] MEDS: NITROFURANTOIN 100 MG (MACROBID) CAPSULE PO SCH (08:35)
[2020-07-01] MEDS: DOCUSATE SODIUM 100 MG (COLACE) CAP PO SCH (08:36)
[2020-07-01] MEDS: GABAPENTIN 100 MG (NEURONTIN) CAP PO SCH (08:36)
[2020-07-01] MEDS: DULoxetine 30 MG (CYMBALTA) CAP PO SCH (08:36)
[2020-07-01] MEDS: VITAMIN D3 25 MCG (1,000 UNITS) TABLET PO SCH (08:39)
[2020-07-01] MEDS: CALCIUM CARB + VIT D 600 MG (CALCARB + D) TAB PO SCH (08:40)
[2020-07-01] MEDS: PANTOPRAZOLE 40 MG (PROTONIX) TAB PO SCH (08:45)
[2020-07-01] MEDS: APIXABAN 2.5 MG (ELIQUIS) TABLET PO SCH (08:45)
[2020-07-01] MEDS: DICLOFENAC 1% GEL 100 GM (VOLTAREN) TUBE TOP SCH (08:49)
[2020-07-01] MEDS: SCOPOLAMINE PATCH REMOVAL TP SCH (08:51)
[2020-07-01] MEDS: SCOPOLAMINE 1.5 MG (TRANSDERM-SCOP) PATCH TD SCH (08:51)
[2020-07-01] MEDS: SENNA W/DOCUSATE (SENOKOT S) TABLET PO SCH (08:55)
[2020-07-01] MEDS: polyethylene glycoL POWDER 17 GM (MIRALAX) PACK PO SCH (08:55)
[2020-07-01 12:17] VITALS: BP 156/74
--- NOTE | 2020-07-01 12:57 | Therapy Team Discharge Summary ---
Therapy Discharge Summary Discharge Recommendations Date of Discharge Jul 01, 2020 at 10:45 Physical Therapy Patient came to rehab with L5-S1 TLIF. Upon evaluation patient performed bed mobility with SBA, supine <-> sit min assist, sit <-> stand and transfers with CGA, car transfer CGA, ambulated 150' with a rolling walker with CGA (including 50' with at least 2 turns of 90 degrees and 10' over an uneven surface), and went up and down 1 step using a rolling walker with CGA. Patient has been performing bed mobility and transfer training, balance and endurance training, functional strengthening, stair training, gait training, and education. Patient has made fair progress but has not met her nursing home goals for transfers and ambulation. Now, patient performs bed mobility and supine <-> sit and sit <-> stand with independence, transfers and car transfer with setup, ambulates 300' with a rolling walker with SBA (including 50' with at least 2 turns of 90 degrees and 10' over an uneven surface), and can go up and down 12 steps using 2 handrails with CGA. Patient is being discharged from this facility today and will be discharged from PT at this time. Occupational Therapy Decreased Activ Tolerance, Impaired I ADL's, Impaired Self-Care Skills PT Half-Way Goals Half-Way Goals PT Director Of Pediatric Rehabilitation Goals Time Frame: Jul 08, 2020 Roll Left to Right (QC): 6 Sit to Lying (QC): 6 Lying-Sitting on Side/Bed(QC): 6 Sit to Stand (QC): 6 Chair/Aec-wk-Ljhzv Xfer(QC): 6 Car Transfer (QC): 6 Does the Patient Walk: Yes Walk 10 feet (QC): 6 Walk 10ft-Uneven Surface(QC): 6 Walk 50ft with 2 Turns (QC): 6 Walk 150 ft (QC): 6 Wheel 50 feet with 2 turns (QC: 9 1 Step (curb) (QC): 4 4 Steps (QC): 4 12 Steps (QC): 88 Picking up an Object (QC): 88 OT Director Of Pediatric Rehabilitation Goals Half-Way Goals Time Frame: Jul 01, 2020 Eating (QC): 6 Oral Hygiene (QC): 6 Shower/Bathe Self (QC): 6 Upper Body Dressing (QC): 6 Lower Body Dressing (QC): 6 On/Off Footwear (QC): 6 Toileting Hygiene (QC): 6 Toilet/Commode Transfer (QC): 6 Additional Goals: 1-Demonstrate ADL Tasks, 2-Verbalize Understanding, 3-ImproveStrength/Libby 1=Demonstrate adherence to instructed precautions during ADL tasks. 2=Patient will verbalize/demonstrate understanding of assistive devices/modifications for ADL. 3=Patient will improve strength/tolerance for activity to enable patient to perform ADL's. STEVIE ESCOBAR PT Jul 01, 2020 12:57
--- NOTE | 2020-07-04 10:41 | Therapy Team Discharge Summary ---
Therapy Discharge Summary Discharge Recommendations Date of Discharge Jul 01, 2020 at 10:45 Therapy D/C Recommendations: Home w/ Family Support, Occupational Therapy Home Care Occupational Therapy Pt. has been seen by Occupational therapy to increase overall strength and independence with daily tasks. Pt. was able to achieve SBA with most ADLs, with exception of donning slipper socks. Pt. will wear slip on shoes at home. She is able to eat independently, and ambulates with a walker. Pt. will discharge home with son, and would benefit from home health OT. Pt. has all needed equipment. Decreased Activ Tolerance, Impaired I ADL's, Impaired Self-Care Skills PT Substation Superintendent Goals Substation Superintendent Goals PT Assisted Goals Time Frame: Jul 08, 2020 Roll Left to Right (QC): 6 Sit to Lying (QC): 6 Lying-Sitting on Side/Bed(QC): 6 Sit to Stand (QC): 6 Chair/Vxe-pg-Aucoc Xfer(QC): 6 Car Transfer (QC): 6 Does the Patient Walk: Yes Walk 10 feet (QC): 6 Walk 10ft-Uneven Surface(QC): 6 Walk 50ft with 2 Turns (QC): 6 Walk 150 ft (QC): 6 Wheel 50 feet with 2 turns (QC: 9 1 Step (curb) (QC): 4 4 Steps (QC): 4 12 Steps (QC): 88 Picking up an Object (QC): 88 OT Substation Superintendent Goals Assisted Goals Time Frame: Jul 01, 2020 Eating (QC): 6 (met) Oral Hygiene (QC): 6 (not met) Shower/Bathe Self (QC): 6 (not met) Upper Body Dressing (QC): 6 (not met) Lower Body Dressing (QC): 6 (not met) On/Off Footwear (QC): 6 (not met) Toileting Hygiene (QC): 6 (not met) Toilet/Commode Transfer (QC): 6 (not met) Additional Goals: 1-Demonstrate ADL Tasks, 2-Verbalize Understanding, 3-ImproveStrength/Libby 1=Demonstrate adherence to instructed precautions during ADL tasks. 2=Patient will verbalize/demonstrate understanding of assistive devices/modifications for ADL. 3=Patient will improve strength/tolerance for activity to enable patient to perform ADL's. LIU OKEEFE OT Jul 04, 2020 10:40
== END 2020-07-01 10:45 | disposition home health service (06) | DRG 947 ==
PROVIDERS: ADMIT Internal Medicine; ATTEND Internal Medicine
DX: R53.81 Other malaise (principal); I26.99 Other pulmonary embolism without acute cor pulmonale; I82.432 Acute embolism and thrombosis of left popliteal vein; E44.0 Moderate protein-calorie malnutrition; N39.0 Urinary tract infection, site not specified; Z47.89 Encounter for other orthopedic aftercare; Z98.1 Arthrodesis status; Z68.20 Body mass index [BMI] 20.0-20.9, adult; M80.88XD Other osteoporosis with current pathological fracture, vertebra(e), subsequent encounter for fracture with routine healing; E11.9 Type 2 diabetes mellitus without complications; Z79.84 Long term (current) use of oral hypoglycemic drugs; E78.00 Pure hypercholesterolemia, unspecified; K21.9 Gastro-esophageal reflux disease without esophagitis; M19.91 Primary osteoarthritis, unspecified site; Z79.01 Long term (current) use of anticoagulants; F32.9 Major depressive disorder, single episode, unspecified
CPT/HCPCS: 36410; 36415; 76937; 80053; 81000; 82728; 82962; 83540; 84134; 84443; 85025; 87077; 87088; 87186

== ENCOUNTER → 2021-01-02 | Outpatient (CLI) | payer MEDICARE, OTHER ==
[~2021-01-02] MED LIST changes: +APIX2.5T PO; +OXC5T PO; +OXYC1TAB11 PO; +PANT40TA52 PO; +SCOP1PAT11 TD; +SENN1TAB76 PO
--- NOTE | 2021-01-02 15:25 | Diagnostic Imaging Report ---
PROCEDURE: CT lumbar spine without contrast. TECHNIQUE: Multiple contiguous axial images were obtained through the lumbar spine without the use of intravenous contrast. Sagittal and coronal reformations were then performed. Auto Exposure Controls were utilized during the CT exam to meet ALARA standards for radiation dose reduction. INDICATION: Surveillance imaging status post lumbar fusion. COMPARISON: Lumbar spine MRI of 11/03/2019. FINDINGS: Surgical changes from discectomies of L4-L5 and L5-S1 with interbody cage placement. At L4-L5, there appears to be partial interosseous bridging across the bone graft material. At L5-S1, interosseous bridging is not appreciated. Laminectomies of L4 and L5 are present. Instrumented posterior fusion of L4-L5 utilizing transpedicular screws and paired rods. Additionally, there is fixation within the sacrum with 2 fully threaded fixation screws transversing the SI joints and into the bilateral posterior ilei. No lucencies around any of the fixation screws to suggest loosening. No acute osseous fracture within the lumbar spine. By non-myelogram CT, there do not appear to be any sites of high-grade spinal stenosis. Streak artifact associated with the instrumented fusion in the lower lumbar spine does limit assessment of the distal spinal canal. Colonic diverticulosis and right-sided exophytic perirenal cysts are all unchanged in appearance since prior MRI. No features of acute abnormality in the retroperitoneum. IMPRESSION: 1. The L4-L5 discectomy has solid interbody fusion across the bone graft material associated with the cage. 2. Discectomy site of L5-S1 does not have appreciable interbody fusion. 3. No hardware complication associated with the instrumented posterior fusion of L4-S1. Bilateral SI fusion screws also have no features of complication. 4. No appreciable residual high-grade spinal stenosis. Dictated by: Dictated on workstation # [id number]
== END ==
LOC: RAD 11:13
PROVIDERS: ATTEND Physician Assistant
DX: Z09 Encounter for follow-up examination after completed treatment for conditions other than malignant neoplasm (principal); Z98.1 Arthrodesis status
CPT/HCPCS: 72131

== ENCOUNTER 2021-01-29 15:23 | Emergency (ER) | payer MEDICARE, OTHER ==
[~2021-01-29] VITALS: Ht 167 cm; Wt 65.0 kg
[~2021-01-29 15:23] MED LIST changes: +SCOP1PAT10 TD; -SCOP1PAT11 TD
--- NOTE | 2021-01-29 15:29 | ED Lower Extremity ---
General Stated Complaint: LT FOOT INJ History of Present Illness Date Seen by Provider: Jan 29, 2021 Time Seen by Provider: 15:24 Initial Comments 85-year-old female presents with left-sided heel pain and low bottom of her foot pain. Patient reports she was walking to latter-day when it happened. Patient denies any injury. The pain gets worse if you press on her heel. Pain does not radiate, there is no ankle or calf pain Allergies and Home Medications Allergies Coded Allergies: No Known Drug Allergies (Unverified , 05/16/20) Patient Home Medication List Home Medication List Reviewed: Yes Apixaban (Eliquis) 2.5 Mg Tablet, 2.5 MG PO BID Prescribed by: CHARLOTTE CAMARGO on 06/30/202054 Calcium Carbonate/Vitamin D3 (Calcium 600 + Vit D Softgel) 1 Each Capsule, 1 EACH PO BID, (Reported) Entered as Reported by: RODNEY ARTEAGA on 06/17/201310 Cholecalciferol (Vitamin D3) (Vitamin D3) 50 Mcg Capsule, 50 MCG PO BID, (Reported) Entered as Reported by: RODNEY ARTEAGA on 06/17/201310 Duloxetine HCl (Duloxetine HCl) 30 Mg Capsule.dr, 30 MG PO DAILY, (Reported) Entered as Reported by: RODNEY ARTEAGA on 06/17/201310 Gabapentin (Gabapentin) 100 Mg Capsule, 100 MG PO TID, (Reported) Entered as Reported by: RODNEY ARTEAGA on 06/17/201310 Hydrocodone Bit/Acetaminophen (HYDROcodone/APAP 5 MG/325 MG TAB) 1 Tab Tab, 2 EA PO Q4H PRN for PAIN-MODERATE (5-7) Prescribed by: CHARLOTTE CAMARGO on 06/30/202054 Ibandronate Sodium (Ibandronate Sodium) 150 Mg Tablet, 150 MG PO MONTHLY, (Reported) Entered as Reported by: RODNEY ARTEAGA on 06/17/201310 Metformin HCl (Metformin HCl) 500 Mg Tablet, 500 MG PO DAILY W/ BREAKFAST, (Reported) Entered as Reported by: RODNEY ARTEAGA on 06/17/201310 Ondansetron (Ondansetron Odt) 4 Mg Tab.rapdis, 4 MG PO Q6H PRN for NAUSEA/VOMITING-1ST LINE Prescribed by: CHARLOTTE CAMARGO on 06/30/202054 Oxycodone Hcl (Oxyir Tablet) 5 Mg Tab, 10 MG PO HS Prescribed by: CHARLOTTE CAMARGO on 06/30/202054 Pantoprazole Sodium (Pantoprazole Sodium) 40 Mg Tablet.dr, 40 MG PO BID Prescribed by: CHARLOTTE CAMARGO on 06/30/202054 Scopolamine (Transderm-Scop) 1 Each Patch.td72, 1 EACH TD Q72H Prescribed by: CHARLOTTE CAMARGO on 06/30/20 0556 Sennosides/Docusate Sodium (Stool Softener-Laxative Tablet) 1 Each Tablet, 1 EA PO BID Prescribed by: CHARLOTTE CAMARGO on 06/30/202054 Simvastatin (Simvastatin) 10 Mg Tablet, 10 MG PO HS, (Reported) Entered as Reported by: RODNEY ARTEAGA on 06/17/20 1311 Review of Systems Constitutional: No chills, No fever Respiratory: no symptoms reported Cardiovascular: no symptoms reported Gastrointestinal: no symptoms reported Musculoskeletal: see HPI Skin: no symptoms reported Psychiatric/Neurological: No Symptoms Reported Physical Exam Vital Signs Vital Signs - First Documented 01/29/21 15:30 Temp 36.5 Pulse 89 Resp 20 B/P (MAP) 164/71 (102) Pulse Ox 98 O2 Delivery Room Air Capillary Refill : Height, Weight, BMI Height: '" Weight: lbs. oz. kg; BMI Method: General Appearance: WD/WN, no apparent distress Neck: supple Cardiovascular: normal peripheral pulses, regular rate, rhythm Respiratory: chest non-tender, lungs clear Legs: bilateral leg non-tender Knees: bilateral knee non-tender Ankles: bilateral ankle non-tender Feet: left foot soft tissue tenderness, left foot other (Tenderness consistent with plantar fasciitis) Neurologic/Psychiatric: alert, normal mood/affect, oriented x 3 Skin: normal color, warm/dry Progress/Results/Core Measures Results/Orders My Orders Orders - MANPREET WINSTON DO Foot 3 View Left (01/29/21 15:33) Vital Signs/I&O 01/29/21 15:30 Temp 36.5 Pulse 89 Resp 20 B/P (MAP) 164/71 (102) Pulse Ox 98 O2 Delivery Room Air Departure Impression Primary Impression: Plantar fasciitis Disposition: 01 HOME, SELF-CARE Condition: Stable Departure-Patient Inst. Patient Instructions: Plantar Fasciitis Exercises, Heel Pain Caused by Plantar Fasciitis Add. Discharge Instructions: 4% topical lidocaine with menthol as directed on package Voltaren cream as directed on package Tylenol or ibuprofen as needed for pain MANPERET WINSTON DO Jan 29, 2021 15:29
--- OUTSIDE RECORDS SUMMARY | 2021-01-29 15:29 | XMS REPORT | Clinical Summary ---
Author Author [facility] Organization [facility] Address Unknown Phone Unavailable Care Team Providers Care Taxi Driver Supervisor Name Role Phone Juan David Regan MD PCP Source Comments [facility] (Labor and Delivery) documents do not appear in the [facility] Allergies Not on File Medications Please verify current medications with patient. Not on file Active Problems Not on file Social History Date Tobacco Use Types Packs/Day Years Used Never Assessed Sex Assigned at Date Recorded Not on file Last Filed Vital Signs Not on file Plan of Treatment Health Maintenance Due Date Last Done Comments COVID-19 Vaccine (1) 1947 Pneumococcal Vaccine: 65+ 02/26/2001 Years (1 of 1 - PPSV23) Influenza Vaccine (#1) 2020 DXA Scan Completed 11/29/2009 HPV Vaccine Aged Out No longer eligible based on patient's age to complete this topic Results Not on filefrom Last 3 Months Insurance Type Payer Benefit Subscriber ID Effective Phone Address Plan / Dates Group Medicare MEDICARE MEDICARE [id number] 2001- [phone] [address] PART Present [address] [facility] [place] [id number] [facility] [id number] 2017- [phone] [address] Present [address] [place] [address] Advance Directives Patient Logistics Officer Explanation Type Date Recorded Advanced Directives Living Will 06/13/2011 2:01 PM CPR Directives 06/13/2011 2:01 PM Durable Medical POA 06/13/2011 2:01 PM Care Teams Start Date End Date Taxi Driver Supervisor Relationship Specialty 03/15/09 Juan David Regan MD PCP - General [address] [place] [address]
--- NOTE | 2021-01-29 15:51 | Diagnostic Imaging Report ---
INDICATION: Lateral foot pain. History of fracture two years ago. No known injury. TECHNIQUE: 3 views of the left foot. CORRELATION STUDY: None. FINDINGS: Generalized bony demineralization. Alignment anatomic. There is no acute fracture. Joint spaces overall fairly well maintained. Mild degenerative changes. Prominent plantar calcaneal spur formation. Mild edema is noted over the lower leg. IMPRESSION: Negative for acute findings of the foot. Generalized bony demineralization. Mild lower extremity edema. Dictated by: Dictated on workstation # [id number]
[2021-01-29 15:53] VITALS: BP 164/71
== END 2021-01-29 15:53 | disposition home or self-care (01) ==
LOC: EDUNIT# 15:23 → ER FS 15:24
DX: M72.2 Plantar fascial fibromatosis (principal); Z79.01 Long term (current) use of anticoagulants
CPT/HCPCS: 73630

== ENCOUNTER → 2021-04-10 | Outpatient (CLI) | payer MEDICARE, OTHER ==
--- NOTE | 2021-04-10 16:32 | Diagnostic Imaging Report ---
PROCEDURE: US Bilateral lower extremity arterial. TECHNIQUE: Multiple real-time grayscale images are obtained through both lower extremity arterial systems with color Doppler imaging and color Doppler spectral analysis. INDICATION: Hyperlipidemia, swelling FINDINGS: The patient has biphasic wave patterns in the arteries above the knee and monophasic below the knee. The velocities and velocity transitions are unremarkable. IMPRESSION: Lower extremity arterial Doppler does not show any evidence of occlusion or hemodynamically significant stenosis. Dictated by: Dictated on workstation # [id number]
== END ==
LOC: RAD 13:00
PROVIDERS: ATTEND Nurse Practitioner Family
DX: Z13.6 Encounter for screening for cardiovascular disorders (principal); E78.2 Mixed hyperlipidemia; M79.89 Other specified soft tissue disorders
CPT/HCPCS: 93925

== ENCOUNTER 2022-01-18 11:48 | Inpatient (IN) | payer MEDICARE, OTHER ==
[~2022-01-18] VITALS: Ht 167 cm; Wt 60.3 kg
--- NOTE | 2022-01-18 12:05 | ED Lower Extremity ---
General Chief Complaint: Lower Extremity Stated Complaint: FALL; RT HIP PAIN Nursing Triage Note: Patient has presented to ER with cc of right hip pain. She fell about an hour ago. History of Present Illness Date Seen by Provider: Jan 18, 2022 Time Seen by Provider: 12:03 Initial Comments 86 yr F is here with c/o right hip pain after having a fall today morning while she was raking leaves in her yard. Patient has severe pain in the right hip and is unable to bear weight or ambulate. Denies sensory loss or tingling sensation, head strike, LOC. Denies dizziness prior to the fall. Patient is on Eliquis. Allergies and Home Medications Allergies Coded Allergies: No Known Drug Allergies (Unverified , 05/16/20) Patient Home Medication List Home Medication List Reviewed: Yes Apixaban (Eliquis) 2.5 Mg Tablet, 2.5 MG PO BID Prescribed by: CHARLOTTE CAMARGO on 06/30/202054 Calcium Carbonate/Vitamin D3 (Calcium 600 + Vit D Softgel) 1 Each Capsule, 1 EACH PO BID, (Reported) Entered as Reported by: RODNEY ARTEAGA on 06/17/201310 Cholecalciferol (Vitamin D3) (Vitamin D3) 50 Mcg Capsule, 50 MCG PO BID, (Reported) Entered as Reported by: RODNEY ARTEAGA on 06/17/201310 Duloxetine HCl (Duloxetine HCl) 30 Mg Capsule.dr, 30 MG PO DAILY, (Reported) Entered as Reported by: RODNEY ARTEAGA on 06/17/201310 Gabapentin (Gabapentin) 100 Mg Capsule, 100 MG PO TID, (Reported) Entered as Reported by: RODNEY ARTEAGA on 06/17/201310 Hydrocodone Bit/Acetaminophen (HYDROcodone/APAP 5 MG/325 MG TAB) 1 Tab Tab, 2 EA PO Q4H PRN for PAIN-MODERATE (5-7) Prescribed by: CHARLOTTE CAMARGO on 06/30/202054 Ibandronate Sodium (Ibandronate Sodium) 150 Mg Tablet, 150 MG PO MONTHLY, (Reported) Entered as Reported by: RODNEY ARTEAGA on 06/17/201310 Metformin HCl (Metformin HCl) 500 Mg Tablet, 500 MG PO DAILY W/ BREAKFAST, (Reported) Entered as Reported by: RODNEY ARTEAGA on 2/26/21 1311 Ondansetron (Ondansetron Odt) 4 Mg Tab.rapdis, 4 MG PO Q6H PRN for NAUSEA/VOMITING-1ST LINE Prescribed by: CHARLOTTE CAMARGO on 06/30/202054 Oxycodone Hcl (Oxyir Tablet) 5 Mg Tab, 10 MG PO HS Prescribed by: CHARLOTTE CAMARGO on 06/30/202054 Pantoprazole Sodium (Pantoprazole Sodium) 40 Mg Tablet.dr, 40 MG PO BID Prescribed by: CHARLOTTE CAMARGO on 06/30/202054 Scopolamine (Transderm-Scop) 1 Each Patch.td72, 1 EACH TD Q72H Prescribed by: CHARLOTTE CAMARGO on 06/30/20555 Sennosides/Docusate Sodium (Stool Softener-Laxative Tablet) 1 Each Tablet, 1 EA PO BID Prescribed by: CHARLOTTE CAMARGO on 06/30/202054 Simvastatin (Simvastatin) 10 Mg Tablet, 10 MG PO HS, (Reported) Entered as Reported by: RODNEY ARTEAGA on 06/17/20 131 Review of Systems Constitutional: no symptoms reported EENTM: no symptoms reported Respiratory: no symptoms reported Cardiovascular: no symptoms reported Gastrointestinal: no symptoms reported Genitourinary: no symptoms reported Musculoskeletal: joint pain Skin: no symptoms reported Psychiatric/Neurological: No Symptoms Reported Past Gahbskz-Nfepuc-Ahemwo Hx Patient Social History Tobacco Use?: No Use of E-Cig and/or Vaping dev: No Substance use?: No Alcohol Use?: No Pt feels they are or have been: Unable to obtain Seasonal Allergies Seasonal Allergies: No Past Medical History Surgeries: Yes (back ) Hysterectomy, Orthopedic Respiratory: No Cardiac: Yes Deep Vein Thrombosis, High Cholesterol Neurological: No Genitourinary: No Gastrointestinal: Yes Gastroesophageal Reflux Musculoskeletal: Yes Osteoporosis, Arthritis Endocrine: Yes Diabetes, Non-Insulin dep HEENT: No Cancer: No Psychosocial: No Integumentary: No Blood Disorders: No Physical Exam Vital Signs Vital Signs - First Documented 01/18/22 11:57 Temp 36.2 Pulse 75 Resp 16 B/P (MAP) 167/64 (98) Pulse Ox 97 O2 Delivery Room Air Capillary Refill : Height, Weight, BMI Height: '" Weight: lbs. oz. kg; 21.00 BMI Method: General Appearance: WD/WN, moderate distress, thin HEENT: PERRL/EOMI Neck: non-tender, full range of motion, supple, normal inspection Cardiovascular: normal peripheral pulses, regular rate, rhythm, no edema Respiratory: chest non-tender, lungs clear, normal breath sounds Gastrointestinal: non tender, soft Back: normal inspection, no CVA tenderness, no vertebral tenderness Hips: right hip non-tender, right hip bone tenderness, right hip deformity (right leg a little shorter than left), right hip limited range of motion, right hip pain, right hip soft tissue tenderness Legs: right leg non-tender, right leg normal inspection, right leg no evidence of injury Knees: right knee non-tender, right knee normal inspection Ankles: right ankle non-tender, right ankle normal inspection Neurologic/Tendon: normal sensation, normal motor functions Neurologic/Psychiatric: no motor/sensory deficits, alert, normal mood/affect, oriented x 3 Skin: normal color Progress/Results/Core Measures Results/Orders Lab Results Laboratory Tests Test 01/18/22 11:54 01/18/22 12:45 Range/Units White Blood Count 9.6 4.3-11.0 10^3/uL Red Blood Count 3.84 3.80-5.11 10^6/uL Hemoglobin 10.6 L 11.5-16.0 g/dL Hematocrit 33 L 35-52 % Mean Corpuscular Volume 86 80-99 fL Mean Corpuscular Hemoglobin 28 25-34 pg Mean Corpuscular Hemoglobin Concent 32 32-36 g/dL Red Cell Distribution Width 14.0 10.0-14.5 % Platelet Count 385 130-400 10^3/uL Mean Platelet Volume 9.2 9.0-12.2 fL Immature Granulocyte % (Auto) 1 % Neutrophils (%) (Auto) 53 42-75 % Lymphocytes (%) (Auto) 36 12-44 % Monocytes (%) (Auto) 9 0-12 % Eosinophils (%) (Auto) 1 0-10 % Basophils (%) (Auto) 0 0-10 % Neutrophils # (Auto) 5.1 1.8-7.8 10^3/uL Lymphocytes # (Auto) 3.5 1.0-4.0 10^3/uL Monocytes # (Auto) 0.9 0.0-1.0 10^3/uL Eosinophils # (Auto) 0.1 0.0-0.3 10^3/uL Basophils # (Auto) 0.0 0.0-0.1 10^3/uL Immature Granulocyte # (Auto) 0.1 0.0-0.1 10^3/uL Sodium Level 138 135-145 MMOL/L Potassium Level 4.7 3.6-5.0 MMOL/L Chloride Level 102 98-107 MMOL/L Carbon Dioxide Level 23 21-32 MMOL/L Anion Gap 13 5-14 MMOL/L Blood Urea Nitrogen 23 H 7-18 MG/DL Creatinine 1.05 0.60-1.30 MG/DL Estimat Glomerular Filtration Rate 52 BUN/Creatinine Ratio 22 Glucose Level 148 H 70-105 MG/DL Calcium Level 9.7 8.5-10.1 MG/DL Corrected Calcium 9.8 8.5-10.1 MG/DL Total Bilirubin 0.5 0.1-1.0 MG/DL Aspartate Amino Transf (AST/SGOT) 14 5-34 U/L Alanine Aminotransferase (ALT/SGPT) 11 0-55 U/L Alkaline Phosphatase 87 40-136 U/L Total Protein 7.7 6.4-8.2 GM/DL Albumin 3.9 3.2-4.5 GM/DL My Orders Orders - LYNNETTE SOLO MD Femur 2 View Right (01/18/22 12:10) Pelvis With Right Hip 2-3 View (01/18/22 12:10) Fentanyl Inj (Sublimaze Injection) (01/18/22 12:15) Cbc With Automated Diff (01/18/22 12:14) Comprehensive Metabolic Panel (01/18/22 12:14) Ua Culture If Indicated (01/18/22 12:15) Hydromorphone Injection (Dilaudid Inject (01/18/22 13:00) Medications Given in ED Current Medications Medications Dose Ordered Sig/Nolan Route Start Time Stop Time Status Last Admin Dose Admin Fentanyl Citrate 50 mcg ONCE ONCE IVP 01/18/22 12:15 01/18/22 12:16 DC 01/18/22 12:18 50 MCG Vital Signs/I&O 01/18/22 11:57 Temp 36.2 Pulse 75 Resp 16 B/P (MAP) 167/64 (98) Pulse Ox 97 O2 Delivery Room Air Blood Pressure Mean: 98 Progress Progress Note : Progress Note 1. RIGHT FEMORAL NECK FRACTURE: - XR RIGHT HIP/ PELVIS: see report - CBC/ CMP: unremarkable - UA ordered - Stovall insertion - Fentanyl 50mcg iv, then later Dilaudid 0.5mg iv - Discussed with Dr Nabeel Bowser and will admit to hospitalist today for surgery tomorrow. Discussed with hospitalist, Dr. Castanon and accepted. -Patient agrees to plan Diagnostic Imaging Diagonstic Imaging: Xray Plain Films/CT/US/NM/MRI: pelvis, hip Comments [facility] [place], [place] NAME: SELVIN VILLAR [facility] REC#: [id number] PT STATUS: REG ER : 1935 PHYSICIAN: LYNNETTE SOLO MD ADMIT DATE: 01/18/22/ER FS Draft Date of Exam:01/18/22 PELVIS WITH RIGHT HIP 2-3 VIEW INDICATION: Hip pain, traumatic foreshortening. There is a right femoral neck fracture subcapital with proximal migration of the femur. No dislocation of the femoral head. Bony demineralization noted. No acetabular fracture. IMPRESSION: Bony demineralization with displaced subcapital right femoral neck fracture. Dictated on workstation # [id number] Dict: 01/18/22 1241 Trans: 01/18/22 1244 [id number] Interpreted by: FILIBERTO PLATT Electronically signed by: Departure Communication (Admissions) Time/Spoke to Consulting Phy: 12:57 Dr Nabeel Bowser Impression Primary Impression: Displaced fracture of right femoral neck Disposition: 30 STILL A PATIENT Condition: Stable Admissions Decision to Admit Reason: Admit from ER (General) Decision to Admit/Date: Jan 18, 2022 Time/Decision to Admit Time: 13:02 Transfer Transfer Reason: Exceeds level of care Method of Transfer: EMS Departure-Patient Inst. Referrals: ELIU JUSTIN DO (PCP) Primary Care Physician LYNNETTE SOLO MD Jan 18, 2022 12:05
[2022-01-18] MEDS ORDERED: fentaNYL INJ 100 MCG/2 ML AMP IVP ONE (12:15)
[2022-01-18 12:23] LABS: BASOPHILS % (AUTO) 0 % (0-10); EOSINOPHILS # (AUTO) 0.1 10^3/uL (0.0-0.3); EOSINOPHILS % (AUTO) 1 % (0-10); HEMATOCRIT 33 % (35-52); HEMOGLOBIN 10.6 g/dL (11.5-16.0); LYMPHOCYTES # (AUTO) 3.5 10^3/uL (1.0-4.0); LYMPHOCYTES % (AUTO) 36 % (12-44); MEAN CORPUSCULAR HEMOGLOBIN 28 pg (25-34); MEAN CORPUSCULAR HGB CONC 32 g/dL (32-36); MEAN CORPUSCULAR VOLUME 86 fL (80-99); MEAN PLATELET VOLUME 9.2 fL (9.0-12.2); MONOCYTES # (AUTO) 0.9 10^3/uL (0.0-1.0); MONOCYTES % (AUTO) 9 % (0-12); NEUTROPHILS # (AUTO) 5.1 10^3/uL (1.8-7.8); NEUTROPHILS % (AUTO) 53 % (42-75); PLATELET COUNT 385 10^3/uL (130-400); WHITE BLOOD COUNT 9.6 10^3/uL (4.3-11.0)
--- NOTE | 2022-01-18 12:39 | Diagnostic Imaging Report ---
Indication: Fall, traumatic deformity and foreshortening. Findings: Bony demineralization and osteopenia noted. There is fracture displaced of the femoral neck at its subcapital portion with proximal migration of the distal femoral fragment. No dislocation. No midshaft or distal femoral injury. Impression: There is bony demineralization and femoral neck fracture without dislocation Dictated by: Dictated on workstation # [id number]
--- NOTE | 2022-01-18 12:44 | Diagnostic Imaging Report ---
INDICATION: Hip pain, traumatic foreshortening. There is a right femoral neck fracture subcapital with proximal migration of the femur. No dislocation of the femoral head. Bony demineralization noted. No acetabular fracture. IMPRESSION: Bony demineralization with displaced subcapital right femoral neck fracture. Dictated by: Dictated on workstation # [id number]
[2022-01-18 12:49] LABS: BILIRUBIN,TOTAL 0.5 MG/DL (0.1-1.0); CALCIUM 9.7 MG/DL (8.5-10.1); CREATININE SERUM 1.05 MG/DL (0.60-1.30); POTASSIUM 4.7 MMOL/L (3.6-5.0); TOTAL PROTEIN 7.7 GM/DL (6.4-8.2)
[2022-01-18 12:50] LABS: ALBUMIN 3.9 GM/DL (3.2-4.5)
[2022-01-18] MEDS ORDERED: HYDROmorphone 2 MG/ML VIAL (DILAUDID) IV ONE (13:00)
[2022-01-18 13:17] LABS: CLARITY,URINE TURBID; COLOR,URINE YELLOW; GLUCOSE, URINE (UA) NEGATIVE (NEGATIVE); KETONES,URINE NEGATIVE (NEGATIVE); NITRITE,URINE NEGATIVE (NEGATIVE); PROTEIN,URINE 2+ (NEGATIVE)
[2022-01-18 13:18] LABS: BACTERIA,URINE LARGE /HPF; BILIRUBIN,URINE NEGATIVE (NEGATIVE); LEUKOCYTE ESTERASE ,URINE 3+ (NEGATIVE); WBC,URINE >100 /HPF
[2022-01-18] MEDS ORDERED: polyethylene glycoL POWDER 17 GM (MIRALAX) PACK PO PRN (14:45)
[2022-01-18] MEDS ORDERED: ONDANSETRON 4 MG (ZOFRAN) ORAL DISSOLVE TAB PO PRN (14:45)
[2022-01-18] MEDS ORDERED: ACETAMINOPHEN 325 MG TABLET PO PRN (14:45)
[2022-01-18] MEDS ORDERED: BISACODYL 10 MG SUPP (DULCOLAX) PR PRN (14:45)
[2022-01-18] MEDS ORDERED: MELATONIN 3 MG TABLET PO PRN (14:45)
[2022-01-18] MEDS ORDERED: ANTACID SUSP 30 ML UDC (MYLANTA) PO PRN (14:45)
[2022-01-18 14:54] VITALS: BP 192/91
[2022-01-18] MEDS ORDERED: ENOXAPARIN 40 MG/0.4 ML (LOVENOX) SYR SC SCH (15:00)
[2022-01-18] MEDS ORDERED: ASCO-262 PO (15:17)
[2022-01-18] MEDS ORDERED: PROP20TA5 PO (15:17)
[2022-01-18] MEDS ORDERED: ESOM20CA58 PO (15:17)
[2022-01-18] MEDS: fentaNYL INJ 100 MCG/2 ML AMP IVP PRN ×2 (15:18→21:14)
[2022-01-18] MEDS: LACTATED RINGERS 1,000 ML IV SCH (15:19)
[2022-01-18 15:34] VITALS: BP 180/73
--- NOTE | 2022-01-18 17:51 | CONSULTATION REPORT ---
DATE OF SERVICE: 01/18/2022 INPATIENT CONSULTATION REASON FOR CONSULTATION: Right closed displaced femoral neck fracture. SUMMARY: The patient is an 86-year-old female who fell while raking leaves this morning and was found to have a closed displaced right femoral neck fracture. She presented to an outside facility and was referred here for definitive ambulation. She reports that she had no antecedent pain. She tripped and struck the concrete. She denies prior history of hip problems. She has had a lumbar fusion by Dr. Hunter in the past. REVIEW OF SYSTEMS: No chest pain, no shortness of breath, no dysuria. ALLERGIES: NO KNOWN ALLERGIES. FAMILY HISTORY: Significant for hypertension, hypercholesterolemia and diabetes. MEDICATIONS: Metformin, simvastatin, pantoprazole. SOCIAL HISTORY: The patient denies alcohol and tobacco use. She lives with her son in [place]. PHYSICAL EXAMINATION: GENERAL: The patient is well-developed, well-nourished, in no acute distress. HEENT: Normocephalic, atraumatic. Pupils are equal, round and reactive to light. Oropharynx is clear. NECK: Supple, no lymphadenopathy. LUNGS: Clear to auscultation bilaterally. HEART: Regular rate and rhythm. ABDOMEN: Soft, nontender, nondistended. EXTREMITIES: The right lower extremity is shortened and externally rotated. She has intact dorsiflexion and plantarflexion of the toes. Pulses are symmetric. Sensation is intact to light touch throughout. Radiographs reveal closed displaced right femoral neck fracture. PLAN: Right hip bipolar replacement. The risks, benefits, options and ramifications were discussed at length with the patient. She understands and wishes to proceed. Job ID: [id number] DocumentID: [id number] Dictated Date: 01/18/2022 15:28:34 Telemetry Registered Nurse Date: 01/18/2022 17:51:22 Dictated By: LINSEY AGARWAL MD
[2022-01-18] MEDS ORDERED: hydrALAZINE (APESOLINE) 20 MG/ML VIAL IV PRN (18:15)
[2022-01-18] MEDS: cefTRIAXone 1 GM PRE-MIX 50 ML IV SCH (18:28)
[2022-01-18 19:12] VITALS: BP 150/70
[2022-01-18] MEDS: DOCUSATE SODIUM 100 MG (COLACE) CAP PO SCH (21:10)
[2022-01-19] VITALS (17 sets, daily range): BP systolic 116–198; BP diastolic 57–85
[2022-01-19] MEDS: fentaNYL INJ 100 MCG/2 ML AMP IVP PRN ×2 (00:05→03:56)
[2022-01-19] MEDS: LACTATED RINGERS 1,000 ML IV SCH ×3 (00:07→20:45)
[2022-01-19] MEDS: ONDANSETRON 4 MG/2 ML (SDV) Z0FRAN IV PRN ×3 (04:43→14:47)
[2022-01-19 05:37] LABS: HEMOGLOBIN 10.1 g/dL (11.5-16.0)
[2022-01-19] MEDS: DOCUSATE SODIUM 100 MG (COLACE) CAP PO SCH ×2 (07:58→20:44)
[2022-01-19] MEDS ORDERED: BUPIVACAINE 0.5% 30 ML (SENSORCAINE) VIAL ONE (10:20)
[2022-01-19] MEDS ORDERED: LACTATED RINGERS 1,000 ML IV PRN (11:30)
--- NOTE | 2022-01-19 11:56 | Progress Note-Pre Operative ---
Pre-Operative Progress Note Date of Available H&P: Jan 18, 2022 Date H&P Reviewed: Jan 19, 2022 Time H&P Reviewed: 11:55 Changes from last HP none Pre-Operative Diagnosis: right femoral neck fracture LINSEY AGARWAL MD Jan 19, 2022 11:56
--- NOTE | 2022-01-19 11:57 | Progress Note-Post Operative ---
Post-Operative Progess Note Surgeon (s)/Refrigeration Supervisor (s) Surgeon LINSEY AGARWAL MD Refrigeration Supervisor: Julio C Mancia Pre-Operative Diagnosis right femoral neck fracture Post-Operative Diagnosis right femoral neck fracture Procedure & Operative Findings Date of Procedure 01/19/22 Procedure Performed/Findings right hip bipolar replacement Anesthesia Type GETA Estimated Blood Loss Estimated blood loss (mL): 100ml Specimens/Packing Specimens Removed femoral head Packing: none LINSEY AGARWAL MD Jan 19, 2022 11:57
[2022-01-19] MEDS ORDERED: SEVOFLURANE (ULTANE) 15 ML INHAL SOLN ONE ×2 (12:10→13:34)
[2022-01-19] MEDS ORDERED: ROCURONIUM 10 MG/ML 5 ML SYRINGE IV ONE (12:10)
[2022-01-19] MEDS ORDERED: proPOfol 200 MG/20 ML (DIPRIVAN) VIAL IV ONE (12:10)
[2022-01-19] MEDS ORDERED: LIDOCAINE PF 2% 5 ML (XYLOCAINE) VIAL ONE (12:10)
[2022-01-19] MEDS ORDERED: fentaNYL INJ 100 MCG/2 ML AMP ONE (12:10)
[2022-01-19] MEDS ORDERED: ACETAMINOPHEN 325 MG TABLET PO PRN (12:15)
[2022-01-19] MEDS ORDERED: morphine INJ 4 MG/ML 1 ML (VIAL/SYRINGE) IVP PRN (12:15)
[2022-01-19] MEDS ORDERED: ONDANSETRON 4 MG/2 ML (SDV) Z0FRAN IVP PRN ×2 (12:15→13:45)
[2022-01-19] MEDS ORDERED: HYDROcodone/APAP 7.5 MG/325 MG (LORTAB, LORCET PLUS) TABLET PO PRN (12:15)
[2022-01-19] MEDS ORDERED: diphenhydrAMINE 50 MG/ML INJ (BENADRYL) IVP PRN (12:15)
[2022-01-19] MEDS ORDERED: TEMAZEPAM 15 MG (RESTORIL) CAP PO PRN (12:15)
[2022-01-19] MEDS ORDERED: BUPIVACAINE 0.5% 30 ML (SENSORCAINE) VIAL INJ ONE (12:41)
[2022-01-19] MEDS ORDERED: ceFAZolin INJECTION 2,000 MG in NS (IVPB) 50 ML IV NR (13:00)
--- NOTE | 2022-01-19 13:44 | Anesthesia-General Post-Op ---
General Patient Condition Mental Status/LOC: Same as Preop Cardiovascular: Satisfactory Nausea/Vomiting: Absent Respiratory: Satisfactory Pain: Controlled Complications: Absent Post Op Complications Complications None Follow Up Care/Instructions Patient Instructions None needed. Anesthesia/Patient Condition Patient Condition Patient is doing well, no complaints, stable vital signs, no apparent adverse anesthesia problems. No complications reported per nursing. BETTY CRISOSTOMO CRNA Jan 19, 2022 13:44
[2022-01-19] MEDS: morphine INJ 10 MG/ML 1ML (SYR OR VIAL) IVP ONE ×2 (13:56→14:11)
--- NOTE | 2022-01-19 14:02 | OPERATIVE REPORT ---
DATE OF SERVICE: 01/19/2022 PREOPERATIVE DIAGNOSIS: Closed displaced right femoral neck fracture. POSTOPERATIVE DIAGNOSIS: Closed displaced right femoral neck fracture. PROCEDURE: Right hip bipolar replacement. SURGEON: Yifan Agarwal MD SCIENCE TUTOR: Julio C Mancia, who assisted throughout the procedure and closed the incision. ANESTHESIA: General endotracheal by Ac Benjamin CRNA. ESTIMATED BLOOD LOSS: 100 mL. DRAINS: None. COMPLICATIONS: None. POSTOPERATIVE PLAN: Weightbearing as tolerated with hip precautions. MATERIALS: Depuy/Synthes press-fit size 5 stem with a standard neck and 49 liner. CONDITION: The patient was transferred to the recovery room awake and stable condition. STATEMENT OF MEDICAL NECESSITY: The patient is an 86-year-old female who was transferred from an outside facility after falling and sustaining a closed right femoral neck fracture. The patient desired to maintain preoperative activity level and elected to proceed with surgical intervention. DESCRIPTION OF PROCEDURE: After risks and benefits of procedure were discussed and questions were answered, an informed consent was signed and placed on chart. The operative site was confirmed in the preoperative holding area initialed by the surgeon. The patient was then transferred to the operating room and after adequate levels of general endotracheal anesthetic were obtained, a timeout was called, confirming the operative site. The patient was then carefully placed in the left lateral decubitus position, being careful to place an axillary roll and pad all bony prominences. The right hip and lower extremity were prepped and draped in the usual sterile fashion. A longitudinal incision was made, and a lateral approach was utilized. The iliotibial band was incised in line with the incision. The abductor attachment was released, leaving a 2 cm cuff for later reattachment. Hip capsulotomy was performed. The femoral neck cut was made at the proper distance from the lesser trochanter using a broach as a guide. The femoral head was removed and sized to a size 49. The acetabulum was irrigated and inspected for any loose bodies. The 49 trial was placed and had excellent fill. The femur was then prepared with the box chisel followed by T-handled reamer and sequential broaches up to a size 5. The 5 broach provided excellent fill. The hip was reduced after placing the 49 liner with a standard neck. Hip was taken through range of motion, no impingement was noted. No instability was noted in any plane. The trials were removed. it was noted that there was a small split on the medial trocar. Therefore, a cerclage wire was placed in standard fashion. After placing the stem, which was placed in 15 degrees of anteversion. The acetabulum was then inspected again for any loose bodies and irrigated copiously. The head liner construct was then placed. This was found to be stable. The hip was then reduced without difficulty. The hip was taken through range of motion with no instability noted and no impingement noted. The wound was further irrigated. The abductor and capsule were closed with #5 Tevdek in [id number] interrupted fashion with excellent repair obtained. The wound was further irrigated with pulse lavage. The iliotibial band was closed in a running fashion with #1 Vicryl. The wound was further irrigated using a total of 6 liters throughout the procedure, 0 Vicryl was used for deep subcutaneous layer, 2-0 Vicryl for the superficial subcutaneous tissue layer, marlin used on the skin. A soft dressing was applied, and the patient was transferred to the recovery room, awake and in stable condition. Job ID: [id number] DocumentID: [id number] Dictated Date: 01/19/2022 13:34:45 Slot Ambassador Date: 01/19/2022 14:02:11 Dictated By: YIFAN AGARWAL MD
--- NOTE | 2022-01-19 14:26 | Physical Therapy Progress Note ---
Therapy Progress Note Order for PT eval received. Patient is currently still in surgery or recovery. Will start PT tomorrow. STEVIE ESCOBAR PT Jan 19, 2022 14:26
--- NOTE | 2022-01-19 14:46 | Diagnostic Imaging Report ---
INDICATION: Status post right hip replacement. COMPARISON: 01/18/2022. FINDINGS: Single AP view of the right hip was obtained. There are expected postsurgical changes of interval right total hip arthroplasty. There is appropriate anatomic alignment of the femoral component in relation to the acetabular component. Acetabular component appears well seated. The stem of the femoral component is located centrally in the medullary cavity. There is no periprosthetic fracture. No acute fracture or dislocation is identified. There is a small amount of subcutaneous emphysema in the surrounding soft tissues. No unexpected radiopaque foreign bodies identified. IMPRESSION: Expected postsurgical changes of interval right total hip arthroplasty. No unexpected radiopaque foreign body identified. Dictated by: Dictated on workstation # [id number]
--- NOTE | 2022-01-19 14:54 | Occ Therapy Progress Note ---
Therapy Progress Note OT orders received and chart reviewed. Pt underwent bipolar hip replacement on this date (01/19/22). OT will attempt evaluation on next available date. BRENDON NIELSON OT Jan 19, 2022 14:53
[2022-01-19] MEDS: cefTRIAXone 1 GM PRE-MIX 50 ML IV SCH (18:13)
--- NOTE | 2022-01-19 18:21 | History & Physical-Hospitalist ---
History of Present Illness HPI/Chief Complaint Fariha Gagnon is an 86 year old female with PMH HTN, T2DM, HLD, osteoporosis, who presented with after a ground level fall. She was outside raking leaves when she fell and hit her right hip. She did not feel lightheaded or dizzy. She did not have chest pain or palpitations. She did not lose consciousness. She has bee n in her normal state of health. She denies fevers and chills. She denies shortness of breath and cough. She denies abdominal pain, nausea, vomiting, and diarrhea. She denies dysuria. She has had urinary frequency and urgency. Source: patient Exam Limitations: no limitations Date Seen 01/19/22 Time Seen by a Provider: 10:05 Attending Physician Jacky Packer DO PCP Admitting Physician: Zulay Adrian MD Attending Physician: Zulay Adrian MD Referring Physician Date of Admission Jan 18, 2022 at 14:28 Home Medications & Allergies Home Medications Reviewed patient Home Medication Reconciliation performed by pharmacy medication reconciliations floor technician and/or nursing. Patients Allergies have been reviewed. Allergies Allergies Coded Allergies No Known Drug Allergies (Unverified05/16/20) Past Llfgcou-Hjimfn-Dcsvgk Hx Patient Social History Tobacco Use?: No Use of E-Cig and/or Vaping dev: No Substance use?: No Alcohol Use?: No Pt feels they are or have been: No Immunizations Up To Date Date of Influenza Vaccine: Feb 21, 2020 Tetanus Booster (TDap): Less Than 5 Years Hepatitis A: No Hepatitis B: No Seasonal Allergies Seasonal Allergies: No Current Status status: No status: No Advance Directives: Yes Advance Directive Location: Home Communicates: Verbally Primary Language: Ethiopian Preferred Spoken Language: Ethiopian Is interpretation needed?: No Implanted or Applied Medical D: Other Past Medical History Surgeries: Hysterectomy, Orthopedic Deep Vein Thrombosis, High Cholesterol Gastroesophageal Reflux Osteoporosis, Arthritis Diabetes, Non-Insulin dep Blood Disorders: No Family Medical History No Pertinent Family Hx Review of Systems Constitutional: no symptoms reported EENTM: no symptoms reported Respiratory: no symptoms reported Cardiovascular: no symptoms reported Genitourinary: No dysuria; frequency Physical Exam Physical Exam Vital Signs Vital Signs - First Documented 01/18/22 11:57 Temp 36.2 Pulse 75 Resp 16 B/P (MAP) 167/64 (98) Pulse Ox 97 O2 Delivery Room Air Capillary Refill : Less Than 3 Seconds Height, Weight, BMI Height: '" Weight: lbs. oz. kg; 21.62 BMI Method: General Appearance: No Apparent Distress, WD/WN HEENT: PERRL/EOMI, Pharynx Normal Neck: Normal Inspection, Supple Respiratory: Lungs Clear, Normal Breath Sounds, No Respiratory Distress Cardiovascular: Regular Rate, Rhythm, No Edema, No Murmur Gastrointestinal: Normal Bowel Sounds, Non Tender, Soft Extremity: Normal Inspection, No Pedal Edema Neurologic/Psychiatric: Alert, Oriented x3, Normal Mood/Affect Skin: Normal Color, Warm/Dry Results Results/Procedures Labs Laboratory Tests 01/18/22 11:54 01/19/22 05:05 Patient resulted labs reviewed. Imaging: Reviewed Imaging Report Assessment/Plan Admission Diagnosis Hip fracture Admission Status: Inpatient Order (span 2 midnights) Reason for Inpatient Admission: Hip surgery Assessment and Plan Hip fracture Ground level fall Osteoporosis XR with right femur fracture Orthopedic surgery consulted Surgery today for right bipolar replacement Pain regimen Bowel regimen Incentive spirometry Lovenox PT/OT IRU evaluation, planning for admission Saturday UTI Urine culture pending Rocephin T2DM Oral medications only Sliding scale insulin while inpatient HTN HLD Continue beta [place] and statin Hydralazine as needed DVT prophylaxis: Lovenox Diagnosis/Problems Diagnosis/Problems (1) Displaced fracture of right femoral neck Status: Acute (2) Fall from ground level Status: Acute (3) Osteoporosis Status: Acute Qualifiers: Osteoporosis type: age-related Presence of current pathological fracture: with current pathological fracture Encounter type: initial encounter Qualified Codes: M80.00XA - Age-related osteoporosis with current pathological fracture, unspecified site, initial encounter for fracture (4) UTI (urinary tract infection) Status: Acute (5) HTN (hypertension) Status: Chronic (6) HLD (hyperlipidemia) Status: Chronic (7) T2DM (type 2 diabetes mellitus) Status: Chronic ZULAY ADRIAN MD Jan 19, 2022 18:21
[2022-01-19] MEDS: inSUlin ASPART (NovoLOG) 1 UNIT/0.01 ML (CHARGE PER UNIT) SC SCH (20:43)
[2022-01-19] MEDS: CEFUROXIME INJECTION 750 MG in NS (IVPB) 50 ML IV SCH (20:43)
[2022-01-19] MEDS: PROPRANOLOL 20 MG (INDERAL) TABLET PO SCH (20:44)
[2022-01-19] MEDS: SENNOSIDES 8.6 MG (SENOKOT) TAB PO SCH (20:44)
[2022-01-20 03:12] VITALS: BP 134/65
[2022-01-20] MEDS: LACTATED RINGERS 1,000 ML IV SCH ×2 (03:13→15:07)
[2022-01-20] MEDS: CEFUROXIME INJECTION 750 MG in NS (IVPB) 50 ML IV SCH (03:14)
[2022-01-20 05:30] LABS: HEMOGLOBIN 8.6 g/dL (11.5-16.0)
[2022-01-20] MEDS: inSUlin ASPART (NovoLOG) 1 UNIT/0.01 ML (CHARGE PER UNIT) SC SCH ×4 (06:06→19:40)
[2022-01-20 07:41] VITALS: BP 136/62
--- NOTE | 2022-01-20 08:04 | Progress Note ---
Standard Progress Note Progress Notes/Assess & Plan Date Seen by a Provider: Jan 20, 2022 Time Seen by a Provider: 08:03 Progress/Assessment & Plan no complaints radiographs--HW well positioned without fracture RLE intact DF and PF of toes and ankle. Snesation intact throughout equal pulses no calf tenderness s/p R bipolar mobilize LINSEY KLINE MD Jan 20, 2022 08:04
[2022-01-20] MEDS: ASPIRIN E.C. 81 MG (ECOTRIN) TAB PO SCH (09:23)
[2022-01-20] MEDS: DOCUSATE SODIUM 100 MG (COLACE) CAP PO SCH ×2 (09:24→19:31)
[2022-01-20] MEDS: SENNOSIDES 8.6 MG (SENOKOT) TAB PO SCH ×2 (09:24→19:31)
[2022-01-20] MEDS: ENOXAPARIN 40 MG/0.4 ML (LOVENOX) SYR SC SCH (09:24)
[2022-01-20] MEDS: AtorvaSTATin TABLET 10 MG TABLET PO SCH (09:24)
--- NOTE | 2022-01-20 09:50 | Occupational Therapy Eval ---
OT Evaluation-General/PLF Medical Diagnosis Admission Date Jan 18, 2022 at 14:28 Medical Diagnosis: s/p R bipolar hip Onset Date: Jan 19, 2022 Therapy Diagnosis Therapy Diagnosis: decreased ADL status Precautions Precautions/Isolations: Standard Precautions Comments R hip precautions Weight Bear Status Weight Bearing Restriction: Weight Bearing/Tolerated Location Restriction: R LE Referral Physician: Nabeel Referral Reason: Evaluation/Treatment Medical History Pertinent Medical History: DM, OA Additional Medical History Hysterectomy, Orthopedic Deep Vein Thrombosis, High Cholesterol Gastroesophageal Reflux Osteoporosis, Arthritis Diabetes, Non-Insulin dep Current History 01/18/22 ED after ground level fall while raking leaves. Found to have R hip fx, s/p R bipolar hip replacement 01/19/22 Social History Home: Single Level Current Living Status: Children (Son) Entry Into Home: Stairs With Railing Steps Into Home: 3 ADL-Prior Level of Function SCALE: Activities may be completed with or without assistive devices. 4-Uqsbkzwsaq-pfzvyhw completes the activity by him/herself with no assistance from a helper. 5-Set-up or Clean-up Assistance-helper sets up or cleans up; patient completes activity. [place] assists only prior to or following the activity. 4-Supervision or Touching Assistance-helper provides verbal cues and/or touching/steadying and/or contact guard assistance as patient completes activity . Assistance may be provided throughout the activity or intermittently. 3-Partial/Moderate Assistance-helper does LESS THAN HALF the effort. [place] lifts, holds or supports trunk or limbs, but provides less than half the effort. 2-Substantial/Maximal Assistance-helper does MORE THAN HALF the effort. [place] lifts or holds trunk or limbs and provides more than half the effort. 4-Omkbyqndf-jyltim does ALL the effort. Patient does none of the effort to complete the activity. Or, the assistance of 2 or more helpers is required for the patient to complete the activity. If activity was not attempted, code reason: 7-Patient Refused. 9-Not Applicable-not attempted and the patient did not perform the activity before the current illness, exacerbation or injury. 10-Not Attempted due to Environmental Limitations-(lack of equipment, weather restraints, etc.). 88-Not Attempted due to Medical Conditions or Safety Concerns. ADL PLOF Comments Pt reports IND with ADLs and functional mobility at PLOF, no AD. Able to complete IADLs Self Care: Independent Functional Cognition: Independent DME/Equipment: Bath Bench, Shower OT Current Status Subjective Pt in bed, agreeable to OT Tx. Mental Status/Objective Patient Orientation: Person, Place, Situation Attachments: Stovall Catheter, IV Current Dentures/Partials: Yes Hand Dominance: Right Upper Extremity ROM WFL during tx session Upper Extremity Strength grossly 3/5 ADL-Treatment Eating (QC): 3 (Min A with medications) Shower/Bathe Self (QC): 1 (Per clincial judgment, assist x2 would be required in stand to wash buttocks.) Lower Body Dressing (QC): 1 (Per clincial judgment. Assist x2 would be required in stand for pant hike. Max-Total assist with all parts.) On/Off Footwear (QC): 1 (total assist with gripper socks.) Toileting Hygiene (QC): 1 (Per clinicial judgment, assist x2 would be required in stand for hygiene/clothing management.) Other Treatments Pt in bed, nurse present to provide medications. Min A required due to pt dropping medications in her bed. Pt transferred supine to sit EOB, max A, then max A sit to blending plant operator order to transfer to recliner. Pt required verbal cues for sequencing of transfer and UE/LE placement. Pt unable to take steps to transfer towards recliner, so recliner moved closer to pt and SPT performed. Pt had difficulty standing upright, flexing forward over the walker with bent elbows. Pt unable ot stand upright even with cues. At this time, pt would require assist x2 in standing for ADLs (hygiene with toileting, and clothing management. Once in recliner, pt leaning forward in chair, education provided with hip precautions, OT encouraged to lean back in the recliner. Post tx, pt in recliner, call light in reach and all needs met. Pt instructed to use call light when she wants to return to bed, she verbalized understanding. Education OT Patient Education: Correct positioning, Modified ADL techniques, Progress toward Goal/Update tx plan, Purpose of tx/functional activities, Reviewed precautions, Rehab process, Safety issues, Transfer techniques Teaching Recipient: Patient Teaching Methods: Discussion Response to Teaching: Verbalize Understanding OT Half-Way Goals Roving Weight Gauger Goals Time Frame: Feb 03, 2022 Eating (QC): 6 Oral Hygiene (QC): 5 Toileting Hygiene (QC): 3 Shower/Bathe Self (QC): 3 Upper Body Dressing (QC): 4 Lower Body Dressing (QC): 3 On/Off Footwear (QC): 3 Additional Goals: 1-Demonstrate ADL Tasks, 2-Verbalize Understanding, 3-ImproveStrength/Libby 1=Demonstrate adherence to instructed precautions during ADL tasks. 2=Patient will verbalize/demonstrate understanding of assistive devices/modifications for ADL. 3=Patient will improve strength/tolerance for activity to enable patient to perform ADL's. OT Education/Plan Problem List/Assessment Assessment: Decreased Activ Tolerance, Decreased Safety Aware, Decreased UE Strength, Dependent Transfers, Impaired Funct Balance, Impaired I ADL's, Impaired Self-Care Skills Pt would benefit from skilled OT services in order to increase safety and independence with ADLs and functional mobility, and for education on AE due to hip precautions, so pt can return home at maximal level of function. Discharge Recommendations Plan/Recommendations: Continue POC Therapy Discharge Recommendati: Post Acute OT Treatment Plan/Plan of Care Patient would benefit from OT for education, treatment and training to promote independence in ADL's, mobility, safety and/or upper extremity function for ADL's. Plan of Care: ADL Retraining, Functional Mobility, UE Funct Exercise/Act Treatment Duration: Feb 03, 2022 Frequency: 3 times per week (3-5 times per week) Estimated Hrs Per Day: .25 hour per day Agreement: Yes Rehab Potential: Fair Time/GCodes Start Time: 09:23 Stop Time: 09:38 Total Time Billed (hr/min): 15 Billed Treatment Time 1RIVER ADDISON OT Jan 20, 2022 09:50
--- NOTE | 2022-01-20 10:01 | Physical Therapy Evaluation ---
PT Evaluation-General Medical Diagnosis Admission Date Jan 18, 2022 at 14:28 Medical Diagnosis: right bipolar total hip Onset Date: Jan 19, 2022 Therapy Diagnosis Therapy Diagnosis: impaired mobility Precautions Precautions/Isolations: Standard Precautions Weight Bear Status Right Lower Extremity: Right Weight Bearing/Tolerated Left Lower Extremity: Left Full Weight Bearing Referral Physician: Gavino Reason for Referral: Evaluation/Treatment Medical History Pertinent Medical History: DM, HTN, OA History of Falls (past yr): Yes Prior Surgery (last 100 days): Unknown Additional Medical History Past Medical History Surgeries: Hysterectomy, Orthopedic Deep Vein Thrombosis, High Cholesterol Gastroesophageal Reflux Osteoporosis, Arthritis Diabetes, Non-Insulin dep Blood Disorders: No Reviewed History: Yes Social History Home: Single Level Current Living Status: Children Entry Into Home: Stairs With Railing, Stairs Without Railing PT Steps Into Home: 3 Prior Prior Level of Function SCALE: Activities may be completed with or without assistive devices. 1-Ibhnkodewl-mwayuwh completes the activity by him/herself with no assistance from a helper. 5-Set-up or Clean-up Assistance-helper sets up or cleans up; patient completes activity. [place] assists only prior to or following the activity. 4-Supervision or Touching Assistance-helper provides verbal cues and/or touching/steadying and/or contact guard assistance as patient completes activity. Assistance may be provided throughout the activity or intermittently. 3-Partial/Moderate Assistance-helper does LESS THAN HALF the effort. [place] lifts, holds or supports trunk or limbs, but provides less than half the effort. 2-Substantial/Maximal Assistance-helper does MORE THAN HALF the effort. [place] lifts or holds trunk or limbs and provides more than half the effort. 6-Ishatlxdd-nopcwy does ALL the effort. Patient does none of the effort to complete the activity. Or, the assistance of 2 or more helpers is required for the patient to complete the activity. If activity was not attempted, code reason: 7-Patient Refused. 9-Not Applicable-not attempted and the patient did not perform the activity before the current illness, exacerbation or injury. 10-Not Attempted due to Environmental Limitations-(lack of equipment, weather restraints, etc.). 88-Not Attempted due to Medical Conditions or Safety Concerns. Bed Mobility: 6 Transfers (B,C,W/C): 6 Gait: 6 Stairs: 6 Indoor Mobility (Ambulation): Independent Stairs: Independent PT Evaluation-Current Subjective Patient in bed pre tx, agrees to PT, has per patient very little pain at rest. Pt/Family Goals to be independent at home Objective Patient Orientation: Person, Place, Situation Attachments: Stovall Catheter, IV Sensory Hearing: Functional Sensation Right Lower Extremit: Intact Sensation Left Lower Extremity: Intact Transfers Roll Left to Right (QC): 2 Sit to Lying (QC): 2 Lying to Sitting/Side of Bed(Q: 2 Sit to Stand (QC): 2 Chair/Nmg-ix-Qnxot Xfer(QC): 2 Max assist for supine to sit and to scoot forward, max assist to stand, patient is severely slumped over the walker when standing and doesn't respond to cues to stand straighter, she says that is one of her problems. Patient needs assist with moving her right leg to turn and sit in recliner, just pivots on her left leg, however she has a lot of difficulty with this and transfer is max assist, needs assist with balance the whole time, assist with guiding patient down into recliner. Balance Sitting Static: Poor Sitting Dynamic: Poor Standing Static: Poor Standing Dynamic: Poor Treatment RLE seated exercises x15 (AP, LAQ) Assessment/Needs Patient in recliner post tx with nurse call, phone, tray, all needs met. Patient has impaired mobility, strength, endurance. She wasn't really able to take any steps on her own during the transfer to the recliner. Rehab Potential: Fair PT Assisted Goals Assisted Goals PT Clinical Support Nurse Goals Time Frame: Jan 27, 2022 Roll Left & Right (QC): 3 Sit to Lying (QC): 3 Lying-Sitting on Side/Bed(QC): 3 Sit to Stand (QC): 3 Chair/Qfa-ai-Vlixn Xfer(QC): 3 Walk 10 feet (QC): 3 PT Plan Problem List Problem List: Activity Tolerance, Functional Strength, Safety, Balance, Gait, Transfer, Bed Mobility, ROM Treatment/Plan Treatment Plan: Continue Plan of Care Treatment Plan: Bed Mobility, Education, Functional Activity Libby, Functional Strength, Gait, Safety, Therapeutic Exercise, Transfers Treatment Duration: Jan 27, 2022 Frequency: 11 times per week Estimated Hrs Per Day: .25 hour per day Patient and/or Family Agrees t: Yes Safety Risks/Education Patient Education: Transfer Techniques, Reviewed Precautions, Correct Positioning, Safety Issues Teaching Recipient: Patient Teaching Methods: Demonstration, Discussion Response to Teaching: Reinforcement Needed Discharge Recommendations Plan Patient will perform bed mobility and transfer training, balance and endurance training, functional strengthening, stair training, gait training, and education, to improve functional mobility and independence at home. Therapy Discharge Recommendati: Scheduled Assistance, Home & Family, Post Acute PT Time/GCodes Time In: 920 Time Out: 936 Total Billed Treatment Time: 16 Total Billed Treatment 1 visit [facility] 16' STEVIE ESCOBAR PT Jan 20, 2022 10:00
[2022-01-20 12:07] VITALS: BP 149/65
--- NOTE | 2022-01-20 12:09 | Progress Note - Hospitalist ---
Subjective HPI/CC On Admission Date Seen by Provider: Jan 20, 2022 Time Seen by Provider: 10:00 Fariha Gagnon is an 86 year old female with PMH HTN, T2DM, HLD, osteoporosis, who presented with after a ground level fall. She was outside raking leaves when she fell and hit her right hip. She did not feel lightheaded or dizzy. She did not have chest pain or palpitations. She did not lose consciousness. She has been in her normal state of health. She denies fevers and chills. She denies shortness of breath and cough. She denies abdominal pain, nausea, vomiting, and diarrhea. She denies dysuria. She has had urinary frequency and urgency. Subjective/Events-last exam She is sitting in her chair. She is going to move back to her chair. She was able to eat and drink this morning. She is having some pain. Objective Exam Vital Signs Vital Signs Date Time Temp Pulse Resp B/P (MAP) Pulse Ox O2 Delivery O2 Flow Rate FiO2 01/20/22 07:41 37.3 79 18 136/62 (86) 93 Room Air 01/20/22 06:38 0.00 Capillary Refill : Less Than 3 Seconds General Appearance: No Apparent Distress, WD/WN Respiratory: Lungs Clear, No Respiratory Distress Cardiovascular: Regular Rate, Rhythm, No Murmur Gastrointestinal: Normal Bowel Sounds, Soft Extremity: Normal Inspection, No Pedal Edema Neurologic/Psychiatric: Alert, Normal Mood/Affect Skin: Normal Color, Warm/Dry Results/Procedures Lab Laboratory Tests 01/20/22 05:14 Patient resulted labs reviewed. Imaging: Reviewed Imaging Report Assessment/Plan Assessment and Plan Assess & Plan/Chief Complaint Hip fracture Ground level fall Osteoporosis XR with right femur fracture Orthopedic surgery following Surgery 01/19 for right bipolar replacement Pain regimen Bowel regimen Incentive spirometry Lovenox PT/OT IRU evaluation, planning for admission Saturday Klebsiella pneumoniae UTI Urine culture with Klebsiella Rocephin T2DM Oral medications only at home Sliding scale insulin while inpatient HTN HLD Continue beta [place] and statin Hydralazine as needed DVT prophylaxis: Lovenox Diagnosis/Problems Diagnosis/Problems (1) Displaced fracture of right femoral neck Status: Acute (2) Fall from ground level Status: Acute (3) Osteoporosis Status: Acute Qualifiers: Osteoporosis type: age-related Presence of current pathological fracture: with current pathological fracture Encounter type: initial encounter Qualified Codes: M80.00XA - Age-related osteoporosis with current pathological fracture, unspecified site, initial encounter for fracture (4) UTI (urinary tract infection) Status: Acute (5) HTN (hypertension) Status: Chronic (6) HLD (hyperlipidemia) Status: Chronic (7) T2DM (type 2 diabetes mellitus) Status: Chronic CESARIO ADRIAN MD Jan 20, 2022 12:09
[2022-01-20] MEDS: fentaNYL INJ 100 MCG/2 ML AMP IVP PRN (12:23)
[2022-01-20 15:45] VITALS: BP 154/63
[2022-01-20] MEDS: cefTRIAXone 1 GM PRE-MIX 50 ML IV SCH (17:48)
[2022-01-20 19:28] VITALS: BP 108/62
[2022-01-20] MEDS: PROPRANOLOL 20 MG (INDERAL) TABLET PO SCH (19:31)
[2022-01-20 23:31] VITALS: BP 100/59
[2022-01-21] MEDS: LACTATED RINGERS 1,000 ML IV SCH (01:26)
[2022-01-21 03:44] VITALS: BP 121/62
[2022-01-21] MEDS: inSUlin ASPART (NovoLOG) 1 UNIT/0.01 ML (CHARGE PER UNIT) SC SCH ×4 (05:42→21:05)
[2022-01-21 07:08] VITALS: BP 118/60
[2022-01-21] MEDS: SENNOSIDES 8.6 MG (SENOKOT) TAB PO SCH ×2 (08:15→19:34)
[2022-01-21] MEDS: ASPIRIN E.C. 81 MG (ECOTRIN) TAB PO SCH (08:15)
[2022-01-21] MEDS: AtorvaSTATin TABLET 10 MG TABLET PO SCH (08:15)
[2022-01-21] MEDS: DOCUSATE SODIUM 100 MG (COLACE) CAP PO SCH ×2 (08:15→19:34)
[2022-01-21] MEDS: ENOXAPARIN 40 MG/0.4 ML (LOVENOX) SYR SC SCH (08:21)
--- NOTE | 2022-01-21 08:26 | Progress Note ---
Standard Progress Note Progress Notes/Assess & Plan Date Seen by a Provider: Jan 21, 2022 Time Seen by a Provider: 08:25 Progress/Assessment & Plan no complaints radiographs--HW well positioned without fracture RLE intact DF and PF of toes and ankle. Snesation intact throughout equal pulses no calf tenderness s/p R bipolar mobilize IRU Final Diagnosis no complaints Vital Signs Date Time Temp Pulse Resp B/P (MAP) Pulse Ox O2 Delivery O2 Flow Rate FiO2 01/21/22 07:08 37.3 79 18 118/60 (79) 93 Room Air 01/21/22 03:44 36.2 67 18 121/62 (81) 93 Room Air 01/20/22 23:31 37.0 60 20 100/59 (73) 95 Room Air 01/20/22 20:18 Room Air 01/20/22 19:28 36.1 70 20 108/62 (77) 96 Room Air 01/20/22 17:49 37.9 01/20/22 16:44 38.3 01/20/22 15:45 38.3 87 20 154/63 (93) 95 Room Air 01/20/22 12:07 37.4 90 18 149/65 (93) 93 Room Air 01/20/22 09:00 Room Air I & O 01/21/22 07:00 Intake Total 835 ml Output Total 820 ml Balance 15 ml Laboratory Tests Test 01/20/22 10:11 01/20/22 15:51 01/20/22 19:38 01/21/22 05:51 Range/Units Glucometer 163 H 151 H 163 H 70-110 MG/DL Hemoglobin 8.0 L 11.5-16.0 g/dL Hematocrit 25 L 35-52 % R hip incision clean and dry no calf tenderness neg Ronald's s/p R hip bipolar to IRU tomorrow LINSEY AGARWAL MD Jan 21, 2022 08:26
--- NOTE | 2022-01-21 09:44 | Physical Therapy Daily Note ---
PT Daily Note-Current Subjective Patient in bed pre tx, agrees to PT, has unrated pain in right hip, patient states her pain is getting better. Pain Section J - Health Conditions 1. Rarely or not at all 2. Occasionally 3. Frequently 4. Almost constantly 8. Unable to answer Pain Effect on Sleep: 8 Pain Interference with Therapy: 4 Pain Interference w/Day-to-Day: 4 Appearance Patient in recliner post tx with nurse call, phone, tray, all needs met. Mental Status Patient Orientation: Person, Place, Situation Attachments: [place]ov[place] Catheter Transfers SCALE: Activities may be completed with or without assistive devices. 0-Xwowxhhqcd-qmwkstx completes the activity by him/herself with no assistance from a helper. 5-Set-up or Clean-up Assistance-helper sets up or cleans up; patient completes a ctivity. [place] assists only prior to or following the activity. 4-Supervision or Touching Assistance-helper provides verbal cues and/or touching/steadying and/or contact guard assistance as patient completes activity. Assistance may be provided throughout the activity or intermittently. 3-Partial/Moderate Assistance-helper does LESS THAN HALF the effort. [place] lifts, holds or supports trunk or limbs, but provides less than half the effort. 2-Substantial/Maximal Assistance-helper does MORE THAN HALF the effort. [place] lifts or holds trunk or limbs and provides more than half the effort. 5-Ziixddjxm-clbwtp does ALL the effort. Patient does none of the effort to complete the activity. Or, the assistance of 2 or more helpers is required for the patient to complete the activity. If activity was not attempted, code reason: 7-Patient Refused. 9-Not Applicable-not attempted and the patient did not perform the activity before the current illness, exacerbation or injury. 10-Not Attempted due to Environmental Limitations-(lack of equipment, weather restraints, etc.). 88-Not Attempted due to Medical Conditions or Safety Concerns. Roll Left & Right (QC): 2 Lying to Sitting/Side of Bed(Q: 2 Sit to Stand (QC): 2 Chair/Lpy-nl-Zmqsx Xfer(QC): 2 Patient very retropulsive with standing the whole time she is on her feet. She is able to take a couple of of steps to the chair but her steps are only about an inch long. Patient is severely slumped over the walker and she doesn't respond to cues to correct this. Patient had to be guided the rest of the way to the chair and lowered. Weight Bearing Right Lower Extremity: Right Weight Bearing/Tolerated Left Lower Extremity: Left Full Weight Bearing Exercises Supine Ex: Ankle pumps, Quad Set, Glut sets, Heel Slides, Short Arc Quads Supine Reps: 15 Treatments bed mobility and transfers, LE ROM Assessment Current Status: Poor Progress little to no change in mobility PT Computer Systems Technician Goals Computer Systems Technician Goals PT Nursing Home Goals Time Frame: Jan 27, 2022 Roll Left & Right (QC): 3 Sit to Lying (QC): 3 Lying-Sitting on Side/Bed(QC): 3 Sit to Stand (QC): 3 Chair/Qne-wb-Muemy Xfer(QC): 3 Walk 10 feet (QC): 3 PT Plan Problem List Problem List: Activity Tolerance, Functional Strength, Safety, Balance, Gait, Transfer, Bed Mobility, ROM Treatment/Plan Treatment Plan: Continue Plan of Care Treatment Plan: Bed Mobility, Education, Functional Activity Libby, Functional Strength, Gait, Safety, Therapeutic Exercise, Transfers Treatment Duration: Jan 27, 2022 Frequency: 11 times per week Estimated Hrs Per Day: .25 hour per day Patient and/or Family Agrees t: Yes Safety Risks/Education Patient Education: Transfer Techniques, Reviewed Precautions, Correct Positioning, Safety Issues Teaching Recipient: Patient Teaching Methods: Demonstration, Discussion Response to Teaching: Reinforcement Needed Time/GCodes Time In: 918 Time Out: 931 Total Billed Treatment Time: 13 Total Billed Treatment 1 visit FA STEVIE URIBE PT Jan 21, 2022 09:44
--- NOTE | 2022-01-21 11:20 | Progress Note - Hospitalist ---
Subjective HPI/CC On Admission Date Seen by Provider: Jan 21, 2022 Time Seen by Provider: 11:05 Fariha Gagnon is an 86 year old female with PMH HTN, T2DM, HLD, osteoporosis, who presented with after a ground level fall. She was outside raking leaves when she fell and hit her right hip. She did not feel lightheaded or dizzy. She did not have chest pain or palpitations. She did not lose consciousness. She has been in her normal state of health. She denies fevers and chills. She denies shortness of breath and cough. She denies abdominal pain, nausea, vomiting, and diarrhea. She denies dysuria. She has had urinary frequency and urgency. Subjective/Events-last exam She is having some pain since being moved back to bed. She was able to take a couple steps with therapy today. Objective Exam Vital Signs Vital Signs Date Time Temp Pulse Resp B/P (MAP) Pulse Ox O2 Delivery O2 Flow Rate FiO2 01/21/22 09:00 Room Air 01/21/22 07:08 37.3 79 18 118/60 (79) 93 01/20/22 06:38 0.00 Capillary Refill : Less Than 3 Seconds General Appearance: No Apparent Distress, WD/WN Respiratory: Lungs Clear, No Respiratory Distress Cardiovascular: Regular Rate, Rhythm, No Murmur Gastrointestinal: Normal Bowel Sounds, Soft Extremity: Normal Inspection, No Pedal Edema Neurologic/Psychiatric: Alert, Motor Weakness Results/Procedures Lab Laboratory Tests 01/21/22 05:51 Patient resulted labs reviewed. Imaging: Reviewed Imaging Report Assessment/Plan Assessment and Plan Assess & Plan/Chief Complaint Hip fracture Ground level fall Osteoporosis XR with right femur fracture Orthopedic surgery following Surgery 01/19 for right bipolar replacement Pain regimen Bowel regimen Incentive spirometry Lovenox PT/OT IRU evaluation, planning for admission Saturday Postoperative anemia due to expected blood loss Hgb 8 Monitor Klebsiella pneumoniae UTI Transition to Keflex T2DM Resume Metformin Sliding scale insulin HTN HLD Continue beta [place] and statin Hydralazine as needed DVT prophylaxis: Lovenox Diagnosis/Problems Diagnosis/Problems (1) Displaced fracture of right femoral neck Status: Acute (2) Fall from ground level Status: Acute (3) Osteoporosis Status: Acute Qualifiers: Osteoporosis type: age-related Presence of current pathological fracture: with current pathological fracture Encounter type: initial encounter Qualified Codes: M80.00XA - Age-related osteoporosis with current pathological fracture, unspecified site, initial encounter for fracture (4) UTI (urinary tract infection) Status: Acute (5) HTN (hypertension) Status: Chronic (6) HLD (hyperlipidemia) Status: Chronic (7) T2DM (type 2 diabetes mellitus) Status: Chronic (8) Acute postoperative anemia due to expected blood loss Status: Acute CESARIO ADRIAN MD Jan 21, 2022 11:20
[2022-01-21 11:23] VITALS: BP 144/75
[2022-01-21] MEDS: CEPHALEXIN 250 MG (KEFLEX) CAP PO SCH ×3 (13:08→19:34)
[2022-01-21 15:46] VITALS: BP 146/64
[2022-01-21 19:28] VITALS: BP 118/62
[2022-01-21] MEDS: PROPRANOLOL 20 MG (INDERAL) TABLET PO SCH (19:34)
[2022-01-22] VITALS: BP 120/57
[2022-01-22 03:46] VITALS: BP 120/64
[2022-01-22 05:31] LABS: HEMOGLOBIN 7.7 g/dL (11.5-16.0)
[2022-01-22] MEDS: inSUlin ASPART (NovoLOG) 1 UNIT/0.01 ML (CHARGE PER UNIT) SC SCH ×2 (05:54→05:56)
[2022-01-22 07:34] VITALS: BP 127/63
[2022-01-22] MEDS: SENNOSIDES 8.6 MG (SENOKOT) TAB PO SCH (08:15)
[2022-01-22] MEDS: AtorvaSTATin TABLET 10 MG TABLET PO SCH (08:15)
[2022-01-22] MEDS: CEPHALEXIN 250 MG (KEFLEX) CAP PO SCH (08:15)
[2022-01-22] MEDS: ASPIRIN E.C. 81 MG (ECOTRIN) TAB PO SCH (08:16)
[2022-01-22] MEDS: DOCUSATE SODIUM 100 MG (COLACE) CAP PO SCH (08:16)
[2022-01-22] MEDS: ENOXAPARIN 40 MG/0.4 ML (LOVENOX) SYR SC SCH (08:16)
[2022-01-22] MEDS ORDERED: metFORMIN 500 MG (GLUCOPHAGE) TAB PO SCH (09:00)
--- NOTE | 2022-01-22 09:35 | Discharge Summary ---
Diagnosis/Chief Complaint Date of Admission Jan 18, 2022 at 14:28 Date of Discharge Admission Diagnosis Hip fracture Primary Care Jacky Packer DO Discharge Diagnosis (1) Displaced fracture of right femoral neck Status: Acute (2) Fall from ground level Status: Acute (3) Osteoporosis Status: Acute (4) UTI (urinary tract infection) Status: Acute (5) HTN (hypertension) Status: Chronic (6) HLD (hyperlipidemia) Status: Chronic (7) T2DM (type 2 diabetes mellitus) Status: Chronic (8) Acute postoperative anemia due to expected blood loss Status: Acute Discharge Summary Discharge Physical Exam Allergies: Coded Allergies: No Known Drug Allergies (Unverified , 05/16/20) Vitals & I&Os Vital Signs Date Time Temp Pulse Resp B/P (MAP) Pulse Ox O2 Delivery O2 Flow Rate FiO2 01/22/22 08:24 Room Air 01/22/22 07:34 37.0 59 18 127/63 (84) 97 01/20/22 06:38 0.00 General Appearance: No Apparent Distress, Thin Respiratory: Lungs Clear, No Respiratory Distress Cardiovascular: Regular Rate, Rhythm, No Murmur Gastrointestinal: Normal Bowel Sounds, Soft Neurologic/Psychiatric: Alert, Oriented x3 Hospital Course Patient was admitted to the hospital secondary to right hip fracture. She underwent operative repair on January 19 and did well. She did have some postoperative anemia but this stabilized without intervention. She was seen by physical therapy and Occupational Therapy and was deemed an appropriate heidy te for inpatient rehab. She was discharged to the inpatient rehab unit for intensive therapies. Labs (last 24 hrs) Laboratory Tests 01/21/22 15:10: Glucometer 146H 01/22/22 05:15: Hemoglobin 7.7L, Hematocrit 25L 01/22/22 05:27: Glucometer 134H Microbiology 01/18/22 Urine Culture - Final, Complete Klebsiella pneumoniae Patient resulted labs reviewed. Pending Labs Laboratory Tests 01/22/22 05:15: Hemoglobin 7.7, Hematocrit 25 01/22/22 05:27: Glucometer 134 Imaging: Reviewed Imaging Report Discussion & Recommendations Discharge Planning: >30 minutes discharge planning Discharge Home Medications: Active Scripts Active Reported Nexium 24Hr (Esomeprazole Magnesium) 20 Mg Capsule.dr 20 Mg PO DAILY PRN Vitamin C (Ascorbate Calcium) 500 Mg Tablet 500 Mg PO DAILY Propranolol HCl 20 Mg Tablet 20 Mg PO HS Simvastatin 10 Mg Tablet 10 Mg PO DAILY Metformin HCl 500 Mg Tablet 500 Mg PO DAILY Vitamin D3 (Cholecalciferol (Vitamin D3)) 50 Mcg (2000 Unit) Capsule 50 Mcg PO DAILY Ibandronate Sodium 150 Mg Tablet 150 Mg PO MONTHLY Instructions to patient/family Please see electronic discharge instructions given to patient. Problem Qualifiers (1) Osteoporosis: Osteoporosis type: age-related Presence of current pathological fracture: with current pathological fracture Encounter type: initial encounter Qualified Codes: M80.00XA - Age-related osteoporosis with current pathological fracture, unspecified site, initial encounter for fracture MICAH GARCIA MD Jan 22, 2022 9:35 am
[2022-01-22 10:43] LABS: BASOPHILS % (AUTO) 0 % (0-10); EOSINOPHILS # (AUTO) 0.1 10^3/uL (0.0-0.3); EOSINOPHILS % (AUTO) 1 % (0-10); HEMATOCRIT 28 % (35-52); HEMOGLOBIN 8.6 g/dL (11.5-16.0); LYMPHOCYTES % (AUTO) 18 % (12-44); MEAN CORPUSCULAR HEMOGLOBIN 28 pg (25-34); MEAN CORPUSCULAR HGB CONC 31 g/dL (32-36); MEAN CORPUSCULAR VOLUME 89 fL (80-99); MEAN PLATELET VOLUME 9.5 fL (9.0-12.2); MONOCYTES # (AUTO) 1.2 10^3/uL (0.0-1.0); MONOCYTES % (AUTO) 11 % (0-12); NEUTROPHILS # (AUTO) 7.6 10^3/uL (1.8-7.8); NEUTROPHILS % (AUTO) 69 % (42-75); PLATELET COUNT 321 10^3/uL (130-400); WHITE BLOOD COUNT 11.1 10^3/uL (4.3-11.0)
[2022-01-22 11:14] LABS: ALBUMIN 2.8 GM/DL (3.2-4.5); BILIRUBIN,TOTAL 0.4 MG/DL (0.1-1.0); CALCIUM 9.1 MG/DL (8.5-10.1); CREATININE SERUM 0.75 MG/DL (0.60-1.30); POTASSIUM 3.9 MMOL/L (3.6-5.0); TOTAL PROTEIN 6.6 GM/DL (6.4-8.2)
--- NOTE | 2022-01-23 14:33 | Physician Query Clarification ---
PQ-Further Specificity Admission/Discharge Admission Date: Jan 18, 2022 at 14:28 Discharge Date: Jan 22, 2022 at 10:45 Dr. Adrian, The medical record reflects the following clinical scenario: History/Risk Factors: Rt. Subcapital fx, osteoporosis Clinical Findings: Date of Exam:01/18/22 FEMUR 2 VIEW RIGHT Indication: Fall, traumatic deformity and foreshortening. Findings: Bony demineralization and osteopenia noted. There is fracture displaced of the femoral neck at its subcapital portion with proximal migration of the distal femoral fragment. No dislocation. No midshaft or distal femoral injury. Impression: There is bony demineralization and femoral neck fracture without dislocation Treatment: Rt bipolar prosthesis Question: Can you further specify if the subcapital fx was due to the trauma or osteoporosis per the clinical indicators above? Please document a response in the Progress Notes or Discharge Summary. 1. Rt subcapital fracture is due to the trauma 2. Rt subcapital fracture is due to the osteoporosis 3. Other, with explanation of the clinical findings. 4. Clinically undetermined, no explanation for the clinical findings. PHYSICIAN RESPONSE Can you specify per above: Other, explanation/clinical finding Explanation/Clinical Findings Fracture due to trauma and osteoporosis In responding to this query, please exercise your independent professional judgment. The purpose of this communication is to more accurately reflect the complexity of your patients condition. The fact that a question is asked does not imply that any particular answer is desired or expected. Thank you for your timely response to this clarification. Requestors name: Lizeth THIS PHYSICIAN QUERY FORM IS A PERMANENT PART OF THE MEDICAL RECORD LIZETH MORRELL Jan 23, 2022 14:33 CESARIO ADRIAN MD Jan 30, 2022 09:21
== END 2022-01-22 10:45 | DRG 522 ==
LOC: EDUNIT# 11:48 → ER FS 11:49 → 4TH 14:28
PROVIDERS: ADMIT Internal Medicine; ATTEND Internal Medicine
PROC: 0SRR01A Replacement of Right Hip Joint, Femoral Surface with Metal Synthetic Substitute, Uncemented, Open Approach (ICD-10-PCS; principal; 2022-01-19 12:11)
DX: M80.052A Age-related osteoporosis with current pathological fracture, left femur, initial encounter for fracture (principal); N39.0 Urinary tract infection, site not specified; D62 Acute posthemorrhagic anemia; I10 Essential (primary) hypertension; E11.9 Type 2 diabetes mellitus without complications; E78.00 Pure hypercholesterolemia, unspecified; K21.9 Gastro-esophageal reflux disease without esophagitis; M19.91 Primary osteoarthritis, unspecified site; B96.1 Klebsiella pneumoniae [K. pneumoniae] as the cause of diseases classified elsewhere; Z86.718 Personal history of other venous thrombosis and embolism; Z79.01 Long term (current) use of anticoagulants; Z79.84 Long term (current) use of oral hypoglycemic drugs; W01.0XXA Fall on same level from slipping, tripping and stumbling without subsequent striking against object, initial encounter; Y93.H1 Activity, digging, shoveling and raking; Y92.017 Garden or yard in single-family (private) house as the place of occurrence of the external cause
CPT/HCPCS: 36415; 51702; 73501; 73502; 73552; 80053; 81000; 82607; 82947; 83540; 85014; 85018; 85025; 86850; 86900; 86901; 87077; 87088; 87186; 94664; 96374; 96375

== ENCOUNTER 2022-01-22 10:15 | Inpatient (IN) | payer MEDICARE, OTHER ==
--- NOTE | 2022-01-20 12:05 | Anesthesia-General Post-Op ---
General Patient Condition Mental Status/LOC: Same as Preop Cardiovascular: Satisfactory Nausea/Vomiting: Absent Respiratory: Satisfactory Pain: Controlled Complications: Absent Post Op Complications Complications None Follow Up Care/Instructions Patient Instructions None needed. Anesthesia/Patient Condition Patient Condition Patient is doing well, no complaints, stable vital signs, no apparent adverse anesthesia problems. No complications reported per nursing. JARON NICOLE CRNA Jan 20, 2022 12:05
[~2022-01-22] VITALS: Ht 167 cm; Wt 59.6 kg
--- NOTE | 2022-01-22 09:25 | PM&R Post Admission Assessment ---
PM&R HP Date of Visit: Jan 22, 2022 Time of Visit: 10:30 History of Present Illness Chief complaint: Debility following right hip fracture HPI: This is an 86-year-old female presents to inpatient rehab following an uncomplicated right hip fracture repair by Dr. Lees" 01/19/2022. Patient required pain medication following immediate postop timeframe. She was diagnosed with a Klebsiella UTI and placed on Keflex to complete during rehab stay. She appears to be very frail. I have taken care of her before. Catheter will be discontinued and we will focus on bowel regimen to return to normal function. We will monitor blood sugars since she is diabetic and we will check iron studies to evaluate need for iron infusion and B12 injection. Fariha Gagnon, 86 YO F was admitted to the hospital on 01/18/22 secondary to right hip fracture. She underwent operative repair by Dr. Sacuedo on January 19 and did well. She did have some postoperative anemia but this stabilized without intervention. She was seen by physical therapy and Occupational Therapy and was deemed an appropriate candidate for inpatient rehab. During hospitalization she was dx and treated for klebsiella positive UTI, which she is currently on Keflex for. She was discharged from fourth floor to the inpatient rehab unit for intensive therapies. PMH: Non-insulin dependent DM, Arthritis, osteoporosis, orthopedic DVT, high cholesterol, GERD, HTN PSH: Hysterectomy, spinal surgery ALL: NKDA Home Meds: Nexium (20MG Daily prn), VitC (500MG daily), Propranolol HCL (20 MG PO), Simvastin (10 MG PO daily), Metformin (500MG PO Daily), VitD3 (50mcg PO daily), Ibandronate sodium (150 MG PO MONTHLY) SH: denies tobacco, ETOH, and recreational drug use FH: non contributory A/P: S/p right hip bipolar replacement - POD#3, PT/OT Post operative anemia - monitor Hb ISAAC LOPEZ Past Qorjdul-Ibtawc-Tfvigp Hx Past Med/Social Hx: Reviewed Nursing Past Med/Soc Hx, Reviewed and Corrections made Patient Social History Marrital Status: single Employed/Student: retired Alcohol Use: Denies Use Smoking Status: Never a Smoker 2nd Hand Smoke Exposure: No Recent Hopitalizations: No Immunizations Up To Date Date of Influenza Vaccine: Feb 21, 2020 Seasonal Allergies Seasonal Allergies: No Past Medical History Surgeries: Hysterectomy, Orthopedic Respiratory: Pulmonary Embolism Cardiac: Deep Vein Thrombosis, High Cholesterol Gastrointestinal: Gastroesophageal Reflux Musculoskeletal: Osteoporosis, Arthritis Endocrine: Diabetes, Non-Insulin dep History of Blood Disorders: No Occupation: retired. PM&R Allergy/Meds/Data Review Allergies Coded Allergies: No Known Drug Allergies (Unverified , 05/16/20) Home Medications Scheduled Ascorbate Calcium (Vitamin C), 500 MG PO DAILY, (Reported) Cholecalciferol (Vitamin D3) (Vitamin D3), 50 MCG PO DAILY, (Reported) Ibandronate Sodium (Ibandronate Sodium), 150 MG PO MONTHLY, (Reported) Metformin HCl (Metformin HCl), 500 MG PO DAILY, (Reported) Propranolol HCl (Propranolol HCl), 20 MG PO HS, (Reported) Simvastatin (Simvastatin), 10 MG PO DAILY, (Reported) Scheduled PRN Esomeprazole Magnesium (Nexium 24Hr), 20 MG PO DAILY PRN for HEARTBURN, (Reported) Discontinued Medications Apixaban (Eliquis), 2.5 MG PO BID Discontinued Reason: No Longer Taking Calcium Carbonate/Vitamin D3 (Calcium 600 + Vit D Softgel), 1 EACH PO BID, (Reported) Discontinued Reason: No Longer Taking Duloxetine HCl (Duloxetine HCl), 30 MG PO DAILY, (Reported) Discontinued Reason: No Longer Taking Gabapentin (Gabapentin), 100 MG PO TID, (Reported) Discontinued Reason: No Longer Taking Hydrocodone Bit/Acetaminophen (HYDROcodone/APAP 5 MG/325 MG TAB), 2 EA PO Q4H PRN for PAIN-MODERATE (5-7) Discontinued Reason: No Longer Taking Ondansetron (Ondansetron Odt), 4 MG PO Q6H PRN for NAUSEA/VOMITING-1ST LINE Discontinued Reason: No Longer Taking Oxycodone Hcl (Oxyir Tablet), 10 MG PO HS Discontinued Reason: No Longer Taking Pantoprazole Sodium (Pantoprazole Sodium), 40 MG PO BID Discontinued Reason: No Longer Taking Scopolamine (Transderm-Scop), 1 EACH TD Q72H Discontinued Reason: No Longer Taking Sennosides/Docusate Sodium (Stool Softener-Laxative Tablet), 1 EA PO BID Discontinued Reason: No Longer Taking Current Medications Current Medications Reviewed Review of Systems Constitutional: see HPI, malaise, weakness EENTM: no symptoms reported Respiratory: no symptoms reported Cardiovascular: no symptoms reported Gastrointestinal: no symptoms reported Genitourinary: no symptoms reported Musculoskeletal: back pain, joint pain Skin: no symptoms reported Psychiatric/Neurological: Anxiety, Depressed, Emotional Problems All Other Systems Reviewed Negative Unless Noted: Yes Physical Exam Physical Exam Vital Signs Capillary Refill : Height, Weight, BMI Height: '" Weight: lbs. oz. kg; 21.62 BMI Method: General Appearance: No Apparent Distress, WD/WN, Chronically ill, Thin, Other (Frail and pale) Eyes: Bilateral Eye Normal Inspection, Bilateral Eye PERRL HEENT: PERRL/EOMI, Normal ENT Inspection, Pharynx Normal Neck: Full Range of Motion, Normal Inspection, Non Tender, Supple, Carotid Bruit Respiratory: Chest Non Tender, Lungs Clear, Normal Breath Sounds, No Accessory Muscle Use, No Respiratory Distress Cardiovascular: Regular Rate, Rhythm, No Edema, No Gallop, No JVD, No Murmur, Normal Peripheral Pulses Gastrointestinal: Normal Bowel Sounds, No Organomegaly, No Pulsatile Mass, Non Tender, Soft Back: Normal Inspection, No CVA Tenderness, No Vertebral Tenderness Extremity: Normal Capillary Refill, Normal Inspection, Normal Range of Motion, Non Tender, No Calf Tenderness, No Pedal Edema Neurologic/Psychiatric: Alert, Oriented x3, solar water heater installer II-XII Norm as Tested, Abnormal Gait, Depressed Affect, Motor Weakness (Generalized especially right leg) Skin: Normal Color, Warm/Dry Lymphatic: No Adenopathy PM&R Medical Assessment & Plan REHAB/MEDICAL ASSESSMENT AND PLAN: REHAB IMPAIRMENT GROUP: Right hip fracture ETIOLOGIC DIAGNOSIS: Right hip fracture The comorbidities that impact the patients function and/or functional outcome by: Advanced age, fall risk, right leg pain due to fracture, osteoporosis, diabetes, history of extensive back surgery 2020 REHAB PLAN: The patient is being admitted to our comprehensive inpatient rehabilitation facility and can tolerate the intensity of service consisting of at least: 180 minutes of therapy a day, 5 out of 7 days a week Rehab treatment will consist of: PT and OT will focus on regaining enough function with the use of assistive devices in order to regain enough independence to return home to independent living The patient/family has a good understanding of our discharge process and will benefit from an interdisciplinary inpatient rehabilitation program. The patient has potential to make improvement and is in need of at least two of the foll owing multidisciplinary therapies including but not limited to physical, occupational, speech, and prosthetics and orthotics. Additionally the patient will need services from respiratory, nutritional services, wound care, psychology, etc. (Customize this to each patient). Given the patients complex condition and risk of further medical complications, rehabilitation services cannot be safely or effectively provided at a lower level of care such as a shelter facility. BARRIERS TO DISCHARGE: Advanced age and fall risk ESTIMATED LOS: 10 days DISPOSITION: Home RELEVANT CHANGES SINCE PREADMISSION SCREENING: I have compared the patients medical and functional status at the time of the preadmission screening and there are: No changes PROGNOSIS: Fair REHABILITATION GOALS: 1. PT and OT will focus on regaining enough function with the use of assistive devices in order to regain enough independence to return home to independent living All the above goals were reviewed with the patient and he/she is in agreement. By signing this document, I acknowledge that I have personally performed a full physical examination on this patient within 24 hours of admission to this inpatient rehabilitation facility and have determined the patient to be able to tolerate the above course of treatment at an intensive level for a reasonable period of time. I will be completing a detailed individualized Plan of Care for this patient by day #4 of the patients stay based upon the Preadmission Screen, the Post-Admission Evaluation, and the therapy evaluations. Admission Dx/Comorbidities: (1) Hip fracture ICD Codes: S72.009A - Fracture of unspecified part of neck of unspecified femur, initial encounter for closed fracture (2) Acute postoperative anemia due to expected blood loss Status: Acute ICD Codes: D62 - Acute posthemorrhagic anemia (3) T2DM (type 2 diabetes mellitus) Status: Chronic ICD Codes: E11.9 - Type 2 diabetes mellitus without complications (4) HLD (hyperlipidemia) Status: Chronic ICD Codes: E78.5 - Hyperlipidemia, unspecified (5) HTN (hypertension) Status: Chronic ICD Codes: I10 - Essential (primary) hypertension (6) UTI (urinary tract infection) Status: Acute ICD Codes: N39.0 - Urinary tract infection, site not specified (7) Fall from ground level Status: Acute ICD Codes: W18.30XA - Fall on same level, unspecified, initial encounter (8) Osteoporosis Status: Acute ICD Codes: M81.0 - Age-related osteoporosis without current pathological fracture (9) [place] filter in place ICD Codes: Z95.828 - Presence of other vascular implants and grafts (10) Protein-calorie malnutrition, moderate ICD Codes: E44.0 - Moderate protein-calorie malnutrition (11) GERD (gastroesophageal reflux disease) ICD Codes: K21.9 - Gastro-esophageal reflux disease without esophagitis (12) Weight loss ICD Codes: R63.4 - Abnormal weight loss Assessment/Plan Assessment and Plan Assess & Plan/Chief Complaint Assessment: Debility following right hip fracture status postrepair on 01/19/[address] Lees History of extensive spine surgery per Dr Hunter on 06/09/2020 requiring inpatient rehab stay History of DVT/PE dx 06/09/20 delaying surgery scheduled for 06/09/20 at [facility] dx in pre-op Osteoporosis on bisphosphonate GERD Weight loss BMI 21 History of refractory nausea DM [id number]-pexrnam-[id number] Post op anemia checking iron studies and B12 Back pain chronic Fall risk UTI dx 06/23/20 and treated and then again on 01/18/2022 maintained on Keflex for Klebsiella Plan: Supportive care Rehab protocol DVT prophylaxis Home meds Glucometer checks Pain control CHARLOTTE CAMARGO DO Jan 22, 2022 09:24
[~2022-01-22 10:15] MED LIST changes: +ACETAMINOPHEN 325 MG TABLET PO PRN; +ALPRAZolam 0.25 MG (XANAX) TAB PO PRN; +ASCO-262 PO; +BISACODYL 10 MG SUPP (DULCOLAX) PR PRN; +DOCUSATE SODIUM 100 MG (COLACE) CAP PO PRN; +ESOM20CA58 PO; +FLEET ENEMA ADULT 1 EA BTL PR PRN; +LACTULOSE SYRUP 10GM/15ML (ENULOSE) 30ML UDC PO PRN; +LOPERAMIDE 2 MG (IMODIUM) TABLET PO PRN; +MELATONIN 3 MG TABLET PO PRN; +ONDANSETRON 4 MG (ZOFRAN) ORAL DISSOLVE TAB PO PRN; +PROP20TA5 PO; +diphenhydrAMINE 25 MG TAB (BENADRYL) PO PRN; +guaiFENesin/CODEINE (ROBITUSSIN AC) 10ML UDC PO PRN
--- NOTE | 2022-01-22 11:36 | Physical Therapy Evaluation ---
PT Evaluation-General Medical Diagnosis Admission Date Jan 22, 2022 at 10:15 Medical Diagnosis: right JOSE Onset Date: Jan 19, 2022 Therapy Diagnosis Therapy Diagnosis: impaired mobility Weight Bear Status Right Lower Extremity: Right Weight Bearing/Tolerated Referral Physician: Monique Lua DO Reason for Referral: Evaluation/Treatment Medical History Pertinent Medical History: DM, HTN, OA History of Falls (past yr): Yes Prior Surgery (last 100 days): Unknown Additional Medical History Past Medical History Surgeries: Hysterectomy, Orthopedic Deep Vein Thrombosis, High Cholesterol Gastroesophageal Reflux Osteoporosis, Arthritis Diabetes, Non-Insulin dep Blood Disorders: No Reviewed History: Yes Reviewed History: Yes Social History Home: Single Level Current Living Status: Children PT Steps Into Home: 3 Prior Prior Level of Function SCALE: Activities may be completed with or without assistive devices. 3-Pnboltfdmf-qlmmxaw completes the activity by him/herself with no assistance from a helper. 5-Set-up or Clean-up Assistance-helper sets up or cleans up; patient completes activity. [place] assists only prior to or following the activity. 4-Supervision or Touching Assistance-helper provides verbal cues and/or touching/steadying and/or contact guard assistance as patient completes activity. Assistance may be provided throughout the activity or intermittently. 3-Partial/Moderate Assistance-helper does LESS THAN HALF the effort. [place] lifts, holds or supports trunk or limbs, but provides less than half the effort. 2-Substantial/Maximal Assistance-helper does MORE THAN HALF the effort. [place] lifts or holds trunk or limbs and provides more than half the effort. 9-Pitbukdhd-jqxqis does ALL the effort. Patient does none of the effort to complete the activity. Or, the assistance of 2 or more helpers is required for the patient to complete the activity. If activity was not attempted, code reason: 7-Patient Refused. 9-Not Applicable-not attempted and the patient did not perform the activity before the current illness, exacerbation or injury. 10-Not Attempted due to Environmental Limitations-(lack of equipment, weather restraints, etc.). 88-Not Attempted due to Medical Conditions or Safety Concerns. Bed Mobility: 6 Transfers (B,C,W/C): 6 Gait: 6 Stairs: 6 Indoor Mobility (Ambulation): Independent Stairs: Independent PT Evaluation-Current Subjective Patient in recliner pre tx, agrees to PT, has unrated pain in right hip, patient states her pain is "not too bad". Will be co-treating with OT due to poor patient mobility, strength, endurance, severe debility, coordinate UE and LE during activity, safety and reduce risk of falls. Pain Section J - Health Conditions 1. Rarely or not at all 2. Occasionally 3. Frequently 4. Almost constantly 8. Unable to answer Pain Effect on Sleep: 2 Pain Interference with Therapy: 4 Pain Interference w/Day-to-Day: 4 Pt/Family Goals "to walk again" Objective Patient Orientation: Person, Place, Situation ROM/Strength Strength Lower Extremities LLE (hip flexion 3+/5, knee flexion 4/5, knee extension 4/5, dorsiflexion 3+/5), RLE (hip flexion 3-/5, knee flexion 4/5, knee extension 4/5, dorsiflexion 3+/5) Sensory Hearing: Functional Sensation Right Lower Extremit: Intact Sensation Left Lower Extremity: Intact Transfers Roll Left & Right (QC): 2 Sit to Lying (QC): 2 Lying to Sitting/Side of Bed(Q: 2 Sit to Stand (QC): 2 Chair/Aua-nw-Kuyix Xfer(QC): 2 Toilet Transfer (QC): 2 Car Transfer (QC): 2 Patient performs rolling and supine <-> sit with max assist, sit <-> stand and transfers max assist, car transfer max assist. Patient needs assist guiding walker, slumps severely over walker and cant straighten, leans backward, retropulsive during transfers and standing. Gait Does the Patient Walk?: Yes Mode of Locomotion: Both Anticipated Mode of Locomotion: Walk Walk 10 feet (QC): 88 Walk 50 ft with 2 Turns(QC): 88 Walk 150 ft (QC): 88 Walking 10ft/uneven surface-QC: 88 Distance: 2'x3 Gait Assistive Device: Parallel Bars Comments/Gait Description Patient can ambulate 2' in the parallel bars with min assist, has a lot of difficulty bearing weight on her right leg, she can stand up straighter in the parallel bars vs. walker Wheelchair Training Does the Pt Use a Wheelchair?: Yes Distance: 100' Wheel 50 ft with 2 turns (QC): 3 Wheel 150 ft (QC): 88 Type of Wheelchair: Manual Patient can propel a manual WC 100' with min assist Stairs 1 Step (curb) (QC): 88 4 Steps (QC): 88 12 Steps (QC): 88 Balance Sitting Static: Fair Sitting Dynamic: Fair Standing Static: Poor Standing Dynamic: Poor Picking up an Object (QC): 88 Treatment Patient dressed and performed ADL's at the sink. PT performed bed mobility and transfers, ambulation, WC mobility, standing and positioning during dressing and ADL's, OT performed dressing, ADL's, UE positioning and safety during activity. Assessment/Needs Patient in recliner post tx with nurse call, phone, tray, all needs met. Patient has impaired mobility, strength, endurance. Patient needs a lot of assist for transfers and ambulation, has trouble bearing weight on her right leg. Rehab Potential: Fair PT Short Term Goals Short Term Goals Time Frame: Jan 29, 2022 Roll Left & Right: 3 (Dolly) Sit to lyin (Dolly) Lying to sitting on side of be: 3 (Dolly) Sit to stand: 3 (Dolly) Chair/cqn-de-xxmol transfer: 3 (Dolly) Walk 10 feet: 3 (Dolly) PT Nursing Home Goals Imaging Science Professor Goals PT Imaging Science Professor Goals Time Frame: Feb 12, 2022 Scoring Section J - Health Conditions 1. Rarely or not at all 2. Occasionally 3. Frequently 4. Almost constantly 8. Unable to answer Roll Left to Right (QC): 4 (SBA) Sit to Lying (QC): 4 (SBA) Lying-Sitting on Side/Bed(QC): 4 (SBA) Sit to Stand (QC): 4 (CGA) Chair/Rje-vs-Kcdvt Xfer(QC): 4 (CGA) Car Transfer (QC): 4 (CGA) Walk 10 feet (QC): 4 (CGA) Walk 10ft-Uneven Surface(QC): 4 (CGA) Walk 50ft with 2 Turns (QC): 4 (CGA) Walk 150 ft (QC): 4 (CGA) Wheel 50 feet with 2 turns (QC: 9 1 Step (curb) (QC): 4 (CGA) 4 Steps (QC): 4 (CGA) Picking up an Object (QC): 4 (CGA using a java web architect) toilet transfer CGA, WC 50' and 150' SBA PT Plan Problem List Problem List: Activity Tolerance, Functional Strength, Safety, Balance, Gait, Transfer, Bed Mobility, ROM Treatment/Plan Treatment Plan: Continue Plan of Care Treatment Plan: Bed Mobility, Education, Functional Activity Libby, Functional Strength, Group Therapy, Gait, Safety, Therapeutic Exercise, Transfers Treatment Duration: Feb 12, 2022 Frequency: At least 5 of 7 days/Wk (IRF) Estimated Hrs Per Day: 1.5 hours per day Patient and/or Family Agrees t: Yes Safety Risks/Education Patient Education: Gait Training, Transfer Techniques, Reviewed Precautions, Correct Positioning, W/C Management, Safety Issues Teaching Recipient: Patient Teaching Methods: Demonstration, Discussion Response to Teaching: Reinforcement Needed Discharge Recommendations Plan Patient will perform bed mobility and transfer training, balance and endurance training, functional strengthening, stair training, gait training, and education, to improve functional mobility and independence at home. Therapy Discharge Recommendati: Scheduled Assistance, Home & Family, Post Acute PT Time/GCodes Time In: 1015 Time Out: 1140 Total Billed Treatment Time: 75 Total Billed Treatment 1 visit EVM 10' FA 65' PT eval [id number], OT eval [id number], co-treat [id number] STEVIE ESCOBAR PT Jan 22, 2022 11:36
--- NOTE | 2022-01-22 11:37 | Occupational Therapy Eval ---
OT Evaluation-General/PLF Medical Diagnosis Admission Date Jan 22, 2022 at 10:15 Medical Diagnosis: Right Hip Fracture Onset Date: Jan 19, 2022 Therapy Diagnosis Therapy Diagnosis: Reduced ADL status Precautions Precautions/Isolations: Fall Prevention, Standard Precautions Comments Posterior hip precautions Referral Physician: Chanell Coyle Reason: Evaluation/Treatment Medical History Pertinent Medical History: DM, OA Current History Pt came to ER after falling in yard while raking leaves. Pt had a Right hip bipolar replacement and has came down to the ARU for skilled therapy services. She was living with her son in a 1 story home. She did not use any AD prior to hospitalization. She was independent with all ADLs and did some of the cleaning. Her son takes care of cooking. Per pt, she was still driving and going to get groceries sometimes. Reviewed History: Yes Social History Home: Single Level Current Living Status: Children Entry Into Home: Stairs With Railing Steps Into Home: 3 ADL-Prior Level of Function SCALE: Activities may be completed with or without assistive devices. 2-Zrzylhxdlr-dtipaaa completes the activity by him/herself with no assistance from a helper. 5-Set-up or Clean-up Assistance-helper sets up or cleans up; patient completes activity. [place] assists only prior to or following the activity. 4-Supervision or Touching Assistance-helper provides verbal cues and/or touching/steadying and/or contact guard assistance as patient completes activity. Assistance may be provided throughout the activity or intermittently. 3-Partial/Moderate Assistance-helper does LESS THAN HALF the effort. [place] lifts, holds or supports trunk or limbs, but provides less than half the effort. 2-Substantial/Maximal Assistance-helper does MORE THAN HALF the effort. [place] lifts or holds trunk or limbs and provides more than half the effort. 5-Yizteodmq-khdbdj does ALL the effort. Patient does none of the effort to complete the activity. Or, the assistance of 2 or more helpers is required for the patient to complete the activity. If activity was not attempted, code reason: 7-Patient Refused. 9-Not Applicable-not attempted and the patient did not perform the activity before the current illness, exacerbation or injury. 10-Not Attempted due to Environmental Limitations-(lack of equipment, weather restraints, etc.). 88-Not Attempted due to Medical Conditions or Safety Concerns. Self Care: Independent Functional Cognition: Independent DME/Equipment: Bath Chair, Shower Drive Self: Yes OT Current Status Subjective Pt sitting in recliner upon arrival. She agreed to therapy eval. Co-treat completed ([id number]) secondary to fall risk, limited mobility, balance, and coordination. Appearance Pt left sitting in recliner with all needs within reach. Mental Status/Objective Patient Orientation: Person, Place, Time, Situation Acute Mental Status Change: 0 Inattention: 0 Disorganized thinkin Altered level of consciousness: 0 Attachments: IV Current Glasses/Contacts: Yes Hearing Aids: No Dentures/Partials: Yes Hand Dominance: Right Upper Extremity ROM WFL Upper Extremity Strength Grossly 3/5 ADL-Treatment Eating (QC): 5 Oral Hygiene (QC): 3 (anticipate balance assist needed if performed at baseline (standing)) Shower/Bathe Self (QC): 2 (per clinical judgment) Upper Body Dressing (QC): 5 Lower Body Dressing (QC): 1 On/Off Footwear (QC): 1 Toileting Hygiene (QC): 2 Hip precautions instructed to pt; good retention. Sit<>stand transfers: max assist. Pt takes small shuffling steps and needs cues for feet and walker placement. Pt requires increased time to complete all tasks. Pt is dependent with all lower body dressing due to hip precautions and inability to stand to pull pants/underwear up. Pt requires both hands to be on walker while standing due to safety, balance, and fall risk. Post-instruction and demonstration with sock aide and roadway engineer, pt needed max assist to don pants, brief and socks; fair retention. Pt shows increased weakness in UE strength and needed extra assistance to pull sock on with sock aide. Pt sat at sink to perform grooming task of brushing dentures. Other Treatments Pt participated in multiple reps of sit <>stand transfers in parallel bars with max a. Max cues for hand/feet placement was needed. Pt often has tendency to inch foot along with very narrow base of support. Kyphotic posture. Poor carryover with cues for upright posture as pt verbalizes "well, how will I see my feet then?" Pt fatigues quickly and needs several lengthy rest breaks. Education OT Patient Education: Correct positioning, Energy conservation, Modified ADL techniques, Progress toward Goal/Update tx plan, Purpose of tx/functional activities, Reviewed precautions, Rehab process, Safety issues, Transfer techniques, Use of adapted equipment, W/C management Teaching Recipient: Patient Teaching Methods: Demonstration, Discussion Response to Teaching: Verbalize Understanding, Return Demonstration, Reinforcement Needed OT Short Term Goals Short Term Goals Time Frame: Feb 02, 2022 Eatin Oral hygiene: 5 Toileting hygiene: 3 Shower/bathe self: 3 Upper body dressin Lower body dressin Putting on/taking off footwear: 3 OT Snf Goals Snf Goals Time Frame: Feb 14, 2022 Acute change in mental status: 0 Inattention: 0 Disorganized thinkin Altered level of consciousness: 0 Eating (QC): 6 Oral Hygiene (QC): 6 Toileting Hygiene (QC): 4 Shower/Bathe Self (QC): 5 Upper Body Dressing (QC): 6 Lower Body Dressing (QC): 4 On/Off Footwear (QC): 4 Additional Goals: 1-Demonstrate ADL Tasks, 2-Verbalize Understanding, 3-ImproveStrength/Libby 1=Demonstrate adherence to instructed precautions during ADL tasks. 2=Patient will verbalize/demonstrate understanding of assistive devices/modifications for ADL. 3=Patient will improve strength/tolerance for activity to enable patient to perform ADL's. OT Education/Plan Problem List/Assessment Assessment: Decreased Activ Tolerance, Decreased Safety Aware, Decreased UE Strength, Impaired Bed Mobility, Impaired Coordination, Impaired Funct Balance, Impaired I ADL's, Impaired Self-Care Skills Discharge Recommendations Plan/Recommendations: Continue POC Therapy Discharge Recommendati: Bath Aide, Homemaker Support, Home & Family, Post Acute OT Treatment Plan/Plan of Care Treatment,Training & Education: Yes Patient would benefit from OT for education, treatment and training to promote independence in ADL's, mobility, safety and/or upper extremity function for ADL's. Plan of Care: ADL Retraining, Caregiver Training, Functional Mobility, Group Exercise/Act as Ind, UE Funct Exercise/Act Treatment Duration: Feb 14, 2022 Frequency: At least 5 of 7 days/Wk (IRF) Estimated Hrs Per Day: 1.5 hours per day (60-90 min/day) Agreement: Yes Rehab Potential: Fair Time/GCodes Start Time: 10:25 Stop Time: 11:40 Total Time Billed (hr/min): 75 Billed Treatment Time 1 visit EVM (10 min) ADL x3 (50 min) FA (15 min PT eval: [id number] OT eval: [id number] Co-treat: [id number] Lucinda Serra OT Jan 22, 2022 11:37
--- NOTE | 2022-01-22 12:04 | IRF PAI BIMS ---
BIMS BIMS IRF OPAL BIMS: IRF OPAL BIMS Response (Comments) Value Expression of Ideas and Wants (Verbal/Non Verbal) Difficulty 2 Understanding Verbal Content Usually Understands 2 Should Brief Interview for Mental Status be Conducted Yes Repitition of Three Words Three 3 What year is it right now? Correct 0 What month is it right now? Accurate within 5 days 0 What week is it now? Correct 0 Recalls Socks Yes, No Cue Required 2 Recalls Blue Yes, No Cue Required 2 Recalls Bed Yes, No Cue Required 2 Total 13 Brief Interview/Mental Status: No Notes: Incorrect addition on electronic documentation. Correct score is 15/15 Lucinda Serra OT Jan 22, 2022 12:04
[2022-01-22 12:16] VITALS: BP 123/81
--- NOTE | 2022-01-22 13:06 | ST Cognitive Linguistic Eval ---
Speech Evaluation-General Medical Diagnosis Right Hip Fracture Onset Date: Jan 19, 2022 Therapy Diagnosis Therapy Diagnosis: Intact Cognition Precautions Precautions: Fall, Hip Precautions/Isolations: Fall Prevention, Standard Precautions Referral Referring Physician: Dr. Lua Reason for Referral: Evaluation/Treatment Medical History Pertinent Medical History: DM, HTN, OA Current History The patient is an 86 year-old female with a past medical history of HTN and OA, who presented to ARU following a right hip bipolar replacement. Reviewed History: Yes Social History Current Living Status: Children Speech PLF-Current Status Prior Level of Function The patient denied recent changes or concerns with her speech, language, or cognition. Per patient, "I mean my memory has been getting worse over time but that comes with my age." Subjective The patient was seated upright in her recliner, awake and alert upon entrance to her room by the clinician. The patient greeted the clinician appropriately and was agreeable to participation in the cognitive linguistic assessment. Language Eval: Auditory Comprehends Simple Yes/No Ques: Functional Indent/Objects Multiple Blankenship: Functional Ident/Pics in Multiple Blankenship: Functional Follows 1-Step Commands: Functional Follows General Conversations: Functional Language Eval: Verbal Language Completes Spontaneous Greeting: Functional Produces Auto, Serial Info: Functional Imitates Simple Words/Phrases: Functional Word Finding: Functional Requests Basic Needs: Functional States Basic Personal Info: Functional Language Evaluation: Reading Follows Simple Written Direct: Functional Language Evaluation: Writing Writes to Simple Dictation: Functional Cognitive Patient Orientation The patient was independently oriented to self, location, month, day of the week, date and year. Objective Cognitive Domain Attention: WNL Memory: Mild (Minimal.) Problem Solving: Functional Executive Functions: WNL Visuospatial Skills: WNL Composite Severity Rating: WNL Clock Drawing Severity Rating: WNL Objective Formal/Standardized Tests [facility] Mental Status Exam (UMS) Results The patient demonstrated a result of +28/30 on the SLUMS correlating to cognitive linguistic skills within normal limits. Oral Motor/Speech Production The patient does not display dysarthria or apraxia of speech. The patient is 100% intelligible in known and unknown contexts. Impression The patient demonstrated cognitive linguistic skills within normal limits. Speech Patient Assess Expression of Ideas/Wants: Expression (4) Understanding Verbal Content: Understands (4) Brief Interview-Mental Status: Yes Repetition of Three Words: Three (3) Temporal Orientation: Year: Correct (3) Temporal Orientation: Month: Accurate within 5 days(2) Temporal Orientation: Day: Correct (1) Recall : Wear to say "Sock": Yes, no cue required (2) Recall : Color: Yes, no cue required (2) Recall : Bed: Yes, no cue required (2) Memory/Recall Ability: Current season, That he or she is in a hsp/hsp unit Speech-Plan Treatment Plan Speech Therapy Treatment Plan: Discontinue ST Treatment Duration: Jan 22, 2022 Frequency: 1 time per week Estimated Hrs Per Day: .5 hour per day Rehab Potential: Fair Safety Risks/Education Teaching Recipient: Patient Teaching Methods: Discussion Response to Teaching: Verbalize Understanding Education Topics Provided: Results, Recommendations, Plan of Care Time Speech Therapy Time In: 11:40 Speech Therapy Time Out: 12:10 Total Billed Time: 30 Billed Treatment Time 1, BECKY LORENZO [facility] ST Jan 22, 2022 13:06
[2022-01-22] MEDS ORDERED: MELATONIN 3 MG TABLET PO PRN (13:45)
[2022-01-22] MEDS ORDERED: BISACODYL 10 MG SUPP (DULCOLAX) PR PRN (13:45)
[2022-01-22] MEDS ORDERED: hydrALAZINE (APESOLINE) 20 MG/ML VIAL IV PRN (13:45)
[2022-01-22] MEDS ORDERED: morphine INJ 4 MG/ML 1 ML (VIAL/SYRINGE) IVP PRN (13:45)
[2022-01-22] MEDS ORDERED: ANTACID SUSP 30 ML UDC (MYLANTA) PO PRN (13:45)
[2022-01-22] MEDS ORDERED: fentaNYL INJ 100 MCG/2 ML AMP IVP PRN (13:45)
[2022-01-22] MEDS ORDERED: diphenhydrAMINE 50 MG/ML INJ (BENADRYL) IVP PRN (13:45)
[2022-01-22] MEDS ORDERED: TEMAZEPAM 15 MG (RESTORIL) CAP PO PRN (13:45)
[2022-01-22] MEDS ORDERED: ONDANSETRON 4 MG (ZOFRAN) ORAL DISSOLVE TAB PO PRN (13:45)
[2022-01-22] MEDS ORDERED: polyethylene glycoL POWDER 17 GM (MIRALAX) PACK PO PRN (13:45)
[2022-01-22] MEDS ORDERED: ONDANSETRON 4 MG/2 ML (SDV) Z0FRAN IVP PRN (13:45)
--- NOTE | 2022-01-22 13:57 | Progress Note ---
ISAAC LOPEZ 01/22/22 1357: Progress Note Fariha Gagnon, 86 YO F was admitted to the hospital on 01/18/22 secondary to right hip fracture. She underwent operative repair by Dr. Saucedo on January 19 and did well. She did have some postoperative anemia but this stabilized without intervention. She was seen by physical therapy and Occupational Therapy and was deemed an appropriate candidate for inpatient rehab. During hospitalization she was dx and treated for klebsiella positive UTI, which she is currently on Keflex for. She was discharged from fourth floor to the inpatient rehab unit for intensive therapies. PMH: Non-insulin dependent DM, Arthritis, osteoporosis, orthopedic DVT, high cholesterol, GERD, HTN PSH: Hysterectomy, spinal surgery ALL: NKDA Home Meds: Nexium (20MG Daily prn), VitC (500MG daily), Propranolol HCL (20 MG PO), Simvastin (10 MG PO daily), Metformin (500MG PO Daily), VitD3 (50mcg PO daily), Ibandronate sodium (150 MG PO MONTHLY) SH: denies tobacco, ETOH, and recreational drug use FH: non contributory A/P: S/p right hip bipolar replacement - POD#3, PT/OT Post operative anemia - monitor Hb MONIQUE CAMARGO DO 01/23/22 0524: Supervisory-Addendum Brief Verification & Attestation Participated in pt care: history, MDM, physical Personally performed: exam, history, MDM, supervision of care Care discussed with: Medical Student Procedures: n/a Results interpretation: Verified all documentation Verification and Attestation of Medical Student E/M Service A medical student performed and documented this service in my presence. I reviewed and verified all information documented by the medical student and made modifications to such information, when appropriate. I personally performed the physical exam and medical decision making. Monique Camargo Jan 23, 2022,05:24 ISAAC LOPEZ Jan 22, 2022 13:57 MONIQUE CAMARGO DO Jan 23, 2022 05:24
[2022-01-22] MEDS: ENOXAPARIN 40 MG/0.4 ML (LOVENOX) SYR SC SCH (15:44)
[2022-01-22] MEDS: inSUlin ASPART (NovoLOG) 1 UNIT/0.01 ML (CHARGE PER UNIT) SC SCH ×2 (15:59→20:32)
[2022-01-22] MEDS: CEPHALEXIN 250 MG (KEFLEX) CAP PO SCH ×2 (17:01→20:09)
[2022-01-22] MEDS: DOCUSATE SODIUM 100 MG (COLACE) CAP PO SCH (20:09)
[2022-01-22] MEDS: PROPRANOLOL 20 MG (INDERAL) TABLET PO SCH (20:09)
[2022-01-22] MEDS: polyethylene glycoL POWDER 17 GM (MIRALAX) PACK PO SCH (20:10)
[2022-01-22] MEDS: SENNOSIDES 8.6 MG (SENOKOT) TAB PO SCH (20:10)
[2022-01-22 20:24] VITALS: BP 134/54
[2022-01-22] MEDS ORDERED: SENNA W/DOCUSATE (SENOKOT S) TABLET PO SCH (21:00)
[2022-01-22] MEDS ORDERED: DOCUSATE SODIUM 100 MG (COLACE) CAP PO SCH (21:00)
[2022-01-23 05:34] LABS: BASOPHILS % (AUTO) 0 % (0-10); EOSINOPHILS # (AUTO) 0.2 10^3/uL (0.0-0.3); EOSINOPHILS % (AUTO) 2 % (0-10); HEMATOCRIT 23 % (35-52); HEMOGLOBIN 7.2 g/dL (11.5-16.0); LYMPHOCYTES # (AUTO) 1.9 10^3/uL (1.0-4.0); LYMPHOCYTES % (AUTO) 22 % (12-44); MEAN CORPUSCULAR HEMOGLOBIN 27 pg (25-34); MEAN CORPUSCULAR HGB CONC 31 g/dL (32-36); MEAN CORPUSCULAR VOLUME 88 fL (80-99); MEAN PLATELET VOLUME 9.6 fL (9.0-12.2); MONOCYTES % (AUTO) 12 % (0-12); NEUTROPHILS # (AUTO) 5.2 10^3/uL (1.8-7.8); NEUTROPHILS % (AUTO) 62 % (42-75); PLATELET COUNT 303 10^3/uL (130-400); WHITE BLOOD COUNT 8.3 10^3/uL (4.3-11.0)
[2022-01-23 05:59] LABS: ALBUMIN 2.4 GM/DL (3.2-4.5); BILIRUBIN,TOTAL 0.4 MG/DL (0.1-1.0); CALCIUM 8.6 MG/DL (8.5-10.1); CREATININE SERUM 0.78 MG/DL (0.60-1.30); POTASSIUM 3.6 MMOL/L (3.6-5.0); TOTAL PROTEIN 5.7 GM/DL (6.4-8.2)
[2022-01-23] MEDS: inSUlin ASPART (NovoLOG) 1 UNIT/0.01 ML (CHARGE PER UNIT) SC SCH ×4 (06:00→20:17)
--- NOTE | 2022-01-23 06:28 | PM&R Progress Note ---
Subjective HPI/CC On Admission Date Seen by Provider: Jan 23, 2022 Time Seen by Provider: 08:45 Subjective/Events-last exam 01/23/2022: Pt is doing well Bowels moved yesterday Pain pill is working really well Hemoglobin is 7.2 Checked meds and lab No falls Voiding well Review of Systems General: Fatigue, Malaise Musculoskeletal: leg pain Objective Exam Vital Signs Vital Signs Date Time Temp Pulse Resp B/P (MAP) Pulse Ox O2 Delivery O2 Flow Rate FiO2 01/23/22 20:15 Room Air 01/23/22 19:25 36.6 68 20 110/61 (77) 96 Capillary Refill : General Appearance: No Apparent Distress, WD/WN, Chronically ill, Thin, Other (Frail and pale) HEENT: PERRL/EOMI, Normal ENT Inspection, Pharynx Normal Neck: Full Range of Motion, Normal Inspection, Non Tender, Supple, Carotid Bruit Respiratory: Chest Non Tender, Lungs Clear, Normal Breath Sounds, No Accessory Muscle Use, No Respiratory Distress Cardiovascular: Regular Rate, Rhythm, No Edema, No Gallop, No JVD, No Murmur, Normal Peripheral Pulses Gastrointestinal: Normal Bowel Sounds, No Organomegaly, No Pulsatile Mass, Non Tender, Soft Back: Normal Inspection, No CVA Tenderness, No Vertebral Tenderness Extremity: Normal Capillary Refill, Normal Inspection, Normal Range of Motion, Non Tender, No Calf Tenderness, No Pedal Edema Neurologic/Psychiatric: Alert, Oriented x3, shear assembler II-XII Norm as Tested, Abnormal Gait, Depressed Affect, Motor Weakness (Generalized especially right leg) Skin: Normal Color, Warm/Dry Lymphatic: No Adenopathy Results/Procedures Lab Laboratory Tests 01/23/22 05:07 Patient resulted labs reviewed. FIM Transfers Therapy Code Descriptions/Definitions Functional [place] Measure: 0=Not Assessed/NA 4=Minimal Assistance 1=Total Assistance 5=Supervision or Setup 2=Maximal Assistance 6=Modified [place] 3=Moderate Assistance 7=Complete IndependenceSCALE: Activities may be completed with or without assistive devices. 8-Qvwttsoxqv-efchvto completes the activity by him/herself with no assistance from a helper. 5-Set-up or Clean-up Assistance-helper sets up or cleans up; patient completes activity. [place] assists only prior to or following the activity. 4-Supervision or Touching Assistance-helper provides verbal cues and/or touching/steadying and/or contact guard assistance as patient completes activity. Assistance may be provided throughout the activity or intermittently. 3-Partial/Moderate Assistance-helper does LESS THAN HALF the effort. [place] lifts, holds or supports trunk or limbs, but provides less than half the effort. 2-Substantial/Maximal Assistance-helper does MORE THAN HALF the effort. [place] lifts or holds trunk or limbs and provides more than half the effort. 5-Mvazforrp-rnifzm does ALL the effort. Patient does none of the effort to complete the activity. Or, the assistance of 2 or more helpers is required for the patient to complete the activity. If activity was not attempted, code reason: 7-Patient Refused. 9-Not Applicable-not attempted and the patient did not perform the activity before the current illness, exacerbation or injury. 10-Not Attempted due to Environmental Limitations-(lack of equipment, weather restraints, etc.). 88-Not Attempted due to Medical Conditions or Safety Concerns. Roll Left to Right (QC): 2 Sit to Lying (QC): 2 Sit to Stand (QC): 2 Chair/Vpu-kc-Aflmk Xfer(QC): 2 Car Transfer (QC): 2 Gait Training Does the Patient Walk?: Yes Walk 10 feet (QC): 88 Walk 50 ft with 2 Turns(QC): 88 Walk 150 ft (QC): 88 Walking 10ft/uneven surface-QC: 88 Gait Assistive Device: Parallel Bars Wheelchair Training Does the Pt Use a Wheelchair?: Yes Distance: 100' Wheel 50 ft with 2 turns (QC): 3 Wheel 150 ft (QC): 88 Type of Wheelchair: Manual Stair Training 1 Step (curb) (QC): 88 4 Steps (QC): 88 12 Steps (QC): 88 Balance Picking up an Object (QC): 88 ADL-Treatment Eating (QC): 5 Oral Hygiene (QC): 3 (anticipate balance assist needed if performed at baseline (standing)) Shower/Bathe Self (QC): 2 (per clinical judgment) Upper Body Dressing (QC): 5 Lower Body Dressing (QC): 1 On/Off Footwear (QC): 1 Toileting Hygiene (QC): 2 Assessment/Plan Assessment and Plan Assess & Plan/Chief Complaint Assessment: Debility following right hip fracture status postrepair on 01/19/[address] Lees History of extensive spine surgery per Dr Hunter on 06/09/2020 requiring inpatient rehab stay History of DVT/PE dx 06/09/20 delaying surgery scheduled for 06/09/20 at [facility] dx in pre-op Osteoporosis on bisphosphonate GERD Weight loss BMI 21 History of refractory nausea DM qmg-nudzzwr-zeplqzyzy Post op anemia checking iron studies and B12 Back pain chronic Fall risk UTI dx 06/23/20 and treated and then again on 01/18/2022 maintained on Keflex for Klebsiella Plan: Supportive care Rehab protocol DVT prophylaxis Home meds Glucometer checks Pain control 01/23/2022: Monitor closely Await iron level Monitor sugar (1) Hip fracture (2) Acute postoperative anemia due to expected blood loss Status: Acute (3) T2DM (type 2 diabetes mellitus) Status: Chronic (4) HLD (hyperlipidemia) Status: Chronic (5) HTN (hypertension) Status: Chronic (6) UTI (urinary tract infection) Status: Acute (7) Fall from ground level Status: Acute (8) Osteoporosis Status: Acute (9) [place] filter in place (10) Protein-calorie malnutrition, moderate (11) GERD (gastroesophageal reflux disease) (12) Weight loss CHARLOTTE CAMARGO DO Jan 23, 2022 06:28
--- NOTE | 2022-01-23 06:29 | Individualized Plan of Care ---
Individualized Plan of Care Rehab Nursing IPOC Order Admission Date Jan 22, 2022 at 10:15 Current Orders Orders Admission Order(Inpt,Obs,Sdc) (01/22/22 09:16) Vital Signs: Per Unit Policy ( ,,00 (01/22/22 09:16) Micah Love (01/22/22 09:16) Sequential Compression Device (01/22/22 09:16) Senior Business Intelligence Analyst-Inpt Rehab Con (01/22/22 09:16) Rehab Nursing Orders-Ipoc (01/22/22 09:16) Physical Therapy Rehab Orders (01/22/22 09:16) Occupational Therapy Rehab Ord (01/22/22 09:16) Speech Therapy Rehab Orders (01/22/22 09:16) Cbc With Automated Diff (01/23/22 06:00) Comprehensive Metabolic Panel (01/23/22 06:00) Precautions (Aru) (01/22/22 09:16) Weekly Weight WEEK (01/22/22 09:16) Rehab-Intensity Of Therapy (01/22/22 09:16) Initiate Admission Nursing Pro .admission (01/22/22 09:16) Alprazolam Tablet (Xanax Tablet) (01/22/22 09:30) Calcium Carbonate Chew Tablet (Antacid C (01/22/22 09:30) Diphenhydramine Tablet (Benadryl Tablet) (01/22/22 09:30) Docusate Sodium Capsule (Colace Capsule) (01/22/22 21:00) Docusate Sodium Capsule (Colace Capsule) (01/22/22 09:30) Bisacodyl Suppository (Dulcolax Supposit (01/22/22 09:30) Lactulose Oral Solution (Enulose Oral So (01/22/22 09:30) Na Phos/Na Biphos Enema (Fleet Enema Ion (01/22/22 09:30) Guaifenesin/Codeine Syrup (Robitussin Ac (01/22/22 09:30) Loperamide Tablet (Imodium Tablet) (01/22/22 09:30) Melatonin Tablet (Melatonin Tablet) (01/22/22 09:30) Polyethylene Glycol Powder Pkt (Miralax (10/3/22 21:00) Ondansetron Oral Dissolve Tab (Zofran (01/22/22 09:30) Senna S Tablet (Senokot S Tablet) (01/22/22 21:00) Acetaminophen Tablet/Caplet (Tylenol T (01/22/22 09:30) Code/Resuscitation (01/22/22 09:16) Admission Arrival Bed Request (01/22/22 10:07) Patient Visit (01/22/22 ) Speech Sound Lang Comp (01/22/22 ) Treat. Speech/Lang/Voice (01/22/22 ) Patient Visit (01/22/22 ) Pt Eval Moderate Complexity (01/22/22 ) Functional Activities, Ea 15 (01/22/22 ) Accucheck Achs ACHS (01/22/22 13:32) Catheter(Urinary) Discontinue (01/22/22 13:32) Dressing Order (Intervention) DAILY (01/22/22 13:32) Ice: Apply To Affected Area (01/22/22 13:32) Incentive Spirometry (Nursing) Q2H (01/22/22 13:32) Sequential Compression Device (01/22/22 13:32) Micah Hose ,21 (01/22/22 13:32) General/Regular (01/22/22 Lunch) Aspirin Enteric Coated Tablet (Ecotrin T (01/23/22 09:00) Atorvastatin Tablet (Lipitor Tablet) (01/23/22 09:00) Cephalexin Capsule (Keflex Capsule) (01/22/22 17:00) Docusate Sodium Capsule (Colace Capsule) (01/22/22 21:00) Bisacodyl Suppository (Dulcolax Supposit (01/22/22 13:45) Enoxaparin Injection (Lovenox Injection) (01/22/22 13:45) Melatonin Tablet (Melatonin Tablet) (01/22/22 13:45) Polyethylene Glycol Powder Pkt (Miralax (01/22/22 13:45) Antacid Suspension (Mylanta Suspension (01/22/22 13:45) Insulin Aspart (Novolog) (Novolog (Charg (01/22/22 16:00) Propranolol Tablet (Inderal Tablet) (01/22/22 21:00) Temazepam Capsule (Restoril Capsule) (01/22/22 13:45) Sennosides Tablet (Senokot Tablet) (01/22/22 21:00) Acetaminophen Tablet/Caplet (Tylenol T (01/22/22 13:45) Ondansetron Injection (Zofran Injectio (01/22/22 13:45) Ondansetron Oral Dissolve Tab (Zofran (01/22/22 13:45) Diphenhydramine Injection (Benadryl Inje (01/22/22 13:45) Fentanyl Inj (Sublimaze Injection) (01/22/22 13:45) Hydralazine Injection (Apresoline Inject (01/22/22 13:45) Metformin Tablet (Glucophage Tablet) (01/23/22 08:00) Morphine Injection (Morphine Injection (01/22/22 13:45) Oxycodone Immediate Rel Tablet (Oxyir Ta (01/22/22 13:45) Consult Orthopedic Surgery (01/22/22 13:32) Incentive Spirometry Initial (01/22/22 13:32) Cho 75g/M 3snack (21-2400 Jose Carlos) (01/22/22 Lunch) Patient Visit (01/23/22 ) Exercise Therap, Ea 15 Min (01/23/22 ) Functional Activities, Ea 15 (01/23/22 ) Cyanocobalamin Injection (Vitamin B-12 I (01/24/22 08:00) Cyanocobalamin Tablet (Vitamin B-12 Tabl (01/25/22 07:00) Iron Sucrose Injection (Venofer Injectio (01/24/22 09:00) Rehab Nursing Orders: Ongoing Assess. of Cognitive Status, Ongoing Assess. of Function Status, Bladder Management, Bladder Scan, Bladder Training, Bowel Management, Bowel Training, Disease Management & Educaiton, DVT Prophylaxis, Fall Prevention, Fluid/Electrolyte/Nutrition Mgmt, Infection Prevention, Medication Management & Education, Management of Risks & Complications, Nutrition Management, Pain Management, Patient/Family Support, Safety Management Intensity of Therapy to be met Patient to be seen: Min.3h per day/5 of 7d PT IPOC Problem List: Activity Tolerance, Functional Strength, Safety, Balance, Gait, Transfer, Bed Mobility, ROM Treatment Plan: Continue Plan of Care Bed Mobility, Education, Functional Activity [place], Functional Strength, Group Therapy, Gait, Safety, Therapeutic Exercise, Transfers Treatment Duration: Feb 12, 2022 Frequency: At least 5 of 7 days/Wk (IRF) Estimated Hrs Per Day: 1.5 hours per day OT IPOC Problems: Decreased Activ Tolerance, Decreased Safety Aware, Decreased UE Strength, Impaired Bed Mobility, Impaired Coordination, Impaired Funct Balance, Impaired I ADL's, Impaired Self-Care Skills OT Treatment, Training and Edu: Yes Plan of Care: ADL Retraining, Caregiver Training, Functional Mobility, Group Exercise/Act as Ind, UE Funct Exercise/Act Treatment Duration: Feb 14, 2022 Frequency: At least 5 of 7 days/Wk (IRF) Estimated Hrs Per Day: 1.5 hours per day (60-90 min/day) ST IPOC Speech Therapy Treatment Plan: Discontinue ST Treatment Duration: Jan 22, 2022 Frequency: 1 time per week Estimated Hrs Per Day: .5 hour per day Senior Business Intelligence Analyst/Case Mgmt Senior Business Intelligence Analyst/Case Managemen: Discharge Planning Dietitian/Lead Electrical Controls Engineer Dietitian/Lead Electrical Controls Engineer to monitor nutritional status and make changes and/or recommendations as needed and work with speech pathology on dietary upgrades as the occur. Physician IPOC Medical Issues being managed closely and that require the 24 hour availability of a physician: Recent hip fracture and chronic debilitated state will need close monitoring especially post op anemia awaiting iron studies and will require close monitoring for decompensation Medical Issues: Bowel/Bladder Function, DVT Prophylaxis, Falls Precautions, Fluid/Electrolyte/Nutrition Balance, Infection Protection, Pain Management, Wound Care Brief Synthesis of Preadmission Screen, Post-Admission Evaluation, and Therapy Evaluations: PT OT will require close monitoring with use of AD in order to increase ambulatory function and increase independence in ADL's in order to return home Medical Prognosis: Good Anticipated Length of Stay: 10 days CHARLOTTE CAMARGO DO Jan 23, 2022 06:28
[2022-01-23 07:29] VITALS: BP 131/61
[2022-01-23] MEDS: ASPIRIN E.C. 81 MG (ECOTRIN) TAB PO SCH (07:33)
[2022-01-23] MEDS: AtorvaSTATin TABLET 10 MG TABLET PO SCH (07:33)
[2022-01-23] MEDS: metFORMIN 500 MG (GLUCOPHAGE) TAB PO SCH (07:33)
[2022-01-23] MEDS: CEPHALEXIN 250 MG (KEFLEX) CAP PO SCH ×4 (07:33→20:07)
[2022-01-23] MEDS: DOCUSATE SODIUM 100 MG (COLACE) CAP PO SCH ×2 (07:36→20:16)
[2022-01-23] MEDS: polyethylene glycoL POWDER 17 GM (MIRALAX) PACK PO SCH ×2 (07:36→20:16)
[2022-01-23] MEDS: SENNOSIDES 8.6 MG (SENOKOT) TAB PO SCH ×2 (07:36→20:16)
--- NOTE | 2022-01-23 08:50 | Occupational Ther Daily Note ---
OT Current Status-Daily Note Subjective Pt was laying in bed upon arrival. She agreed to a shower. She stated her pain was a 5/10. Co-treat with PT performed secondary to fall risk, coordination, balance, increased time with task, and fatigue. Appearance Pt left with PT with all needs met. Mental Status/Objective Patient Orientation: Person, Place, Time, Situation Attachments: IV Acute change in mental status: 0 Inattention: 0 Disorganized thinkin Altered level of consciousness: 0 ADL-Treatment Therapy Code Descriptions/Definitions Functional [place] Measure: 0=Not Assessed/NA 4=Minimal Assistance 1=Total Assistance 5=Supervision or Setup 2=Maximal Assistance 6=Modified [place] 3=Moderate Assistance 7=Complete IndependenceSCALE: Activities may be completed with or without assistive devices. 9-Woqekfqjjl-jipqqbx completes the activity by him/herself with no assistance from a helper. 5-Set-up or Clean-up Assistance-helper sets up or cleans up; patient completes activity. [place] assists only prior to or following the activity. 4-Supervision or Touching Assistance-helper provides verbal cues and/or touching/steadying and/or contact guard assistance as patient completes activity. Assistance may be provided throughout the activity or intermittently. 3-Partial/Moderate Assistance-helper does LESS THAN HALF the effort. [place] lifts, holds or supports trunk or limbs, but provides less than half the effort. 2-Substantial/Maximal Assistance-helper does MORE THAN HALF the effort. [place] lifts or holds trunk or limbs and provides more than half the effort. 1-Bzkzwhmxx-eftuew does ALL the effort. Patient does none of the effort to complete the activity. Or, the assistance of 2 or more helpers is required for the patient to complete the activity. If activity was not attempted, code reason: 7-Patient Refused. 9-Not Applicable-not attempted and the patient did not perform the activity before the current illness, exacerbation or injury. 10-Not Attempted due to Environmental Limitations-(lack of equipment, weather restraints, etc.). 88-Not Attempted due to Medical Conditions or Safety Concerns. Shower/Bathe Self (QC): 4 Upper Body Dressing (QC): 4 Lower Body Dressing (QC): 3 On/Off Footwear: 3 Supine<>sit: mod assist. Pt doffed pants/underwear supine in bed with mod assist. Sit<>stand transfer: mod assist. Shower completed 100% in sitting using long handled sponge for compliance of hip precautions. Pt takes increased time with all tasks. Pt stays in kyphotic posture throughout session, even with cues to stand up tall. Pt follows through with cues/commands well. Pt dons clothes with extra time and mod assist while using AE (expense analyst, sock aide). She shows good problem solving skills when asked questions about how she will complete ADLs at home. Other Treatment Sit<>stand transfers in parallel bars: min assist. Pt ambulated in parallel bars and in hallway ~60 ft in total. Pt shows kyphotic posture while walking and walks on R toes. Cues given for proper feet and hand placement with transfers and ambulation. Education OT Patient Education: Correct positioning, Energy conservation, Modified ADL techniques, Progress toward Goal/Update tx plan, Purpose of tx/functional activities, Reviewed precautions, Rehab process, Safety issues, Transfer techniques, Use of adapted equipment Teaching Recipient: Patient Teaching Methods: Demonstration, Discussion Response to Teaching: Verbalize Understanding, Return Demonstration OT Short Term Goals Short Term Goals Time Frame: Feb 02, 2022 Eatin Oral hygiene: 5 Toileting hygiene: 3 Shower/bathe self: 3 Upper body dressin Lower body dressin Putting on/taking off footwear: 3 OT Pressurization Mechanic Goals Pressurization Mechanic Goals Time Frame: Feb 14, 2022 Acute change in mental status: 0 Inattention: 0 Disorganized thinkin Altered level of consciousness: 0 Eating (QC): 6 Oral Hygiene (QC): 6 Toileting Hygiene (QC): 4 Shower/Bathe Self (QC): 5 Upper Body Dressing (QC): 6 Lower Body Dressing (QC): 4 On/Off Footwear (QC): 4 Additional Goals: 1-Demonstrate ADL Tasks, 2-Verbalize Understanding, 3- ImproveStrength/[place] 1=Demonstrate adherence to instructed precautions during ADL tasks. 2=Patient will verbalize/demonstrate understanding of assistive devices/modifications for ADL. 3=Patient will improve strength/tolerance for activity to enable patient to perform ADL's. OT Education/Plan Problem List/Assessment Assessment: Decreased Activ Tolerance, Decreased UE Strength, Dependent Transfers, Impaired Bed Mobility, Impaired Coordination, Impaired Funct Balance, Impaired I ADL's, Impaired Self-Care Skills Discharge Recommendations Plan/Recommendations: Continue POC Treatment Plan/Plan of Care Treatment,Training & Education: Yes Patient would benefit from OT for education, treatment and training to promote independence in ADL's, mobility, safety and/or upper extremity function for ADL's. Plan of Care: ADL Retraining, Caregiver Training, Functional Mobility, Group Exercise/Act as Ind, UE Funct Exercise/Act Treatment Duration: Feb 14, 2022 Frequency: At least 5 of 7 days/Wk (IRF) Estimated Hrs Per Day: 1.5 hours per day (60-90 min/day) Agreement: Yes Rehab Potential: Fair Time/GCodes Start Time: 07:20 Stop Time: 08:50 Total Time Billed (hr/min): 90 Billed Treatment Time 1 visit ADL x5 (70 min) EX (20 min) Co-treat: ([id number]) Lucinda Serra OT Jan 23, 2022 08:50
--- NOTE | 2022-01-23 08:59 | Physical Therapy Daily Note ---
PT Daily Note-Current Subjective Patient in shower pre tx, already working with OT, has 5/10 pain in right hip. Will be co-treating with OT for part of tx due to poor patient mobility, strength, endurance, severe debility, coordinate UE and LE with activity, safety and reduce risk of falls. Pain Section J - Health Conditions 1. Rarely or not at all 2. Occasionally 3. Frequently 4. Almost constantly 8. Unable to answer Pain Effect on Sleep: 2 Pain Interference with Therapy: 4 Pain Interference w/Day-to-Day: 4 Appearance Patient in recliner post tx with nurse call, phone, tray, has 8/10 pain, nurse notified of pain. Mental Status Patient Orientation: Person, Place, Situation Transfers SCALE: Activities may be completed with or without assistive devices. 0-Fugzkglkgi-uxdpzuy completes the activity by him/herself with no assistance from a helper. 5-Set-up or Clean-up Assistance-helper sets up or cleans up; patient completes activity. [place] assists only prior to or following the activity. 4-Supervision or Touching Assistance-helper provides verbal cues and/or touching/steadying and/or contact guard assistance as patient completes activity. Assistance may be provided throughout the activity or intermittently. 3-Partial/Moderate Assistance-helper does LESS THAN HALF the effort. [place] lifts, holds or supports trunk or limbs, but provides less than half the effort. 2-Substantial/Maximal Assistance-helper does MORE THAN HALF the effort. [place] lifts or holds trunk or limbs and provides more than half the effort. 1-Hqpeedrvw-einukp does ALL the effort. Patient does none of the effort to complete the activity. Or, the assistance of 2 or more helpers is required for the patient to complete the activity. If activity was not attempted, code reason: 7-Patient Refused. 9-Not Applicable-not attempted and the patient did not perform the activity before the current illness, exacerbation or injury. 10-Not Attempted due to Environmental Limitations-(lack of equipment, weather restraints, etc.). 88-Not Attempted due to Medical Conditions or Safety Concerns. Sit to Stand (QC): 3 (modA) Chair/Cil-ps-Kmlll Xfer(QC): 3 (Dolly) PT assists with transfers and standing and positioning during bathing and dressing. Weight Bearing Right Lower Extremity: Right Weight Bearing/Tolerated Gait Training Distance: 6'x2, 30'x2 Walk 10 feet (QC): 3 Gait Persons Needed: 1 Gait Assistive Device: FWW very slow ambulation, antalgic, trendelenburg gait, poor heel strike on the right side Exercises Standing: Heel/toe raises, Mini squats Standing Reps: 15 LAQ alternating for 5 min Treatments PT performed LE strengthening, positioning and safety during bathing and dressing, ambulation, OT performed ADL's, UE positioning and safety during activity. Assessment Current Status: Fair Progress improved ambulation, still retropulsive but not as bad PT Short Term Goals Short Term Goals Time Frame: Jan 29, 2022 Roll Left & Right: 3 (Dolly) Sit to lyin (Dolly) Lying to sitting on side of be: 3 (Dolly) Sit to stand: 3 (Dolly) Chair/rxz-os-kvgsb transfer: 3 (Dolly) Walk 10 feet: 3 (Dolly) PT Fci Goals Fci Goals PT Manpower Development Specialist Manager Goals Time Frame: Feb 12, 2022 Roll Left & Right (QC): 4 (SBA) Sit to Lying (QC): 4 (SBA) Lying-Sitting on Side/Bed(QC): 4 (SBA) Sit to Stand (QC): 4 (CGA) Chair/Upm-ii-Slqni Xfer(QC): 4 (CGA) Toilet Transfer (QC): 4 Car Transfer (QC): 4 (CGA) Does the Patient Walk: Yes Walk 10 feet (QC): 4 (CGA) Walk 50ft with 2 Turns (QC): 4 (CGA) Walk 150 ft (QC): 4 (CGA) Walking 10ft on Uneven Surface: 4 (CGA) 1 Step (curb) (QC): 4 (CGA) 4 Steps (QC): 4 (CGA) 12 Steps (QC): 88 Picking up an Object (QC): 4 (CGA using a food services coordinator) Wheel 50 feet with 2 turns (QC: 9 Wheel 150 feet: 9 PT Plan Problem List Problem List: Activity Tolerance, Functional Strength, Safety, Balance, Gait, Transfer, Bed Mobility, ROM Treatment/Plan Treatment Plan: Continue Plan of Care Treatment Plan: Bed Mobility, Education, Functional Activity [place], Functional Strength, Group Therapy, Gait, Safety, Therapeutic Exercise, Transfers Treatment Duration: Feb 12, 2022 Frequency: At least 5 of 7 days/Wk (IRF) Estimated Hrs Per Day: 1.5 hours per day Patient and/or Family Agrees t: Yes Safety Risks/Education Patient Education: Gait Training, Transfer Techniques, Reviewed Precautions, Correct Positioning, Safety Issues Teaching Recipient: Patient Teaching Methods: Demonstration, Discussion Response to Teaching: Reinforcement Needed Time/GCodes Time In: 0800 Time Out: 0900 Total Billed Treatment Time: 60 Total Billed Treatment 1 visit EX 10' FA 50' co-treated with OT from [id number] STEVIE ESCOBAR PT Jan 23, 2022 08:59
--- NOTE | 2022-01-23 10:57 | Physical Therapy Daily Note ---
PT Daily Note-Current Subjective Patient in recliner pre tx, agrees to PT but would like to postpone ambulation due to right hip pain, 11/29, patient states she has had pain meds. Pain Section J - Health Conditions 1. Rarely or not at all 2. Occasionally 3. Frequently 4. Almost constantly 8. Unable to answer Pain Effect on Sleep: 2 Pain Interference with Therapy: 4 Pain Interference w/Day-to-Day: 4 Appearance Patient in recliner post tx with nurse call, phone, tray, all needs met. Mental Status Patient Orientation: Person, Place, Situation Transfers SCALE: Activities may be completed with or without assistive devices. 2-Dagbugbrqp-bkfvpgh completes the activity by him/herself with no assistance from a helper. 5-Set-up or Clean-up Assistance-helper sets up or cleans up; patient completes activity. [place] assists only prior to or following the activity. 4-Supervision or Touching Assistance-helper provides verbal cues and/or touching/steadying and/or contact guard assistance as patient completes activity. Assistance may be provided throughout the activity or intermittently. 3-Partial/Moderate Assistance-helper does LESS THAN HALF the effort. [place] lifts, holds or supports trunk or limbs, but provides less than half the effort. 2-Substantial/Maximal Assistance-helper does MORE THAN HALF the effort. [place] lifts or holds trunk or limbs and provides more than half the effort. 8-Fscuwkbyv-fvvvez does ALL the effort. Patient does none of the effort to complete the activity. Or, the assistance of 2 or more helpers is required for the patient to complete the activity. If activity was not attempted, code reason: 7-Patient Refused. 9-Not Applicable-not attempted and the patient did not perform the activity before the current illness, exacerbation or injury. 10-Not Attempted due to Environmental Limitations-(lack of equipment, weather restraints, etc.). 88-Not Attempted due to Medical Conditions or Safety Concerns. Weight Bearing Right Lower Extremity: Right Weight Bearing/Tolerated Exercises Seated Therapy Exercises: Ankle pumps, Hip flexion, Hip abd/add (with ball and YTB) Seated Reps: 20 (2 sets) LAQ alternating for 5 min Treatments LE strengthening Assessment Current Status: Fair Progress patient needed several rest breaks due to pain PT Short Term Goals Short Term Goals Time Frame: Jan 29, 2022 Roll Left & Right: 3 (Dolly) Sit to lyin (Dolly) Lying to sitting on side of be: 3 (Dolly) Sit to stand: 3 (Dolly) Chair/zsf-ov-fjoyc transfer: 3 (Dolly) Walk 10 feet: 3 (Dolly) PT Bakery Supervisor Goals Fpc Goals PT Fpc Goals Time Frame: Feb 12, 2022 Roll Left & Right (QC): 4 (SBA) Sit to Lying (QC): 4 (SBA) Lying-Sitting on Side/Bed(QC): 4 (SBA) Sit to Stand (QC): 4 (CGA) Chair/Lvi-uy-Rfqqy Xfer(QC): 4 (CGA) Toilet Transfer (QC): 4 Car Transfer (QC): 4 (CGA) Does the Patient Walk: Yes Walk 10 feet (QC): 4 (CGA) Walk 50ft with 2 Turns (QC): 4 (CGA) Walk 150 ft (QC): 4 (CGA) Walking 10ft on Uneven Surface: 4 (CGA) 1 Step (curb) (QC): 4 (CGA) 4 Steps (QC): 4 (CGA) 12 Steps (QC): 88 Picking up an Object (QC): 4 (CGA using a form builder helper) Wheel 50 feet with 2 turns (QC: 9 Wheel 150 feet: 9 PT Plan Problem List Problem List: Activity Tolerance, Functional Strength, Safety, Balance, Gait, Transfer, Bed Mobility, ROM Treatment/Plan Treatment Plan: Continue Plan of Care Treatment Plan: Bed Mobility, Education, Functional Activity Libby, Functional Strength, Group Therapy, Gait, Safety, Therapeutic Exercise, Transfers Treatment Duration: Feb 12, 2022 Frequency: At least 5 of 7 days/Wk (IRF) Estimated Hrs Per Day: 1.5 hours per day Patient and/or Family Agrees t: Yes Safety Risks/Education Patient Education: Reviewed Precautions, Correct Positioning, Safety Issues Teaching Recipient: Patient Teaching Methods: Demonstration, Discussion Response to Teaching: Reinforcement Needed Time/GCodes Time In: 1030 Time Out: 1100 Total Billed Treatment Time: 30 Total Billed Treatment 1 visit EX 30' STEVIE ESCOBAR PT Jan 23, 2022 10:56
[2022-01-23] MEDS: ENOXAPARIN 40 MG/0.4 ML (LOVENOX) SYR SC SCH (13:42)
[2022-01-23] MEDS: ACETAMINOPHEN 325 MG TABLET PO PRN (17:33)
[2022-01-23 19:25] VITALS: BP 110/61
[2022-01-23] MEDS: PROPRANOLOL 20 MG (INDERAL) TABLET PO SCH (20:07)
[2022-01-24] MEDS: inSUlin ASPART (NovoLOG) 1 UNIT/0.01 ML (CHARGE PER UNIT) SC SCH ×4 (05:44→20:35)
--- NOTE | 2022-01-24 06:27 | PM&R Progress Note ---
Subjective HPI/CC On Admission Date Seen by Provider: Jan 24, 2022 Time Seen by Provider: 08:30 Subjective/Events-last exam 01/24/2022: Patient doing much better Walking around really well but slow Discussed iron infusions and diarrhea since she had that experience before No other concerns B12 will be given also 01/23/2022: Pt is doing well Bowels moved yesterday Pain pill is working really well Hemoglobin is 7.2 Checked meds and lab No falls Voiding well Review of Systems General: Fatigue, Malaise Musculoskeletal: leg pain Objective Exam Vital Signs Vital Signs Date Time Temp Pulse Resp B/P (MAP) Pulse Ox O2 Delivery O2 Flow Rate FiO2 01/24/22 20:33 76 20 122/60 (80) 94 Room Air 01/24/22 07:22 36.4 Capillary Refill : General Appearance: No Apparent Distress, WD/WN, Chronically ill, Thin, Other (Frail and pale) HEENT: PERRL/EOMI, Normal ENT Inspection, Pharynx Normal Neck: Full Range of Motion, Normal Inspection, Non Tender, Supple, Carotid Bruit Respiratory: Chest Non Tender, Lungs Clear, Normal Breath Sounds, No Accessory Muscle Use, No Respiratory Distress Cardiovascular: Regular Rate, Rhythm, No Edema, No Gallop, No JVD, No Murmur, Normal Peripheral Pulses Gastrointestinal: Normal Bowel Sounds, No Organomegaly, No Pulsatile Mass, Non Tender, Soft Back: Normal Inspection, No CVA Tenderness, No Vertebral Tenderness Extremity: Normal Capillary Refill, Normal Inspection, Normal Range of Motion, Non Tender, No Calf Tenderness, No Pedal Edema Neurologic/Psychiatric: Alert, Oriented x3, emotional support teacher II-XII Norm as Tested, Abnormal Gait, Depressed Affect, Motor Weakness (Generalized especially right leg) Skin: Normal Color, Warm/Dry Lymphatic: No Adenopathy Results/Procedures Lab Patient resulted labs reviewed. FIM Transfers Therapy Code Descriptions/Definitions Functional [place] Measure: 0=Not Assessed/NA 4=Minimal Assistance 1=Total Assistance 5=Supervision or Setup 2=Maximal Assistance 6=Modified [place] 3=Moderate Assistance 7=Complete IndependenceSCALE: Activities may be completed with or without assistive devices. 4-Sfhaqkdlfj-drcrxcw completes the activity by him/herself with no assistance from a helper. 5-Set-up or Clean-up Assistance-helper sets up or cleans up; patient completes activity. [place] assists only prior to or following the activity. 4-Supervision or Touching Assistance-helper provides verbal cues and/or touching/steadying and/or contact guard assistance as patient completes activity. Assistance may be provided throughout the activity or intermittently. 3-Partial/Moderate Assistance-helper does LESS THAN HALF the effort. [place] lifts, holds or supports trunk or limbs, but provides less than half the effort. 2-Substantial/Maximal Assistance-helper does MORE THAN HALF the effort. [place] lifts or holds trunk or limbs and provides more than half the effort. 1-Ybfvklzbr-sgfmqn does ALL the effort. Patient does none of the effort to complete the activity. Or, the assistance of 2 or more helpers is required for the patient to complete the activity. If activity was not attempted, code reason: 7-Patient Refused. 9-Not Applicable-not attempted and the patient did not perform the activity before the current illness, exacerbation or injury. 10-Not Attempted due to Environmental Limitations-(lack of equipment, weather restraints, etc.). 88-Not Attempted due to Medical Conditions or Safety Concerns. Roll Left to Right (QC): 2 Sit to Lying (QC): 2 Sit to Stand (QC): 3 (modA) Chair/Stv-zc-Nvcbp Xfer(QC): 3 (Dolly) Car Transfer (QC): 2 Gait Training Does the Patient Walk?: Yes Distance: 6'x2, 30'x2 Walk 10 feet (QC): 3 Walk 50 ft with 2 Turns(QC): 88 Walk 150 ft (QC): 88 Walking 10ft/uneven surface-QC: 88 Gait Persons Needed: 1 Gait Assistive Device: FWW Wheelchair Training Does the Pt Use a Wheelchair?: Yes Distance: 100' Wheel 50 ft with 2 turns (QC): 3 Wheel 150 ft (QC): 88 Type of Wheelchair: Manual Stair Training 1 Step (curb) (QC): 88 4 Steps (QC): 88 12 Steps (QC): 88 Balance Picking up an Object (QC): 88 ADL-Treatment Eating (QC): 5 Oral Hygiene (QC): 3 (anticipate balance assist needed if performed at baseline (standing)) Shower/Bathe Self (QC): 4 Upper Body Dressing (QC): 4 Lower Body Dressing (QC): 3 On/Off Footwear (QC): 3 Toileting Hygiene (QC): 2 Assessment/Plan Assessment and Plan Assess & Plan/Chief Complaint Assessment: Debility following right hip fracture status postrepair on 01/19/[address] Lees History of extensive spine surgery per Dr Hunter on 06/09/2020 requiring inpatient rehab stay History of DVT/PE dx 06/09/20 delaying surgery scheduled for 06/09/20 at [facility] dx in pre-op Osteoporosis on bisphosphonate GERD Weight loss BMI 21 History of refractory nausea DM wkb-cbcdmnz-flblqzbuq Post op anemia severe iron deficiency and B12 deficiency initiated iron infusions and B12 Back pain chronic Fall risk UTI dx 06/23/20 and treated and then again on 01/18/2022 maintained on Keflex for Klebsiella Plan: Supportive care Rehab protocol DVT prophylaxis Home meds Glucometer checks Pain control 01/23/2022: Monitor closely Await iron level Monitor sugar 01/24/2022: Iron infusions B12 supplement (1) Hip fracture (2) Acute postoperative anemia due to expected blood loss Status: Acute (3) T2DM (type 2 diabetes mellitus) Status: Chronic (4) HLD (hyperlipidemia) Status: Chronic (5) HTN (hypertension) Status: Chronic (6) UTI (urinary tract infection) Status: Acute (7) Fall from ground level Status: Acute (8) Osteoporosis Status: Acute (9) [place] filter in place (10) Protein-calorie malnutrition, moderate (11) GERD (gastroesophageal reflux disease) (12) Weight loss CHARLOTTE CAMARGO DO Jan 24, 2022 06:26
[2022-01-24 07:22] VITALS: BP 152/70
[2022-01-24] MEDS: AtorvaSTATin TABLET 10 MG TABLET PO SCH (07:23)
[2022-01-24] MEDS: ASPIRIN E.C. 81 MG (ECOTRIN) TAB PO SCH (07:23)
[2022-01-24] MEDS: metFORMIN 500 MG (GLUCOPHAGE) TAB PO SCH (07:23)
[2022-01-24] MEDS: CEPHALEXIN 250 MG (KEFLEX) CAP PO SCH ×4 (07:23→20:05)
[2022-01-24] MEDS: polyethylene glycoL POWDER 17 GM (MIRALAX) PACK PO SCH ×2 (07:25→20:35)
[2022-01-24] MEDS: DOCUSATE SODIUM 100 MG (COLACE) CAP PO SCH ×2 (07:25→20:35)
[2022-01-24] MEDS: SENNOSIDES 8.6 MG (SENOKOT) TAB PO SCH ×2 (07:26→20:35)
[2022-01-24] MEDS ORDERED: CYANOCOBALAMIN INJ 1000 MCG/ML IM ONE (08:00)
--- NOTE | 2022-01-24 09:05 | Occupational Ther Daily Note ---
OT Current Status-Daily Note Subjective Pt reports R hip and L big toe pain as 5/10. RN notified regarding L toe. Appearance Pt returned to sitting in recliner, all needs within reach at OT departure. Mental Status/Objective Patient Orientation: Person, Place, Situation Acute change in mental status: 0 Inattention: 0 Disorganized thinkin Altered level of consciousness: 0 ADL-Treatment Therapy Code Descriptions/Definitions Functional [place] Measure: 0=Not Assessed/NA 4=Minimal Assistance 1=Total Assistance 5=Supervision or Setup 2=Maximal Assistance 6=Modified [place] 3=Moderate Assistance 7=Complete IndependenceSCALE: Activities may be completed with or without assistive devices. 6-Hwpffdyfsv-iwsftal completes the activity by him/herself with no assistance from a helper. 5-Set-up or Clean-up Assistance-helper sets up or cleans up; patient completes activity. [place] assists only prior to or following the activity. 4-Supervision or Touching Assistance-helper provides verbal cues and/or touching/steadying and/or contact guard assistance as patient completes activity. Assistance may be provided throughout the activity or intermittently. 3-Partial/Moderate Assistance-helper does LESS THAN HALF the effort. [place] lifts, holds or supports trunk or limbs, but provides less than half the effort. 2-Substantial/Maximal Assistance-helper does MORE THAN HALF the effort. [place] lifts or holds trunk or limbs and provides more than half the effort. 1-Qqomvysnm-otjkyk does ALL the effort. Patient does none of the effort to complete the activity. Or, the assistance of 2 or more helpers is required for the patient to complete the activity. If activity was not attempted, code reason: 7-Patient Refused. 9-Not Applicable-not attempted and the patient did not perform the activity before the current illness, exacerbation or injury. 10-Not Attempted due to Environmental Limitations-(lack of equipment, weather restraints, etc.). 88-Not Attempted due to Medical Conditions or Safety Concerns. Oral Hygiene (QC): 4 Upper Body Dressing (QC): 5 Lower Body Dressing (QC): 3 (min) On/Off Footwear: 4 Toileting Hygiene (QC): 3 (Min a for clothing management due to tight fit.) Toilet Transfer (QC): 4 Partial sponge bath performed. Post set up, pt sat to wash upper body. She stood to wash norma area and buttocks with steadying assist. Min verbal cues and mini mal assist for correct manager payer use when threading BLE's into brief/pants. Min a to manage pants over hips secondary to tight fit. Education on wearing looser fitting clothing for energy conservation and improved independence in task. OT donned aly hose for patient. Pt able to don bilateral socks post min verbal cues for preferred use of sock aid. Several sit<>stands completed with CGA-min a. Intermittent lifting boost required from lower surfaces. She ambulated to/from bathroom with CGA and use of walker. She stood to complete oral care, face washing and hair combing with CGA for safety. No LOB observed however pt appeared to be offloading onto LLE. Cues on placing R heel on floor and weight bearing through both legs. Significant time to complete all adls and mobility. Education OT Patient Education: Correct positioning, Energy conservation, Modified ADL techniques, Progress toward Goal/Update tx plan, Purpose of tx/functional activities, Reviewed precautions, Rehab process, Safety issues, Transfer techniques, Use of adapted equipment Teaching Recipient: Patient Teaching Methods: Demonstration, Discussion Response to Teaching: Verbalize Understanding, Return Demonstration, Reinforcement Needed OT Short Term Goals Short Term Goals Time Frame: Feb 02, 2022 Eatin Oral hygiene: 5 Toileting hygiene: 3 Shower/bathe self: 3 Upper body dressin Lower body dressin Putting on/taking off footwear: 3 OT Perforating Machine Operator Goals Perforating Machine Operator Goals Time Frame: Feb 14, 2022 Acute change in mental status: 0 Inattention: 0 Disorganized thinkin Altered level of consciousness: 0 Eating (QC): 6 Oral Hygiene (QC): 6 Toileting Hygiene (QC): 4 Shower/Bathe Self (QC): 5 Upper Body Dressing (QC): 6 Lower Body Dressing (QC): 4 On/Off Footwear (QC): 4 Additional Goals: 1-Demonstrate ADL Tasks, 2-Verbalize Understanding, 3- ImproveStrength/[place] 1=Demonstrate adherence to instructed precautions during ADL tasks. 2=Patient will verbalize/demonstrate understanding of assistive devices/modifications for ADL. 3=Patient will improve strength/tolerance for activity to enable patient to perform ADL's. OT Education/Plan Problem List/Assessment Assessment: Decreased Activ Tolerance, Decreased Safety Aware, Decreased UE Strength, Edema, Impaired Funct Balance, Impaired I ADL's, Impaired Self-Care Skills Discharge Recommendations Plan/Recommendations: Continue POC Equpiment Recommendations-D/C: Test Driller, Bedside Commode, Hip Kit, Sock Aide Treatment Plan/Plan of Care Treatment,Training & Education: Yes Patient would benefit from OT for education, treatment and training to promote independence in ADL's, mobility, safety and/or upper extremity function for ADL's. Plan of Care: ADL Retraining, Caregiver Training, Functional Mobility, Group Exercise/Act as Ind, UE Funct Exercise/Act Treatment Duration: Feb 14, 2022 Frequency: At least 5 of 7 days/Wk (IRF) Estimated Hrs Per Day: 1.5 hours per day (60-90 min/day) Agreement: Yes Rehab Potential: Fair Time/GCodes Start Time: 07:35 Stop Time: 09:05 Total Time Billed (hr/min): 90 Billed Treatment Time 1 visit ADL x6 MaryseLucinda OT Jan 24, 2022 09:05
[2022-01-24] MEDS: IRON SUCROSE 200 MG/10 ML (VENOFER) VIAL IV SCH (09:51)
--- NOTE | 2022-01-24 11:30 | Physical Therapy Daily Note ---
PT Daily Note-Current Subjective Pt. sitting in lift recline chair. Pt. agrees to Rx. Initially pain c/o at 8/10 right hip but after Rx 4/10. Pain Numeric Pain Scale: 4 Location: Right Location Body Site: Hip Pain Description: Ache Section J - Health Conditions 1. Rarely or not at all 2. Occasionally 3. Frequently 4. Almost constantly 8. Unable to answer Pain Effect on Sleep: 2 Pain Interference with Therapy: 3 Pain Interference w/Day-to-Day: 3 Appearance low, monotone voice, right hand tremor Mental Status Patient Orientation: Normal For Age Transfers SCALE: Activities may be completed with or without assistive devices. 3-Pbagztcccp-pebfwei completes the activity by him/herself with no assistance from a helper. 5-Set-up or Clean-up Assistance-helper sets up or cleans up; patient completes activity. [place] assists only prior to or following the activity. 4-Supervision or Touching Assistance-helper provides verbal cues and/or touching/steadying and/or contact guard assistance as patient completes activity. Assistance may be provided throughout the activity or intermittently. 3-Partial/Moderate Assistance-helper does LESS THAN HALF the effort. [place] lifts, holds or supports trunk or limbs, but provides less than half the effort. 2-Substantial/Maximal Assistance-helper does MORE THAN HALF the effort. [place] lifts or holds trunk or limbs and provides more than half the effort. 7-Dxudpatde-vkbppn does ALL the effort. Patient does none of the effort to complete the activity. Or, the assistance of 2 or more helpers is required for the patient to complete the activity. If activity was not attempted, code reason: 7-Patient Refused. 9-Not Applicable-not attempted and the patient did not perform the activity before the current illness, exacerbation or injury. 10-Not Attempted due to Environmental Limitations-(lack of equipment, weather restraints, etc.). 88-Not Attempted due to Medical Conditions or Safety Concerns. Sit to Stand (QC): 4 Chair/Urm-vd-Xvxkz Xfer(QC): 4 Toilet Transfer (QC): 4 pt. used lift mechanism but did fin with raised levels and arms on chairs Weight Bearing Right Lower Extremity: Right Weight Bearing/Tolerated Gait Training Does the Patient Walk?: Yes Walk 10 feet (QC): 4 Walk 50 ft with 2 Turns(QC): 4 Walk 150 ft (QC): 4 Gait Persons Needed: 1 Gait Assistive Device: FWW slow, very kyphotic, head down, decreased step length, shuffled gait. Wheelchair Training Does the Pt Use a Wheelchair?: No Exercises Supine Ex: Ankle pumps, Quad Set, Glut sets, Heel Slides, Short Arc Quads, Straight leg raise, Hip abd/add Supine Reps: 10 (x2) Seated Therapy Exercises: Ankle pumps, Sit to stand, Long arc quads, Hip abd/add Seated Reps: 12 assisted RLE ex as above NuStep Minutes: 10 NuStep Workload: 2 Treatments toileted, min to CGA, gait 150 x2, 30 x2, therex sup and sit Assessment Current Status: Good Progress less pain, gait improving PT Short Term Goals Short Term Goals Time Frame: Jan 29, 2022 Roll Left & Right: 3 (Dolly) Sit to lyin (Dolly) Lying to sitting on side of be: 3 (Dolly) Sit to stand: 3 (Dolly) Chair/hrl-dc-dveuc transfer: 3 (Dolly) Walk 10 feet: 3 (Dolly) PT Clearance Cutter Goals Clearance Cutter Goals PT Half-Way Goals Time Frame: Feb 12, 2022 Roll Left & Right (QC): 4 (SBA) Sit to Lying (QC): 4 (SBA) Lying-Sitting on Side/Bed(QC): 4 (SBA) Sit to Stand (QC): 4 (CGA) Chair/Dqy-ub-Qwonu Xfer(QC): 4 (CGA) Toilet Transfer (QC): 4 Car Transfer (QC): 4 (CGA) Does the Patient Walk: Yes Walk 10 feet (QC): 4 (CGA) Walk 50ft with 2 Turns (QC): 4 (CGA) Walk 150 ft (QC): 4 (CGA) Walking 10ft on Uneven Surface: 4 (CGA) 1 Step (curb) (QC): 4 (CGA) 4 Steps (QC): 4 (CGA) 12 Steps (QC): 88 Picking up an Object (QC): 4 (CGA using a flux tube attendant) Wheel 50 feet with 2 turns (QC: 9 Wheel 150 feet: 9 PT Plan Treatment/Plan Treatment Plan: Continue Plan of Care Treatment Plan: Bed Mobility, Education, Functional Activity Libby, Functional Strength, Group Therapy, Gait, Safety, Therapeutic Exercise, Transfers Treatment Duration: Feb 12, 2022 Frequency: At least 5 of 7 days/Wk (IRF) Estimated Hrs Per Day: 1.5 hours per day Patient and/or Family Agrees t: Yes Safety Risks/Education Patient Education: Gait Training, Transfer Techniques, Correct Positioning, Disease Process, Safety Issues Teaching Recipient: Patient Teaching Methods: Demonstration, Discussion Response to Teaching: Verbalize Understanding, Return Demonstration, Reinforcement Needed Time/GCodes Time In: 1000 Time Out: 1130 Total Billed Treatment Time: 90 Total Billed Treatment 1,GT35m,FA25m,EX30m NIDIA FAITH OFFICE ELECTRICIAN Jan 24, 2022 11:30
--- NOTE | 2022-01-24 12:57 | Progress Note ---
Standard Progress Note Progress Notes/Assess & Plan Date Seen by a Provider: Jan 24, 2022 Time Seen by a Provider: 11:30 Progress/Assessment & Plan no complaints Vital Signs Date Time Temp Pulse Resp B/P (MAP) Pulse Ox O2 Delivery O2 Flow Rate FiO2 01/24/22 09:00 Room Air 01/24/22 07:22 36.4 67 16 152/70 (97) 96 Room Air 01/23/22 20:15 Room Air 01/23/22 19:25 36.6 68 20 110/61 (77) 96 Room Air Laboratory Tests Test 01/23/22 15:15 01/23/22 20:13 01/24/22 05:30 01/24/22 11:05 Range/Units Glucometer 138 H 143 H 125 H 136 H 70-110 MG/DL R hip incison clean and dry no calf tenderness neg Ronald's s/p R hip bipolar continue PT/OT LINSEY AGARWAL MD Jan 24, 2022 12:57
[2022-01-24] MEDS: ENOXAPARIN 40 MG/0.4 ML (LOVENOX) SYR SC SCH (13:14)
[2022-01-24] MEDS: ACETAMINOPHEN 325 MG TABLET PO PRN (20:05)
[2022-01-24] MEDS: PROPRANOLOL 20 MG (INDERAL) TABLET PO SCH (20:05)
[2022-01-24 20:33] VITALS: BP 122/60
[2022-01-25] MEDS: inSUlin ASPART (NovoLOG) 1 UNIT/0.01 ML (CHARGE PER UNIT) SC SCH ×4 (05:27→21:38)
[2022-01-25] MEDS: CYANOCOBALAMIN 1,000 MCG (VITAMIN B-12) TABLET PO SCH (06:01)
[2022-01-25 07:16] VITALS: BP 135/70
--- NOTE | 2022-01-25 09:04 | Occupational Ther Daily Note ---
OT Current Status-Daily Note Subjective Pt sitting in recliner upon arrival. She declines a shower today, stating she would like to tomorrow. Appearance Pt left sitting in gym to begin PT. All needs met. Mental Status/Objective Patient Orientation: Person, Place, Time, Situation Acute change in mental status: 0 Inattention: 0 Disorganized thinkin Altered level of consciousness: 0 ADL-Treatment Therapy Code Descriptions/Definitions Functional [place] Measure: 0=Not Assessed/NA 4=Minimal Assistance 1=Total Assistance 5=Supervision or Setup 2=Maximal Assistance 6=Modified [place] 3=Moderate Assistance 7=Complete IndependenceSCALE: Activities may be completed with or without assistive devices. 2-Sojchckxva-krdvrcg completes the activity by him/herself with no assistance from a helper. 5-Set-up or Clean-up Assistance-helper sets up or cleans up; patient completes activity. [place] assists only prior to or following the activity. 4-Supervision or Touching Assistance-helper provides verbal cues and/or touching/steadying and/or contact guard assistance as patient completes activity. Assistance may be provided throughout the activity or intermittently. 3-Partial/Moderate Assistance-helper does LESS THAN HALF the effort. [place] lifts, holds or supports trunk or limbs, but provides less than half the effort. 2-Substantial/Maximal Assistance-helper does MORE THAN HALF the effort. [place] lifts or holds trunk or limbs and provides more than half the effort. 2-Govufdnxx-mihbev does ALL the effort. Patient does none of the effort to complete the activity. Or, the assistance of 2 or more helpers is required for the patient to complete the activity. If activity was not attempted, code reason: 7-Patient Refused. 9-Not Applicable-not attempted and the patient did not perform the activity before the current illness, exacerbation or injury. 10-Not Attempted due to Environmental Limitations-(lack of equipment, weather restraints, etc.). 88-Not Attempted due to Medical Conditions or Safety Concerns. Oral Hygiene (QC): 6 Upper Body Dressing (QC): 5 Lower Body Dressing (QC): 4 On/Off Footwear: 5 Pt follows hip precautions very well. Pt sat in recliner to doff clothing. Problem-solving and trying different AE (dressing stick) was completed to doff LE clothing. Pt reported liking the dressing stick better, due to better success and efficiency. Sit<>stand transfers: SBA. Pt donned LE clothing and socks with supervision and extra time to complete with psychological science professor and sock aide. Pt has improved in dressing task since . Pt completed grooming standing at sink with SBA, ~9 min. Pt completed mock IADL task of cleaning the mirror in bathroom and gathering towels to fold them to improve balance, endurance, coordination, dynamic standing balance, and strengthening. Pt showed good dynamic standing balance and endurance during task. Pt needed adequate rest break after completion of mock IADL task. Other Treatment Pt completed UE exercises 1x10 reps with pvc pipe and 1 lb weight in all planes to improve UE strengthening for functional transfers and ADLs. She tolerated these well, but needed rest breaks in between each exercise. Education OT Patient Education: Correct positioning, Energy conservation, Exercise program, Modified ADL techniques, Progress toward Goal/Update tx plan, Purpose of tx/functional activities, Reviewed precautions, Rehab process, Safety issues, Transfer techniques, Use of adapted equipment Teaching Recipient: Patient Teaching Methods: Demonstration, Discussion Response to Teaching: Verbalize Understanding, Return Demonstration OT Short Term Goals Short Term Goals Time Frame: Feb 02, 2022 Eatin Oral hygiene: 5 Toileting hygiene: 3 Shower/bathe self: 3 Upper body dressin Lower body dressin Putting on/taking off footwear: 3 OT Meal Attendant Goals Meal Attendant Goals Time Frame: Feb 14, 2022 Acute change in mental status: 0 Inattention: 0 Disorganized thinkin Altered level of consciousness: 0 Eating (QC): 6 Oral Hygiene (QC): 6 Toileting Hygiene (QC): 4 Shower/Bathe Self (QC): 5 Upper Body Dressing (QC): 6 Lower Body Dressing (QC): 4 On/Off Footwear (QC): 4 Additional Goals: 1-Demonstrate ADL Tasks, 2-Verbalize Understanding, 3-ImproveStrength/Libby 1=Demonstrate adherence to instructed precautions during ADL tasks. 2=Patient will verbalize/demonstrate understanding of assistive devices/modifications for ADL. 3=Patient will improve strength/tolerance for activity to enable patient to perform ADL's. OT Education/Plan Problem List/Assessment Assessment: Decreased Activ Tolerance, Decreased UE Strength, Impaired Coordination, Impaired Funct Balance, Impaired I ADL's, Impaired Self-Care Skills Discharge Recommendations Plan/Recommendations: Continue POC Treatment Plan/Plan of Care Treatment,Training & Education: Yes Patient would benefit from OT for education, treatment and training to promote independence in ADL's, mobility, safety and/or upper extremity function for ADL's. Plan of Care: ADL Retraining, Caregiver Training, Functional Mobility, Group Exercise/Act as Ind, UE Funct Exercise/Act Treatment Duration: Feb 14, 2022 Frequency: At least 5 of 7 days/Wk (IRF) Estimated Hrs Per Day: 1.5 hours per day (60-90 min/day) Agreement: Yes Rehab Potential: Fair Time/GCodes Start Time: 07:30 Stop Time: 09:00 Total Time Billed (hr/min): 90 Billed Treatment Time 1 visit ADL x4 (60 min) EX x2 (30 min) Lucinda Serra OT Jan 25, 2022 09:04
--- NOTE | 2022-01-25 09:08 | IRF PAI BIMS ---
BIMS BIMS IRF OPAL BIMS: IRF OPAL BIMS Response (Comments) Value Expression of Ideas and Wants (Verbal/Non Verbal) Without Difficulty 3 Understanding Verbal Content Understands 3 Repitition of Three Words Three 3 Recalls Socks Yes, No Cue Required 2 Recalls Blue Yes, No Cue Required 2 Recalls Bed Yes, No Cue Required 2 Total 15 Brief Interview/Mental Status: Yes PAULINO CARDOZO PT Jan 25, 2022 09:08
[2022-01-25] MEDS: CEPHALEXIN 250 MG (KEFLEX) CAP PO SCH ×4 (10:02→22:03)
[2022-01-25] MEDS: metFORMIN 500 MG (GLUCOPHAGE) TAB PO SCH (10:02)
[2022-01-25] MEDS: DOCUSATE SODIUM 100 MG (COLACE) CAP PO SCH ×2 (10:02→21:37)
[2022-01-25] MEDS: ASPIRIN E.C. 81 MG (ECOTRIN) TAB PO SCH (10:02)
[2022-01-25] MEDS: polyethylene glycoL POWDER 17 GM (MIRALAX) PACK PO SCH ×2 (10:02→21:38)
[2022-01-25] MEDS: AtorvaSTATin TABLET 10 MG TABLET PO SCH (10:02)
[2022-01-25] MEDS: SENNOSIDES 8.6 MG (SENOKOT) TAB PO SCH ×2 (10:02→21:38)
--- NOTE | 2022-01-25 10:04 | Physical Therapy Daily Note ---
PT Daily Note-Current Subjective Patient in therapy gym pre tx, agrees to PT, has 5/10 pain in right hip. Patient has been having pain in her left great toe, pain rated at 8/10 when standing, nurse notified. Patient's toe doesn't appear to be red, she has some leg swelling, looks like she has some arthritis. Pain Section J - Health Conditions 1. Rarely or not at all 2. Occasionally 3. Frequently 4. Almost constantly 8. Unable to answer Pain Effect on Sleep: 2 Pain Interference with Therapy: 3 Pain Interference w/Day-to-Day: 3 Appearance Patient in recliner post tx with nurse call, phone, tray, all needs met. Mental Status Patient Orientation: Person, Place, Situation Transfers SCALE: Activities may be completed with or without assistive devices. 0-Zwvazcgqqf-wnqkfyr completes the activity by him/herself with no assistance from a helper. 5-Set-up or Clean-up Assistance-helper sets up or cleans up; patient completes activity. [place] assists only prior to or following the activity. 4-Supervision or Touching Assistance-helper provides verbal cues and/or touching/steadying and/or contact guard assistance as patient completes activity. Assistance may be provided throughout the activity or intermittently. 3-Partial/Moderate Assistance-helper does LESS THAN HALF the effort. [place] lifts, holds or supports trunk or limbs, but provides less than half the effort. 2-Substantial/Maximal Assistance-helper does MORE THAN HALF the effort. [place] lifts or holds trunk or limbs and provides more than half the effort. 0-Shlacbjuu-wycvky does ALL the effort. Patient does none of the effort to complete the activity. Or, the assistance of 2 or more helpers is required for the patient to complete the activity. If activity was not attempted, code reason: 7-Patient Refused. 9-Not Applicable-not attempted and the patient did not perform the activity before the current illness, exacerbation or injury. 10-Not Attempted due to Environmental Limitations-(lack of equipment, weather restraints, etc.). 88-Not Attempted due to Medical Conditions or Safety Concerns. Sit to Stand (QC): 4 Chair/Wzr-en-Uwrbm Xfer(QC): 4 Toilet Transfer (QC): 4 Patient performs transfers with SBA, she does have some difficulty with sit to stand, mostly because she has difficulty shifting her center of gravity forward but she can do it without assist. After getting back to her room patient needed to use the restroom, she was able to manage pants herself. Weight Bearing Right Lower Extremity: Right Weight Bearing/Tolerated Gait Training Distance: 100'x3 Walk 10 feet (QC): 4 Walk 50 ft with 2 Turns(QC): 4 Gait Persons Needed: 1 Gait Assistive Device: FWW very slow ambulation, antalgic, trendelenburg gait, improving step through Exercises Standing: Heel/toe raises, Marching, Mini squats Standing Reps: 15 toe touches on 4" step with RLE x5 NuStep Minutes: 15 NuStep Workload: 4 (adjusted seat so patient will not violate her hip precautions) Treatments transfers, ambulation, strengthening, toileting Assessment Current Status: Fair Progress slow but steady improvement with functional mobility PT Short Term Goals Short Term Goals Time Frame: Jan 29, 2022 Roll Left & Right: 3 (Dolly) Sit to lyin (Dolly) Lying to sitting on side of be: 3 (Dolly) Sit to stand: 3 (Dolly) Chair/tcd-mi-lcyvo transfer: 3 (Dolly) Walk 10 feet: 3 (Dolly) PT Skilled Nursing Goals Skilled Nursing Goals PT Skilled Nursing Goals Time Frame: Feb 12, 2022 Roll Left & Right (QC): 4 (SBA) Sit to Lying (QC): 4 (SBA) Lying-Sitting on Side/Bed(QC): 4 (SBA) Sit to Stand (QC): 4 (CGA) Chair/Qqm-ih-Wuiyf Xfer(QC): 4 (CGA) Toilet Transfer (QC): 4 Car Transfer (QC): 4 (CGA) Does the Patient Walk: Yes Walk 10 feet (QC): 4 (CGA) Walk 50ft with 2 Turns (QC): 4 (CGA) Walk 150 ft (QC): 4 (CGA) Walking 10ft on Uneven Surface: 4 (CGA) 1 Step (curb) (QC): 4 (CGA) 4 Steps (QC): 4 (CGA) 12 Steps (QC): 88 Picking up an Object (QC): 4 (CGA using a remote sensing research scientist) Wheel 50 feet with 2 turns (QC: 9 Wheel 150 feet: 9 PT Plan Problem List Problem List: Activity Tolerance, Functional Strength, Safety, Balance, Gait, Transfer, Bed Mobility, ROM Treatment/Plan Treatment Plan: Continue Plan of Care Treatment Plan: Bed Mobility, Education, Functional Activity Libby, Functional Strength, Group Therapy, Gait, Safety, Therapeutic Exercise, Transfers Treatment Duration: Feb 12, 2022 Frequency: At least 5 of 7 days/Wk (IRF) Estimated Hrs Per Day: 1.5 hours per day Patient and/or Family Agrees t: Yes Safety Risks/Education Patient Education: Gait Training, Transfer Techniques, Reviewed Precautions, Correct Positioning, Safety Issues Teaching Recipient: Patient Teaching Methods: Demonstration, Discussion Response to Teaching: Reinforcement Needed Time/GCodes Time In: 0900 Time Out: 1015 Total Billed Treatment Time: 75 Total Billed Treatment 1 visit FA 45' EX 30' STEVIE ESCOBAR PT Jan 25, 2022 10:04
--- NOTE | 2022-01-25 10:57 | PM&R Progress Note ---
Subjective HPI/CC On Admission Date Seen by Provider: Jan 25, 2022 Time Seen by Provider: 12:00 Subjective/Events-last exam 01/25/2022: Pt is doing really well Left foot great toe pain but no evidence of any gout Will obtain x-ray Moving around pretty slowly but doing well 01/24/2022: Patient doing much better Walking around really well but slow Discussed iron infusions and diarrhea since she had that experience before No other concerns B12 will be given also 01/23/2022: Pt is doing well Bowels moved yesterday Pain pill is working really well Hemoglobin is 7.2 Checked meds and lab No falls Voiding well Review of Systems General: Fatigue, Malaise Objective Exam Vital Signs Vital Signs Date Time Temp Pulse Resp B/P (MAP) Pulse Ox O2 Delivery O2 Flow Rate FiO2 01/25/22 20:09 36.3 67 16 135/65 (88) 97 Room Air Capillary Refill : General Appearance: No Apparent Distress, WD/WN, Chronically ill, Thin, Other (Frail and pale) HEENT: PERRL/EOMI, Normal ENT Inspection, Pharynx Normal Neck: Full Range of Motion, Normal Inspection, Non Tender, Supple, Carotid Bruit Respiratory: Chest Non Tender, Lungs Clear, Normal Breath Sounds, No Accessory Muscle Use, No Respiratory Distress Cardiovascular: Regular Rate, Rhythm, No Edema, No Gallop, No JVD, No Murmur, Normal Peripheral Pulses Gastrointestinal: Normal Bowel Sounds, No Organomegaly, No Pulsatile Mass, Non Tender, Soft Back: Normal Inspection, No CVA Tenderness, No Vertebral Tenderness Extremity: Normal Capillary Refill, Normal Inspection, Normal Range of Motion, Non Tender, No Calf Tenderness, No Pedal Edema Neurologic/Psychiatric: Alert, Oriented x3, health services manager II-XII Norm as Tested, Abnormal Gait, Depressed Affect, Motor Weakness (Generalized especially right leg) Skin: Normal Color, Warm/Dry Lymphatic: No Adenopathy Results/Procedures Lab Patient resulted labs reviewed. FIM Transfers Therapy Code Descriptions/Definitions Functional [place] Measure: 0=Not Assessed/NA 4=Minimal Assistance 1=Total Assistance 5=Supervision or Setup 2=Maximal Assistance 6=Modified [place] 3=Moderate Assistance 7=Complete IndependenceSCALE: Activities may be completed with or without assistive devices. 2-Cjhrmhvxla-cxohxno completes the activity by him/herself with no assistance from a helper. 5-Set-up or Clean-up Assistance-helper sets up or cleans up; patient completes activity. [place] assists only prior to or following the activity. 4-Supervision or Touching Assistance-helper provides verbal cues and/or ori estee/steadying and/or contact guard assistance as patient completes activity. Assistance may be provided throughout the activity or intermittently. 3-Partial/Moderate Assistance-helper does LESS THAN HALF the effort. [place] lifts, holds or supports trunk or limbs, but provides less than half the effort. 2-Substantial/Maximal Assistance-helper does MORE THAN HALF the effort. [place] lifts or holds trunk or limbs and provides more than half the effort. 3-Annuyamdk-ttczes does ALL the effort. Patient does none of the effort to complete the activity. Or, the assistance of 2 or more helpers is required for the patient to complete the activity. If activity was not attempted, code reason: 7-Patient Refused. 9-Not Applicable-not attempted and the patient did not perform the activity before the current illness, exacerbation or injury. 10-Not Attempted due to Environmental Limitations-(lack of equipment, weather restraints, etc.). 88-Not Attempted due to Medical Conditions or Safety Concerns. Roll Left to Right (QC): 2 Sit to Lying (QC): 2 Sit to Stand (QC): 4 Chair/Kvs-kd-Hitac Xfer(QC): 4 Car Transfer (QC): 2 Gait Training Does the Patient Walk?: Yes Distance: 100'x3 Walk 10 feet (QC): 4 Walk 50 ft with 2 Turns(QC): 4 Walk 150 ft (QC): 4 Walking 10ft/uneven surface-QC: 88 Gait Persons Needed: 1 Gait Assistive Device: FWW Wheelchair Training Does the Pt Use a Wheelchair?: No Distance: 100' Wheel 50 ft with 2 turns (QC): 3 Wheel 150 ft (QC): 88 Type of Wheelchair: Manual Stair Training 1 Step (curb) (QC): 88 4 Steps (QC): 88 12 Steps (QC): 88 Balance Picking up an Object (QC): 88 ADL-Treatment Eating (QC): 5 Oral Hygiene (QC): 6 Shower/Bathe Self (QC): 4 Upper Body Dressing (QC): 5 Lower Body Dressing (QC): 4 On/Off Footwear (QC): 5 Toileting Hygiene (QC): 3 (Min a for clothing management due to tight fit.) Toilet Transfer (QC): 4 Assessment/Plan Assessment and Plan Assess & Plan/Chief Complaint Assessment: Debility following right hip fracture status postrepair on 01/19/[address] Lees History of extensive spine surgery per Dr Hunter on 06/09/2020 requiring inpatient rehab stay History of DVT/PE dx 06/09/20 delaying surgery scheduled for 06/09/20 at [facility] dx in pre-op Osteoporosis on bisphosphonate GERD Weight loss BMI 21 History of refractory nausea DM lrc-zkcdlld-twqhclpmk Post op anemia severe iron deficiency and B12 deficiency initiated iron infusions and B12 Back pain chronic Fall risk UTI dx 06/23/20 and treated and then again on 01/18/2022 maintained on Keflex for Klebsiella Plan: Supportive care Rehab protocol DVT prophylaxis Home meds Glucometer checks Pain control 01/23/2022: Monitor closely Await iron level Monitor sugar 01/24/2022: Iron infusions B12 supplement 01/25/2022: Left foot xray Monitor closely (1) Hip fracture (2) Acute postoperative anemia due to expected blood loss Status: Acute (3) T2DM (type 2 diabetes mellitus) Status: Chronic (4) HLD (hyperlipidemia) Status: Chronic (5) HTN (hypertension) Status: Chronic (6) UTI (urinary tract infection) Status: Acute (7) Fall from ground level Status: Acute (8) Osteoporosis Status: Acute (9) [place] filter in place (10) Protein-calorie malnutrition, moderate (11) GERD (gastroesophageal reflux disease) (12) Weight loss CHARLOTTE CAMARGO DO Jan 25, 2022 10:57
--- NOTE | 2022-01-25 11:02 | Physical Therapy Daily Note ---
PT Daily Note-Current Subjective Patient in bed pre tx, agrees to PT, has no pain at rest. Pain Section J - Health Conditions 1. Rarely or not at all 2. Occasionally 3. Frequently 4. Almost constantly 8. Unable to answer Pain Effect on Sleep: 2 Pain Interference with Therapy: 3 Pain Interference w/Day-to-Day: 3 Appearance Patient in bed post tx with nurse call, phone, tray, all needs met. PICC nurse coming in to work with patient. Mental Status Patient Orientation: Person, Place, Situation Transfers SCALE: Activities may be completed with or without assistive devices. 0-Pukrmomnzs-himjdxs completes the activity by him/herself with no assistance from a helper. 5-Set-up or Clean-up Assistance-helper sets up or cleans up; patient completes activity. [place] assists only prior to or following the activity. 4-Supervision or Touching Assistance-helper provides verbal cues and/or touching/steadying and/or contact guard assistance as patient completes activity. Assistance may be provided throughout the activity or intermittently. 3-Partial/Moderate Assistance-helper does LESS THAN HALF the effort. [place] lifts, holds or supports trunk or limbs, but provides less than half the effort. 2-Substantial/Maximal Assistance-helper does MORE THAN HALF the effort. [place] lifts or holds trunk or limbs and provides more than half the effort. 2-Wpjonccxf-ksdcce does ALL the effort. Patient does none of the effort to complete the activity. Or, the assistance of 2 or more helpers is required for the patient to complete the activity. If activity was not attempted, code reason: 7-Patient Refused. 9-Not Applicable-not attempted and the patient did not perform the activity before the current illness, exacerbation or injury. 10-Not Attempted due to Environmental Limitations-(lack of equipment, weather restraints, etc.). 88-Not Attempted due to Medical Conditions or Safety Concerns. Weight Bearing Right Lower Extremity: Right Weight Bearing/Tolerated Exercises Supine Ex: Ankle pumps, Quad Set, Glut sets, Heel Slides, Short Arc Quads, Straight leg raise, Hip abd/add Supine Reps: 20 Treatments LE ROM, instructed patient on techniques for scooting sideways and up in bed, she could scoot sideways (she was on the edge of the bed), but could not scoot up without assist. Assessment Current Status: Fair Progress improving strength in RLE PT Short Term Goals Short Term Goals Time Frame: Jan 29, 2022 Roll Left & Right: 3 (Dolly) Sit to lyin (Dolly) Lying to sitting on side of be: 3 (Dolly) Sit to stand: 3 (Dolly) Chair/ckz-aw-qyqkj transfer: 3 (Dolly) Walk 10 feet: 3 (Dolly) PT Senior Living Goals Senior Living Goals PT Historic Site Administrator Goals Time Frame: Feb 12, 2022 Roll Left & Right (QC): 4 (SBA) Sit to Lying (QC): 4 (SBA) Lying-Sitting on Side/Bed(QC): 4 (SBA) Sit to Stand (QC): 4 (CGA) Chair/Zyi-yz-Zgumt Xfer(QC): 4 (CGA) Toilet Transfer (QC): 4 Car Transfer (QC): 4 (CGA) Does the Patient Walk: Yes Walk 10 feet (QC): 4 (CGA) Walk 50ft with 2 Turns (QC): 4 (CGA) Walk 150 ft (QC): 4 (CGA) Walking 10ft on Uneven Surface: 4 (CGA) 1 Step (curb) (QC): 4 (CGA) 4 Steps (QC): 4 (CGA) 12 Steps (QC): 88 Picking up an Object (QC): 4 (CGA using a farmworker general) Wheel 50 feet with 2 turns (QC: 9 Wheel 150 feet: 9 PT Plan Problem List Problem List: Activity Tolerance, Functional Strength, Safety, Balance, Gait, Transfer, Bed Mobility, ROM Treatment/Plan Treatment Plan: Continue Plan of Care Treatment Plan: Bed Mobility, Education, Functional Activity Libby, Functional Strength, Group Therapy, Gait, Safety, Therapeutic Exercise, Transfers Treatment Duration: Feb 12, 2022 Frequency: At least 5 of 7 days/Wk (IRF) Estimated Hrs Per Day: 1.5 hours per day Patient and/or Family Agrees t: Yes Safety Risks/Education Patient Education: Correct Positioning, Safety Issues Teaching Recipient: Patient Teaching Methods: Demonstration, Discussion Response to Teaching: Reinforcement Needed Time/GCodes Time In: 1045 Time Out: 1100 Total Billed Treatment Time: 15 Total Billed Treatment 1 visit EX 15' STEVIE ESCOBAR PT Jan 25, 2022 11:02
[2022-01-25] MEDS: ENOXAPARIN 40 MG/0.4 ML (LOVENOX) SYR SC SCH (13:37)
--- NOTE | 2022-01-25 17:19 | Diagnostic Imaging Report ---
INDICATION: Left great toe pain. AP, oblique, and lateral views of the left great toe were obtained. FINDINGS: There is generalized osteopenia. There is no acute fracture. There is moderate degenerative change of the first MTP joint. There is some degenerative change of the first interphalangeal joint as well. There is mild degenerative change throughout the remaining interphalangeal joints. IMPRESSION: Generalized demineralization. Degenerative changes in the left foot as described above, including first MTP joint and interphalangeal joint. Dictated by: Dictated on workstation # [id number]
[2022-01-25 20:09] VITALS: BP 135/65
[2022-01-25] MEDS: PROPRANOLOL 20 MG (INDERAL) TABLET PO SCH (22:08)
[2022-01-26] MEDS: inSUlin ASPART (NovoLOG) 1 UNIT/0.01 ML (CHARGE PER UNIT) SC SCH ×4 (05:31→20:33)
--- NOTE | 2022-01-26 05:40 | PM&R Progress Note ---
Subjective HPI/CC On Admission Date Seen by Provider: Jan 26, 2022 Time Seen by Provider: 17:30 Subjective/Events-last exam 01/26/2022: No major issues Xray left foot normal except degeneration Diclofenac gel will be tried for the foot pain Tolerating Venofer well 01/25/2022: Pt is doing really well Left foot great toe pain but no evidence of any gout Will obtain x-ray Moving around pretty slowly but doing well 01/24/2022: Patient doing much better Walking around really well but slow Discussed iron infusions and diarrhea since she had that experience before No other concerns B12 will be given also 01/23/2022: Pt is doing well Bowels moved yesterday Pain pill is working really well Hemoglobin is 7.2 Checked meds and lab No falls Voiding well Review of Systems General: Fatigue, Malaise Musculoskeletal: leg pain Objective Exam Vital Signs Vital Signs Date Time Temp Pulse Resp B/P (MAP) Pulse Ox O2 Delivery O2 Flow Rate FiO2 01/26/22 20:20 Room Air 01/26/22 19:27 36.6 68 16 129/68 (88) 99 Capillary Refill : General Appearance: No Apparent Distress, WD/WN, Chronically ill, Thin, Other (Frail and pale) HEENT: PERRL/EOMI, Normal ENT Inspection, Pharynx Normal Neck: Full Range of Motion, Normal Inspection, Non Tender, Supple, Carotid Br uit Respiratory: Chest Non Tender, Lungs Clear, Normal Breath Sounds, No Accessory Muscle Use, No Respiratory Distress Cardiovascular: Regular Rate, Rhythm, No Edema, No Gallop, No JVD, No Murmur, Normal Peripheral Pulses Gastrointestinal: Normal Bowel Sounds, No Organomegaly, No Pulsatile Mass, Non Tender, Soft Back: Normal Inspection, No CVA Tenderness, No Vertebral Tenderness Extremity: Normal Capillary Refill, Normal Inspection, Normal Range of Motion, Non Tender, No Calf Tenderness, No Pedal Edema Neurologic/Psychiatric: Alert, Oriented x3, loader II-XII Norm as Tested, Abnormal Gait, Depressed Affect, Motor Weakness (Generalized especially right leg) Skin: Normal Color, Warm/Dry Lymphatic: No Adenopathy Results/Procedures Lab Patient resulted labs reviewed. FIM Transfers Therapy Code Descriptions/Definitions Functional [place] Measure: 0=Not Assessed/NA 4=Minimal Assistance 1=Total Assistance 5=Supervision or Setup 2=Maximal Assistance 6=Modified [place] 3=Moderate Assistance 7=Complete IndependenceSCALE: Activities may be completed with or without assistive devices. 4-Drhdmvadot-yftnacx completes the activity by him/herself with no assistance from a helper. 5-Set-up or Clean-up Assistance-helper sets up or cleans up; patient completes activity. [place] assists only prior to or following the activity. 4-Supervision or Touching Assistance-helper provides verbal cues and/or touching/steadying and/or contact guard assistance as patient completes activity. Assistance may be provided throughout the activity or intermittently. 3-Partial/Moderate Assistance-helper does LESS THAN HALF the effort. [place] lifts, holds or supports trunk or limbs, but provides less than half the effort. 2-Substantial/Maximal Assistance-helper does MORE THAN HALF the effort. [place] lifts or holds trunk or limbs and provides more than half the effort. 5-Ggpqwlaqc-wzrntp does ALL the effort. Patient does none of the effort to complete the activity. Or, the assistance of 2 or more helpers is required for the patient to complete the activity. If activity was not attempted, code reason: 7-Patient Refused. 9-Not Applicable-not attempted and the patient did not perform the activity before the current illness, exacerbation or injury. 10-Not Attempted due to Environmental Limitations-(lack of equipment, weather restraints, etc.). 88-Not Attempted due to Medical Conditions or Safety Concerns. Roll Left to Right (QC): 2 Sit to Lying (QC): 2 Sit to Stand (QC): 4 Chair/Mjt-tn-Igxaq Xfer(QC): 4 Car Transfer (QC): 2 Gait Training Does the Patient Walk?: Yes Distance: 100'x3 Walk 10 feet (QC): 4 Walk 50 ft with 2 Turns(QC): 4 Walk 150 ft (QC): 4 Walking 10ft/uneven surface-QC: 88 Gait Persons Needed: 1 Gait Assistive Device: FWW Wheelchair Training Does the Pt Use a Wheelchair?: No Distance: 100' Wheel 50 ft with 2 turns (QC): 3 Wheel 150 ft (QC): 88 Type of Wheelchair: Manual Stair Training 1 Step (curb) (QC): 88 4 Steps (QC): 88 12 Steps (QC): 88 Balance Picking up an Object (QC): 88 ADL-Treatment Eating (QC): 5 Oral Hygiene (QC): 6 Shower/Bathe Self (QC): 4 Upper Body Dressing (QC): 5 Lower Body Dressing (QC): 4 On/Off Footwear (QC): 5 Toileting Hygiene (QC): 3 (Min a for clothing management due to tight fit.) Toilet Transfer (QC): 4 Assessment/Plan Assessment and Plan Assess & Plan/Chief Complaint Assessment: Debility following right hip fracture status postrepair on 01/19/[address] Lees History of extensive spine surgery per Dr Hunter on 06/09/2020 requiring inpatient rehab stay History of DVT/PE dx 06/09/20 delaying surgery scheduled for 06/09/20 at [facility] dx in pre-op Osteoporosis on bisphosphonate GERD Weight loss BMI 21 History of refractory nausea DM kzw-dvzzzrr-xnvwqqoth Post op anemia severe iron deficiency and B12 deficiency initiated iron infusions and B12 Back pain chronic Fall risk UTI dx 06/23/20 and treated and then again on 01/18/2022 maintained on Keflex for Klebsiella Plan: Supportive care Rehab protocol DVT prophylaxis Home meds Glucometer checks Pain control 01/23/2022: Monitor closely Await iron level Monitor sugar 01/24/2022: Iron infusions B12 supplement 01/25/2022: Left foot xray Monitor closely 01/26/2022: Monitor closely Diclofenac getl to toe (1) Hip fracture (2) Acute postoperative anemia due to expected blood loss Status: Acute (3) T2DM (type 2 diabetes mellitus) Status: Chronic (4) HLD (hyperlipidemia) Status: Chronic (5) HTN (hypertension) Status: Chronic (6) UTI (urinary tract infection) Status: Acute (7) Fall from ground level Status: Acute (8) Osteoporosis Status: Acute (9) [place] filter in place (10) Protein-calorie malnutrition, moderate (11) GERD (gastroesophageal reflux disease) (12) Weight loss CHARLOTTE CAMARGO DO Jan 26, 2022 05:40
[2022-01-26] MEDS: CYANOCOBALAMIN 1,000 MCG (VITAMIN B-12) TABLET PO SCH (06:24)
[2022-01-26 07:46] VITALS: BP 137/64
[2022-01-26] MEDS: ASPIRIN E.C. 81 MG (ECOTRIN) TAB PO SCH (08:02)
[2022-01-26] MEDS: CEPHALEXIN 250 MG (KEFLEX) CAP PO SCH ×4 (08:03→20:32)
[2022-01-26] MEDS: AtorvaSTATin TABLET 10 MG TABLET PO SCH (08:03)
[2022-01-26] MEDS: metFORMIN 500 MG (GLUCOPHAGE) TAB PO SCH (08:03)
--- NOTE | 2022-01-26 08:29 | Occupational Ther Daily Note ---
OT Current Status-Daily Note Subjective Pt reports hips pain as 5/10. RN in during treatment to give pain meds. Appearance Pt returned to sitting in recliner, all needs within reach at OT departure. Mental Status/Objective Patient Orientation: Person, Place, Situation Attachments: IV Acute change in mental status: 0 Inattention: 0 Disorganized thinkin Altered level of consciousness: 0 ADL-Treatment Therapy Code Descriptions/Definitions Functional [place] Measure: 0=Not Assessed/NA 4=Minimal Assistance 1=Total Assistance 5=Supervision or Setup 2=Maximal Assistance 6=Modified [place] 3=Moderate Assistance 7=Complete IndependenceSCALE: Activities may be completed with or without assistive devices. 9-Kkxkjtdxgz-vvevgmy completes the activity by him/herself with no assistance from a helper. 5-Set-up or Clean-up Assistance-helper sets up or cleans up; patient completes activity. [place] assists only prior to or following the activity. 4-Supervision or Touching Assistance-helper provides verbal cues and/or touching/steadying and/or contact guard assistance as patient completes activity. Assistance may be provided throughout the activity or intermittently. 3-Partial/Moderate Assistance-helper does LESS THAN HALF the effort. [place] lifts, holds or supports trunk or limbs, but provides less than half the effort. 2-Substantial/Maximal Assistance-helper does MORE THAN HALF the effort. [place] lifts or holds trunk or limbs and provides more than half the effort. 1-Ndvrijrol-lnmrth does ALL the effort. Patient does none of the effort to complete the activity. Or, the assistance of 2 or more helpers is required for the patient to complete the activity. If activity was not attempted, code reason: 7-Patient Refused. 9-Not Applicable-not attempted and the patient did not perform the activity before the current illness, exacerbation or injury. 10-Not Attempted due to Environmental Limitations-(lack of equipment, weather restraints, etc.). 88-Not Attempted due to Medical Conditions or Safety Concerns. Eating (QC): 5 Oral Hygiene (QC): 4 Shower/Bathe Self (QC): 4 Upper Body Dressing (QC): 5 Lower Body Dressing (QC): 3 On/Off Footwear: 6 Shower performed; majority completed in sitting. Incision covered by OT prior to activity. C/D/I post task. Good recall on use of LHS to wash LE's. CGA for safety as she stood to wash norma area/buttocks, no unsteadiness in standing. Extra time to don all clothing. Pt prefers use of dressing stick when donning LB clothing. Min cues for improved use. Min assist needed to thread LLE into pants after foot got caught in pant pocket. Pt does have tendency to bend over even when using AE and requires cues to adhere to hip precautions. She stood to pull clothing up over hips with CGA for safety and min a to pull up completely in the back secondary to tight fit. Anticipate no assist required if wearing looser fitting clothing. OT donned Micah hose. Pt able to independently don bilateral socks with use of sock aid this date. She reports feeling better/more comfortable about using AE during adls. She stood at sink to complete grooming tasks, CGA for safety. Other Treatment Pt participated in UE exercises with 2# dowel tess. Short rest breaks needed after shoulder exercises. Able to complete all joints to full range. Min cues for improved technique. 1x10 all planes. Education OT Patient Education: Correct positioning, Exercise program, Modified ADL techniques, Progress toward Goal/Update tx plan, Purpose of tx/functional activities, Transfer techniques, Use of adapted equipment Teaching Recipient: Patient Teaching Methods: Demonstration, Discussion Response to Teaching: Verbalize Understanding, Return Demonstration, Reinforcement Needed OT Short Term Goals Short Term Goals Time Frame: Feb 02, 2022 Eatin Oral hygiene: 5 Toileting hygiene: 3 Shower/bathe self: 3 Upper body dressin Lower body dressin Putting on/taking off footwear: 3 OT Physical Education Professor Goals Physical Education Professor Goals Time Frame: Feb 14, 2022 Acute change in mental status: 0 Inattention: 0 Disorganized thinkin Altered level of consciousness: 0 Eating (QC): 6 Oral Hygiene (QC): 6 Toileting Hygiene (QC): 4 Shower/Bathe Self (QC): 5 Upper Body Dressing (QC): 6 Lower Body Dressing (QC): 4 On/Off Footwear (QC): 4 Additional Goals: 1-Demonstrate ADL Tasks, 2-Verbalize Understanding, 3- ImproveStrength/Libby 1=Demonstrate adherence to instructed precautions during ADL tasks. 2=Patient will verbalize/demonstrate understanding of assistive devices/modifications for ADL. 3=Patient will improve strength/tolerance for activity to enable patient to perform ADL's. OT Education/Plan Problem List/Assessment Assessment: Decreased Activ Tolerance, Decreased UE Strength, Impaired Funct Balance, Impaired I ADL's, Impaired Self-Care Skills Discharge Recommendations Plan/Recommendations: Continue POC Equpiment Recommendations-D/C: Extractor Loader And Unloader, Hip Kit, Sock Aide Treatment Plan/Plan of Care Treatment,Training & Education: Yes Patient would benefit from OT for education, treatment and training to promote independence in ADL's, mobility, safety and/or upper extremity function for ADL's. Plan of Care: ADL Retraining, Caregiver Training, Functional Mobility, Group Exercise/Act as Ind, UE Funct Exercise/Act Treatment Duration: Feb 14, 2022 Frequency: At least 5 of 7 days/Wk (IRF) Estimated Hrs Per Day: 1.5 hours per day (60-90 min/day) Agreement: Yes Rehab Potential: Fair Time/GCodes Start Time: 07:20 Stop Time: 08:50 Total Time Billed (hr/min): 90 Billed Treatment Time 1 visit ADL x4 (65 min) EX x2 (25 min) Lucinda Serra OT Jan 26, 2022 08:29
[2022-01-26] MEDS: IRON SUCROSE 200 MG/10 ML (VENOFER) VIAL IV SCH (09:03)
[2022-01-26] MEDS: DOCUSATE SODIUM 100 MG (COLACE) CAP PO SCH ×2 (09:04→20:33)
[2022-01-26] MEDS: SENNOSIDES 8.6 MG (SENOKOT) TAB PO SCH ×2 (09:04→20:33)
[2022-01-26] MEDS: polyethylene glycoL POWDER 17 GM (MIRALAX) PACK PO SCH ×2 (09:04→19:45)
--- NOTE | 2022-01-26 11:08 | Physical Therapy Daily Note ---
PT Daily Note-Current Subjective Pt sitting in recliner upon arrival. Pt agrees to PT despite report of fatigue. Pain Numeric Pain Scale: 8 Location: Right Location Body Site: Hip Pain Description: Ache Section J - Health Conditions 1. Rarely or not at all 2. Occasionally 3. Frequently 4. Almost constantly 8. Unable to answer Pain Effect on Sleep: 2 Pain Interference with Therapy: 3 Pain Interference w/Day-to-Day: 3 Mental Status Patient Orientation: Person, Place, Situation Transfers SCALE: Activities may be completed with or without assistive devices. 3-Qdplepbbvc-qpqpmih completes the activity by him/herself with no assistance from a helper. 5-Set-up or Clean-up Assistance-helper sets up or cleans up; patient completes a ctivity. [place] assists only prior to or following the activity. 4-Supervision or Touching Assistance-helper provides verbal cues and/or touching/steadying and/or contact guard assistance as patient completes activity. Assistance may be provided throughout the activity or intermittently. 3-Partial/Moderate Assistance-helper does LESS THAN HALF the effort. [place] lifts, holds or supports trunk or limbs, but provides less than half the effort. 2-Substantial/Maximal Assistance-helper does MORE THAN HALF the effort. [place] lifts or holds trunk or limbs and provides more than half the effort. 5-Zggocbgpb-tfnovs does ALL the effort. Patient does none of the effort to complete the activity. Or, the assistance of 2 or more helpers is required for the patient to complete the activity. If activity was not attempted, code reason: 7-Patient Refused. 9-Not Applicable-not attempted and the patient did not perform the activity before the current illness, exacerbation or injury. 10-Not Attempted due to Environmental Limitations-(lack of equipment, weather restraints, etc.). 88-Not Attempted due to Medical Conditions or Safety Concerns. Sit to Stand (QC): 4 Weight Bearing Right Lower Extremity: Right Weight Bearing/Tolerated Gait Training Does the Patient Walk?: Yes Distance: 75' Walk 10 feet (QC): 4 Walk 50 ft with 2 Turns(QC): 4 Gait Persons Needed: 1 Gait Assistive Device: FWW Exercises Seated Therapy Exercises: Ankle pumps, Long arc quads, Hip flexion, Hip abd/add Seated Reps: 15 Standing: Hip Abduction, Heel/toe raises, Marching Standing Reps: 10 NuStep Minutes: 15 NuStep Workload: 3 Treatments Pt is taken off Iron Infusion since this dose is finished. Pt TF to standing and declines need for BR. Pt amb. in hallway then uses NuStep. Pt takes RB then completes Standing EX at //bars with several RB. Pt completes Seated EX then amb. back to room. Pt's son is present and pt resting in recliner. B[employer] MAIL AGENT checking Blood Sugar. All needs met, call light in hand. Assessment Current Status: Good Progress Pt fatigues and needs frequent RB, moves slowly needing extended time to complete tasks. PT Short Term Goals Short Term Goals Time Frame: Jan 29, 2022 Roll Left & Right: 3 (Dolly) Sit to lyin (Dolly) Lying to sitting on side of be: 3 (Dolly) Sit to stand: 3 (Dolly) Chair/izu-fr-eznko transfer: 3 (Dolly) Walk 10 feet: 3 (Dolly) PT Magistrate Assistant Goals Halfway Goals PT Magistrate Assistant Goals Time Frame: Feb 12, 2022 Roll Left & Right (QC): 4 (SBA) Sit to Lying (QC): 4 (SBA) Lying-Sitting on Side/Bed(QC): 4 (SBA) Sit to Stand (QC): 4 (CGA) Chair/Hip-co-Bqcmu Xfer(QC): 4 (CGA) Toilet Transfer (QC): 4 Car Transfer (QC): 4 (CGA) Does the Patient Walk: Yes Walk 10 feet (QC): 4 (CGA) Walk 50ft with 2 Turns (QC): 4 (CGA) Walk 150 ft (QC): 4 (CGA) Walking 10ft on Uneven Surface: 4 (CGA) 1 Step (curb) (QC): 4 (CGA) 4 Steps (QC): 4 (CGA) 12 Steps (QC): 88 Picking up an Object (QC): 4 (CGA using a folding machine operator) Wheel 50 feet with 2 turns (QC: 9 Wheel 150 feet: 9 PT Plan Problem List Problem List: Activity Tolerance, Functional Strength, Balance Treatment/Plan Treatment Plan: Continue Plan of Care Treatment Plan: Bed Mobility, Education, Functional Activity Lib[place], Functional Strength, Group Therapy, Gait, Safety, Therapeutic Exercise, Transfers Treatment Duration: Feb 12, 2022 Frequency: At least 5 of 7 days/Wk (IRF) Estimated Hrs Per Day: 1.5 hours per day Patient and/or Family Agrees t: Yes Safety Risks/Education Patient Education: Gait Training, Correct Positioning, Safety Issues Teaching Recipient: Patient Teaching Methods: Discussion Response to Teaching: Verbalize Understanding Time/GCodes Time In: 930 Time Out: 1100 Total Billed Treatment Time: 90 Total Billed Treatment 1, GT (15m), EX x3 (45m) & FA x2 (30m) MENDOZA MAR PTA Jan 26, 2022 11:08
[2022-01-26] MEDS: ENOXAPARIN 40 MG/0.4 ML (LOVENOX) SYR SC SCH (13:14)
[2022-01-26 19:27] VITALS: BP 129/68
--- NOTE | 2022-01-26 20:01 | Progress Note ---
Standard Progress Note Progress Notes/Assess & Plan Date Seen by a Provider: Jan 26, 2022 Time Seen by a Provider: 07:06 Progress/Assessment & Plan no complaints Vital Signs Date Time Temp Pulse Resp B/P (MAP) Pulse Ox O2 Delivery O2 Flow Rate FiO2 01/24/22 09:00 Room Air 01/24/22 07:22 36.4 67 16 152/70 (97) 96 Room Air 01/23/22 20:15 Room Air 01/23/22 19:25 36.6 68 20 110/61 (77) 96 Room Air Laboratory Tests Test 01/23/22 15:15 01/23/22 20:13 01/24/22 05:30 01/24/22 11:05 Range/Units Glucometer 138 H 143 H 125 H 136 H 70-110 MG/DL R hip incison clean and dry no calf tenderness neg Ronald's s/p R hip bipolar continue PT/OT Final Diagnosis no complaints r hip incision clean and dry no calf tenderness s/p r hip bipolar doing well continue pt/ot LINSEY AGARWAL MD Jan 26, 2022 20:01
[2022-01-26] MEDS: CATHETER FLUSH 10 ML SYR IVP SCH (20:32)
[2022-01-26] MEDS: PROPRANOLOL 20 MG (INDERAL) TABLET PO SCH (20:32)
[2022-01-26] MEDS: DICLOFENAC 1% GEL 100 GM (VOLTAREN) TUBE TOP SCH (20:34)
[2022-01-26] MEDS: CALCIUM CARBONATE 500 MG (TUMS) TAB.CHEW PO PRN (20:35)
[2022-01-27] MEDS: inSUlin ASPART (NovoLOG) 1 UNIT/0.01 ML (CHARGE PER UNIT) SC SCH ×4 (05:05→21:18)
--- NOTE | 2022-01-27 06:19 | PM&R Progress Note ---
Subjective HPI/CC On Admission Date Seen by Provider: Jan 27, 2022 Time Seen by Provider: 10:30 Subjective/Events-last exam 01/27/2022: No major issues Pain left foot improved Venofer tolerated well Sugar 118 01/26/2022: No major issues Xray left foot normal except degeneration Diclofenac gel will be tried for the foot pain Tolerating Venofer well 01/25/2022: Pt is doing really well Left foot great toe pain but no evidence of any gout Will obtain x-ray Moving around pretty slowly but doing well 01/24/2022: Patient doing much better Walking around really well but slow Discussed iron infusions and diarrhea since she had that experience before No other concerns B12 will be given also 01/23/2022: Pt is doing well Bowels moved yesterday Pain pill is working really well Hemoglobin is 7.2 Checked meds and lab No falls Voiding well Review of Systems General: Fatigue, Malaise Musculoskeletal: leg pain, foot pain Objective Exam Vital Signs Vital Signs Date Time Temp Pulse Resp B/P (MAP) Pulse Ox O2 Delivery O2 Flow Rate FiO2 01/27/22 08:41 Room Air 01/27/22 07:22 36.8 64 16 147/62 (90) 98 Capillary Refill : General Appearance: No Apparent Distress, WD/WN, Chronically ill, Thin, Other (Frail and pale) HEENT: PERRL/EOMI, Normal ENT Inspection, Pharynx Normal Neck: Full Range of Motion, Normal Inspection, Non Tender, Supple, Carotid Bruit Respiratory: Chest Non Tender, Lungs Clear, Normal Breath Sounds, No Accessory Muscle Use, No Respiratory Distress Cardiovascular: Regular Rate, Rhythm, No Edema, No Gallop, No JVD, No Murmur, Normal Peripheral Pulses Gastrointestinal: Normal Bowel Sounds, No Organomegaly, No Pulsatile Mass, Non Tender, Soft Back: Normal Inspection, No CVA Tenderness, No Vertebral Tenderness Extremity: Normal Capillary Refill, Normal Inspection, Normal Range of Motion, Non Tender, No Calf Tenderness, No Pedal Edema Neurologic/Psychiatric: Alert, Oriented x3, door puller II-XII Norm as Tested, Abnormal Gait, Depressed Affect, Motor Weakness (Generalized especially right leg) Skin: Normal Color, Warm/Dry Lymphatic: No Adenopathy Results/Procedures Lab Patient resulted labs reviewed. FIM Transfers Therapy Code Descriptions/Definitions Functional [place] Measure: 0=Not Assessed/NA 4=Minimal Assistance 1=Total Assistance 5=Supervision or Setup 2=Maximal Assistance 6=Modified [place] 3=Moderate Assistance 7=Complete IndependenceSCALE: Activities may be completed with or without assistive devices. 6-Rfsikmqdsl-ivsowgo completes the activity by him/herself with no assistance from a helper. 5-Set-up or Clean-up Assistance-helper sets up or cleans up; patient completes activity. [place] assists only prior to or following the activity. 4-Supervision or Touching Assistance-helper provides verbal cues and/or touching/steadying and/or contact guard assistance as patient completes act ivity. Assistance may be provided throughout the activity or intermittently. 3-Partial/Moderate Assistance-helper does LESS THAN HALF the effort. [place] lifts, holds or supports trunk or limbs, but provides less than half the effort. 2-Substantial/Maximal Assistance-helper does MORE THAN HALF the effort. [place] lifts or holds trunk or limbs and provides more than half the effort. 8-Vvdvdyirx-hfxscj does ALL the effort. Patient does none of the effort to complete the activity. Or, the assistance of 2 or more helpers is required for the patient to complete the activity. If activity was not attempted, code reason: 7-Patient Refused. 9-Not Applicable-not attempted and the patient did not perform the activity before the current illness, exacerbation or injury. 10-Not Attempted due to Environmental Limitations-(lack of equipment, weather restraints, etc.). 88-Not Attempted due to Medical Conditions or Safety Concerns. Roll Left to Right (QC): 2 Sit to Lying (QC): 2 Sit to Stand (QC): 4 Chair/Avz-jr-Wvfui Xfer(QC): 4 Car Transfer (QC): 2 Gait Training Does the Patient Walk?: Yes Distance: 75' Walk 10 feet (QC): 4 Walk 50 ft with 2 Turns(QC): 4 Walk 150 ft (QC): 4 Walking 10ft/uneven surface-QC: 88 Gait Persons Needed: 1 Gait Assistive Device: FWW Wheelchair Training Does the Pt Use a Wheelchair?: No Distance: 100' Wheel 50 ft with 2 turns (QC): 3 Wheel 150 ft (QC): 88 Type of Wheelchair: Manual Stair Training 1 Step (curb) (QC): 88 4 Steps (QC): 88 12 Steps (QC): 88 Balance Picking up an Object (QC): 88 ADL-Treatment Eating (QC): 5 Oral Hygiene (QC): 4 Shower/Bathe Self (QC): 4 Upper Body Dressing (QC): 5 Lower Body Dressing (QC): 3 On/Off Footwear (QC): 6 Toileting Hygiene (QC): 3 (Min a for clothing management due to tight fit.) Toilet Transfer (QC): 4 Assessment/Plan Assessment and Plan Assess & Plan/Chief Complaint Assessment: Debility following right hip fracture status postrepair on 01/19/[address] Lees History of extensive spine surgery per Dr Hunter on 06/09/2020 requiring inpatient rehab stay History of DVT/PE dx 06/09/20 delaying surgery scheduled for 06/09/20 at [facility] dx in pre-op Osteoporosis on bisphosphonate GERD Weight loss BMI 21 History of refractory nausea DM oes-uccruhh-whlwhrzkb Post op anemia severe iron deficiency and B12 deficiency initiated iron infusions and B12 Back pain chronic Fall risk UTI dx 06/23/20 and treated and then again on 01/18/2022 maintained on Keflex for Klebsiella Plan: Supportive care Rehab protocol DVT prophylaxis Home meds Glucometer checks Pain control 01/23/2022: Monitor closely Await iron level Monitor sugar 01/24/2022: Iron infusions B12 supplement 01/25/2022: Left foot xray Monitor closely 01/26/2022: Monitor closely Diclofenac gel to toe 01/27/2022: Foot pain improved Monitor BS (1) Hip fracture (2) Acute postoperative anemia due to expected blood loss Status: Acute (3) T2DM (type 2 diabetes mellitus) Status: Chronic (4) HLD (hyperlipidemia) Status: Chronic (5) HTN (hypertension) Status: Chronic (6) UTI (urinary tract infection) Status: Acute (7) Fall from ground level Status: Acute (8) Osteoporosis Status: Acute (9) [place] filter in place (10) Protein-calorie malnutrition, moderate (11) GERD (gastroesophageal reflux disease) (12) Weight loss CHARLOTTE CAMARGO DO Jan 27, 2022 06:19
[2022-01-27] MEDS: CATHETER FLUSH 10 ML SYR IVP SCH ×3 (06:26→21:24)
[2022-01-27] MEDS: CYANOCOBALAMIN 1,000 MCG (VITAMIN B-12) TABLET PO SCH (06:26)
[2022-01-27 07:22] VITALS: BP 147/62
[2022-01-27] MEDS: metFORMIN 500 MG (GLUCOPHAGE) TAB PO SCH (07:50)
[2022-01-27] MEDS: DOCUSATE SODIUM 100 MG (COLACE) CAP PO SCH ×2 (07:50→21:18)
[2022-01-27] MEDS: AtorvaSTATin TABLET 10 MG TABLET PO SCH (07:51)
[2022-01-27] MEDS: CEPHALEXIN 250 MG (KEFLEX) CAP PO SCH ×2 (07:54→13:05)
[2022-01-27] MEDS: DICLOFENAC 1% GEL 100 GM (VOLTAREN) TUBE TOP SCH ×3 (07:55→21:18)
[2022-01-27] MEDS: SENNOSIDES 8.6 MG (SENOKOT) TAB PO SCH ×2 (07:55→21:18)
[2022-01-27] MEDS: polyethylene glycoL POWDER 17 GM (MIRALAX) PACK PO SCH ×2 (07:55→21:18)
[2022-01-27] MEDS: ASPIRIN E.C. 81 MG (ECOTRIN) TAB PO SCH (07:55)
--- NOTE | 2022-01-27 07:59 | Physical Therapy Daily Note ---
PT Daily Note-Current Subjective Upon arrival, pt was seated in recliner. Pt states that she slept well. Pt reports pain in R hip with movement, but was not rated. Pt agrees to PT. Pain Location: Left Location Body Site: Hip Section J - Health Conditions 1. Rarely or not at all 2. Occasionally 3. Frequently 4. Almost constantly 8. Unable to answer Pain Effect on Sleep: 2 Pain Interference with Therapy: 3 Pain Interference w/Day-to-Day: 3 Mental Status Patient Orientation: Person Transfers SCALE: Activities may be completed with or without assistive devices. 8-Kqjhfqncyj-xljwjyg completes the activity by him/herself with no assistance from a helper. 5-Set-up or Clean-up Assistance-helper sets up or cleans up; patient completes activity. [place] assists only prior to or following the activity. 4-Supervision or Touching Assistance-helper provides verbal cues and/or touching/steadying and/or contact guard assistance as patient completes activity. Assistance may be provided throughout the activity or intermittently. 3-Partial/Moderate Assistance-helper does LESS THAN HALF the effort. [place] lifts, holds or supports trunk or limbs, but provides less than half the effort. 2-Substantial/Maximal Assistance-helper does MORE THAN HALF the effort. [place] lifts or holds trunk or limbs and provides more than half the effort. 7-Domryzskm-hovact does ALL the effort. Patient does none of the effort to comp lete the activity. Or, the assistance of 2 or more helpers is required for the patient to complete the activity. If activity was not attempted, code reason: 7-Patient Refused. 9-Not Applicable-not attempted and the patient did not perform the activity before the current illness, exacerbation or injury. 10-Not Attempted due to Environmental Limitations-(lack of equipment, weather restraints, etc.). 88-Not Attempted due to Medical Conditions or Safety Concerns. Weight Bearing Right Lower Extremity: Right Weight Bearing/Tolerated Gait Training Does the Patient Walk?: No and Walking Goal IS indicated Exercises Supine Ex: Ankle pumps, Straight leg raise Supine Reps: 15 Seated Therapy Exercises: Pelvic tilt, Ankle pumps, Long arc quads, Hip flexion, Glut set Seated Reps: 15 Treatments Pt completed all activities listed above. Once PT was concluded, pt was seated in recliner with call light and tray in reach and all needs met. Assessment Current Status: Good Progress Pt required assistance with SLR on the R side, due to weakness. Pt would benefit from continued skilled PT to improve on strength and activity tolerance. PT Short Term Goals Short Term Goals Time Frame: Jan 29, 2022 Roll Left & Right: 3 (Dolly) Sit to lyin (Dolly) Lying to sitting on side of be: 3 (Dolly) Sit to stand: 3 (Dolly) Chair/zto-rb-pcmwg transfer: 3 (Dolly) Walk 10 feet: 3 (Dolly) PT Halfway Goals Insole [place] Goals PT Halfway Goals Time Frame: Feb 12, 2022 Roll Left & Right (QC): 4 (SBA) Sit to Lying (QC): 4 (SBA) Lying-Sitting on Side/Bed(QC): 4 (SBA) Sit to Stand (QC): 4 (CGA) Chair/Txz-co-Ppqci Xfer(QC): 4 (CGA) Toilet Transfer (QC): 4 Car Transfer (QC): 4 (CGA) Does the Patient Walk: Yes Walk 10 feet (QC): 4 (CGA) Walk 50ft with 2 Turns (QC): 4 (CGA) Walk 150 ft (QC): 4 (CGA) Walking 10ft on Uneven Surface: 4 (CGA) 1 Step (curb) (QC): 4 (CGA) 4 Steps (QC): 4 (CGA) 12 Steps (QC): 88 Picking up an Object (QC): 4 (CGA using a small engine mechanic) Wheel 50 feet with 2 turns (QC: 9 Wheel 150 feet: 9 PT Plan Problem List Problem List: Activity Tolerance, Functional Strength Treatment/Plan Treatment Plan: Continue Plan of Care Treatment Plan: Bed Mobility, Education, Functional Activity [place], Functional Strength, Group Therapy, Gait, Safety, Therapeutic Exercise, Transfers Treatment Duration: Feb 12, 2022 Frequency: At least 5 of 7 days/Wk (IRF) Estimated Hrs Per Day: 1.5 hours per day Patient and/or Family Agrees t: Yes Time/GCodes Time In: 932 Time Out: 951 Total Billed Treatment Time: 19 Total Billed Treatment 1,Ex FAYE EPSTEIN PTA Jan 27, 2022 07:59
[2022-01-27] MEDS: ENOXAPARIN 40 MG/0.4 ML (LOVENOX) SYR SC SCH (13:05)
[2022-01-27 20:18] VITALS: BP 130/71
[2022-01-27] MEDS: PROPRANOLOL 20 MG (INDERAL) TABLET PO SCH (21:18)
[2022-01-28] MEDS: inSUlin ASPART (NovoLOG) 1 UNIT/0.01 ML (CHARGE PER UNIT) SC SCH ×4 (06:13→20:13)
[2022-01-28] MEDS: CATHETER FLUSH 10 ML SYR IVP SCH ×3 (06:13→20:13)
[2022-01-28 08:00] VITALS: BP 123/59
[2022-01-28] MEDS: AtorvaSTATin TABLET 10 MG TABLET PO SCH (08:30)
[2022-01-28] MEDS: polyethylene glycoL POWDER 17 GM (MIRALAX) PACK PO SCH ×2 (08:30→20:06)
[2022-01-28] MEDS: ASPIRIN E.C. 81 MG (ECOTRIN) TAB PO SCH (08:30)
[2022-01-28] MEDS: SENNOSIDES 8.6 MG (SENOKOT) TAB PO SCH ×2 (08:30→20:06)
[2022-01-28] MEDS: IRON SUCROSE 200 MG/10 ML (VENOFER) VIAL IV SCH (08:31)
[2022-01-28] MEDS: DOCUSATE SODIUM 100 MG (COLACE) CAP PO SCH ×2 (08:31→20:06)
[2022-01-28] MEDS: metFORMIN 500 MG (GLUCOPHAGE) TAB PO SCH (08:31)
[2022-01-28] MEDS: CYANOCOBALAMIN 1,000 MCG (VITAMIN B-12) TABLET PO SCH (08:37)
[2022-01-28] MEDS: DICLOFENAC 1% GEL 100 GM (VOLTAREN) TUBE TOP SCH ×3 (13:00→20:07)
[2022-01-28] MEDS: ENOXAPARIN 40 MG/0.4 ML (LOVENOX) SYR SC SCH (14:31)
--- NOTE | 2022-01-28 15:28 | PM&R Progress Note ---
Subjective HPI/CC On Admission Date Seen by Provider: Jan 28, 2022 Time Seen by Provider: 15:30 Subjective/Events-last exam 01/28/2022: Patient doing well Participating in therapy Iron infusions tolerated Pain is controlled 01/27/2022: No major issues Pain left foot improved Venofer tolerated well Sugar 118 01/26/2022: No major issues Xray left foot normal except degeneration Diclofenac gel will be tried for the foot pain Tolerating Venofer well 01/25/2022: Pt is doing really well Left foot great toe pain but no evidence of any gout Will obtain x-ray Moving around pretty slowly but doing well 01/24/2022: Patient doing much better Walking around really well but slow Discussed iron infusions and diarrhea since she had that experience before No other concerns B12 will be given also 01/23/2022: Pt is doing well Bowels moved yesterday Pain pill is working really well Hemoglobin is 7.2 Checked meds and lab No falls Voiding well Review of Systems General: Fatigue, Malaise Musculoskeletal: leg pain, foot pain Objective Exam Vital Signs Vital Signs Date Time Temp Pulse Resp B/P (MAP) Pulse Ox O2 Delivery O2 Flow Rate FiO2 01/28/22 20:35 36.9 68 20 125/63 (83) 97 Room Air Capillary Refill : General Appearance: No Apparent Distress, WD/WN, Chronically ill, Thin, Other (Frail and pale) HEENT: PERRL/EOMI, Normal ENT Inspection, Pharynx Normal Neck: Full Range of Motion, Normal Inspection, Non Tender, Supple, Carotid Bruit Respiratory: Chest Non Tender, Lungs Clear, Normal Breath Sounds, No Accessory Muscle Use, No Respiratory Distress Cardiovascular: Regular Rate, Rhythm, No Edema, No Gallop, No JVD, No Murmur, Normal Peripheral Pulses Gastrointestinal: Normal Bowel Sounds, No Organomegaly, No Pulsatile Mass, Non Tender, Soft Back: Normal Inspection, No CVA Tenderness, No Vertebral Tenderness Extremity: Normal Capillary Refill, Normal Inspection, Normal Range of Motion, Non Tender, No Calf Tenderness, No Pedal Edema Neurologic/Psychiatric: Alert, Oriented x3, inspector type II-XII Norm as Tested, Abnormal Gait, Depressed Affect, Motor Weakness (Generalized especially right leg) Skin: Normal Color, Warm/Dry Lymphatic: No Adenopathy Results/Procedures Lab Patient resulted labs reviewed. FIM Transfers Therapy Code Descriptions/Definitions Functional [place] Measure: 0=Not Assessed/NA 4=Minimal Assistance 1=Total Assistance 5=Supervision or Setup 2=Maximal Assistance 6=Modified [place] 3=Moderate Assistance 7=Complete IndependenceSCALE: Activities may be completed with or without assistive devices. 2-Laywkafawf-bsdqqib completes the activity by him/herself with no assistance from a helper. 5-Set-up or Clean-up Assistance-helper sets up or cleans up; patient completes activity. [place] assists only prior to or following the activity. 4-Supervision or Touching Assistance-helper provides verbal cues and/or touching/steadying and/or contact guard assistance as patient completes activity. Assistance may be provided throughout the activity or intermittently. 3-Partial/Moderate Assistance-helper does LESS THAN HALF the effort. [place] lifts, holds or supports trunk or limbs, but provides less than half the effort. 2-Substantial/Maximal Assistance-helper does MORE THAN HALF the effort. [place] lifts or holds trunk or limbs and provides more than half the effort. 1-Rqekbrkpo-ifratw does ALL the effort. Patient does none of the effort to complete the activity. Or, the assistance of 2 or more helpers is required for the patient to complete the activity. If activity was not attempted, code reason: 7-Patient Refused. 9-Not Applicable-not attempted and the patient did not perform the activity before the current illness, exacerbation or injury. 10-Not Attempted due to Environmental Limitations-(lack of equipment, weather restraints, etc.). 88-Not Attempted due to Medical Conditions or Safety Concerns. Roll Left to Right (QC): 2 Sit to Lying (QC): 2 Sit to Stand (QC): 4 Chair/Ugx-lx-Cvucp Xfer(QC): 4 Car Transfer (QC): 2 Gait Training Does the Patient Walk?: No and Walking Goal IS indicated Distance: 75' Walk 10 feet (QC): 4 Walk 50 ft with 2 Turns(QC): 4 Walk 150 ft (QC): 4 Walking 10ft/uneven surface-QC: 88 Gait Persons Needed: 1 Gait Assistive Device: FWW Wheelchair Training Does the Pt Use a Wheelchair?: No Distance: 100' Wheel 50 ft with 2 turns (QC): 3 Wheel 150 ft (QC): 88 Type of Wheelchair: Manual Stair Training 1 Step (curb) (QC): 88 4 Steps (QC): 88 12 Steps (QC): 88 Balance Picking up an Object (QC): 88 ADL-Treatment Eating (QC): 5 Oral Hygiene (QC): 4 Shower/Bathe Self (QC): 4 Upper Body Dressing (QC): 5 Lower Body Dressing (QC): 3 On/Off Footwear (QC): 6 Toileting Hygiene (QC): 3 (Min a for clothing management due to tight fit.) Toilet Transfer (QC): 4 Assessment/Plan Assessment and Plan Assess & Plan/Chief Complaint Assessment: Debility following right hip fracture status postrepair on 01/19/[address] Lees History of extensive spine surgery per Dr Hunter on 06/09/2020 requiring inpatient rehab stay History of DVT/PE dx 06/09/20 delaying surgery scheduled for 06/09/20 at [facility] dx in pre-op Osteoporosis on bisphosphonate GERD Weight loss BMI 21 History of refractory nausea DM ihj-uwdvdls-hwjjpvxxj Post op anemia severe iron deficiency and B12 deficiency initiated iron infusi ons and B12 Back pain chronic Fall risk UTI dx 06/23/20 and treated and then again on 01/18/2022 maintained on Keflex for Klebsiella Plan: Supportive care Rehab protocol DVT prophylaxis Home meds Glucometer checks Pain control 01/23/2022: Monitor closely Await iron level Monitor sugar 01/24/2022: Iron infusions B12 supplement 01/25/2022: Left foot xray Monitor closely 01/26/2022: Monitor closely Diclofenac gel to toe 01/27/2022: Foot pain improved Monitor BS 01/28/2022: Much improved status (1) Hip fracture (2) Acute postoperative anemia due to expected blood loss Status: Acute (3) T2DM (type 2 diabetes mellitus) Status: Chronic (4) HLD (hyperlipidemia) Status: Chronic (5) HTN (hypertension) Status: Chronic (6) UTI (urinary tract infection) Status: Acute (7) Fall from ground level Status: Acute (8) Osteoporosis Status: Acute (9) [place] filter in place (10) Protein-calorie malnutrition, moderate (11) GERD (gastroesophageal reflux disease) (12) Weight loss CHARLOTTE CAMARGO DO Jan 28, 2022 15:28
[2022-01-28] MEDS: PROPRANOLOL 20 MG (INDERAL) TABLET PO SCH (20:06)
[2022-01-28 20:35] VITALS: BP 125/63
[2022-01-28] MEDS: ACETAMINOPHEN 325 MG TABLET PO PRN (21:58)
[2022-01-29] MEDS: ACETAMINOPHEN 325 MG TABLET PO PRN ×2 (05:07→09:55)
[2022-01-29] MEDS: CATHETER FLUSH 10 ML SYR IVP SCH ×3 (05:09→20:16)
--- NOTE | 2022-01-29 06:00 | PM&R Progress Note ---
Subjective HPI/CC On Admission Date Seen by Provider: Jan 29, 2022 Time Seen by Provider: 08:30 Subjective/Events-last exam 01/29/2022: No major events Pain was an issue last night and received a lot of pain meds throughout the night No falls 01/28/2022: Patient doing well Participating in therapy Iron infusions tolerated Pain is controlled 01/27/2022: No major issues Pain left foot improved Venofer tolerated well Sugar 118 01/26/2022: No major issues Xray left foot normal except degeneration Diclofenac gel will be tried for the foot pain Tolerating Venofer well 01/25/2022: Pt is doing really well Left foot great toe pain but no evidence of any gout Will obtain x-ray Moving around pretty slowly but doing well 01/24/2022: Patient doing much better Walking around really well but slow Discussed iron infusions and diarrhea since she had that experience before No other concerns B12 will be given also 01/23/2022: Pt is doing well Bowels moved yesterday Pain pill is working really well Hemoglobin is 7.2 Checked meds and lab No falls Voiding well Review of Systems General: Fatigue, Malaise Musculoskeletal: leg pain, foot pain Objective Exam Vital Signs Vital Signs Date Time Temp Pulse Resp B/P (MAP) Pulse Ox O2 Delivery O2 Flow Rate FiO2 01/29/22 20:05 36.9 74 16 182/67 (105) 97 Room Air Capillary Refill : General Appearance: No Apparent Distress, WD/WN, Chronically ill, Thin, Other (Frail and pale) HEENT: PERRL/EOMI, Normal ENT Inspection, Pharynx Normal Neck: Full Range of Motion, Normal Inspection, Non Tender, Supple, Carotid Bruit Respiratory: Chest Non Tender, Lungs Clear, Normal Breath Sounds, No Accessory Muscle Use, No Respiratory Distress Cardiovascular: Regular Rate, Rhythm, No Edema, No Gallop, No JVD, No Murmur, Normal Peripheral Pulses Gastrointestinal: Normal Bowel Sounds, No Organomegaly, No Pulsatile Mass, Non Tender, Soft Back: Normal Inspection, No CVA Tenderness, No Vertebral Tenderness Extremity: Normal Capillary Refill, Normal Inspection, Normal Range of Motion, Non Tender, No Calf Tenderness, No Pedal Edema Neurologic/Psychiatric: Alert, Oriented x3, student finance specialist II-XII Norm as Tested, Abnormal Gait, Depressed Affect, Motor Weakness (Generalized especially right leg) Skin: Normal Color, Warm/Dry Lymphatic: No Adenopathy Results/Procedures Lab Laboratory Tests 01/29/22 06:08 Patient resulted labs reviewed. FIM Transfers Therapy Code Descriptions/Definitions Functional [place] Measure: 0=Not Assessed/NA 4=Minimal Assistance 1=Total Assistance 5=Supervision or Setup 2=Maximal Assistance 6=Modified [place] 3=Moderate Assistance 7=Complete IndependenceSCALE: Activities may be completed with or without assistive devices. 3-Olcngmgmmf-sybkhze completes the activity by him/herself with no assistance from a helper. 5-Set-up or Clean-up Assistance-helper sets up or cleans up; patient completes activity. [place] assists only prior to or following the activity. 4-Supervision or Touching Assistance-helper provides verbal cues and/or touching/steadying and/or contact guard assistance as patient completes a ctivity. Assistance may be provided throughout the activity or intermittently. 3-Partial/Moderate Assistance-helper does LESS THAN HALF the effort. [place] lifts, holds or supports trunk or limbs, but provides less than half the effort. 2-Substantial/Maximal Assistance-helper does MORE THAN HALF the effort. [place] lifts or holds trunk or limbs and provides more than half the effort. 3-Uoxoxzutg-wvemtu does ALL the effort. Patient does none of the effort to complete the activity. Or, the assistance of 2 or more helpers is required for the patient to complete the activity. If activity was not attempted, code reason: 7-Patient Refused. 9-Not Applicable-not attempted and the patient did not perform the activity before the current illness, exacerbation or injury. 10-Not Attempted due to Environmental Limitations-(lack of equipment, weather restraints, etc.). 88-Not Attempted due to Medical Conditions or Safety Concerns. Roll Left to Right (QC): 2 Sit to Lying (QC): 2 Sit to Stand (QC): 4 Chair/Vmz-cj-Inkes Xfer(QC): 4 Car Transfer (QC): 2 Gait Training Does the Patient Walk?: No and Walking Goal IS indicated Distance: 75' Walk 10 feet (QC): 4 Walk 50 ft with 2 Turns(QC): 4 Walk 150 ft (QC): 4 Walking 10ft/uneven surface-QC: 88 Gait Persons Needed: 1 Gait Assistive Device: FWW Wheelchair Training Does the Pt Use a Wheelchair?: No Distance: 100' Wheel 50 ft with 2 turns (QC): 3 Wheel 150 ft (QC): 88 Type of Wheelchair: Manual Stair Training 1 Step (curb) (QC): 88 4 Steps (QC): 88 12 Steps (QC): 88 Balance Picking up an Object (QC): 88 ADL-Treatment Eating (QC): 5 Oral Hygiene (QC): 4 Shower/Bathe Self (QC): 4 Upper Body Dressing (QC): 5 Lower Body Dressing (QC): 3 On/Off Footwear (QC): 6 Toileting Hygiene (QC): 3 (Min a for clothing management due to tight fit.) Toilet Transfer (QC): 4 Assessment/Plan Assessment and Plan Assess & Plan/Chief Complaint Assessment: Debility following right hip fracture status postrepair on 01/19/[address] Lees History of extensive spine surgery per Dr Hunter on 06/09/2020 requiring inpatient rehab stay History of DVT/PE dx 06/09/20 delaying surgery scheduled for 06/09/20 at [facility] [place] dx in pre-op Osteoporosis on bisphosphonate GERD Weight loss BMI 21 History of refractory nausea DM hfn-eprudjb-acvmuaois Post op anemia severe iron deficiency and B12 deficiency initiated iron infusions and B12 Back pain chronic Fall risk UTI dx 06/23/20 and treated and then again on 01/18/2022 maintained on Keflex for Klebsiella Plan: Supportive care Rehab protocol DVT prophylaxis Home meds Glucometer checks Pain control 01/23/2022: Monitor closely Await iron level Monitor sugar 01/24/2022: Iron infusions B12 supplement 01/25/2022: Left foot xray Monitor closely 01/26/2022: Monitor closely Diclofenac gel to toe 01/27/2022: Foot pain improved Monitor BS 01/28/2022: Much improved status 01/29/2022: Monitor closely (1) Hip fracture (2) Acute postoperative anemia due to expected blood loss Status: Acute (3) T2DM (type 2 diabetes mellitus) Status: Chronic (4) HLD (hyperlipidemia) Status: Chronic (5) HTN (hypertension) Status: Chronic (6) UTI (urinary tract infection) Status: Acute (7) Fall from ground level Status: Acute (8) Osteoporosis Status: Acute (9) [place] filter in place (10) Protein-calorie malnutrition, moderate (11) GERD (gastroesophageal reflux disease) (12) Weight loss CHARLOTTE CAMARGO DO Jan 29, 2022 06:00
[2022-01-29] MEDS: inSUlin ASPART (NovoLOG) 1 UNIT/0.01 ML (CHARGE PER UNIT) SC SCH ×4 (06:11→20:19)
[2022-01-29] MEDS: CYANOCOBALAMIN 1,000 MCG (VITAMIN B-12) TABLET PO SCH (06:20)
[2022-01-29 06:42] LABS: BASOPHILS % (AUTO) 1 % (0-10); EOSINOPHILS # (AUTO) 0.2 10^3/uL (0.0-0.3); EOSINOPHILS % (AUTO) 2 % (0-10); HEMATOCRIT 26 % (35-52); LYMPHOCYTES % (AUTO) 23 % (12-44); MEAN CORPUSCULAR HEMOGLOBIN 28 pg (25-34); MEAN CORPUSCULAR HGB CONC 30 g/dL (32-36); MEAN CORPUSCULAR VOLUME 91 fL (80-99); MEAN PLATELET VOLUME 9.8 fL (9.0-12.2); MONOCYTES % (AUTO) 11 % (0-12); NEUTROPHILS # (AUTO) 5.1 10^3/uL (1.8-7.8); NEUTROPHILS % (AUTO) 61 % (42-75); PLATELET COUNT 373 10^3/uL (130-400); WHITE BLOOD COUNT 8.5 10^3/uL (4.3-11.0)
[2022-01-29 07:03] LABS: ALBUMIN 2.8 GM/DL (3.2-4.5); POTASSIUM 4.7 MMOL/L (3.6-5.0)
[2022-01-29 07:04] LABS: CALCIUM 8.9 MG/DL (8.5-10.1)
[2022-01-29 07:06] LABS: TOTAL PROTEIN 6.5 GM/DL (6.4-8.2)
[2022-01-29 07:07] LABS: BILIRUBIN,TOTAL 0.3 MG/DL (0.1-1.0)
[2022-01-29 07:09] LABS: CREATININE SERUM 0.79 MG/DL (0.60-1.30)
[2022-01-29 07:43] VITALS: BP 134/60
[2022-01-29] MEDS: metFORMIN 500 MG (GLUCOPHAGE) TAB PO SCH ×2 (08:11→08:17)
[2022-01-29] MEDS: DOCUSATE SODIUM 100 MG (COLACE) CAP PO SCH ×2 (08:11→19:12)
[2022-01-29] MEDS: ASPIRIN E.C. 81 MG (ECOTRIN) TAB PO SCH (08:17)
[2022-01-29] MEDS: AtorvaSTATin TABLET 10 MG TABLET PO SCH (08:17)
[2022-01-29] MEDS: polyethylene glycoL POWDER 17 GM (MIRALAX) PACK PO SCH ×2 (09:01→19:12)
[2022-01-29] MEDS: SENNOSIDES 8.6 MG (SENOKOT) TAB PO SCH ×2 (09:01→19:12)
--- NOTE | 2022-01-29 09:07 | Occupational Ther Daily Note ---
OT Current Status-Daily Note Subjective Pt sitting in recliner upon arrival. She agrees to a shower. She reported having a bad night and not sleeping well due to pain. Co-treat with PT at end of session secondary to fall risk, coordination, and balance. Appearance Pt left with PT in therapy gym. All needs met. Mental Status/Objective Patient Orientation: Person, Place, Time, Situation Attachments: IV Acute change in mental status: 0 Inattention: 0 Disorganized thinkin Altered level of consciousness: 0 ADL-Treatment Therapy Code Descriptions/Definitions Functional [place] Measure: 0=Not Assessed/NA 4=Minimal Assistance 1=Total Assistance 5=Supervision or Setup 2=Maximal Assistance 6=Modified [place] 3=Moderate Assistance 7=Complete IndependenceSCALE: Activities may be completed with or without assistive devices. 0-Lspdbonofc-wnrjtdj completes the activity by him/herself with no assistance from a helper. 5-Set-up or Clean-up Assistance-helper sets up or cleans up; patient completes activity. [place] assists only prior to or following the activity. 4-Supervision or Touching Assistance-helper provides verbal cues and/or touching/steadying and/or contact guard assistance as patient completes activity. Assistance may be provided throughout the activity or intermittently. 3-Partial/Moderate Assistance-helper does LESS THAN HALF the effort. [place] lifts, holds or supports trunk or limbs, but provides less than half the effort. 2-Substantial/Maximal Assistance-helper does MORE THAN HALF the effort. [place] lifts or holds trunk or limbs and provides more than half the effort. 4-Qnswsrtsy-ewiuse does ALL the effort. Patient does none of the effort to complete the activity. Or, the assistance of 2 or more helpers is required for the patient to complete the activity. If activity was not attempted, code reason: 7-Patient Refused. 9-Not Applicable-not attempted and the patient did not perform the activity before the current illness, exacerbation or injury. 10-Not Attempted due to Environmental Limitations-(lack of equipment, weather restraints, etc.). 88-Not Attempted due to Medical Conditions or Safety Concerns. Oral Hygiene (QC): 5 Shower/Bathe Self (QC): 4 Upper Body Dressing (QC): 6 Lower Body Dressing (QC): 5 On/Off Footwear: 5 Sit<>stand transfers: SBA. Pt gathered clothing from dresser with cues for safety while carrying clothes. Shower performed; majority completed in sitting. Incision covered by OT prior to activity. Good recall on use of LHS to wash LE' s. CGA for safety as she stood to wash norma area/buttocks, no unsteadiness in standing. Pt showed a decrease in amount of time it took to get dressed today. Pt prefers use of dressing stick when donning LB clothing.Pt showed good recall and follow through with hip precautions today. She stood to pull clothing up over hips with CGA for safety. Nursing donned [place] hose. Pt required set up of sock aide due to tight/new socks, but able to independently don bilateral socks with use of sock aid. She reports feeling better/more comfortable about using AE during adls and asked further questions about how to get AE once going home. She stood at sink to complete grooming tasks with SBA. Other Treatment Pt performed functional activity of hitting balloon while in standing with CGA to improve balance, coordination, strength, posture while standing. Pt was able to use bilateral hands during task without holding onto walker. No LOB were noted; pt showed good dynamic standing balance. Able to stand ~5 min at a time for activity. Education OT Patient Education: Correct positioning, Energy conservation, Modified ADL techniques, Progress toward Goal/Update tx plan, Purpose of tx/functional activities, Reviewed precautions, Rehab process, Safety issues, Use of adapted equipment Teaching Recipient: Patient Teaching Methods: Demonstration, Discussion Response to Teaching: Verbalize Understanding, Return Demonstration OT Short Term Goals Short Term Goals Time Frame: Feb 02, 2022 Eatin Oral hygiene: 5 Toileting hygiene: 3 Shower/bathe self: 3 Upper body dressin Lower body dressin Putting on/taking off footwear: 3 OT Longterm Goals Director Safety Council Goals Time Frame: Feb 14, 2022 Acute change in mental status: 0 Inattention: 0 Disorganized thinkin Altered level of consciousness: 0 Eating (QC): 6 Oral Hygiene (QC): 6 Toileting Hygiene (QC): 4 Shower/Bathe Self (QC): 5 Upper Body Dressing (QC): 6 Lower Body Dressing (QC): 4 On/Off Footwear (QC): 4 Additional Goals: 1-Demonstrate ADL Tasks, 2-Verbalize Understanding, 3-ImproveStrength/[place] 1=Demonstrate adherence to instructed precautions during ADL tasks. 2=Patient will verbalize/demonstrate understanding of assistive devices/modifications for ADL. 3=Patient will improve strength/tolerance for activity to enable patient to perform ADL's. OT Education/Plan Problem List/Assessment Assessment: Decreased Activ Tolerance, Decreased UE Strength, Impaired Coordination, Impaired Funct Balance, Impaired I ADL's, Impaired Self-Care Skills Discharge Recommendations Plan/Recommendations: Continue POC Equpiment Recommendations-D/C: Casing Sewer, Sock Aide, Dressing Stick Treatment Plan/Plan of Care Treatment,Training & Education: Yes Patient would benefit from OT for education, treatment and training to promote independence in ADL's, mobility, safety and/or upper extremity function for ADL's. Plan of Care: ADL Retraining, Caregiver Training, Functional Mobility, Group Exercise/Act as Ind, UE Funct Exercise/Act Treatment Duration: Feb 14, 2022 Frequency: At least 5 of 7 days/Wk (IRF) Estimated Hrs Per Day: 1.5 hours per day (60-90 min/day) Agreement: Yes Rehab Potential: Fair Time/GCodes Start Time: 07:35 Stop Time: 09:05 Total Time Billed (hr/min): 90 Billed Treatment Time 1 visit ADL x4 (65 min) FA x2 (25 min) PT co-treat: [id number] Lucinda Serra OT Jan 29, 2022 09:07
[2022-01-29] MEDS: DICLOFENAC 1% GEL 100 GM (VOLTAREN) TUBE TOP SCH ×3 (09:08→20:16)
--- NOTE | 2022-01-29 09:53 | Physical Therapy Daily Note ---
PT Daily Note-Current Subjective Patient in restroom pre tx, working with OT already, has pain of 5/10 in right hip, agrees to PT. Will be co-treating with OT for part of tx to work on higher level balance activities. Pain Section J - Health Conditions 1. Rarely or not at all 2. Occasionally 3. Frequently 4. Almost constantly 8. Unable to answer Pain Effect on Sleep: 2 Pain Interference with Therapy: 3 Pain Interference w/Day-to-Day: 3 Appearance Patient in restroom post tx on toilet, patient states she will call nurse when done. Mental Status Patient Orientation: Person, Place, Situation Transfers SCALE: Activities may be completed with or without assistive devices. 2-Fgugfjkhhc-ctfnfnz completes the activity by him/herself with no assistance from a helper. 5-Set-up or Clean-up Assistance-helper sets up or cleans up; patient completes activity. [place] assists only prior to or following the activity. 4-Supervision or Touching Assistance-helper provides verbal cues and/or touching/steadying and/or contact guard assistance as patient completes acti vity. Assistance may be provided throughout the activity or intermittently. 3-Partial/Moderate Assistance-helper does LESS THAN HALF the effort. [place] lifts, holds or supports trunk or limbs, but provides less than half the effort. 2-Substantial/Maximal Assistance-helper does MORE THAN HALF the effort. [place] lifts or holds trunk or limbs and provides more than half the effort. 0-Kveejmoyy-lrmbgf does ALL the effort. Patient does none of the effort to complete the activity. Or, the assistance of 2 or more helpers is required for the patient to complete the activity. If activity was not attempted, code reason: 7-Patient Refused. 9-Not Applicable-not attempted and the patient did not perform the activity before the current illness, exacerbation or injury. 10-Not Attempted due to Environmental Limitations-(lack of equipment, weather restraints, etc.). 88-Not Attempted due to Medical Conditions or Safety Concerns. Sit to Stand (QC): 4 Chair/Lhz-dl-Owlmt Xfer(QC): 4 SBA Weight Bearing Right Lower Extremity: Right Weight Bearing/Tolerated Gait Training Distance: 100'x2 Walk 10 feet (QC): 4 Walk 50 ft with 2 Turns(QC): 4 Gait Assistive Device: FWW SBA, very slow ambulation, trendelenburg gait, very slumped posture, patient has a kyphotic back. Exercises Seated Therapy Exercises: Ankle pumps, Hip flexion, Hip abd/add (with ball and YTB) Seated Reps: 20 Standing: Hip Abduction, Hamstring curls, Heel/toe raises, Marching, Mini squats, Step-ups (x10 each side) Standing Reps: 15 LAQ right side for 5 min, standing balance activity hitting balloon NuStep Minutes: 15 NuStep Workload: 4 (adjusted seat so patinet would not violate their hip precautions) Treatments PT performed transfers, ambulation, strengthening, balance training, OT performed balance training, balloon activity, UE positioning and safety during activity. Assessment Current Status: Fair Progress slow but steady progress with ambulation and transfers PT Short Term Goals Short Term Goals Time Frame: Jan 29, 2022 Roll Left & Right: 3 (Dolly) Sit to lyin (Dolly) Lying to sitting on side of be: 3 (Dolly) Sit to stand: 3 (Dolly) Chair/ovr-sk-okzau transfer: 3 (Dolly) Walk 10 feet: 3 (Dolly) PT Hot Worker Goals Intermediate Goals PT Hot Worker Goals Time Frame: Feb 12, 2022 Roll Left & Right (QC): 4 (SBA) Sit to Lying (QC): 4 (SBA) Lying-Sitting on Side/Bed(QC): 4 (SBA) Sit to Stand (QC): 4 (CGA) Chair/Xpj-nb-Snnby Xfer(QC): 4 (CGA) Toilet Transfer (QC): 4 Car Transfer (QC): 4 (CGA) Does the Patient Walk: Yes Walk 10 feet (QC): 4 (CGA) Walk 50ft with 2 Turns (QC): 4 (CGA) Walk 150 ft (QC): 4 (CGA) Walking 10ft on Uneven Surface: 4 (CGA) 1 Step (curb) (QC): 4 (CGA) 4 Steps (QC): 4 (CGA) 12 Steps (QC): 88 Picking up an Object (QC): 4 (CGA using a cooker loader) Wheel 50 feet with 2 turns (QC: 9 Wheel 150 feet: 9 PT Plan Problem List Problem List: Activity Tolerance, Functional Strength, Safety, Balance, Gait, Transfer, Bed Mobility, ROM Treatment/Plan Treatment Plan: Continue Plan of Care Treatment Plan: Bed Mobility, Education, Functional Activity Libby, Functional Strength, Group Therapy, Gait, Safety, Therapeutic Exercise, Transfers Treatment Duration: Feb 12, 2022 Frequency: At least 5 of 7 days/Wk (IRF) Estimated Hrs Per Day: 1.5 hours per day Patient and/or Family Agrees t: Yes Safety Risks/Education Patient Education: Gait Training, Transfer Techniques, Correct Positioning, Safety Issues Teaching Recipient: Patient Teaching Methods: Demonstration, Discussion Response to Teaching: Reinforcement Needed Time/GCodes Time In: 829 Time Out: 1000 Total Billed Treatment Time: 90 Total Billed Treatment 1 visit EX 60' FA 30' co-treated with OT from 7923-4447 (35 min) STEVIE ESCOBAR PT Jan 29, 2022 09:53
[2022-01-29] MEDS: ENOXAPARIN 40 MG/0.4 ML (LOVENOX) SYR SC SCH (13:21)
[2022-01-29 20:05] VITALS: BP 182/67
[2022-01-29] MEDS: PROPRANOLOL 20 MG (INDERAL) TABLET PO SCH (20:16)
[2022-01-30] MEDS: ACETAMINOPHEN 325 MG TABLET PO PRN (04:22)
[2022-01-30] MEDS: inSUlin ASPART (NovoLOG) 1 UNIT/0.01 ML (CHARGE PER UNIT) SC SCH ×4 (05:30→21:02)
--- NOTE | 2022-01-30 05:58 | PM&R Progress Note ---
Subjective HPI/CC On Admission Date Seen by Provider: Jan 30, 2022 Time Seen by Provider: 08:30 Subjective/Events-last exam 01/30/2022: No major issues Pain controlled Venofer tolerated B12 maintained 01/29/2022: No major events Pain was an issue last night and received a lot of pain meds throughout the night No falls 01/28/2022: Patient doing well Participating in therapy Iron infusions tolerated Pain is controlled 01/27/2022: No major issues Pain left foot improved Venofer tolerated well Sugar 118 01/26/2022: No major issues Xray left foot normal except degeneration Diclofenac gel will be tried for the foot pain Tolerating Venofer well 01/25/2022: Pt is doing really well Left foot great toe pain but no evidence of any gout Will obtain x-ray Moving around pretty slowly but doing well 01/24/2022: Patient doing much better Walking around really well but slow Discussed iron infusions and diarrhea since she had that experience before No other concerns B12 will be given also 01/23/2022: Pt is doing well Bowels moved yesterday Pain pill is working really well Hemoglobin is 7.2 Checked meds and lab No falls Voiding well Review of Systems General: Fatigue, Malaise Musculoskeletal: leg pain, foot pain Objective Exam Vital Signs Vital Signs Date Time Temp Pulse Resp B/P (MAP) Pulse Ox O2 Delivery O2 Flow Rate FiO2 01/30/22 21:00 Room Air 01/30/22 19:44 36.6 66 16 130/65 (86) 96 Capillary Refill : General Appearance: No Apparent Distress, WD/WN, Chronically ill, Thin, Other (Frail and pale) HEENT: PERRL/EOMI, Normal ENT Inspection, Pharynx Normal Neck: Full Range of Motion, Normal Inspection, Non Tender, Supple, Carotid Bruit Respiratory: Chest Non Tender, Lungs Clear, Normal Breath Sounds, No Accessory Muscle Use, No Respiratory Distress Cardiovascular: Regular Rate, Rhythm, No Edema, No Gallop, No JVD, No Murmur, Normal Peripheral Pulses Gastrointestinal: Normal Bowel Sounds, No Organomegaly, No Pulsatile Mass, Non Tender, Soft Back: Normal Inspection, No CVA Tenderness, No Vertebral Tenderness Extremity: Normal Capillary Refill, Normal Inspection, Normal Range of Motion, Non Tender, No Calf Tenderness, No Pedal Edema Neurologic/Psychiatric: Alert, Oriented x3, thresher broomcorn II-XII Norm as Tested, Abnormal Gait, Depressed Affect, Motor Weakness (Generalized especially right leg) Skin: Normal Color, Warm/Dry Lymphatic: No Adenopathy Results/Procedures Lab Patient resulted labs reviewed. FIM Transfers Therapy Code Descriptions/Definitions Functional [place] Measure: 0=Not Assessed/NA 4=Minimal Assistance 1=Total Assistance 5=Supervision or Setup 2=Maximal Assistance 6=Modified [place] 3=Moderate Assistance 7=Complete IndependenceSCALE: Activities may be completed with or without assistive devices. 0-Wejghukbsz-vhnwrsi completes the activity by him/herself with no assistance from a helper. 5-Set-up or Clean-up Assistance-helper sets up or cleans up; patient completes activity. [place] assists only prior to or following the activity. 4-Supervision or Touching Assistance-helper provides verbal cues and/or touching/steadying and/or contact guard assistance as patient completes activity. Assistance may be provided throughout the activity or intermittently. 3-Partial/Moderate Assistance-helper does LESS THAN HALF the effort. [place] lifts, holds or supports trunk or limbs, but provides less than half the effort. 2-Substantial/Maximal Assistance-helper does MORE THAN HALF the effort. [place] lifts or holds trunk or limbs and provides more than half the effort. 5-Yceomydug-mpolsl does ALL the effort. Patient does none of the effort to complete the activity. Or, the assistance of 2 or more helpers is required for the patient to complete the activity. If activity was not attempted, code reason: 7-Patient Refused. 9-Not Applicable-not attempted and the patient did not perform the activity before the current illness, exacerbation or injury. 10-Not Attempted due to Environmental Limitations-(lack of equipment, weather restraints, etc.). 88-Not Attempted due to Medical Conditions or Safety Concerns. Roll Left to Right (QC): 2 Sit to Lying (QC): 2 Sit to Stand (QC): 4 Chair/Niu-ts-Ajuao Xfer(QC): 4 Car Transfer (QC): 2 Gait Training Does the Patient Walk?: No and Walking Goal IS indicated Distance: 100'x2 Walk 10 feet (QC): 4 Walk 50 ft with 2 Turns(QC): 4 Walk 150 ft (QC): 4 Walking 10ft/uneven surface-QC: 88 Gait Persons Needed: 1 Gait Assistive Device: FWW Wheelchair Training Does the Pt Use a Wheelchair?: No Distance: 100' Wheel 50 ft with 2 turns (QC): 3 Wheel 150 ft (QC): 88 Type of Wheelchair: Manual Stair Training 1 Step (curb) (QC): 88 4 Steps (QC): 88 12 Steps (QC): 88 Balance Picking up an Object (QC): 88 ADL-Treatment Eating (QC): 5 Oral Hygiene (QC): 5 Shower/Bathe Self (QC): 4 Upper Body Dressing (QC): 6 Lower Body Dressing (QC): 5 On/Off Footwear (QC): 5 Toileting Hygiene (QC): 3 (Min a for clothing management due to tight fit.) Toilet Transfer (QC): 4 Assessment/Plan Assessment and Plan Assess & Plan/Chief Complaint Assessment: Debility following right hip fracture status postrepair on 01/19/[address] Lees History of extensive spine surgery per Dr Hunter on 06/09/2020 requiring inpatient rehab stay History of DVT/PE dx 06/09/20 delaying surgery scheduled for 06/09/20 at [facility] dx in pre-op Osteoporosis on bisphosphonate GERD Weight loss BMI 21 History of refractory nausea DM wjh-ahqxemm-sinnhvcdp Post op anemia severe iron deficiency and B12 deficiency initiated iron infusions and B12 Back pain chronic Fall risk UTI dx 06/23/20 and treated and then again on 01/18/2022 maintained on Keflex for Klebsiella Plan: Supportive care Rehab protocol DVT prophylaxis Home meds Glucometer checks Pain control 01/23/2022: Monitor closely Await iron level Monitor sugar 01/24/2022: Iron infusions B12 supplement 01/25/2022: Left foot xray Monitor closely 01/26/2022: Monitor closely Diclofenac gel to toe 01/27/2022: Foot pain improved Monitor BS 01/28/2022: Much improved status 01/29/2022: Monitor closely 01/30/2022: Pain control Monitor closely (1) Hip fracture (2) Acute postoperative anemia due to expected blood loss Status: Acute (3) T2DM (type 2 diabetes mellitus) Status: Chronic (4) HLD (hyperlipidemia) Status: Chronic (5) HTN (hypertension) Status: Chronic (6) UTI (urinary tract infection) Status: Acute (7) Fall from ground level Status: Acute (8) Osteoporosis Status: Acute (9) [place] filter in place (10) Protein-calorie malnutrition, moderate (11) GERD (gastroesophageal reflux disease) (12) Weight loss CHARLOTTE CAMARGO DO Jan 30, 2022 05:58
[2022-01-30] MEDS: CATHETER FLUSH 10 ML SYR IVP SCH ×3 (06:33→21:03)
[2022-01-30] MEDS: CYANOCOBALAMIN 1,000 MCG (VITAMIN B-12) TABLET PO SCH (06:33)
[2022-01-30 07:39] VITALS: BP 147/64
[2022-01-30] MEDS: IRON SUCROSE 200 MG/10 ML (VENOFER) VIAL IV SCH (08:03)
[2022-01-30] MEDS: AtorvaSTATin TABLET 10 MG TABLET PO SCH (08:03)
[2022-01-30] MEDS: metFORMIN 500 MG (GLUCOPHAGE) TAB PO SCH (08:03)
[2022-01-30] MEDS: ASPIRIN E.C. 81 MG (ECOTRIN) TAB PO SCH (08:03)
[2022-01-30] MEDS: polyethylene glycoL POWDER 17 GM (MIRALAX) PACK PO SCH ×2 (08:04→20:58)
[2022-01-30] MEDS: SENNOSIDES 8.6 MG (SENOKOT) TAB PO SCH ×2 (08:05→21:02)
[2022-01-30] MEDS: DOCUSATE SODIUM 100 MG (COLACE) CAP PO SCH ×2 (08:05→20:58)
[2022-01-30] MEDS: DICLOFENAC 1% GEL 100 GM (VOLTAREN) TUBE TOP SCH ×3 (08:25→21:03)
--- NOTE | 2022-01-30 10:50 | Occupational Ther Daily Note ---
OT Current Status-Daily Note Subjective Pt sitting in recliner upon arrival. Pt stated her son would be in at 10 for family training. Pt and pt's son expressed all concerns and questions relating to discharge on Saturday (02/03/22). Co-treat with PT [id number] due to family training session. Mental Status/Objective Patient Orientation: Person, Place, Time, Situation Attachments: IV ADL-Treatment Therapy Code Descriptions/Definitions Functional [place] Measure: 0=Not Assessed/NA 4=Minimal Assistance 1=Total Assistance 5=Supervision or Setup 2=Maximal Assistance 6=Modified [place] 3=Moderate Assistance 7=Complete IndependenceSCALE: Activities may be completed with or without assistive devices. 5-Djmdwcnghb-zcgohln completes the activity by him/herself with no assistance from a helper. 5-Set-up or Clean-up Assistance-helper sets up or cleans up; patient completes activity. [place] assists only prior to or following the activity. 4-Supervision or Touching Assistance-helper provides verbal cues and/or touching/steadying and/or contact guard assistance as patient completes activity. Assistance may be provided throughout the activity or intermittently. 3-Partial/Moderate Assistance-helper does LESS THAN HALF the effort. [place] lifts, holds or supports trunk or limbs, but provides less than half the effort. 2-Substantial/Maximal Assistance-helper does MORE THAN HALF the effort. [place] lifts or holds trunk or limbs and provides more than half the effort. 3-Uataorxeb-dvnqgs does ALL the effort. Patient does none of the effort to complete the activity. Or, the assistance of 2 or more helpers is required for the patient to complete the activity. If activity was not attempted, code reason: 7-Patient Refused. 9-Not Applicable-not attempted and the patient did not perform the activity before the current illness, exacerbation or injury. 10-Not Attempted due to Environmental Limitations-(lack of equipment, weather restraints, etc.). 88-Not Attempted due to Medical Conditions or Safety Concerns. Oral Hygiene (QC): 6 On/Off Footwear: 6 Sit<>stand: SBA. Pt completed oral hygiene standing at sink with independence. Pt expressed concerns with bed mobility once at home. Trials of getting in/out of bed were performed for repetition and problem solving. Pt has difficulty with moving/lifting R LE, but was able to complete task with increased time. Pt's son came in for family training; conversations, practice, and problem solving discharge concerns were addressed. Topics included safety, endurance, energy conservation, strengthening, performing ADLs, following hip precautions, stairs, home layout, and AE. Pt and pt's son feel confident about discharge after session and had no further questions. Home exercise program will be given in next session. Education OT Patient Education: Correct positioning, Energy conservation, Exercise program, Modified ADL techniques, Progress toward Goal/Update tx plan, Purpose of tx/functional activities, Reviewed precautions, Rehab process, Safety issues, Transfer techniques, Use of adapted equipment Teaching Recipient: Patient, Family Teaching Methods: Demonstration, Discussion Response to Teaching: Verbalize Understanding, Return Demonstration OT Short Term Goals Short Term Goals Time Frame: Feb 02, 2022 Eatin Oral hygiene: 5 Toileting hygiene: 3 Shower/bathe self: 3 Upper body dressin Lower body dressin Putting on/taking off footwear: 3 OT Shelter Goals Manager Forensic Goals Time Frame: Feb 14, 2022 Acute change in mental status: 0 Inattention: 0 Disorganized thinkin Altered level of consciousness: 0 Eating (QC): 6 Oral Hygiene (QC): 6 Toileting Hygiene (QC): 4 Shower/Bathe Self (QC): 5 Upper Body Dressing (QC): 6 Lower Body Dressing (QC): 4 On/Off Footwear (QC): 4 Additional Goals: 1-Demonstrate ADL Tasks, 2-Verbalize Understanding, 3- ImproveStrength/[place] 1=Demonstrate adherence to instructed precautions during ADL tasks. 2=Patient will verbalize/demonstrate understanding of assistive susana patt/modifications for ADL. 3=Patient will improve strength/tolerance for activity to enable patient to perform ADL's. OT Education/Plan Problem List/Assessment Assessment: Decreased Activ Tolerance, Decreased Safety Aware, Decreased UE Strength, Impaired Bed Mobility, Impaired Coordination, Impaired Funct Balance, Impaired I ADL's, Impaired Self-Care Skills Discharge Recommendations Plan/Recommendations: Continue POC Equpiment Recommendations-D/C: Charcoal Kiln Burner, Sock Aide, Dressing Stick Treatment Plan/Plan of Care Treatment,Training & Education: Yes Patient would benefit from OT for education, treatment and training to promote independence in ADL's, mobility, safety and/or upper extremity function for ADL's. Plan of Care: ADL Retraining, Caregiver Training, Functional Mobility, Group Exercise/Act as Ind, UE Funct Exercise/Act Treatment Duration: Feb 14, 2022 Frequency: At least 5 of 7 days/Wk (IRF) Estimated Hrs Per Day: 1.5 hours per day (60-90 min/day) Agreement: Yes Rehab Potential: Fair Time/GCodes Start Time: 09:15 Stop Time: 10:45 Total Time Billed (hr/min): 90 Billed Treatment Time 1 visit ADL x3 (45 min) FA x3 (45 min) Co-treat with PT ([id number]) Lucinda Serra OT Jan 30, 2022 10:50
--- NOTE | 2022-01-30 11:25 | Physical Therapy Daily Note ---
PT Daily Note-Current Subjective Patient in recliner pre tx, agrees to PT, has 5/10 pain in right hip. Will be co-treating with OT for part of tx due to poor patient mobility, strength, endurance, severe debility, coordinate UE and LE during activity, decrease risk of falls, and for family training. Pain Section J - Health Conditions 1. Rarely or not at all 2. Occasionally 3. Frequently 4. Almost constantly 8. Unable to answer Pain Effect on Sleep: 2 Pain Interference with Therapy: 3 Pain Interference w/Day-to-Day: 3 Appearance Patient in recliner post tx with nurse call, phone, tray, all needs met. Mental Status Patient Orientation: Person, Place, Situation Transfers SCALE: Activities may be completed with or without assistive devices. 0-Hmuxbwyjgv-azhtweg completes the activity by him/herself with no assistance from a helper. 5-Set-up or Clean-up Assistance-helper sets up or cleans up; patient completes activity. [place] assists only prior to or following the activity. 4-Supervision or Touching Assistance-helper provides verbal cues and/or touch ing/steadying and/or contact guard assistance as patient completes activity. Assistance may be provided throughout the activity or intermittently. 3-Partial/Moderate Assistance-helper does LESS THAN HALF the effort. [place] lifts, holds or supports trunk or limbs, but provides less than half the effort. 2-Substantial/Maximal Assistance-helper does MORE THAN HALF the effort. [place] lifts or holds trunk or limbs and provides more than half the effort. 3-Psiuaaezq-okcgtq does ALL the effort. Patient does none of the effort to complete the activity. Or, the assistance of 2 or more helpers is required for the patient to complete the activity. If activity was not attempted, code reason: 7-Patient Refused. 9-Not Applicable-not attempted and the patient did not perform the activity before the current illness, exacerbation or injury. 10-Not Attempted due to Environmental Limitations-(lack of equipment, weather restraints, etc.). 88-Not Attempted due to Medical Conditions or Safety Concerns. Roll Left & Right (QC): 4 Sit to Lying (QC): 4 (SBA) Lying to Sitting/Side of Bed(Q: 4 (SBA) Sit to Stand (QC): 4 (CGA) Chair/Krj-xp-Cfwdc Xfer(QC): 4 (CGA) Weight Bearing Right Lower Extremity: Right Weight Bearing/Tolerated Gait Training Distance: 80'x2 Walk 10 feet (QC): 4 Walk 50 ft with 2 Turns(QC): 4 Gait Assistive Device: FWW CGA, very slow ambulation, has trendelenburg gait due to hip instability, has increased pain with ambulation today Stair Training Stair Training: Handrails/: 1 handrail #of Steps: 4 1 Step (curb) (QC): 3 4 Steps (QC): 3 min assist, goes up and down sideways using one handrail Exercises Seated Therapy Exercises: Ankle pumps, Hip flexion, Hip abd/add (with ball and YTB) Seated Reps: 20 Standing: Hip Abduction, Heel/toe raises, Marching, Mini squats Standing Reps: 15 Patient performed LAQ on the right side for 5 min, standing without UE support performing UE activity (15 min total), ambulation while finding and picking up objects from the floor using a management scientist Treatments PT performed bed mobility and transfers, ambulation, standing during UE activity, ambulation during management scientist activity, functional strengthening, stair training, OT performed management scientist and UE activity, both performed family education. Assessment Current Status: Fair Progress Patient's son was educated on patient's performance with functional mobility, her needs and training with transfers and stairs. PT Short Term Goals Short Term Goals Time Frame: Jan 29, 2022 Roll Left & Right: 3 (Dolly) Sit to lyin (Dolly) Lying to sitting on side of be: 3 (Dolly) Sit to stand: 3 (Dolly) Chair/mzh-rh-fybbk transfer: 3 (Dolly) Walk 10 feet: 3 (Dolly) PT Mcfp Goals Gas Appliance Repairer Goals PT Gas Appliance Repairer Goals Time Frame: Feb 12, 2022 Roll Left & Right (QC): 4 (SBA) Sit to Lying (QC): 4 (SBA) Lying-Sitting on Side/Bed(QC): 4 (SBA) Sit to Stand (QC): 4 (CGA) Chair/Cqu-uc-Mdxgr Xfer(QC): 4 (CGA) Toilet Transfer (QC): 4 Car Transfer (QC): 4 (CGA) Does the Patient Walk: Yes Walk 10 feet (QC): 4 (CGA) Walk 50ft with 2 Turns (QC): 4 (CGA) Walk 150 ft (QC): 4 (CGA) Walking 10ft on Uneven Surface: 4 (CGA) 1 Step (curb) (QC): 4 (CGA) 4 Steps (QC): 4 (CGA) 12 Steps (QC): 88 Picking up an Object (QC): 4 (CGA using a management scientist) Wheel 50 feet with 2 turns (QC: 9 Wheel 150 feet: 9 PT Plan Problem List Problem List: Activity Tolerance, Functional Strength, Safety, Balance, Gait, Transfer, Bed Mobility, ROM Treatment/Plan Treatment Plan: Continue Plan of Care Treatment Plan: Bed Mobility, Education, Functional Activity Libby, Functional Strength, Group Therapy, Gait, Safety, Therapeutic Exercise, Transfers Treatment Duration: Feb 12, 2022 Frequency: At least 5 of 7 days/Wk (IRF) Estimated Hrs Per Day: 1.5 hours per day Patient and/or Family Agrees t: Yes Safety Risks/Education Patient Education: Gait Training, Transfer Techniques, Steps, Reviewed Precautions, Correct Positioning, Safety Issues Teaching Recipient: Patient Teaching Methods: Demonstration, Discussion Response to Teaching: Reinforcement Needed Time/GCodes Time In: 1000 Time Out: 1130 Total Billed Treatment Time: 90 Total Billed Treatment 1 visit EX 45' FA 45' co-treated with OT from [id number] STEVIE ESCOBAR PT Jan 30, 2022 11:24
[2022-01-30] MEDS: ENOXAPARIN 40 MG/0.4 ML (LOVENOX) SYR SC SCH (13:31)
[2022-01-30 19:44] VITALS: BP 130/65
[2022-01-30] MEDS: PROPRANOLOL 20 MG (INDERAL) TABLET PO SCH (20:58)
[2022-01-31] MEDS: inSUlin ASPART (NovoLOG) 1 UNIT/0.01 ML (CHARGE PER UNIT) SC SCH ×4 (05:36→20:09)
--- NOTE | 2022-01-31 05:42 | PM&R Progress Note ---
Subjective HPI/CC On Admission Date Seen by Provider: Jan 31, 2022 Time Seen by Provider: 08:00 Subjective/Events-last exam 01/31/2022: Doing well DC planned for Saturday No new issues Pain controlled 01/30/2022: No major issues Pain controlled Venofer tolerated B12 maintained 01/29/2022: No major events Pain was an issue last night and received a lot of pain meds throughout the night No falls 01/28/2022: Patient doing well Participating in therapy Iron infusions tolerated Pain is controlled 01/27/2022: No major issues Pain left foot improved Venofer tolerated well Sugar 118 01/26/2022: No major issues Xray left foot normal except degeneration Diclofenac gel will be tried for the foot pain Tolerating Venofer well 01/25/2022: Pt is doing really well Left foot great toe pain but no evidence of any gout Will obtain x-ray Moving around pretty slowly but doing well 01/24/2022: Patient doing much better Walking around really well but slow Discussed iron infusions and diarrhea since she had that experience before No other concerns B12 will be given also 01/23/2022: Pt is doing well Bowels moved yesterday Pain pill is working really well Hemoglobin is 7.2 Checked meds and lab No falls Voiding well Review of Systems General: Fatigue, Malaise Musculoskeletal: leg pain, foot pain Objective Exam Vital Signs Vital Signs Date Time Temp Pulse Resp B/P (MAP) Pulse Ox O2 Delivery O2 Flow Rate FiO2 01/31/22 09:00 Room Air 01/31/22 07:49 36.6 60 18 153/61 (91) 96 Capillary Refill : General Appearance: No Apparent Distress, WD/WN, Chronically ill, Thin, Other (Frail and pale) HEENT: PERRL/EOMI, Normal ENT Inspection, Pharynx Normal Neck: Full Range of Motion, Normal Inspection, Non Tender, Supple, Carotid Bruit Respiratory: Chest Non Tender, Lungs Clear, Normal Breath Sounds, No Accessory Muscle Use, No Respiratory Distress Cardiovascular: Regular Rate, Rhythm, No Edema, No Gallop, No JVD, No Murmur, Normal Peripheral Pulses Gastrointestinal: Normal Bowel Sounds, No Organomegaly, No Pulsatile Mass, Non Tender, Soft Back: Normal Inspection, No CVA Tenderness, No Vertebral Tenderness Extremity: Normal Capillary Refill, Normal Inspection, Normal Range of Motion, Non Tender, No Calf Tenderness, No Pedal Edema Neurologic/Psychiatric: Alert, Oriented x3, dowel sticker operator II-XII Norm as Tested, Abnormal Gait, Depressed Affect, Motor Weakness (Generalized especially right leg) Skin: Normal Color, Warm/Dry Lymphatic: No Adenopathy Results/Procedures Lab Patient resulted labs reviewed. FIM Transfers Therapy Code Descriptions/Definitions Functional Abbott Measure: 0=Not Assessed/NA 4=Minimal Assistance 1=Total Assistance 5=Supervision or Setup 2=Maximal Assistance 6=Modified Abbott 3=Moderate Assistance 7=Complete IndependenceSCALE: Activities may be completed with or without assistive devices. 3-Gpkfthycsn-wenhjpk completes the activity by him/herself with no assistance from a helper. 5-Set-up or Clean-up Assistance-helper sets up or cleans up; patient completes activity. [place] assists only prior to or following the activity. 4-Supervision or Touching Assistance-helper provides verbal cues and/or touching/steadying and/or contact guard assistance as patient completes act ivity. Assistance may be provided throughout the activity or intermittently. 3-Partial/Moderate Assistance-helper does LESS THAN HALF the effort. [place] lifts, holds or supports trunk or limbs, but provides less than half the effort. 2-Substantial/Maximal Assistance-helper does MORE THAN HALF the effort. [place] lifts or holds trunk or limbs and provides more than half the effort. 6-Nolossbqv-wbkmci does ALL the effort. Patient does none of the effort to complete the activity. Or, the assistance of 2 or more helpers is required for the patient to complete the activity. If activity was not attempted, code reason: 7-Patient Refused. 9-Not Applicable-not attempted and the patient did not perform the activity before the current illness, exacerbation or injury. 10-Not Attempted due to Environmental Limitations-(lack of equipment, weather restraints, etc.). 88-Not Attempted due to Medical Conditions or Safety Concerns. Roll Left to Right (QC): 4 Sit to Lying (QC): 4 (SBA) Sit to Stand (QC): 4 (CGA) Chair/Gpj-ve-Iqezg Xfer(QC): 4 (CGA) Car Transfer (QC): 2 Gait Training Does the Patient Walk?: No and Walking Goal IS indicated Distance: 80'x2 Walk 10 feet (QC): 4 Walk 50 ft with 2 Turns(QC): 4 Walk 150 ft (QC): 4 Walking 10ft/uneven surface-QC: 88 Gait Persons Needed: 1 Gait Assistive Device: FWW Wheelchair Training Does the Pt Use a Wheelchair?: No Distance: 100' Wheel 50 ft with 2 turns (QC): 3 Wheel 150 ft (QC): 88 Type of Wheelchair: Manual Stair Training Stair Training: Handrails/: 1 handrail #of Steps: 4 1 Step (curb) (QC): 3 4 Steps (QC): 3 12 Steps (QC): 88 Balance Picking up an Object (QC): 88 ADL-Treatment Eating (QC): 5 Oral Hygiene (QC): 6 Shower/Bathe Self (QC): 4 Upper Body Dressing (QC): 6 Lower Body Dressing (QC): 5 On/Off Footwear (QC): 6 Toileting Hygiene (QC): 3 (Min a for clothing management due to tight fit.) Toilet Transfer (QC): 4 Assessment/Plan Assessment and Plan Assess & Plan/Chief Complaint Assessment: Debility following right hip fracture status postrepair on 01/19/[address] Lees History of extensive spine surgery per Dr Hunter on 06/09/2020 requiring inpatient rehab stay History of DVT/PE dx 06/09/20 delaying surgery scheduled for 06/09/20 at [facility] dx in pre-op Osteoporosis on bisphosphonate GERD Weight loss BMI 21 History of refractory nausea DM vss-qyroryl-ladseujpb Post op anemia severe iron deficiency and B12 deficiency initiated iron infusions and B12 Back pain chronic Fall risk UTI dx 06/23/20 and treated and then again on 01/18/2022 maintained on Keflex for Klebsiella Plan: Supportive care Rehab protocol DVT prophylaxis Home meds Glucometer checks Pain control 01/23/2022: Monitor closely Await iron level Monitor sugar 01/24/2022: Iron infusions B12 supplement 01/25/2022: Left foot xray Monitor closely 01/26/2022: Monitor closely Diclofenac gel to toe 01/27/2022: Foot pain improved Monitor BS 01/28/2022: Much improved status 01/29/2022: Monitor closely 01/30/2022: Pain control Monitor closely 01/31/2022: Venofer B12 (1) Hip fracture (2) Acute postoperative anemia due to expected blood loss Status: Acute (3) T2DM (type 2 diabetes mellitus) Status: Chronic (4) HLD (hyperlipidemia) Status: Chronic (5) HTN (hypertension) Status: Chronic (6) UTI (urinary tract infection) Status: Acute (7) Fall from ground level Status: Acute (8) Osteoporosis Status: Acute (9) Laura filter in place (10) Protein-calorie malnutrition, moderate (11) GERD (gastroesophageal reflux disease) (12) Weight loss CHARLOTTE CAMARGO DO Jan 31, 2022 05:42
[2022-01-31] MEDS: CATHETER FLUSH 10 ML SYR IVP SCH ×3 (06:20→21:50)
[2022-01-31] MEDS: CYANOCOBALAMIN 1,000 MCG (VITAMIN B-12) TABLET PO SCH (06:20)
[2022-01-31 07:49] VITALS: BP 153/61
[2022-01-31] MEDS: metFORMIN 500 MG (GLUCOPHAGE) TAB PO SCH (07:58)
[2022-01-31] MEDS: ASPIRIN E.C. 81 MG (ECOTRIN) TAB PO SCH (07:59)
[2022-01-31] MEDS: AtorvaSTATin TABLET 10 MG TABLET PO SCH (07:59)
[2022-01-31] MEDS: DICLOFENAC 1% GEL 100 GM (VOLTAREN) TUBE TOP SCH ×3 (08:00→20:05)
[2022-01-31] MEDS: DOCUSATE SODIUM 100 MG (COLACE) CAP PO SCH ×2 (08:43→20:06)
[2022-01-31] MEDS: polyethylene glycoL POWDER 17 GM (MIRALAX) PACK PO SCH ×2 (08:43→20:05)
[2022-01-31] MEDS: SENNOSIDES 8.6 MG (SENOKOT) TAB PO SCH ×2 (08:43→20:06)
--- NOTE | 2022-01-31 09:12 | Occupational Ther Daily Note ---
OT Current Status-Daily Note Subjective Pt sitting in recliner upon arrival. She agrees to a shower. Appearance Pt left sitting in recliner with all needs met. Feet elevated for assist in decreasing LE edema. Mental Status/Objective Patient Orientation: Person, Place, Time, Situation Attachments: IV ADL-Treatment Therapy Code Descriptions/Definitions Functional Mcdonald Measure: 0=Not Assessed/NA 4=Minimal Assistance 1=Total Assistance 5=Supervision or Setup 2=Maximal Assistance 6=Modified Mcdonald 3=Moderate Assistance 7=Complete IndependenceSCALE: Activities may be completed with or without assistive devices. 6-Sdtrjzixga-pzrsfez completes the activity by him/herself with no assistance from a helper. 5-Set-up or Clean-up Assistance-helper sets up or cleans up; patient completes activity. [place] assists only prior to or following the activity. 4-Supervision or Touching Assistance-helper provides verbal cues and/or touching/steadying and/or contact guard assistance as patient completes activity. Assistance may be provided throughout the activity or intermittently. 3-Partial/Moderate Assistance-helper does LESS THAN HALF the effort. [place] lifts, holds or supports trunk or limbs, but provides less than half the effort. 2-Substantial/Maximal Assistance-helper does MORE THAN HALF the effort. [place] lifts or holds trunk or limbs and provides more than half the effort. 1-Mtlcrtppd-fhmlvc does ALL the effort. Patient does none of the effort to complete the activity. Or, the assistance of 2 or more helpers is required for the patient to complete the activity. If activity was not attempted, code reason: 7-Patient Refused. 9-Not Applicable-not attempted and the patient did not perform the activity before the current illness, exacerbation or injury. 10-Not Attempted due to Environmental Limitations-(lack of equipment, weather restraints, etc.). 88-Not Attempted due to Medical Conditions or Safety Concerns. Oral Hygiene (QC): 4 Shower/Bathe Self (QC): 5 Upper Body Dressing (QC): 6 Lower Body Dressing (QC): 4 On/Off Footwear: 6 Sit<>stand transfers: SBA-supervision. Pt gathered clothing from dresser. Pt able to independently remember how to carry clothes on walker. Shower completed 100% in sitting. Pt showed increase in time to get dressed today. Pt showed good recall and follow through with hip precautions today. She stood to pull clothing up over hips with SBA for safety. Therapist donned Micah hose. Pt able to independently use sock aide to don socks. She stood at sink to complete grooming tasks with SBA. She reports feeling ready for discharge and feels much better after having family training yesterday. Other Treatment Pt completed 1x10 UE exercises with pvc pipe and 2 lb weight with independence in all planes. She was able to recall 100% of the exercises with proper form to complete exercises. Conversations about how she could perform these same exercises at home was conducted, as well as explaining the importance of continuing with strengthening type exercises. She only needed 1 rest break during entirety of exercises. Education OT Patient Education: Correct positioning, Energy conservation, Exercise program, Home exercise program, Modified ADL techniques, Progress toward Goal/Update tx plan, Purpose of tx/functional activities, Reviewed precautions, Rehab process, Safety issues, Use of adapted equipment Teaching Recipient: Patient Teaching Methods: Demonstration, Discussion Response to Teaching: Verbalize Understanding, Return Demonstration OT Short Term Goals Short Term Goals Time Frame: Feb 02, 2022 Eatin Oral hygiene: 5 Toileting hygiene: 3 Shower/bathe self: 3 Upper body dressin Lower body dressin Putting on/taking off footwear: 3 OT Sat Instructor Goals Jail Goals Time Frame: Feb 14, 2022 Acute change in mental status: 0 Inattention: 0 Disorganized thinkin Altered level of consciousness: 0 Eating (QC): 6 Oral Hygiene (QC): 6 Toileting Hygiene (QC): 4 Shower/Bathe Self (QC): 5 Upper Body Dressing (QC): 6 Lower Body Dressing (QC): 4 On/Off Footwear (QC): 4 Additional Goals: 1-Demonstrate ADL Tasks, 2-Verbalize Understanding, 3-ImproveStrength/Libby 1=Demonstrate adherence to instructed precautions during ADL tasks. 2=Patient will verbalize/demonstrate understanding of assistive devices/modifications for ADL. 3=Patient will improve strength/tolerance for activity to enable patient to perform ADL's. OT Education/Plan Problem List/Assessment Assessment: Decreased Activ Tolerance, Decreased Safety Aware, Decreased UE Strength, Impaired Coordination, Impaired Funct Balance, Impaired I ADL's, Impaired Self-Care Skills Discharge Recommendations Plan/Recommendations: Continue POC Therapy Discharge Recommendati: Bath Aide, Home & Family Treatment Plan/Plan of Care Treatment,Training & Education: Yes Patient would benefit from OT for education, treatment and training to promote independence in ADL's, mobility, safety and/or upper extremity function for ADL's. Plan of Care: ADL Retraining, Caregiver Training, Functional Mobility, Group Exercise/Act as Ind, UE Funct Exercise/Act Treatment Duration: Feb 14, 2022 Frequency: At least 5 of 7 days/Wk (IRF) Estimated Hrs Per Day: 1.5 hours per day (60-90 min/day) Agreement: Yes Rehab Potential: Fair Time/GCodes Start Time: 07:45 Stop Time: 09:15 Total Time Billed (hr/min): 90 Billed Treatment Time 1 visit ADL x5 (75 min) EX (15 min) Lucinda Serra OT Jan 31, 2022 09:12
--- NOTE | 2022-01-31 11:03 | Progress Note ---
Standard Progress Note Progress Notes/Assess & Plan Date Seen by a Provider: Jan 31, 2022 Time Seen by a Provider: 11:02 Progress/Assessment & Plan no complaints Vital Signs Date Time Temp Pulse Resp B/P (MAP) Pulse Ox O2 Delivery O2 Flow Rate FiO2 01/24/22 09:00 Room Air 01/24/22 07:22 36.4 67 16 152/70 (97) 96 Room Air 01/23/22 20:15 Room Air 01/23/22 19:25 36.6 68 20 110/61 (77) 96 Room Air Laboratory Tests Test 01/23/22 15:15 01/23/22 20:13 01/24/22 05:30 01/24/22 11:05 Range/Units Glucometer 138 H 143 H 125 H 136 H 70-110 MG/DL R hip incison clean and dry no calf tenderness neg Ronald's s/p R hip bipolar continue PT/OT Final Diagnosis no complaints doing exercises RLE without calf tenderness Neg Ronald's s/p R hip bipolar PT/OT HAILEE isaac Saturday LINSEY AGARWAL MD Jan 31, 2022 11:03
--- NOTE | 2022-01-31 11:33 | Physical Therapy Daily Note ---
PT Daily Note-Current Subjective Agrees to Rx, feels she has made significant progress and will be ready to return home Pain Location: No Pain Reported Section J - Health Conditions 1. Rarely or not at all 2. Occasionally 3. Frequently 4. Almost constantly 8. Unable to answer Pain Effect on Sleep: 2 Pain Interference with Therapy: 2 Pain Interference w/Day-to-Day: 2 Mental Status Patient Orientation: Normal For Age Transfers SCALE: Activities may be completed with or without assistive devices. 0-Wdmgypvdmv-gippwxr completes the activity by him/herself with no assistance from a helper. 5-Set-up or Clean-up Assistance-helper sets up or cleans up; patient completes activity. [place] assists only prior to or following the activity. 4-Supervision or Touching Assistance-helper provides verbal cues and/or touching/steadying and/or contact guard assistance as patient completes activity. Assistance may be provided throughout the activity or intermittently. 3-Partial/Moderate Assistance-helper does LESS THAN HALF the effort. [place] lifts, holds or supports trunk or limbs, but provides less than half the effort. 2-Substantial/Maximal Assistance-helper does MORE THAN HALF the effort. [place] lifts or holds trunk or limbs and provides more than half the effort. 4-Udzfsgsis-phtqpa does ALL the effort. Patient does none of the effort to complete the activity. Or, the assistance of 2 or more helpers is required for the patient to complete the activity. If activity was not attempted, code reason: 7-Patient Refused. 9-Not Applicable-not attempted and the patient did not perform the activity before the current illness, exacerbation or injury. 10-Not Attempted due to Environmental Limitations-(lack of equipment, weather restraints, etc.). 88-Not Attempted due to Medical Conditions or Safety Concerns. Roll Left & Right (QC): 6 Sit to Lying (QC): 6 Lying to Sitting/Side of Bed(Q: 6 Sit to Stand (QC): 6 Chair/Ybi-by-Smebz Xfer(QC): 6 Toilet Transfer (QC): 6 Weight Bearing Right Lower Extremity: Right Weight Bearing/Tolerated Gait Training Does the Patient Walk?: Yes Walk 10 feet (QC): 6 Walk 50 ft with 2 Turns(QC): 6 Walk 150 ft (QC): 6 Gait Persons Needed: 1 Gait Assistive Device: FWW flexed at trunk, slow, even step length, good safe use of AD Stair Training Stair Training: Handrails/: 2 handrails #of Steps: 4 4 Steps (QC): 4 Stairs: Pattern: Step to SBA only Exercises Supine Ex: Ankle pumps, Quad Set, Rolling, Glut sets, Heel Slides, Short Arc Quads, Straight leg raise (assisted), Hip abd/add (assisted) Supine Reps: 15 Seated Therapy Exercises: Ankle pumps, Sit to stand, Long arc quads, Hip abd/add Seated Reps: 15 NuStep Minutes: 10 NuStep Workload: 2 Assessment Current Status: Good Progress PT Short Term Goals Short Term Goals Time Frame: Jan 29, 2022 Roll Left & Right: 3 (Dolly) Sit to lyin (Dolly) Lying to sitting on side of be: 3 (Dolly) Sit to stand: 3 (Dolly) Chair/ooy-gi-zrfsm transfer: 3 (oDlly) Walk 10 feet: 3 (Dolly) PT Shuttle Repairer Goals Shuttle Repairer Goals PT Shuttle Repairer Goals Time Frame: Feb 12, 2022 Roll Left & Right (QC): 4 (SBA) Sit to Lying (QC): 4 (SBA) Lying-Sitting on Side/Bed(QC): 4 (SBA) Sit to Stand (QC): 4 (CGA) Chair/Nki-ye-Tuhri Xfer(QC): 4 (CGA) Toilet Transfer (QC): 4 Car Transfer (QC): 4 (CGA) Does the Patient Walk: Yes Walk 10 feet (QC): 4 (CGA) Walk 50ft with 2 Turns (QC): 4 (CGA) Walk 150 ft (QC): 4 (CGA) Walking 10ft on Uneven Surface: 4 (CGA) 1 Step (curb) (QC): 4 (CGA) 4 Steps (QC): 4 (CGA) 12 Steps (QC): 88 Picking up an Object (QC): 4 (CGA using a wind operations supervisor) Wheel 50 feet with 2 turns (QC: 9 Wheel 150 feet: 9 PT Plan Treatment/Plan Treatment Plan: Continue Plan of Care Treatment Plan: Bed Mobility, Education, Functional Activity Libby, Functional Strength, Group Therapy, Gait, Safety, Therapeutic Exercise, Transfers Treatment Duration: Feb 12, 2022 Frequency: At least 5 of 7 days/Wk (IRF) Estimated Hrs Per Day: 1.5 hours per day Patient and/or Family Agrees t: Yes Safety Risks/Education Patient Education: Gait Training, Transfer Techniques, Steps, Correct Positioning, Disease Process, Safety Issues Teaching Recipient: Patient Teaching Methods: Demonstration, Discussion Response to Teaching: Verbalize Understanding, Return Demonstration, Reinforcement Needed Time/GCodes Time In: 1000 Time Out: 1130 Total Billed Treatment Time: 90 Total Billed Treatment 1,FA30m,EX35m,GT25m NIDIA FAITH WIRE WELDER Jan 31, 2022 11:33
[2022-01-31] MEDS: CALCIUM CARBONATE 500 MG (TUMS) TAB.CHEW PO PRN (15:00)
[2022-01-31] MEDS: ENOXAPARIN 40 MG/0.4 ML (LOVENOX) SYR SC SCH (17:23)
[2022-01-31] MEDS: PROPRANOLOL 20 MG (INDERAL) TABLET PO SCH (20:04)
[2022-01-31] MEDS: ACETAMINOPHEN 325 MG TABLET PO PRN (20:04)
[2022-01-31 20:10] VITALS: BP 162/66
--- NOTE | 2022-02-01 05:23 | PM&R Progress Note ---
Subjective HPI/CC On Admission Date Seen by Provider: Feb 01, 2022 Time Seen by Provider: 12:00 Subjective/Events-last exam 02/01/2022: Doing well Ready for DC Saturday Pain is an issue Checked meds and labs 01/31/2022: Doing well DC planned for Saturday No new issues Pain controlled 01/30/2022: No major issues Pain controlled Venofer tolerated B12 maintained 01/29/2022: No major events Pain was an issue last night and received a lot of pain meds throughout the night No falls 01/28/2022: Patient doing well Participating in therapy Iron infusions tolerated Pain is controlled 01/27/2022: No major issues Pain left foot improved Venofer tolerated well Sugar 118 01/26/2022: No major issues Xray left foot normal except degeneration Diclofenac gel will be tried for the foot pain Tolerating Venofer well 01/25/2022: Pt is doing really well Left foot great toe pain but no evidence of any gout Will obtain x-ray Moving around pretty slowly but doing well 01/24/2022: Patient doing much better Walking around really well but slow Discussed iron infusions and diarrhea since she had that experience before No other concerns B12 will be given also 01/23/2022: Pt is doing well Bowels moved yesterday Pain pill is working really well Hemoglobin is 7.2 Checked meds and lab No falls Voiding well Review of Systems General: Fatigue, Malaise Musculoskeletal: leg pain, foot pain Objective Exam Vital Signs Vital Signs Date Time Temp Pulse Resp B/P (MAP) Pulse Ox O2 Delivery O2 Flow Rate FiO2 02/01/22 20:50 Room Air 02/01/22 20:35 36.9 65 16 127/59 (81) 95 Capillary Refill : General Appearance: No Apparent Distress, WD/WN, Chronically ill, Thin, Other (Frail and pale) HEENT: PERRL/EOMI, Normal ENT Inspection, Pharynx Normal Neck: Full Range of Motion, Normal Inspection, Non Tender, Supple, Carotid Bruit Respiratory: Chest Non Tender, Lungs Clear, Normal Breath Sounds, No Accessory Muscle Use, No Respiratory Distress Cardiovascular: Regular Rate, Rhythm, No Edema, No Gallop, No JVD, No Murmur, Normal Peripheral Pulses Gastrointestinal: Normal Bowel Sounds, No Organomegaly, No Pulsatile Mass, Non Tender, Soft Back: Normal Inspection, No CVA Tenderness, No Vertebral Tenderness Extremity: Normal Capillary Refill, Normal Inspection, Normal Range of Motion, Non Tender, No Calf Tenderness, No Pedal Edema Neurologic/Psychiatric: Alert, Oriented x3, court of appeals judge II-XII Norm as Tested, Abnormal Gait, Depressed Affect, Motor Weakness (Generalized especially right leg) Skin: Normal Color, Warm/Dry Lymphatic: No Adenopathy Results/Procedures Lab Patient resulted labs reviewed. FIM Transfers Therapy Code Descriptions/Definitions Functional [place] Measure: 0=Not Assessed/NA 4=Minimal Assistance 1=Total Assistance 5=Supervision or Setup 2=Maximal Assistance 6=Modified [place] 3=Moderate Assistance 7=Complete IndependenceSCALE: Activities may be completed with or without assistive devices. 9-Zhgpfgssuc-bixkirp completes the activity by him/herself with no assistance from a helper. 5-Set-up or Clean-up Assistance-helper sets up or cleans up; patient completes activity. [place] assists only prior to or following the activity. 4-Supervision or Touching Assistance-helper provides verbal cues and/or touching/steadying and/or contact guard assistance as patient completes activity. Assistance may be provided throughout the activity or intermittently. 3-Partial/Moderate Assistance-helper does LESS THAN HALF the effort. [place] lifts, holds or supports trunk or limbs, but provides less than half the effort. 2-Substantial/Maximal Assistance-helper does MORE THAN HALF the effort. [place] lifts or holds trunk or limbs and provides more than half the effort. 1-Qxetpsnvq-obvnbi does ALL the effort. Patient does none of the effort to complete the activity. Or, the assistance of 2 or more helpers is required for the patient to complete the activity. If activity was not attempted, code reason: 7-Patient Refused. 9-Not Applicable-not attempted and the patient did not perform the activity before the current illness, exacerbation or injury. 10-Not Attempted due to Environmental Limitations-(lack of equipment, weather restraints, etc.). 88-Not Attempted due to Medical Conditions or Safety Concerns. Roll Left to Right (QC): 6 Sit to Lying (QC): 6 Sit to Stand (QC): 6 Chair/Gtb-ba-Uhotz Xfer(QC): 6 Car Transfer (QC): 2 Gait Training Does the Patient Walk?: Yes Distance: 80'x2 Walk 10 feet (QC): 6 Walk 50 ft with 2 Turns(QC): 6 Walk 150 ft (QC): 6 Walking 10ft/uneven surface-QC: 88 Gait Persons Needed: 1 Gait Assistive Device: FWW Wheelchair Training Does the Pt Use a Wheelchair?: Yes Distance: 100' Wheel 50 ft with 2 turns (QC): 3 Wheel 150 ft (QC): 88 Type of Wheelchair: Manual Stair Training Stair Training: Handrails/: 2 handrails #of Steps: 4 1 Step (curb) (QC): 3 4 Steps (QC): 4 12 Steps (QC): 88 Stairs: Pattern: Step to Balance Picking up an Object (QC): 88 ADL-Treatment Eating (QC): 5 Oral Hygiene (QC): 4 Shower/Bathe Self (QC): 5 Upper Body Dressing (QC): 6 Lower Body Dressing (QC): 4 On/Off Footwear (QC): 6 Toileting Hygiene (QC): 3 (Min a for clothing management due to tight fit.) Toilet Transfer (QC): 4 Assessment/Plan Assessment and Plan Assess & Plan/Chief Complaint Assessment: Debility following right hip fracture status postrepair on 01/19/[address] Chio rogers History of extensive spine surgery per Dr Hunter on 06/09/2020 requiring inpatient rehab stay History of DVT/PE dx 06/09/20 delaying surgery scheduled for 06/09/20 at [facility] dx in pre-op Osteoporosis on bisphosphonate GERD Weight loss BMI 21 History of refractory nausea DM [id number]-rnsavth-vkvjqngyo Post op anemia severe iron deficiency and B12 deficiency initiated iron infusion s and B12 Back pain chronic Fall risk UTI dx 06/23/20 and treated and then again on 01/18/2022 maintained on Keflex for Klebsiella Plan: Supportive care Rehab protocol DVT prophylaxis Home meds Glucometer checks Pain control 01/23/2022: Monitor closely Await iron level Monitor sugar 01/24/2022: Iron infusions B12 supplement 01/25/2022: Left foot xray Monitor closely 01/26/2022: Monitor closely Diclofenac gel to toe 01/27/2022: Foot pain improved Monitor BS 01/28/2022: Much improved status 01/29/2022: Monitor closely 01/30/2022: Pain control Monitor closely 01/31/2022: Venofer B12 02/01/2022: Monitor closely (1) Hip fracture (2) Acute postoperative anemia due to expected blood loss Status: Acute (3) T2DM (type 2 diabetes mellitus) Status: Chronic (4) HLD (hyperlipidemia) Status: Chronic (5) HTN (hypertension) Status: Chronic (6) UTI (urinary tract infection) Status: Acute (7) Fall from ground level Status: Acute (8) Osteoporosis Status: Acute (9) Laura filter in place (10) Protein-calorie malnutrition, moderate (11) GERD (gastroesophageal reflux disease) (12) Weight loss CHARLOTTE CAMARGO DO Feb 01, 2022 05:23
[2022-02-01] MEDS: inSUlin ASPART (NovoLOG) 1 UNIT/0.01 ML (CHARGE PER UNIT) SC SCH ×4 (05:40→20:45)
[2022-02-01] MEDS: CATHETER FLUSH 10 ML SYR IVP SCH ×3 (06:17→20:45)
[2022-02-01] MEDS: CYANOCOBALAMIN 1,000 MCG (VITAMIN B-12) TABLET PO SCH (06:17)
[2022-02-01 07:21] VITALS: BP 161/71
--- NOTE | 2022-02-01 08:01 | Occupational Ther Daily Note ---
OT Current Status-Daily Note Subjective Pt reports her son purchased a hip kit yesterday and she is excited about all that came in the kit. Mental Status/Objective Patient Orientation: Person, Place, Situation Attachments: IV ADL-Treatment Therapy Code Descriptions/Definitions Functional [place] Measure: 0=Not Assessed/NA 4=Minimal Assistance 1=Total Assistance 5=Supervision or Setup 2=Maximal Assistance 6=Modified [place] 3=Moderate Assistance 7=Complete IndependenceSCALE: Activities may be completed with or without assistive devices. 3-Pabtttsbfn-liujgoy completes the activity by him/herself with no assistance from a helper. 5-Set-up or Clean-up Assistance-helper sets up or cleans up; patient completes activity. [place] assists only prior to or following the activity. 4-Supervision or Touching Assistance-helper provides verbal cues and/or touching/steadying and/or contact guard assistance as patient completes activity. Assistance may be provided throughout the activity or intermittently. 3-Partial/Moderate Assistance-helper does LESS THAN HALF the effort. [place] lifts, holds or supports trunk or limbs, but provides less than half the effort. 2-Substantial/Maximal Assistance-helper does MORE THAN HALF the effort. [place] lifts or holds trunk or limbs and provides more than half the effort. 3-Zlypubayi-sdawnt does ALL the effort. Patient does none of the effort to complete the activity. Or, the assistance of 2 or more helpers is required for the patient to complete the activity. If activity was not attempted, code reason: 7-Patient Refused. 9-Not Applicable-not attempted and the patient did not perform the activity before the current illness, exacerbation or injury. 10-Not Attempted due to Environmental Limitations-(lack of equipment, weather restraints, etc.). 88-Not Attempted due to Medical Conditions or Safety Concerns. Eating (QC): 6 Oral Hygiene (QC): 6 On/Off Footwear: 6 Toileting Hygiene (QC): 6 Toilet Transfer (QC): 6 Pt eating at OT arrival. She reports she already dressed this morning. When asked if she completed on her own, she states "well I had help from nursing but they really didn't give me a chance to complete it on my own." OT reminded pt that it is okay to verbalize to nursing staff that she can perform tasks on her own but may just need extra time to complete. OT donned aly hose for patient, increased swelling notable in RLE. Pt able to independently don bilateral socks with use of sock aid. Discussion on bathroom/home set up. Pt verbalizes that her son purchased a hip kit and toilet riser and she feels confident about going home on Saturday. Pt ambulated in/out of bathroom with use of walker and supervision. No unsteadiness observed. She independently stood at sink for grooming tasks (oral care, face washing and hair combing). She continues to have flexed posture but still maintains adherence to hip precautions. Other Treatment Pt ambulated to/from therapy gym with use of walker. No unsteadiness or cues for safety required. Slow but steady gait. OT instructed and issued her a yellow theraband for UE exercises. Pt may benefit more from a red resistance theraband however none currently available at this time. Bilateral shoulder range limited secondary to kyphotic posture. Min cues for next/trunk extension while completing exercises. 1x12 all planes. Pt reports enjoying using the theraband. OT to issue home exercise program during next session. Education OT Patient Education: Correct positioning, Exercise program, Progress toward Goal/Update tx plan, Purpose of tx/functional activities, Use of adapted equipment Teaching Recipient: Patient Teaching Methods: Demonstration, Discussion Response to Teaching: Verbalize Understanding, Return Demonstration OT Short Term Goals Short Term Goals Time Frame: Feb 02, 2022 Eatin Oral hygiene: 5 Toileting hygiene: 3 Shower/bathe self: 3 Upper body dressin Lower body dressin Putting on/taking off footwear: 3 OT Head Banquet Waitress Goals Head Banquet Waitress Goals Time Frame: Feb 14, 2022 Acute change in mental status: 0 Inattention: 0 Disorganized thinkin Altered level of consciousness: 0 Eating (QC): 6 Oral Hygiene (QC): 6 Toileting Hygiene (QC): 4 Shower/Bathe Self (QC): 5 Upper Body Dressing (QC): 6 Lower Body Dressing (QC): 4 On/Off Footwear (QC): 4 Additional Goals: 1-Demonstrate ADL Tasks, 2-Verbalize Understanding, 3- ImproveStrength/[place] 1=Demonstrate adherence to instructed precautions during ADL tasks. 2=Patient will verbalize/demonstrate understanding of assistive devices/modifications for ADL. 3=Patient will improve strength/tolerance for activity to enable patient to perform ADL's. OT Education/Plan Problem List/Assessment Assessment: Decreased UE Strength, Impaired I ADL's, Restricted Funct UE ROM Discharge Recommendations Plan/Recommendations: Continue POC Equpiment Recommendations-D/C: Hip Kit Treatment Plan/Plan of Care Treatment,Training & Education: Yes Patient would benefit from OT for education, treatment and training to promote independence in ADL's, mobility, safety and/or upper extremity function for ADL's. Plan of Care: ADL Retraining, Caregiver Training, Functional Mobility, Group Exercise/Act as Ind, UE Funct Exercise/Act Treatment Duration: Feb 14, 2022 Frequency: At least 5 of 7 days/Wk (IRF) Estimated Hrs Per Day: 1.5 hours per day (60-90 min/day) Agreement: Yes Rehab Potential: Fair Time/GCodes Start Time: 07:30 Stop Time: 10:00 Total Time Billed (hr/min): 90 Billed Treatment Time 1st visit (0800-5179, 30 min) ADL x2 2nd visit (5796-3360, 60 min) ADL x2 (25 min) EX x 2 (35 min) Lucinda Serra OT Feb 01, 2022 08:01
[2022-02-01] MEDS: AtorvaSTATin TABLET 10 MG TABLET PO SCH (08:04)
[2022-02-01] MEDS: ASPIRIN E.C. 81 MG (ECOTRIN) TAB PO SCH (08:04)
[2022-02-01] MEDS: metFORMIN 500 MG (GLUCOPHAGE) TAB PO SCH (08:04)
[2022-02-01] MEDS: SENNOSIDES 8.6 MG (SENOKOT) TAB PO SCH ×2 (08:05→20:44)
[2022-02-01] MEDS: polyethylene glycoL POWDER 17 GM (MIRALAX) PACK PO SCH ×2 (08:05→20:45)
[2022-02-01] MEDS: DOCUSATE SODIUM 100 MG (COLACE) CAP PO SCH ×2 (08:05→20:45)
[2022-02-01] MEDS: IRON SUCROSE 200 MG/10 ML (VENOFER) VIAL IV SCH (08:05)
[2022-02-01] MEDS: DICLOFENAC 1% GEL 100 GM (VOLTAREN) TUBE TOP SCH ×3 (08:06→20:44)
--- NOTE | 2022-02-01 11:29 | Physical Therapy Daily Note ---
PT Daily Note-Current Subjective Pt. agrees to Rx, Pt. states she had some pain and discomfort last night and feels she worked too hard in therapies yesterday and asks that therapies be a little easier today and more rest breaks. Pt. states she is not in pain today. Pt. requests to do stairs today Pain Location: No Pain Reported Section J - Health Conditions 1. Rarely or not at all 2. Occasionally 3. Frequently 4. Almost constantly 8. Unable to answer Pain Effect on Sleep: 2 Pain Interference with Therapy: 1 Pain Interference w/Day-to-Day: 2 Appearance low monotone voice, flat affect but occas smile and laugh. kyphotic posture, tremor right hand Mental Status Patient Orientation: Normal For Age Transfers SCALE: Activities may be completed with or without assistive devices. 6-Yziadpirhk-kfbwjpx completes the activity by him/herself with no assistance from a helper. 5-Set-up or Clean-up Assistance-helper sets up or cleans up; patient completes activity. [place] assists only prior to or following the activity. 4-Supervision or Touching Assistance-helper provides verbal cues and/or touching/steadying and/or contact guard assistance as patient completes activity. Assistance may be provided throughout the activity or intermittently. 3-Partial/Moderate Assistance-helper does LESS THAN HALF the effort. [place] lifts, holds or supports trunk or limbs, but provides less than half the effort. 2-Substantial/Maximal Assistance-helper does MORE THAN HALF the effort. [place] lifts or holds trunk or limbs and provides more than half the effort. 1-Jwzbphoiv-yceuhz does ALL the effort. Patient does none of the effort to complete the activity. Or, the assistance of 2 or more helpers is required for the patient to complete the activity. If activity was not attempted, code reason: 7-Patient Refused. 9-Not Applicable-not attempted and the patient did not perform the activity before the current illness, exacerbation or injury. 10-Not Attempted due to Environmental Limitations-(lack of equipment, weather restraints, etc.). 88-Not Attempted due to Medical Conditions or Safety Concerns. Sit to Stand (QC): 6 Chair/Sjr-jf-Uqghh Xfer(QC): 6 Toilet Transfer (QC): 6 Car Transfer (QC): 6 Weight Bearing Right Lower Extremity: Right Weight Bearing/Tolerated Gait Training Does the Patient Walk?: Yes Walk 10 feet (QC): 6 Walk 50 ft with 2 Turns(QC): 6 Walk 150 ft (QC): 6 Gait Persons Needed: 1 Gait Assistive Device: FWW slow, careful gait NBOS , no LOB, kyphotic posture Stair Training Stair Training: Handrails/: 2 handrails #of Steps: 4 4 Steps (QC): 4 Stairs: Pattern: Step to needed review of "why" step to stairs with "up with good and down with bad" Exercises Seated Therapy Exercises: Ankle pumps, Sit to stand, Long arc quads, Hip flexion (left), Hip abd/add Seated Reps: 15 NuStep Minutes: 15 NuStep Workload: 4 Treatments gait, car TRF, stairs, seated therx, Nustep, review of HEP , pt. given written illustrated guide Assessment Current Status: Good Progress meeting goals PT Short Term Goals Short Term Goals Time Frame: Jan 29, 2022 Roll Left & Right: 3 (Dolly) Sit to lyin (Dolly) Lying to sitting on side of be: 3 (Dolly) Sit to stand: 3 (Dolly) Chair/rvh-gt-brvcn transfer: 3 (Dolly) Walk 10 feet: 3 (Dolly) PT Plant Protection Guard Goals Plant Protection Guard Goals PT Plant Protection Guard Goals Time Frame: Feb 12, 2022 Roll Left & Right (QC): 4 (SBA) Sit to Lying (QC): 4 (SBA) Lying-Sitting on Side/Bed(QC): 4 (SBA) Sit to Stand (QC): 4 (CGA) Chair/Cwh-zr-Krudz Xfer(QC): 4 (CGA) Toilet Transfer (QC): 4 Car Transfer (QC): 4 (CGA) Does the Patient Walk: Yes Walk 10 feet (QC): 4 (CGA) Walk 50ft with 2 Turns (QC): 4 (CGA) Walk 150 ft (QC): 4 (CGA) Walking 10ft on Uneven Surface: 4 (CGA) 1 Step (curb) (QC): 4 (CGA) 4 Steps (QC): 4 (CGA) 12 Steps (QC): 88 Picking up an Object (QC): 4 (CGA using a closing agent) Wheel 50 feet with 2 turns (QC: 9 Wheel 150 feet: 9 PT Plan Treatment/Plan Treatment Plan: Continue Plan of Care Treatment Plan: Bed Mobility, Education, Functional Activity [place], Functional Strength, Group Therapy, Gait, Safety, Therapeutic Exercise, Transfers Treatment Duration: Feb 12, 2022 Frequency: At least 5 of 7 days/Wk (IRF) Estimated Hrs Per Day: 1.5 hours per day Patient and/or Family Agrees t: Yes Safety Risks/Education Patient Education: Gait Training, Transfer Techniques, Steps, Reviewed Precautions, Correct Positioning, Disease Process, Safety Issues Teaching Recipient: Patient Teaching Methods: Demonstration, Discussion Response to Teaching: Verbalize Understanding, Return Demonstration, Reinforcement Needed Time/GCodes Time In: 1000 Time Out: 1130 Total Billed Treatment Time: 90 Total Billed Treatment 1,EX35m,GT25m,FA30m NIDIA FAITH ENHANCED ENVIRONMENTAL OPERATOR Feb 01, 2022 11:29
[2022-02-01] MEDS: ENOXAPARIN 40 MG/0.4 ML (LOVENOX) SYR SC SCH (13:13)
[2022-02-01] MEDS: CALCIUM CARBONATE 500 MG (TUMS) TAB.CHEW PO PRN (15:05)
[2022-02-01 20:35] VITALS: BP 127/59
[2022-02-01] MEDS: PROPRANOLOL 20 MG (INDERAL) TABLET PO SCH (20:44)
[2022-02-02] MEDS: inSUlin ASPART (NovoLOG) 1 UNIT/0.01 ML (CHARGE PER UNIT) SC SCH ×4 (05:50→20:06)
--- NOTE | 2022-02-02 06:13 | PM&R Progress Note ---
Subjective HPI/CC On Admission Date Seen by Provider: Feb 02, 2022 Time Seen by Provider: 12:00 Subjective/Events-last exam 02/02/2022: Ready for DC tomorrow No pain Sent all meds into pharmacy 02/01/2022: Doing well Ready for DC Saturday Pain is an issue Checked meds and labs 01/31/2022: Doing well DC planned for Saturday No new issues Pain controlled 01/30/2022: No major issues Pain controlled Venofer tolerated B12 maintained 01/29/2022: No major events Pain was an issue last night and received a lot of pain meds throughout the night No falls 01/28/2022: Patient doing well Participating in therapy Iron infusions tolerated Pain is controlled 01/27/2022: No major issues Pain left foot improved Venofer tolerated well Sugar 118 01/26/2022: No major issues Xray left foot normal except degeneration Diclofenac gel will be tried for the foot pain Tolerating Venofer well 01/25/2022: Pt is doing really well Left foot great toe pain but no evidence of any gout Will obtain x-ray Moving around pretty slowly but doing well 01/24/2022: Patient doing much better Walking around really well but slow Discussed iron infusions and diarrhea since she had that experience before No other concerns B12 will be given also 01/23/2022: Pt is doing well Bowels moved yesterday Pain pill is working really well Hemoglobin is 7.2 Checked meds and lab No falls Voiding well Review of Systems General: Fatigue, Malaise Musculoskeletal: leg pain, foot pain Objective Exam Vital Signs Vital Signs Date Time Temp Pulse Resp B/P (MAP) Pulse Ox O2 Delivery O2 Flow Rate FiO2 02/02/22 19:17 37.0 59 16 125/67 (86) 98 Room Air Capillary Refill : General Appearance: No Apparent Distress, WD/WN, Chronically ill, Thin, Other (Frail and pale) HEENT: PERRL/EOMI, Normal ENT Inspection, Pharynx Normal Neck: Full Range of Motion, Normal Inspection, Non Tender, Supple, Carotid Bruit Respiratory: Chest Non Tender, Lungs Clear, Normal Breath Sounds, No Accessory Muscle Use, No Respiratory Distress Cardiovascular: Regular Rate, Rhythm, No Edema, No Gallop, No JVD, No Murmur, Normal Peripheral Pulses Gastrointestinal: Normal Bowel Sounds, No Organomegaly, No Pulsatile Mass, Non Tender, Soft Back: Normal Inspection, No CVA Tenderness, No Vertebral Tenderness Extremity: Normal Capillary Refill, Normal Inspection, Normal Range of Motion, Non Tender, No Calf Tenderness, No Pedal Edema Neurologic/Psychiatric: Alert, Oriented x3, piano machine operator II-XII Norm as Tested, Abnormal Gait, Depressed Affect, Motor Weakness (Generalized especially right leg) Skin: Normal Color, Warm/Dry Lymphatic: No Adenopathy Results/Procedures Lab Patient resulted labs reviewed. FIM Transfers Therapy Code Descriptions/Definitions Functional [place] Measure: 0=Not Assessed/NA 4=Minimal Assistance 1=Total Assistance 5=Supervision or Setup 2=Maximal Assistance 6=Modified [place] 3=Moderate Assistance 7=Complete IndependenceSCALE: Activities may be completed with or without assistive devices. 6-Fhbwkgdwig-cryszrv completes the activity by him/herself with no assistance from a helper. 5-Set-up or Clean-up Assistance-helper sets up or cleans up; patient completes activity. [place] assists only prior to or following the activity. 4-Supervision or Touching Assistance-helper provides verbal cues and/or touching/steadying and/or contact guard assistance as patient completes activity. Assistance may be provided throughout the activity or intermittently. 3-Partial/Moderate Assistance-helper does LESS THAN HALF the effort. [place] lifts, holds or supports trunk or limbs, but provides less than half the effort. 2-Substantial/Maximal Assistance-helper does MORE THAN HALF the effort. [place] lifts or holds trunk or limbs and provides more than half the effort. 9-Huqicrwpn-yfxeku does ALL the effort. Patient does none of the effort to complete the activity. Or, the assistance of 2 or more helpers is required for the patient to complete the activity. If activity was not attempted, code reason: 7-Patient Refused. 9-Not Applicable-not attempted and the patient did not perform the activity before the current illness, exacerbation or injury. 10-Not Attempted due to Environmental Limitations-(lack of equipment, weather restraints, etc.). 88-Not Attempted due to Medical Conditions or Safety Concerns. Roll Left to Right (QC): 6 Sit to Lying (QC): 6 Sit to Stand (QC): 6 Chair/Duz-wv-Mjuhx Xfer(QC): 6 Car Transfer (QC): 6 Gait Training Does the Patient Walk?: Yes Distance: 80'x2 Walk 10 feet (QC): 6 Walk 50 ft with 2 Turns(QC): 6 Walk 150 ft (QC): 6 Walking 10ft/uneven surface-QC: 88 Gait Persons Needed: 1 Gait Assistive Device: FWW Wheelchair Training Does the Pt Use a Wheelchair?: Yes Distance: 100' Wheel 50 ft with 2 turns (QC): 3 Wheel 150 ft (QC): 88 Type of Wheelchair: Manual Stair Training Stair Training: Handrails/: 2 handrails #of Steps: 4 1 Step (curb) (QC): 3 4 Steps (QC): 4 12 Steps (QC): 88 Stairs: Pattern: Step to Balance Picking up an Object (QC): 88 ADL-Treatment Eating (QC): 6 Oral Hygiene (QC): 6 Shower/Bathe Self (QC): 5 Upper Body Dressing (QC): 6 Lower Body Dressing (QC): 4 On/Off Footwear (QC): 6 Toileting Hygiene (QC): 6 Toilet Transfer (QC): 6 Assessment/Plan Assessment and Plan Assess & Plan/Chief Complaint Assessment: Debility following right hip fracture due to osteoporosis with fall status post repair on 01/19/[address] Lees History of extensive spine surgery per Dr Hunter on 06/09/2020 requiring inpatient rehab stay History of DVT/PE dx 06/09/20 delaying surgery scheduled for 06/09/20 at [facility] dx in pre-op Osteoporosis on bisphosphonate GERD Weight loss BMI 21 History of refractory nausea DM ifq-fdnrzla-vawkgfhdl Post op anemia severe iron deficiency and B12 deficiency initiated iron infusions and B12 Back pain chronic Fall risk UTI dx 06/23/20 and treated and then again on 01/18/2022 maintained on Keflex for Klebsiella Plan: Supportive care Rehab protocol DVT prophylaxis Home meds Glucometer checks Pain control 01/23/2022: Monitor closely Await iron level Monitor sugar 01/24/2022: Iron infusions B12 supplement 01/25/2022: Left foot xray Monitor closely 01/26/2022: Monitor closely Diclofenac gel to toe 01/27/2022: Foot pain improved Monitor BS 01/28/2022: Much improved status 01/29/2022: Monitor closely 01/30/2022: Pain control Monitor closely 01/31/2022: Venofer B12 02/01/2022: Monitor closely 02/02/2022: DC home tomorrow (1) Hip fracture (2) Acute postoperative anemia due to expected blood loss Status: Acute (3) T2DM (type 2 diabetes mellitus) Status: Chronic (4) HLD (hyperlipidemia) Status: Chronic (5) HTN (hypertension) Status: Chronic (6) UTI (urinary tract infection) Status: Acute (7) Fall from ground level Status: Acute (8) Osteoporosis Status: Acute (9) [place] filter in place (10) Protein-calorie malnutrition, moderate (11) GERD (gastroesophageal reflux disease) (12) Weight loss CHARLOTTE CAMARGO DO Feb 02, 2022 06:13
[2022-02-02] MEDS: CYANOCOBALAMIN 1,000 MCG (VITAMIN B-12) TABLET PO SCH (06:35)
[2022-02-02] MEDS: CATHETER FLUSH 10 ML SYR IVP SCH ×3 (06:35→20:49)
[2022-02-02 07:23] VITALS: BP 146/68
[2022-02-02] MEDS: metFORMIN 500 MG (GLUCOPHAGE) TAB PO SCH (07:49)
[2022-02-02] MEDS: AtorvaSTATin TABLET 10 MG TABLET PO SCH (07:50)
[2022-02-02] MEDS: ASPIRIN E.C. 81 MG (ECOTRIN) TAB PO SCH (07:50)
[2022-02-02] MEDS: DOCUSATE SODIUM 100 MG (COLACE) CAP PO SCH ×2 (08:12→19:37)
[2022-02-02] MEDS: polyethylene glycoL POWDER 17 GM (MIRALAX) PACK PO SCH ×2 (08:12→19:37)
[2022-02-02] MEDS: SENNOSIDES 8.6 MG (SENOKOT) TAB PO SCH ×2 (08:12→19:37)
[2022-02-02] MEDS: DICLOFENAC 1% GEL 100 GM (VOLTAREN) TUBE TOP SCH ×3 (08:45→20:49)
--- NOTE | 2022-02-02 08:59 | Physical Therapy Daily Note ---
PT Daily Note-Current Subjective Pt. states she is feeling well, no c/o pain. Pt. states she has a 2 week follow up appointment with the OS and plans to reschedule this bc she doesnt want to go back out that quickly after just getting home from hosp Pain Location: No Pain Reported Section J - Health Conditions 1. Rarely or not at all 2. Occasionally 3. Frequently 4. Almost constantly 8. Unable to answer Pain Effect on Sleep: 1 Pain Interference with Therapy: 1 Pain Interference w/Day-to-Day: 1 Mental Status Patient Orientation: Normal For Age Transfers SCALE: Activities may be completed with or without assistive devices. 4-Bqseiyxgym-rjeqghf completes the activity by him/herself with no assistance from a helper. 5-Set-up or Clean-up Assistance-helper sets up or cleans up; patient completes activity. [place] assists only prior to or following the activity. 4-Supervision or Touching Assistance-helper provides verbal cues and/or touching/steadying and/or contact guard assistance as patient completes activity. Assistance may be provided throughout the activity or intermittently. 3-Partial/Moderate Assistance-helper does LESS THAN HALF the effort. [place] lifts, holds or supports trunk or limbs, but provides less than half the effort. 2-Substantial/Maximal Assistance-helper does MORE THAN HALF the effort. [place] lifts or holds trunk or limbs and provides more than half the effort. 1-Tptjcenpa-njzagx does ALL the effort. Patient does none of the effort to complete the activity. Or, the assistance of 2 or more helpers is required for the patient to complete the activity. If activity was not attempted, code reason: 7-Patient Refused. 9-Not Applicable-not attempted and the patient did not perform the activity before the current illness, exacerbation or injury. 10-Not Attempted due to Environmental Limitations-(lack of equipment, weather restraints, etc.). 88-Not Attempted due to Medical Conditions or Safety Concerns. Roll Left & Right (QC): 6 Sit to Lying (QC): 6 Lying to Sitting/Side of Bed(Q: 6 Sit to Stand (QC): 6 Chair/Gck-oi-Xxabt Xfer(QC): 6 Toilet Transfer (QC): 6 Car Transfer (QC): 6 slow with careful technique, no LOB, def uses arms of chairs to manage in safe manner Weight Bearing Right Lower Extremity: Right Weight Bearing/Tolerated Gait Training Does the Patient Walk?: Yes Walk 10 feet (QC): 6 Walk 50 ft with 2 Turns(QC): 6 Walking 10ft/uneven surface-QC: 6 Gait Persons Needed: 1 Gait Assistive Device: FWW slow, flexed at trunk, unequal step length, NBOS but no LOB, Wheelchair Training Does the Pt Use a Wheelchair?: No Stair Training Stair Training: Handrails/: 2 handrails #of Steps: 12 1 Step (curb) (QC): 5 4 Steps (QC): 6 12 Steps (QC): 6 Stairs: Pattern: Step to pt. needs assist to place FWW up on step curb as she has back and spine issues Balance Picking up an Object (QC): 6 (senior research associate use) Exercises Supine Ex: Ankle pumps, Heel Slides, Scooting, Hip abd/add Supine Reps: 12 Treatments QC, gait, TRFs Assessment Current Status: Good Progress meets goals PT Short Term Goals Short Term Goals Time Frame: Jan 29, 2022 Roll Left & Right: 3 (Dolly) Sit to lyin (Dolly) Lying to sitting on side of be: 3 (Dolly) Sit to stand: 3 (Dolly) Chair/zkm-fv-tbtkm transfer: 3 (Dolly) Walk 10 feet: 3 (Dolly) PT Substance Abuse Clinician Goals Mcfp Goals PT Mcfp Goals Time Frame: Feb 12, 2022 Roll Left & Right (QC): 4 (SBA) Sit to Lying (QC): 4 (SBA) Lying-Sitting on Side/Bed(QC): 4 (SBA) Sit to Stand (QC): 4 (CGA) Chair/Soi-fx-Uqrub Xfer(QC): 4 (CGA) Toilet Transfer (QC): 4 Car Transfer (QC): 4 (CGA) Does the Patient Walk: Yes Walk 10 feet (QC): 4 (CGA) Walk 50ft with 2 Turns (QC): 4 (CGA) Walk 150 ft (QC): 4 (CGA) Walking 10ft on Uneven Surface: 4 (CGA) 1 Step (curb) (QC): 4 (CGA) 4 Steps (QC): 4 (CGA) 12 Steps (QC): 88 Picking up an Object (QC): 4 (CGA using a senior research associate) Wheel 50 feet with 2 turns (QC: 9 Wheel 150 feet: 9 PT Plan Treatment/Plan Treatment Plan: Continue Plan of Care Treatment Plan: Bed Mobility, Education, Functional Activity Libby, Functional Strength, Group Therapy, Gait, Safety, Therapeutic Exercise, Transfers Treatment Duration: Feb 12, 2022 Frequency: At least 5 of 7 days/Wk (IRF) Estimated Hrs Per Day: 1.5 hours per day Patient and/or Family Agrees t: Yes Safety Risks/Education Patient Education: Gait Training, Transfer Techniques, Steps, Reviewed Precautions, Correct Positioning, Disease Process, Safety Issues Teaching Recipient: Patient Teaching Methods: Demonstration, Discussion Response to Teaching: Verbalize Understanding, Return Demonstration, Reinforcement Needed Time/GCodes Time In: 800 Time Out: 900 Total Billed Treatment Time: 60 Total Billed Treatment 1,GT20m,FA40m NIDIA FAITH QUILL WINDER Feb 02, 2022 08:58
--- NOTE | 2022-02-02 09:17 | Occupational Ther Daily Note ---
OT Current Status-Daily Note Subjective Pt agreeable to shower, slightly anxious about returning home. Appearance Pt left sitting in recliner, physical therapy entering room. Mental Status/Objective Patient Orientation: Person, Place, Time, Situation Attachments: IV ADL-Treatment Therapy Code Descriptions/Definitions Functional [place] Measure: 0=Not Assessed/NA 4=Minimal Assistance 1=Total Assistance 5=Supervision or Setup 2=Maximal Assistance 6=Modified [place] 3=Moderate Assistance 7=Complete IndependenceSCALE: Activities may be completed with or without assistive devices. 6-Qfayhstlba-xqmpvnw completes the activity by him/herself with no assistance fr om a helper. 5-Set-up or Clean-up Assistance-helper sets up or cleans up; patient completes activity. [place] assists only prior to or following the activity. 4-Supervision or Touching Assistance-helper provides verbal cues and/or touching/steadying and/or contact guard assistance as patient completes activity. Assistance may be provided throughout the activity or intermittently. 3-Partial/Moderate Assistance-helper does LESS THAN HALF the effort. [place] lifts, holds or supports trunk or limbs, but provides less than half the effort. 2-Substantial/Maximal Assistance-helper does MORE THAN HALF the effort. [place] lifts or holds trunk or limbs and provides more than half the effort. 2-Xucpxzonl-ovksbe does ALL the effort. Patient does none of the effort to complete the activity. Or, the assistance of 2 or more helpers is required for the patient to complete the activity. If activity was not attempted, code reason: 7-Patient Refused. 9-Not Applicable-not attempted and the patient did not perform the activity before the current illness, exacerbation or injury. 10-Not Attempted due to Environmental Limitations-(lack of equipment, weather restraints, etc.). 88-Not Attempted due to Medical Conditions or Safety Concerns. Eating (QC): 6 Oral Hygiene (QC): 6 Shower/Bathe Self (QC): 5 Upper Body Dressing (QC): 6 Lower Body Dressing (QC): 4 On/Off Footwear: 6 Toileting Hygiene (QC): 6 Toilet Transfer (QC): 6 Shower performed; 100% completed in sitting. Incision/Dressing covered by OT prior to task. C/D/I post activity. Good recall on use of LHS and adherence to hip precautions throughout bathing task. No physical assistance required to wash body parts. When donning pants, Extra time and min cues for problem solving for use of dressing stick required but no physical assistance needed. She stood to manage clothing over hips without difficulty. Post application of [place] hose, Pt able to don bilateral socks independently with use of sock aid. Other Treatment 2nd session: Pt ambulated in/out of bathroom with use of walker and supervision. She stood independently at the sink to complete oral care. Pt participated in UE exercises with 3# dowel tess. Bilateral shoulder range limited secondary to kyphotic posture. Min cues for next/trunk extension while completing exercises. 1x12 all planes. Pt reports that 3# was slightly more difficulty but no c/o pain. Short rest breaks needed after shoulder exercises. Education OT Patient Education: Correct positioning, Exercise program, Home exercise program, Progress toward Goal/Update tx plan, Use of adapted equipment Teaching Recipient: Patient Teaching Methods: Demonstration, Discussion Response to Teaching: Verbalize Understanding, Return Demonstration BIMS CAM BIMS Expression of Ideas and Wants: Without Difficulty Understanding Verbal Content: Understands Brief Interview/Mental Status: Yes IRF OPAL BIMS: IRF OPAL BIMS Response (Comments) Value Repitition of Three Words Three 3 Recalls Socks Yes, No Cue Required 2 Recalls Blue Yes, No Cue Required 2 Recalls Bed Yes, No Cue Required 2 Year Correct 3 Month Accurate Within 5 Days 2 Day Correct 1 Total 15 Should Staff Asses. Mental St.: No Notes: Score 15/15 CAM Mental Status Change/Baseline: 0 Inattention: 0 Disorganized thinkin Altered level of consciousness: 0 OT Short Term Goals Short Term Goals Time Frame: Feb 02, 2022 Eatin Oral hygiene: 5 Toileting hygiene: 3 Shower/bathe self: 3 Upper body dressin Lower body dressin Putting on/taking off footwear: 3 OT Arboriculturist Goals Care Home Goals Time Frame: Feb 14, 2022 Acute change in mental status: 0 Inattention: 0 Disorganized thinkin Altered level of consciousness: 0 Eating (QC): 6 (met) Oral Hygiene (QC): 6 (met) Toileting Hygiene (QC): 4 (met) Shower/Bathe Self (QC): 5 (met) Upper Body Dressing (QC): 6 (met) Lower Body Dressing (QC): 4 (met) On/Off Footwear (QC): 4 (met) Additional Goals: 1-Demonstrate ADL Tasks, 2-Verbalize Understanding, 3- ImproveStrength/Libby 1=Demonstrate adherence to instructed precautions during ADL tasks. 2=Patient will verbalize/demonstrate understanding of assistive devices/modifica tions for ADL. 3=Patient will improve strength/tolerance for activity to enable patient to perform ADL's. OT Education/Plan Problem List/Assessment Assessment: Decreased UE Strength, Impaired I ADL's, Impaired Self-Care Skills Discharge Recommendations Plan/Recommendations: Continue POC Therapy Discharge Recommendati: Home & Family, Post Acute OT (home health OT) Equpiment Recommendations-D/C: Grease Remover, Hip Kit, Sock Aide Comment Pt reports that her son purchased a hip kit, toilet riser and has installed grab bar within the bathroom. Treatment Plan/Plan of Care Treatment,Training & Education: Yes Patient would benefit from OT for education, treatment and training to promote independence in ADL's, mobility, safety and/or upper extremity function for ADL's. Plan of Care: ADL Retraining, Caregiver Training, Functional Mobility, Group Exercise/Act as Ind, UE Funct Exercise/Act Treatment Duration: Feb 14, 2022 Frequency: At least 5 of 7 days/Wk (IRF) Estimated Hrs Per Day: 1.5 hours per day (60-90 min/day) Agreement: Yes Rehab Potential: Fair Time/GCodes Start Time: 07:18 Stop Time: 10:03 Total Time Billed (hr/min): 90 Billed Treatment Time 1st visit [id number] (42 min) ADL x3 2nd visit [id number] (48 min) ADL (12 min) EX x2 (36 min) Lucinda Serra OT Feb 02, 2022 09:17
--- NOTE | 2022-02-02 13:24 | Physical Therapy Daily Note ---
PT Daily Note-Current Subjective Pt and son present. Pt. agrees to Rx, states hip pain in presently 4/10 post Rx. Pain Numeric Pain Scale: 4 Location: Right Location Body Site: Hip Pain Description: [place] Section J - Health Conditions 1. Rarely or not at all 2. Occasionally 3. Frequently 4. Almost constantly 8. Unable to answer Pain Effect on Sleep: 1 Pain Interference with Therapy: 2 Pain Interference w/Day-to-Day: 1 Mental Status Patient Orientation: Normal For Age Transfers SCALE: Activities may be completed with or without assistive devices. 5-Dpuzkxnydn-joncjxf completes the activity by him/herself with no assistance from a helper. 5-Set-up or Clean-up Assistance-helper sets up or cleans up; patient completes activity. [place] assists only prior to or following the activity. 4-Supervision or Touching Assistance-helper provides verbal cues and/or touching/steadying and/or contact guard assistance as patient completes activity. Assistance may be provided throughout the activity or intermittently. 3-Partial/Moderate Assistance-helper does LESS THAN HALF the effort. [place] lifts, holds or supports trunk or limbs, but provides less than half the effort. 2-Substantial/Maximal Assistance-helper does MORE THAN HALF the effort. [place] lifts or holds trunk or limbs and provides more than half the effort. 0-Kflazbnut-lftmkn does ALL the effort. Patient does none of the effort to complete the activity. Or, the assistance of 2 or more helpers is required for the patient to complete the activity. If activity was not attempted, code reason: 7-Patient Refused. 9-Not Applicable-not attempted and the patient did not perform the activity before the current illness, exacerbation or injury. 10-Not Attempted due to Environmental Limitations-(lack of equipment, weather restraints, etc.). 88-Not Attempted due to Medical Conditions or Safety Concerns. all sit to stands mod I to SBA Weight Bearing Right Lower Extremity: Right Weight Bearing/Tolerated Gait Training Does the Patient Walk?: Yes Walk 10 feet (QC): 4 Walk 50 ft with 2 Turns(QC): 4 Walk 150 ft (QC): 4 Gait Persons Needed: 1 Gait Assistive Device: FWW slow, kyphotic, no LOB, NBOS Exercises Seated Therapy Exercises: Ankle pumps, Sit to stand, Long arc quads, Hip abd/add Seated Reps: 12 Treatments TRFs, gait, LE seated ex, up in recliner after with son at side, moise at hand, needs met Assessment Current Status: Good Progress PT Short Term Goals Short Term Goals Time Frame: Jan 29, 2022 Roll Left & Right: 3 (Dolly) Sit to lyin (Dolly) Lying to sitting on side of be: 3 (Dolly) Sit to stand: 3 (Dolly) Chair/msr-cm-zvrkh transfer: 3 (Dolly) Walk 10 feet: 3 (Dolly) PT Shelter Goals Chrome Plater Goals PT Chrome Plater Goals Time Frame: Feb 12, 2022 Roll Left & Right (QC): 4 (SBA) Sit to Lying (QC): 4 (SBA) Lying-Sitting on Side/Bed(QC): 4 (SBA) Sit to Stand (QC): 4 (CGA) Chair/Fcu-il-Vzyaj Xfer(QC): 4 (CGA) Toilet Transfer (QC): 4 Car Transfer (QC): 4 (CGA) Does the Patient Walk: Yes Walk 10 feet (QC): 4 (CGA) Walk 50ft with 2 Turns (QC): 4 (CGA) Walk 150 ft (QC): 4 (CGA) Walking 10ft on Uneven Surface: 4 (CGA) 1 Step (curb) (QC): 4 (CGA) 4 Steps (QC): 4 (CGA) 12 Steps (QC): 88 Picking up an Object (QC): 4 (CGA using a home health provider) Wheel 50 feet with 2 turns (QC: 9 Wheel 150 feet: 9 PT Plan Treatment/Plan Treatment Plan: Continue Plan of Care Treatment Plan: Bed Mobility, Education, Functional Activity Libby, Functional Strength, Group Therapy, Gait, Safety, Therapeutic Exercise, Transfers Treatment Duration: Feb 12, 2022 Frequency: At least 5 of 7 days/Wk (IRF) Estimated Hrs Per Day: 1.5 hours per day Patient and/or Family Agrees t: Yes Safety Risks/Education Patient Education: Gait Training, Transfer Techniques, Correct Positioning, Safety Issues Teaching Recipient: Patient Teaching Methods: Demonstration, Discussion Response to Teaching: Verbalize Understanding, Return Demonstration, Reinforcement Needed Time/GCodes Time In: 1255 Time Out: 1325 Total Billed Treatment Time: 30 Total Billed Treatment 1,GT20m,FA10m NIDIA FAITH ELECTRICAL MACHINIST Feb 02, 2022 13:24
[2022-02-02] MEDS: ENOXAPARIN 40 MG/0.4 ML (LOVENOX) SYR SC SCH (14:06)
[2022-02-02 19:17] VITALS: BP 125/67
[2022-02-02] MEDS: CALCIUM CARBONATE 500 MG (TUMS) TAB.CHEW PO PRN (19:31)
[2022-02-02] MEDS: PROPRANOLOL 20 MG (INDERAL) TABLET PO SCH (20:48)
[2022-02-02] MEDS ORDERED: ASPI-1238 PO (20:50)
[2022-02-02] MEDS ORDERED: OXC5T PO (20:50)
[2022-02-02] MEDS ORDERED: DOCU100C37 PO (20:50)
[2022-02-02] MEDS ORDERED: DICL100G13 TOP (20:50)
[2022-02-02] MEDS ORDERED: CYAN-41 PO (20:50)
--- NOTE | 2022-02-02 20:52 | D/C HH Face to Face Order ---
D/C HH Face to Face Orders Reconcile Patient Problems Problems Reviewed?: Yes Instructions for Patient HH Patient Instructions/FollowUp: PCP 1 week Physician to follow Patient: Birdie Stern Diet for Home: No Restrictions Patient Problems: Hip fracture Patient Data-Allergies,Ht & Wt Patient Allergies: Coded Allergies: No Known Drug Allergies (Unverified , 05/16/20) Home Health Need/Face to Face Date of Face to Face: Feb 02, 2022 Clinical Findings: Generalized weakness and fatigue, Muscle weakness, Unsteady gait I have seen Pt eezh-xy-ooor: Yes Discharged To: Home Diagnosis/Conditions: hip fx Patient is Homebound due to: Stefanie fall risk due to instabilty, Muscle weakness Homebound Status Due to the above stated illness, injury or surgical procedure (medical condition or diagnosis) and associated clinical findings, the patient is homebound because of his/her inability to leave home except with aid of a supportive device and/or person AND leaving the home requires a considerable and taxing effort or is medically contraindicated. Pt req the following assistanc: Walker Home Health Nursing Orders Home Health Services Order: Nursing Services, Paper Grader-Evaluate & Treat, Physical Therapy-Evaluate & Treat Home Health Infusion Therapy Line Start Date: Jan 25, 2022 Certify Stmt I certify that this patient is under my care and that I, a nurse practitioner or a physician; a billing assistant working with me, had a face to face encounter that - meets the physician face to face encounter requirements with this patient as dated. CHARLOTTE CAMARGO DO Feb 02, 2022 20:52
--- NOTE | 2022-02-03 05:27 | Discharge Summary ---
Diagnosis/Chief Complaint Date of Admission Jan 22, 2022 at 10:15 Date of Discharge Discharge Date: Feb 03, 2022 Discharge Diagnosis Assessment: Debility following right hip fracture due to osteoporosis with fall status post repair on 01/19/[address] Lees History of extensive spine surgery per Dr Hunter on 06/09/2020 requiring inpatient rehab stay History of DVT/PE dx 06/09/20 delaying surgery scheduled for 06/09/20 at [facility] dx in pre-op Osteoporosis on bisphosphonate GERD Weight loss BMI 21 History of refractory nausea DM [id number] Post op anemia severe iron deficiency and B12 deficiency initiated iron infusions and B12 Back pain chronic Fall risk UTI dx 06/23/20 and treated and then again on 01/18/2022 maintained on Keflex for Klebsiella Plan: Supportive care Rehab protocol DVT prophylaxis Home meds Glucometer checks Pain control 01/23/2022: Monitor closely Await iron level Monitor sugar 01/24/2022: Iron infusions B12 supplement 01/25/2022: Left foot xray Monitor closely 01/26/2022: Monitor closely Diclofenac gel to toe 01/27/2022: Foot pain improved Monitor BS 01/28/2022: Much improved status 01/29/2022: Monitor closely 01/30/2022: Pain control Monitor closely 01/31/2022: Venofer B12 02/01/2022: Monitor closely 02/02/2022: DC home tomorrow (1) Hip fracture (2) Acute postoperative anemia due to expected blood loss Status: Acute (3) T2DM (type 2 diabetes mellitus) Status: Chronic (4) HLD (hyperlipidemia) Status: Chronic (5) HTN (hypertension) Status: Chronic (6) UTI (urinary tract infection) Status: Acute (7) Fall from ground level Status: Acute (8) Osteoporosis Status: Acute (9) [place] filter in place (10) Protein-calorie malnutrition, moderate (11) GERD (gastroesophageal reflux disease) (12) Weight loss Discharge Summary Discharge Physical Examination Allergies: Coded Allergies: No Known Drug Allergies (Unverified , 05/16/20) Vitals & I&Os Vital Signs Date Time Temp Pulse Resp B/P (MAP) Pulse Ox O2 Delivery O2 Flow Rate FiO2 02/03/22 11:25 37.2 60 18 151/57 95 Room Air General Appearance: Alert, Oriented X3, Cooperative Respiratory: Clear to Auscultation Cardiovascular: Regular Rate Psych/Mental Status: Mental Status NL Hospital Course Was the Problem List Reviewed?: Yes Standard course after admitted from 4th floor following a hip fracture sustained in a fall s/p uncomplicated repair by Dr Lees. She was moved down to rehab and remained stable and was noted to have severe iron def anemia so IV iron was initiated along with Vit B12 due to def and she tolerated that well after midline was placed. Overall she had no decompensation during her course in ARU and was able to regain enough function to return home and resume independent activity along with . Labs (last 24 hrs) Laboratory Tests 01/22/22 20:21: Glucometer 165H 01/23/22 05:07: White Blood Count 8.3, Red Blood Count 2.65L, Hemoglobin 7.2L, Hematocrit 23L, Mean Corpuscular Volume 88, Mean Corpuscular Hemoglobin 27, Mean Corpuscular Hemoglobin Concent 31L, Red Cell Distribution Width 13.8, Platelet Count 303, Mean Platelet Volume 9.6, Immature Granulocyte % (Auto) 1, Neutrophils (%) (Auto) 62, Lymphocytes (%) (Auto) 22, Monocytes (%) (Auto) 12, Eosinophils (%) (Auto) 2, Basophils (%) (Auto) 0, Neutrophils # (Auto) 5.2, Lymphocytes # (Auto) 1.9, Monocytes # (Auto) 1.0, Eosinophils # (Auto) 0.2, Basophils # (Auto) 0.0, Immature Granulocyte # (Auto) 0.1, Sodium Level 139, Potassium Level 3.6, Chloride Level 106, Carbon Dioxide Level 23, Anion Gap 10, Blood Urea Nitrogen 14, Creatinine 0.78, Estimat Glomerular Filtration Rate 74, BUN/Creatinine Ratio 18, Glucose Level 129H, Calcium Level 8.6, Corrected Calcium 9.9, Total Bilirubin 0.4, Aspartate Amino Transf (AST/SGOT) 34, Alanine Aminotransferase (ALT/SGPT) 20, Alkaline Phosphatase 58, Total Protein 5.7L, Albumin 2.4L 01/23/22 10:51: Glucometer 133H 01/23/22 15:15: Glucometer 138H 01/23/22 20:13: Glucometer 143H 01/24/22 05:30: Glucometer 125H 01/24/22 11:05: Glucometer 136H 01/24/22 15:10: Glucometer 128H 01/24/22 20:30: Glucometer 119H 01/25/22 05:25: Glucometer 112H 01/25/22 10:38: Glucometer 126H 01/25/22 15:17: Glucometer 115H 01/25/22 20:43: Glucometer 121H 01/26/22 05:18: Glucometer 120H 01/26/22 10:54: Glucometer 127H 01/26/22 15:44: Glucometer 128H 01/26/22 20:30: Glucometer 131H 01/27/22 05:04: Glucometer 118H 01/27/22 11:04: Glucometer 123H 01/27/22 15:21: Glucometer 125H 01/27/22 20:09: Glucometer 123H 01/28/22 06:12: Glucometer 116H 01/28/22 10:16: Glucometer 131H 01/28/22 15:12: Glucometer 132H 01/28/22 20:10: Glucometer 125H 01/29/22 05:54: Glucometer 130H 01/29/22 06:08: White Blood Count 8.5, Red Blood Count 2.90L, Hemoglobin 8.0L, Hematocrit 26L, Mean Corpuscular Volume 91, Mean Corpuscular Hemoglobin 28, Mean Corpuscular Hemoglobin Concent 30L, Red Cell Distribution Width 15.3H, Platelet Count 373, Mean Platelet Volume 9.8, Immature Granulocyte % (Auto) 3, Neutrophils (%) (Auto) 61, Lymphocytes (%) (Auto) 23, Monocytes (%) (Auto) 11, Eosinophils (%) (Auto) 2, Basophils (%) (Auto) 1, Neutrophils # (Auto) 5.1, Lymphocytes # (Auto) 2.0, Monocytes # (Auto) 1.0, Eosinophils # (Auto) 0.2, Basophils # (Auto) 0.0, Immature Granulocyte # (Auto) 0.2H, Sodium Level 137, Potassium Level 4.7, Chloride Level 105, Carbon Dioxide Level 23, Anion Gap 9, Blood Urea Nitrogen 14, Creatinine 0.79, Estimat Glomerular Filtration Rate 73, BUN/Creatinine Ratio 18, Glucose Level 127H, Calcium Level 8.9, Corrected Calcium 9.9, Total Bilirubin 0.3, Aspartate Amino Transf (AST/SGOT) 41H, Alanine Aminotransferase (ALT/SGPT) 25, Alkaline Phosphatase 64, Total Protein 6.5, Albumin 2.8L 01/29/22 10:50: Glucometer 129H 01/29/22 15:20: Glucometer 139H 01/29/22 20:09: Glucometer 128H 01/30/22 05:29: Glucometer 113H 01/30/22 10:46: Glucometer 117H 01/30/22 15:09: Glucometer 127H 01/30/22 20:17: Glucometer 120H 01/31/22 05:30: Glucometer 115H 01/31/22 11:15: Glucometer 105 01/31/22 17:13: Glucometer 115H 01/31/22 20:09: Glucometer 138H 02/01/22 05:35: Glucometer 117H 02/01/22 11:16: Glucometer 116H 02/01/22 16:22: Glucometer 132H 02/01/22 20:40: Glucometer 131H 02/02/22 05:27: Glucometer 113H 02/02/22 10:42: Glucometer 121H 02/02/22 15:20: Glucometer 119H 02/02/22 20:02: Glucometer 128H 02/03/22 06:34: Glucometer 113H Pending Labs Laboratory Tests 01/22/22 20:21: Glucometer 165 01/23/22 05:07: White Blood Count 8.3, Red Blood Count 2.65, Hemoglobin 7.2, Hematocrit 23, Mean Corpuscular Volume 88, Mean Corpuscular Hemoglobin 27, Mean Corpuscular Hemoglobin Concent 31, Red Cell Distribution Width 13.8, Platelet Count 303, Mean Platelet Volume 9.6, Immature Granulocyte % (Auto) 1, Neutrophils (%) (Auto) 62, Lymphocytes (%) (Auto) 22, Monocytes (%) (Auto) 12, Eosinophils (%) (Auto) 2, Basophils (%) (Auto) 0, Neutrophils # (Auto) 5.2, Lymphocytes # (Auto) 1.9, Monocytes # (Auto) 1.0, Eosinophils # (Auto) 0.2, Basophils # (Auto) 0.0, Immature Granulocyte # (Auto) 0.1, Sodium Level 139, Potassium Level 3.6, Chloride Level 106, Carbon Dioxide Level 23, Anion Gap 10, Blood Urea Nitrogen 14, Creatinine 0.78, Estimat Glomerular Filtration Rate 74, BUN/Creatinine Ratio 18, Glucose Level 129, Calcium Level 8.6, Corrected Calcium 9.9, Total Bilirubin 0.4, Aspartate Amino Transf (AST/SGOT) 34, Alanine Aminotransferase (ALT/SGPT) 20, Alkaline Phosphatase 58, Total Protein 5.7, Albumin 2.4 01/23/22 10:51: Glucometer 133 01/23/22 15:15: Glucometer 138 01/23/22 20:13: Glucometer 143 01/24/22 05:30: Glucometer 125 01/24/22 11:05: Glucometer 136 01/24/22 15:10: Glucometer 128 01/24/22 20:30: Glucometer 119 01/25/22 05:25: Glucometer 112 01/25/22 10:38: Glucometer 126 01/25/22 15:17: Glucometer 115 01/25/22 20:43: Glucometer 121 01/26/22 05:18: Glucometer 120 01/26/22 10:54: Glucometer 127 01/26/22 15:44: Glucometer 128 01/26/22 20:30: Glucometer 131 01/27/22 05:04: Glucometer 118 01/27/22 11:04: Glucometer 123 01/27/22 15:21: Glucometer 125 01/27/22 20:09: Glucometer 123 01/28/22 06:12: Glucometer 116 01/28/22 10:16: Glucometer 131 01/28/22 15:12: Glucometer 132 01/28/22 20:10: Glucometer 125 01/29/22 05:54: Glucometer 130 01/29/22 06:08: White Blood Count 8.5, Red Blood Count 2.90, Hemoglobin 8.0, Hematocrit 26, Mean Corpuscular Volume 91, Mean Corpuscular Hemoglobin 28, Mean Corpuscular Hem oglobin Concent 30, Red Cell Distribution Width 15.3, Platelet Count 373, Mean Platelet Volume 9.8, Immature Granulocyte % (Auto) 3, Neutrophils (%) (Auto) 61, Lymphocytes (%) (Auto) 23, Monocytes (%) (Auto) 11, Eosinophils (%) (Auto) 2, Basophils (%) (Auto) 1, Neutrophils # (Auto) 5.1, Lymphocytes # (Auto) 2.0, Monocytes # (Auto) 1.0, Eosinophils # (Auto) 0.2, Basophils # (Auto) 0.0, Immature Granulocyte # (Auto) 0.2, Sodium Level 137, Potassium Level 4.7, Chloride Level 105, Carbon Dioxide Level 23, Anion Gap 9, Blood Urea Nitrogen 14, Creatinine 0.79, Estimat Glomerular Filtration Rate 73, BUN/Creatinine Ratio 18, Glucose Level 127, Calcium Level 8.9, Corrected Calcium 9.9, Total Bilirubin 0.3, Aspartate Amino Transf (AST/SGOT) 41, Alanine Aminotransferase (ALT/SGPT) 25, Alkaline Phosphatase 64, Total Protein 6.5, Albumin 2.8 01/29/22 10:50: Glucometer 129 01/29/22 15:20: Glucometer 139 01/29/22 20:09: Glucometer 128 01/30/22 05:29: Glucometer 113 01/30/22 10:46: Glucometer 117 01/30/22 15:09: Glucometer 127 01/30/22 20:17: Glucometer 120 01/31/22 05:30: Glucometer 115 01/31/22 11:15: Glucometer 105 01/31/22 17:13: Glucometer 115 01/31/22 20:09: Glucometer 138 02/01/22 05:35: Glucometer 117 02/01/22 11:16: Glucometer 116 02/01/22 16:22: Glucometer 132 02/01/22 20:40: Glucometer 131 02/02/22 05:27: Glucometer 113 02/02/22 10:42: Glucometer 121 02/02/22 15:20: Glucometer 119 02/02/22 20:02: Glucometer 128 02/03/22 06:34: Glucometer 113 Discharge Home Medications: Active Scripts Active Vitamin B-12 (Cyanocobalamin (Vitamin B-12)) 1,000 Mcg Tablet 1,000 Mcg PO DAILY@0700 Docusate Sodium 100 Mg Capsule 100 Mg PO BID Oxyir Tablet (Oxycodone HCl) 5 Mg Tab 2.5-5 Mg PO Q4H PRN Diclofenac Sodium 1 % Gel..gram. 0 Gm TOP TID three times daily prn Aspirin EC (Aspirin) 81 Mg Tablet.dr 81 Mg PO DAILY Reported Nexium 24Hr (Esomeprazole Magnesium) 20 Mg Capsule.dr 20 Mg PO DAILY PRN Vitamin C (Ascorbate Calcium) 500 Mg Tablet 500 Mg PO DAILY Propranolol HCl 20 Mg Tablet 20 Mg PO HS Simvastatin 10 Mg Tablet 10 Mg PO DAILY Metformin HCl 500 Mg Tablet 500 Mg PO DAILY Vitamin D3 (Cholecalciferol (Vitamin D3)) 50 Mcg (2000 Unit) Capsule 50 Mcg PO DAILY Ibandronate Sodium 150 Mg Tablet 150 Mg PO MONTHLY Instructions to patient/family Please see electronic discharge instructions given to patient. Diagnosis/Problems Diagnosis/Problems (1) Hip fracture (2) Acute postoperative anemia due to expected blood loss Status: Acute (3) T2DM (type 2 diabetes mellitus) Status: Chronic (4) HLD (hyperlipidemia) Status: Chronic (5) HTN (hypertension) Status: Chronic (6) UTI (urinary tract infection) Status: Acute (7) Fall from ground level Status: Acute (8) Osteoporosis Status: Acute (9) [place] filter in place (10) Protein-calorie malnutrition, moderate (11) GERD (gastroesophageal reflux disease) (12) Weight loss CHARLOTTE CAMARGO DO Feb 03, 2022 05:27
[2022-02-03] MEDS: CYANOCOBALAMIN 1,000 MCG (VITAMIN B-12) TABLET PO SCH (06:33)
[2022-02-03] MEDS: CATHETER FLUSH 10 ML SYR IVP SCH (06:33)
[2022-02-03] MEDS: inSUlin ASPART (NovoLOG) 1 UNIT/0.01 ML (CHARGE PER UNIT) SC SCH (06:46)
[2022-02-03 07:00] VITALS: BP 151/57
[2022-02-03] MEDS: ASPIRIN E.C. 81 MG (ECOTRIN) TAB PO SCH (08:09)
[2022-02-03] MEDS: AtorvaSTATin TABLET 10 MG TABLET PO SCH (08:09)
[2022-02-03] MEDS: polyethylene glycoL POWDER 17 GM (MIRALAX) PACK PO SCH (08:09)
[2022-02-03] MEDS: DOCUSATE SODIUM 100 MG (COLACE) CAP PO SCH (08:09)
[2022-02-03] MEDS: metFORMIN 500 MG (GLUCOPHAGE) TAB PO SCH (08:09)
[2022-02-03] MEDS: DICLOFENAC 1% GEL 100 GM (VOLTAREN) TUBE TOP SCH (08:10)
[2022-02-03] MEDS: SENNOSIDES 8.6 MG (SENOKOT) TAB PO SCH (08:10)
[2022-02-03] MEDS ORDERED: FLU QUAD HIGH DOSE 240 MCG/0.7 ML 2022-23 (FLUZONE) IM ONE (08:30)
[2022-02-03 11:25] VITALS: BP 151/57
--- NOTE | 2022-02-06 13:15 | Therapy Team Discharge Summary ---
Therapy Discharge Summary Discharge Recommendations Date of Discharge Feb 03, 2022 at 11:25 Therapy D/C Recommendations: Home w/ Family Support, Occupational Therapy Home Care, Homemaker Support Physical Therapy Roll Left to Right (QC): 6 Sit to Lying (QC): 6 Lying to Sitting/Side of Bed(Q: 6 Sit to Stand (QC): 6 Chair/Fxf-yk-Ofuos Xfer(QC): 6 Toilet Transfer (QC): 5 Car Transfer (QC): 6 Does the Patient Walk: Yes Mode of Locomotion: Both Anticipated Mode of Locomotion: Walk Walk 10 feet (QC): 4 Walk 50 ft with 2 Turns(QC): 4 Walk 150 ft (QC): 4 Walking 10ft on uneven surface: 6 Distance: 2'x3 Gait Assistive Device: FWW Does the Pt Use a Wheelchair: No Wheelchair Distance: 100' Wheel 50 ft with 2 turns (QC): 3 Wheel 150 ft (QC): 88 Type of Wheelchair: Manual #of Steps: 12 1 Step (curb) (QC): 5 4 Steps (QC): 6 12 Steps (QC): 6 Balance Sitting Static: Fair Balance Sitting Dynamic: Fair Balance-Standing Static: Poor Picking up an Object (QC): 6 (partition assembler use) Occupational Therapy Pt had a R hip fracture from raking leaves and underwent R hip replacement. At time of eval, pt was dependent with lower body dressing and footwear, Max assist for showering and toileting hygiene, mod assist for oral hygiene, and set up assist for eating and upper body dressing. During her time on the IRU, OT focused our sessions on ADLs, IADLS, strengthening, endurance, AE, coordination, balance and safety management. She made good progress during her stay and met all goals. She discharged home with her son and is now d/c from skilled OT services at this time. Decreased UE Strength, Impaired I ADL's, Impaired Self-Care Skills Eating (QC): 6 (met) Oral Hygiene (QC): 6 (met) Shower/Bathe Self (QC): 5 (met) Upper Body Dressing (QC): 6 (met) Lower Body Dressing (QC): 4 (met) On/Off Footwear (QC): 6 (met) Toileting Hygiene (QC): 6 (met) PT Greens Keeper Goals [facility] Goals PT [facility] Goals Time Frame: Feb 12, 2022 Scoring Section J - Health Conditions 1. Rarely or not at all 2. Occasionally 3. Frequently 4. Almost constantly 8. Unable to answer Roll Left to Right (QC): 4 (SBA) Sit to Lying (QC): 4 (SBA) Lying-Sitting on Side/Bed(QC): 4 (SBA) Sit to Stand (QC): 4 (CGA) Chair/Izs-fv-Mljyl Xfer(QC): 4 (CGA) Car Transfer (QC): 4 (CGA) Does the Patient Walk: Yes Walk 10 feet (QC): 4 (CGA) Walk 10ft-Uneven Surface(QC): 4 (CGA) Walk 50ft with 2 Turns (QC): 4 (CGA) Walk 150 ft (QC): 4 (CGA) Wheel 50 feet with 2 turns (QC: 9 1 Step (curb) (QC): 4 (CGA) 4 Steps (QC): 4 (CGA) 12 Steps (QC): 88 Picking up an Object (QC): 4 (CGA using a partition assembler) OT Greens Keeper Goals Fci Goals Time Frame: Feb 14, 2022 Acute change in mental status: 0 Inattention: 0 Disorganized thinkin Altered level of consciousness: 0 Eating (QC): 6 (met) Oral Hygiene (QC): 6 (met) Toileting Hygiene (QC): 4 (met) Shower/Bathe Self (QC): 5 (met) Upper Body Dressing (QC): 6 (met) Lower Body Dressing (QC): 4 (met) On/Off Footwear (QC): 4 (met) Additional Goals: 1-Demonstrate ADL Tasks, 2-Verbalize Understanding, 3- ImproveStrength/Libby 1=Demonstrate adherence to instructed precautions during ADL tasks. 2=Patient will verbalize/demonstrate understanding of assistive devices/modifications for ADL. 3=Patient will improve strength/tolerance for activity to enable patient to perform ADL's. Lucinda Serra OT Feb 06, 2022 13:15
== END 2022-02-03 11:25 | disposition home health service (06) | DRG 560 ==
PROVIDERS: ADMIT Internal Medicine; ATTEND Internal Medicine
DX: M80.051D Age-related osteoporosis with current pathological fracture, right femur, subsequent encounter for fracture with routine healing (principal); D62 Acute posthemorrhagic anemia; E44.0 Moderate protein-calorie malnutrition; N39.0 Urinary tract infection, site not specified; E11.9 Type 2 diabetes mellitus without complications; M19.91 Primary osteoarthritis, unspecified site; E78.00 Pure hypercholesterolemia, unspecified; K21.9 Gastro-esophageal reflux disease without esophagitis; I10 Essential (primary) hypertension; F41.9 Anxiety disorder, unspecified; E53.8 Deficiency of other specified B group vitamins; M54.9 Dorsalgia, unspecified; F32.A Depression, unspecified; B96.1 Klebsiella pneumoniae [K. pneumoniae] as the cause of diseases classified elsewhere; Z68.21 Body mass index [BMI] 21.0-21.9, adult; Z95.828 Presence of other vascular implants and grafts; Z86.718 Personal history of other venous thrombosis and embolism; Z86.711 Personal history of pulmonary embolism; Z91.81 History of falling; Z23 Encounter for immunization; W18.30XD Fall on same level, unspecified, subsequent encounter
CPT/HCPCS: 36410; 36415; 73630; 76937; 80053; 82947; 85025; 90662

== ENCOUNTER → 2022-02-27 | Outpatient (CLI) | payer MEDICARE, OTHER ==
[~2022-02-27] MED LIST changes: -ACETAMINOPHEN 325 MG TABLET PO PRN; -ALPRAZolam 0.25 MG (XANAX) TAB PO PRN; +ASPI-1238 PO; -BISACODYL 10 MG SUPP (DULCOLAX) PR PRN; +CYAN-41 PO; +DICL100G13 TOP; +DOCU100C37 PO; -DOCUSATE SODIUM 100 MG (COLACE) CAP PO PRN; -FLEET ENEMA ADULT 1 EA BTL PR PRN; -LACTULOSE SYRUP 10GM/15ML (ENULOSE) 30ML UDC PO PRN; -LOPERAMIDE 2 MG (IMODIUM) TABLET PO PRN; -MELATONIN 3 MG TABLET PO PRN; -ONDANSETRON 4 MG (ZOFRAN) ORAL DISSOLVE TAB PO PRN; -diphenhydrAMINE 25 MG TAB (BENADRYL) PO PRN; -guaiFENesin/CODEINE (ROBITUSSIN AC) 10ML UDC PO PRN
--- NOTE | 2022-02-27 15:54 | Diagnostic Imaging Report ---
INDICATION: Postmenopausal screening COMPARISON: Baseline FINDINGS: AP Spine L1-L4: [BMD (g/cm2): na] [T-Score: na] [Z-Score: na] [BMD Previous: na] [BMD % Change: na] LT Hip Neck: [BMD (g/cm2): 0.690] [T-Score: -2.5] [Z-Score: 0.1] LT Hip Total: [BMD (g/cm2):0.655] [T-Score:-2.8] [Z-Score: -0.3] [BMD Previous: na] [BMD % Change: na] RT Hip Neck: [BMD (g/cm2):na] [T-Score:na] [Z-Score:na] RT Hip Total: [BMD (g/cm2):na] [T-score:na] [Z-Score:na] [BMD Previous:na] [BMD % Change:na] *Indicates significant change from prior examination based on 95% confidence level. World Health Organization criteria for BMD interpretation classify patients as Normal (T-score at or above -1.0), Osteopenic (T-score between -1.0 and -2.5) or Osteoporotic (T-score at or below -2.5). LIMITATIONS AND MODIFICATION: None. FRACTURE RISK (FRAX SCORE): The ten year probability of (%): Major Osteoporotic Fracture: [na] Hip Fracture: [na] IMPRESSION: 1. Osteoporosis. 2. Baseline examination. 3. See below National Osteoporosis Foundation guidelines on when to potentially initiate pharmacologic therapy. Based on the National Osteoporosis Foundation Guidelines, pharmacologic treatment should be initiated in any of the following, unless clinical conditions suggest otherwise: * Any patient with prior fragility fracture of the hip or vertebrae. A spine fracture indicates 5X risk for subsequent spine fracture and 2X risk for subsequent hip fracture. * Osteoporosis (T-score <-2.5). * Postmenopausal women and men age 50 and older with low bone mass/osteopenia (T-score between -1.0 and -2.5) by DXA and 10-year major osteoporotic fracture greater than 20% or a 10-year probability of hip fracture greater than 3%. These fracture risks are supplied above in the FRAX score, if applicable. * Clinician judgement and/or patient preferences may indicate treatment for people with 10-year fracture probabilities above or below these levels. Dictated by: Dictated on workstation # [id number]
== END ==
LOC: RAD 13:49
PROVIDERS: ATTEND Nurse Practitioner Family
DX: Z13.820 Encounter for screening for osteoporosis (principal); M85.89 Other specified disorders of bone density and structure, multiple sites; M80.00XA Age-related osteoporosis with current pathological fracture, unspecified site, initial encounter for fracture; Z78.0 Asymptomatic menopausal state
CPT/HCPCS: 77080

== ENCOUNTER → 2022-08-30 | Outpatient (CLI) | payer MEDICARE, OTHER ==
[~2022-08-30] VITALS: Wt 59.6 kg
[~2022-08-30] MED LIST changes: +EVENITY SQ SCH; +SENN-271 PO; -SENN1TAB76 PO; +[UNRECOGNIZED DRUG - OTHER] SQ SCH
[2022-08-30 12:00] VITALS: BP 180/72
== END ==
LOC: SDC 11:27
PROVIDERS: ATTEND Internal Medicine
DX: M80.08XA Age-related osteoporosis with current pathological fracture, vertebra(e), initial encounter for fracture (principal)
CPT/HCPCS: 96372

== ENCOUNTER 2022-10-01 11:34 | Outpatient (RCR) | payer MEDICARE, OTHER ==
[~2022-10-01 11:34] MED LIST changes: -EVENITY SQ SCH; -[UNRECOGNIZED DRUG - OTHER] SQ SCH
[2022-10-01] MEDS ORDERED: EVENITY SQ SCH (11:51)
[2022-10-01] MEDS ORDERED: [UNRECOGNIZED DRUG - OTHER] SQ SCH (11:51)
[2022-10-01 12:20] VITALS: BP 193/83
== END 2022-10-19 | disposition home or self-care (01) ==
LOC: SDC 11:34
PROVIDERS: ATTEND Internal Medicine
DX: M80.08XD Age-related osteoporosis with current pathological fracture, vertebra(e), subsequent encounter for fracture with routine healing (principal)
CPT/HCPCS: 96372

== ENCOUNTER 2022-10-31 11:38 | Outpatient (RCR) | payer MEDICARE, OTHER ==
[2022-10-31] MEDS ORDERED: EVENITY SQ SCH (11:46)
[2022-10-31] MEDS ORDERED: [UNRECOGNIZED DRUG - OTHER] SQ SCH (11:46)
[2022-10-31 12:32] VITALS: BP 170/65
== END 2022-11-19 | disposition home or self-care (01) ==
LOC: SDC 11:38
PROVIDERS: ATTEND Internal Medicine
DX: M80.08XD Age-related osteoporosis with current pathological fracture, vertebra(e), subsequent encounter for fracture with routine healing (principal)
CPT/HCPCS: 96372

== ENCOUNTER 2022-12-03 11:08 | Outpatient (RCR) | payer MEDICARE, OTHER ==
[~2022-12-03 11:08] MED LIST changes: -DICL100G13 TOP; +DICL100G60 TOP
[2022-12-03] MEDS ORDERED: EVENITY SQ SCH (12:00)
[2022-12-03] MEDS ORDERED: [UNRECOGNIZED DRUG - OTHER] SQ SCH (12:00)
[2022-12-03 12:10] VITALS: BP 142/53
== END 2022-12-20 | disposition home or self-care (01) ==
LOC: SDC 11:08
PROVIDERS: ATTEND Internal Medicine
DX: M80.08XD Age-related osteoporosis with current pathological fracture, vertebra(e), subsequent encounter for fracture with routine healing (principal)
CPT/HCPCS: 96372

== ENCOUNTER 2023-01-02 11:37 | Outpatient (CLI) | payer MEDICARE, OTHER ==
[~2023-01-02] VITALS: Ht 167.7 cm; Wt 59.6 kg
[2023-01-02] MEDS ORDERED: EVENITY SQ SCH (12:00)
[2023-01-02] MEDS ORDERED: [UNRECOGNIZED DRUG - OTHER] SQ SCH (12:00)
[2023-01-02 12:15] VITALS: BP 152/82
== END 2023-01-02 12:15 | disposition home or self-care (01) ==
LOC: SDC 11:37
PROVIDERS: ATTEND Internal Medicine
DX: M80.08XA Age-related osteoporosis with current pathological fracture, vertebra(e), initial encounter for fracture (principal)
CPT/HCPCS: 96372

== ENCOUNTER → 2023-02-01 | Outpatient (CLI) | payer MEDICARE, OTHER ==
[~2023-02-01] VITALS: Wt 59.6 kg
[~2023-02-01] MED LIST changes: +EVENITY SQ SCH; +[UNRECOGNIZED DRUG - OTHER] SQ SCH
[2023-02-01 13:03] VITALS: BP 191/70
== END ==
LOC: SDC 12:31
PROVIDERS: ATTEND Internal Medicine
DX: M80.08XA Age-related osteoporosis with current pathological fracture, vertebra(e), initial encounter for fracture (principal)
CPT/HCPCS: 96372

== ENCOUNTER → 2023-03-04 | Outpatient (CLI) | payer MEDICARE, OTHER ==
[~2023-03-04] MED LIST changes: -EVENITY SQ SCH; -[UNRECOGNIZED DRUG - OTHER] SQ SCH
[2023-03-04 13:30] VITALS: BP 176/73
[2023-03-04] MEDS: [UNRECOGNIZED DRUG - OTHER] SQ SCH (13:55)
[2023-03-04] MEDS: EVENITY SQ SCH (13:55)
== END ==
LOC: SDC 13:12
PROVIDERS: ATTEND Internal Medicine
DX: M80.08XA Age-related osteoporosis with current pathological fracture, vertebra(e), initial encounter for fracture (principal)
CPT/HCPCS: 96372